=== PATIENT | male | born 1935 | race Caucasian/White ===

== ENCOUNTER → 2017-11-15 10:25 | Outpatient (CLI) | payer MEDICARE, SELFPAY | PROVIDERS: Visit Provider Nurse Practitioner Adult Health | DX: R31.0 Gross hematuria (principal) | CPT/HCPCS: 87086; 87088; 87186 ==

== ENCOUNTER 2017-11-18 10:11 | Emergency (ER) | payer MEDICARE, SELFPAY ==
[2017-11-18 10:12] VITALS: BP 93/61; PULSE 93; RESP 18; TEMP 36.6; O2SAT 97; BMI 24.4
[2017-11-18] MEDS: 0.9% Normal Saline 1,000 ML 150 ML IV ×2 (10:52→18:08)
[2017-11-18] MEDS: Ceftriaxone 1 GM/50 ML BAG IV (10:52)
[2017-11-18 11:00] LABS: Absolute Lymphocyte Count 1.44 X10^3/ul (0.83-4.51); Absolute Neutrophil Count 9.2 X10^3/uL (2.0-7.7); Basophil# 0.03 X10^3/uL; Basophil% 0.2 % (0-1); Eosinophil# 0.15 X10^3/uL; Eosinophils% 1.2 % (0-5); Hematocrit 38.5 % (40-54); Hemoglobin 12.8 g/dl (13.0-16.5); Lymphocyte # 1.44 X10^3/ul (4.0); Lymphocyte % 11.8 % (19-41); Mean Corp Hgb Conc 33.2 g/gl (32-36); Mean Corpuscular Hgb 29.3 pg (27.0-32.0); Mean Corpuscular Volume 88.1 fL (80-94); Mean Platelet Vol. 10.3 fl (6.2-12.0); Monocyte# 1.41 X10^3/uL; Monocyte% 11.5 % (0-10); Neutrophil # 9.16 X10^3/uL (2.7-7.7); Neutrophil % 74.8 % (47-70); Platelet Count 388 K/mm3 (150-450); RBC Distribution Width SD 55.4 fl (35.1-43.9); Red Blood Count 4.37 M/mm3 (4.6-6.2); White Blood Count 12.3 K/mm3 (4.4-11.0)
[2017-11-18 11:03] LABS: POSITIVE COUNT NO; POSITIVE DIFFERENTIAL NO; POSITIVE MORPHOLOGY NO
[2017-11-18 11:05] LABS: Prothrombin Time (Protime)PT. 12.7 SECONDS (11.7-14.9)
[2017-11-18 11:13] LABS: AST(SGOT) 100 U/L (15-37); Alanine Aminotransfer ALT/SGPT 178 U/L (16-61); Albumin, Serum 2.8 g/dL (3.2-5.0); Alkaline Phosphatase 659 U/L (45-117); Anion Gap 6 (5-15); BUN 40 mg/dL (7-18); BUN/Creat Ratio 26.7 RATIO (10-20); Bilirubin, Direct 7.57 mg/dL (0.00-0.30); Calcium,Total 8.9 mg/dL (8.5-10.1); Chloride 110 mmol/L (98-107); EST Glomerular Filtration Rate 48 mL/min (>60); Est Glom Filt Rate - Afr Amer 58 mL/min (>60); Estimated Creatinine Clearance 43.11 ml/min; Globulin 3.9 g/dL (2.2-4.2); Glucose 146 mg/dL (74-106); Lipase 94 U/L (73-393); Potassium 3.9 mmol/L (3.5-5.1); Protein, Total 6.7 g/dL (6.4-8.2); Sodium Level 140 mmol/L (136-145)
--- NOTE | 2017-11-18 11:18 | US_ITS ---
STUDY: ABDOMINAL ULTRASOUND - RIGHT UPPER QUADRANT REASON FOR VISIT: Male, 82 years old. Abnormal laboratory findings TECHNIQUE: Ultrasound evaluation of the right upper quadrant was performed with real-time and static maxwell-scale imaging. TECHNICAL QUALITY: Limited. Examination limited by bowel gas. COMPARISON: CT 04/18/2014 FINDINGS: Liver: The liver measures 15.1 cm. There is increased echogenicity consistent with fatty infiltration. The bile ducts are within normal limits. There is hepatic color flow. The direction of portal flow is hepatopetal. There is a septated cyst within the left lobe of the liver measuring 2.7 cm. Gallbladder: Normal distended gallbladder. The gallbladder wall measures 3.5 mm. There is no pericholecystic fluid. There is gallbladder sludge and a solitary gallstone measuring 1.2 cm. Common Bile Duct (C.B.D.): The common bile duct measures 5.7 mm. Pancreas: The pancreas is unremarkable. Right Kidney: Normal size of the right kidney. The right kidney measures 11 x 5.8 x 5.8 cm. Normal renal cortex. The right cortex measures 1.9 cm. There is a 2.5 cm cyst along the superior pole of the right kidney. There is no right hydronephrosis. US/Gallbladder IMPRESSION: Cholelithiasis with gallbladder sludge. The gallbladder wall is slightly thickened. Hepatic steatosis with a lobular hepatic cyst. Electronically Signed: Kalyan Perez DO at 12:44 EDT Tel , Service support ,
--- NOTE | 2017-11-18 13:00 | CT_ITS ---
STUDY: CT ABDOMEN AND PELVIS WITH CONTRAST REASON FOR EXAM: Male, 82 years old. Painless jaundice RADIATION DOSAGE (If Supplied By Facility): CTDIvol = ( 14.32 ) mGy, DLP = ( 913.40 ) mGycm TECHNIQUE: Transaxial images were obtained from the dome of the diaphragm to the symphysis pubis with oral contrast. 100 ml of Isovue 300 contrast was administered. Sagittal and coronal images were reconstructed. Individualized dose optimization techniques were used for this CT. COMPARISON: Ultrasound 11/18/2017, CT 04/18/2014 FINDINGS: The visualized lung bases are unremarkable. The visualized portions of the heart are within normal limits. There is a lobular cyst within the left lobe of the liver. There is moderate intrahepatic biliary ductal dilation. The common duct is prominent. 2 small stones are seen within the common duct. There are gallstones present. There are multiple benign calcified granulomata of the spleen. There is diffuse atrophy of the pancreas. Normal bilateral adrenal glands. There is a 1.8 cm cyst within the right kidney. Normal left kidney. Normal visualized stomach. Normal small intestine. There are multiple colonic diverticula consistent with diverticulosis. The appendix is visualized and appears normal. There is diffuse atherosclerotic calcification of the abdominal aorta, without a demonstrated aneurysm. Normal inferior vena cava. Normal retroperitoneum. Normal urinary bladder. The prostate gland is enlarged and heterogeneous. Normal abdominal wall. There are diffuse degenerative changes of the visualized lumbar spine. CT/Abdomen/Pelvis WITH Contrast IMPRESSION: Intrahepatic biliary ductal dilation. Cholelithiasis and choledocholithiasis. Pancreatic atrophy. Diverticulosis, without acute diverticulitis. Additional findings, as detailed above. Electronically Signed: Kalyan Perez DO at 15:43 EDT Tel , Service support ,
[2017-11-18] MEDS: 0.9% Normal Saline 1,000 ML 1000 ML IV (13:44)
--- NOTE | 2017-11-18 14:24 | CM.ED ---
CM notified that patient is likely to need to transfer. Patient has [employer] Medicare PPO plan. In-Network Facilities include: - [facility] - [facility] - [facility] - [facility] - [facility] - [facility] - [facility] - [facility] Call placed to patient's , Radha. Radha states she is not comfortable driving outside of [facility]. She states the patient hasn't spoken to his sons in years and his daughter is local but doesn't drive in the big cities. Radha refuses all facilities listed above. I informed her we will let her know any further information and she states she may not answer because, [place] and need to feed my chickens. I asked whom we should call if unable to reach her. She provided patient's daughter's phone number. Megha Thomas Jairon : [phone]. Of note, [facility] is an In-Network facility for this patient as well. I did not discuss this option with the patient's , as I am unsure if this facility provides needed level of care.
[2017-11-18 16:13] VITALS: BP 119/73; PULSE 71; RESP 18; O2SAT 100
--- NOTE | 2017-11-18 17:03 | ED.VISSUMM ---
- ER Visit Summary Date of Service: 11/18/17 Chief Complaint: Jaundice History of Present Illness: The patient is a [address] Mari and does not have a primary care physician. He is a poor informant. He went to an appointment with Dr. Mari today and was sent here for evaluation of jaundice. Patient reports this point started approximately 2 weeks ago. He denies any abdominal pain. No nausea, vomiting, or diarrhea. No fever or chills. Does report that he has had hematuria for approximately 3 weeks and complains of generalized weakness. Physical Examination: Vitals: Stable. Afebrile. General: Well-nourished and well-developed. Head: Normocephalic atraumatic. Neck: Supple, no lymphadenopathy. No JVD. Nontender. Cardiovascular: Regular rate and rhythm. No murmurs. Respiratory: No respiratory distress. Clear to auscultation bilaterally. Abdominal: Soft, nontender, nondistended, normal bowel sounds. No guarding, rebound, or peritoneal signs. Back: Nontender. Extremities: Nontender, no edema. Skin: Jaundice, no rash. Neurologic: Alert and oriented ?3. Cranial nerves II through XII are intact. Normal strength and sensation. Psych: Normal affect. Test Results: CBC is marked for a white count of 12.3, H&H of 12.8 and 38.5, segmented neutrophils 75, lymphocytes of 12, monocytes 12. Chem-7 is more for chloride 110, glucose 146, BUN 40, creatinine 1.5. LFTs marked for an albumin of 2.8, total bili of 9.2, direct bili of 7.57, alk phos of 659, ALT of 100, ALT 178. lipase is normal. INR is 1.0. Clinical Impression(s) from Imaging Studies Gallbladder Ultrasound 11/18/17 11:18 IMPRESSION: Cholelithiasis with gallbladder sludge. The gallbladder wall is slightly thickened. Hepatic steatosis with a lobular hepatic cyst. Abdomen/Pelvis CT 11/18/17 13:00 IMPRESSION: Intrahepatic biliary ductal dilation. Cholelithiasis and choledocholithiasis. Pancreatic atrophy. Diverticulosis, without acute diverticulitis. Emergency Department Course and Treatment: Patient presented to the emergency department with a urine culture that shows greater than 100,000 colony-forming units of E. coli that is pansensitive. He was given Rocephin IV initially for this. When the CT returned he was given a dose of Flagyl IV. He is remained pain-free. Treatment Plan: The patient was discussed with Dr. Leavitt who asked that he be transferred to a tertiary care center due to the need for an ERCP. Family has chosen [facility]. He was discussed with the hospitalist there who is accepted him in transfer. Disposition: Transferred in serious condition. Impression: 1. Choledocholithiasis. 2. UTI. 3. Jaundice. This note was generated with [employer] dictation software. It may contain incorrect words, spelling, and punctuation that were not noted in review of the chart prior to signing ED Disposition - Plan for ED Patient: Chief Complaint: General Illness Referrals: Care Physician,No Primary [Primary Care Provider] -
[2017-11-18 18:09] VITALS: BP 122/79; PULSE 70; RESP 20; O2SAT 100
[2017-11-18 18:56] VITALS: BP 125/81; PULSE 95; RESP 20; O2SAT 100
== END 2017-11-18 20:05 | disposition short-term general hospital (02) ==
PROVIDERS: Emergency Provider Emergency Medicine
DX: K80.50 Calculus of bile duct without cholangitis or cholecystitis without obstruction (principal); N39.0 Urinary tract infection, site not specified; B96.20 Unspecified Escherichia coli [E. coli] as the cause of diseases classified elsewhere; R17 Unspecified jaundice; R31.9 Hematuria, unspecified; K86.89 Other specified diseases of pancreas; K57.90 Diverticulosis of intestine, part unspecified, without perforation or abscess without bleeding; F31.9 Bipolar disorder, unspecified; Z79.899 Other long term (current) drug therapy; Z85.72 Personal history of non-Hodgkin lymphomas
CPT/HCPCS: 74177; 76705; 80048; 80076; 83690; 85025; 85610; 99283; J7030; Q9967

== ENCOUNTER → 2017-12-23 15:36 | Outpatient (CLI) | payer MEDICARE, SELFPAY | PROVIDERS: Visit Provider Urology | DX: R31.9 Hematuria, unspecified (principal) | CPT/HCPCS: 87077; 87086; 87088; 87186 ==

== ENCOUNTER 2020-05-18 11:33 | Inpatient (IN) | payer MEDICARE, OTHER, SELFPAY ==
[2020-05-18] VITALS (11 sets, daily range): BP systolic 122–145; BP diastolic 79–100; PULSE 85–130; RESP 16–24; TEMP 36.3–37.8; O2SAT 92–96; BMI 22.4; BMI 21.8
--- NOTE | 2020-05-18 | ABS_PTH ---
PATIENT: TALIA BAIG LOC: [facility] U#:[id number] AGE/SX: 84/M ROOM: [facility] RE05/18/[address]: Dr. Luis Fernando Keene MD : [id number] BED: 1 DIS: 05/23/2020 SPEC #: [id number] RECD: 05/19/20 07:37 STATUS: ADILENE REQ #: [id number] ADAMS: 05/18/20 00:[address]: Sudhakar Lucero DEPT: SURGICAL PATHOLOGY RECD BY: Rory aBin ENTERED: 05/19/20 09:17 SP TYPE: Abscess OTHR DR: Dr. Carlos Donahue MD No Primary Care Phys Tissues: Hand, NOS Procedures: Special Stain Group I Surgery Specimen Level III AFB Stain (control) GMS Stain (control) Comments: @ Ordering doctor for SUIII edited from to @ by ADRIÁN at 05/19/20 1011 @ Submitting doctor edited from to @ by ADRIÁN at 05/19/20 1011 HEADER OPERATION: Surgical preparation dorsum left hand, ulnar aspect PRE-OP DIAGNOSIS: Infected cat bite; abscess left hand TISSUE SUBMITTED: Left hand/wrist cat bite abscesses MICROSCOPIC DIAGNOSIS Left hand/wrist soft tissue: Pieces of skin with underlying tissue with focal ulceration, acute inflammation and abscess formation. Special stains for acid fast bacilli and fungi are negative for organisms; matched controls are appropriate. ALYSON:chung 05/20/20 MICROSCOPIC DESCRIPTION Slides are reviewed. GROSS DESCRIPTION Received in fixative is one container labeled with the patient's name and designated left hand soft tissue. The specimen consists of an ovoid fragment of monge tissue measuring 4 x 2.5 x 0.5 cm. The specimen contains two ulcerations each measuring 5 mm and from each other by a distance of 1.1 mm. Serial sections do not reveal mass lesions. Also present in the specimen contains are multiple irregular fragments of monge-white soft tissue measuring in aggregate 3 x 3 x 0.2 cm. Web Applications Administrator sections are submitted in one cassette. / AM:chung 05/19/20 TC:2 CPT: 60544, 09846 x2
--- NOTE | 2020-05-18 11:57 | EKG12_ITS ---
Test Reason : PRE-OP Blood Pressure : / mmHG Vent. Rate : 102 BPM Atrial Rate : 102 BPM P-R Int : 200 ms QRS Dur : 088 ms QT Int : 336 ms P-R-T Axes : 042 038 034 degrees QTc Int : 437 ms Sinus tachycardia Otherwise normal ECG Confirmed by MONY GIRON, ADOLPH ([id number]), legal editor FARHAT POLANCO ([id number]) on 05/25/2020 10:25:26 AM Referred By: SHELLY Confirmed By:APRYL SYKES MD
--- NOTE | 2020-05-18 11:59 | RAD_ITS ---
STUDY: X-RAY - LEFT HAND REASON FOR EXAM: Male, 84 years old. Cat bite, infected TECHNIQUE: 4 view(s) of the hand. COMPARISON: None. FINDINGS: Normal radiocarpal articulation. Normal distal radioulnar joint. Normal visualized carpal bones. Normal carpal articulations Normal carpometacarpal articulation of the thumb. Normal second through fifth carpometacarpal joints. Normal metacarpi. Normal metacarpophalangeal joint of the thumb. Normal interphalangeal joint of the thumb. Normal proximal and distal phalanges of the thumb. Normal metacarpophalangeal joints of the second through fifth fingers. Normal proximal and distal interphalangeal joints of the second through fifth fingers. Normal phalanges of the second through fifth fingers. Dorsal soft tissue swelling. Small amount of air/gas is seen within the soft tissue. RAD/Hand Min 3 Views IMPRESSION: Dorsal soft tissue swelling with small amount of air/gas within the soft tissues. No radiopaque foreign body is seen. Electronically Signed: Ivan Cintron, at 12:51 EST , Service support ,
--- NOTE | 2020-05-18 12:00 | ED.DCSUM_ITS ---
History of Present Illness Chief Complaint: Bite Informant: Patient Onset: Days Context: Sudden Onset Timing: Continuous Quality: Redness, swelling and drainage Location: Left hand Current Severity: Moderate Maximum Severity: Severe Worsened by: Did not seek medical attention Relieved by: Nothing Associated Symptoms: Swelling, redness, drainage, pain Narrative: Patient is an elderly male with history of benign prostatic hypertrophy who presents because of swelling, redness and pain left hand. He was bit by his cat last week. He has not been immunized. He denies antibiotic allergies. He denies fever, chills night sweats. Denies history medic fever, heart murmur, mitral valve prolapse, or being immune suppressed. Patient states he last had something to eat and drink at 0900. - Past Medical History (1) History of benign prostatic hyperplasia Status: Acute (2) Bipolar disorder Status: Chronic (3) Lymphoma Status: Chronic Past Medical History - Allergies and Home Meds Allergies/Adverse Reactions: Allergies No Known Allergies Allergy (Verified 05/18/20 11:36) Primary Care Physician: Care Physician,No Primary [Primary Care Provider] - Prior records reviewed: Yes Surgical History: noncontributory, - Lives: Spouse/ Significant Other Smoking Status: Former smoker Alcohol: None Drugs: None - Family History Maternal Family History: Reports: - - cardiomyopathy Paternal Family History: Reports: No pertinent history Sibling Family History: Reports: - - schizophrenia in sister Review of Systems General: Reports: Fever, Malaise, Subjective. Denies: Chills, Sweats Eyes: Denies: Visual changes - bilaterally, Blurred Vision - bilaterally ENT: Denies: Rhinorrhea, Sore throat Cardiovascular: Denies: Chest pain, Palpitations Respiratory: Denies: Dyspnea, Cough, Sputum, Dyspnea on exertion Gastrointestinal: Denies: Abdominal pain, Nausea, Vomiting Genitourinary: Denies: Dysuria, Hematuria, Frequency Musculoskeletal: Reports: Swelling, Extremity Pain. Denies: Myalgias, Arthralgias, Neck pain, Back pain Skin: Reports: Rash, Abscess, Wounds. Denies: Abrasions Neurological: Denies: Headache, Weakness Endocrine: Denies: Polyuria, Polydipsia Hematologic: Denies: Easy bruising Allergy: Denies: Uticaria Physical Exam Vital Signs/Narrative: Vital Signs Temp Pulse Resp BP Pulse Ox 05/18/20 11:34 97.4 F L 130 H 20 H 144/100 H 96 Inital Vital Signs reviewed: Yes General: Well nourished, Well developed, No Acute Distress Head: Normocephalic, Atraumatic Eyes: Perrl, EOMI. Negative for: Pale conjunctiva, Scleral icterus ENT: No rhinorrhea, TM's clear Neck: Supple, Nontender, No lymphadenopathy Cardiovascular: Regular rhythm, No murmurs, Normal S1, Normal S2, Tachycardia Respiratory: No distress, CTA bilaterally, Chest nontender Abdomen: Soft, Nontender, Nondistended, Normal bowel sounds Back: Nontender Extremities: Edema, - - Patient has significant swelling of the left hand with wound noted dorsal ulnar side with purulent drainage. There is significant swelling of his digits. Patient was informed that his ring would need to be removed. He has erythema volar surface left forearm to the mid arm.. Negative for: Nontender, No edema, Tenderness - There is no pain with passive flexion or extension of the index, long, ring or little finger. There is pain to palpation over the dorsum of the hand. There is no crepitus. Skin: Normal color, Rash, Trauma. Negative for: Cyanosis, Diaphoresis, Jaundice Neurological: Alert, Oriented x3, Cranial nerves II-XII grossly intact, Normal Strength, Normal Sensation Psychological: Normal affect Diagnostic/Tx/Re-eval Chest X-Ray - ED: Read by ED Physician, - - 5 view x-ray of the hand reveals subcu air along the third metacarpal bone. In light of this patient will receive vancomycin and clindamycin in addition to the ampicillin. Impressions Hand X-Ray 05/18/20 11:59 IMPRESSION: Dorsal soft tissue swelling with small amount of air/gas within the soft tissues. No radiopaque foreign body is seen. Electronically Signed: Ivan Cintron, at 12:51 EST , Service support , 05/18/20 11:59 Hand Min 3 Views [RAD] Stat Laboratory Results 05/18/20 05/18/20 12:10 12:10 WBC 14.9 H RBC 4.86 Hgb 14.7 Hct 44.0 MCV 90.5 MCH 30.2 MCHC 33.4 RDW Std Deviation 42.0 RDW Coeff of Nahed 12.7 Plt Count 229 MPV 10.7 Immature Gran % (Auto) 0.500 Neut % (Auto) 81.7 H Lymph % (Auto) 7.7 L [place] % (Auto) 9.8 Eos % (Auto) 0.1 Baso % (Auto) 0.2 Absolute Neuts (auto) 12.1 H Absolute Lymphs (auto) 1.14 Nucleated RBC % 0 Sodium 146 H Potassium 3.9 Chloride 112 H Carbon Dioxide 28.0 Anion Gap 6 BUN 48 H Creatinine 1.44 H Estim Creat Clear Calc 41.87 Est GFR (MDRD) Af Amer 60 Est GFR (MDRD) Non-Af 50 L BUN/Creatinine Ratio 33.3 H Glucose 191 H Calcium 9.2 Lactate is not greater than 2 he has sepsis not severe sepsis. - Medical Decision Making Patient received tetanus and Hyper-Tet since he is never been immunized. He received 3.0 g of Unasyn since he has no penicillin allergy. He was made n.p.o. Appropriate labs were obtained. Patient meets criteria for sepsis. Will obtain blood cultures. Dr. Sudhakar Lucero was paged. X-ray was obtained to rule out tooth fragment or injury to the metacarpal bones. Since her subcu air need to rule out gas producing organisms and and need to consider necrotizing fasciitis/group strep a organism. For this reason he received clindamycin. does have POA. She reports he has altered mental status. She will sign consent. - Critical Care Time Critical care time (excluding procedures): 30-74 minutes - Total 3 3 minutes, Discussing w/Patient &/or Family/Development Vice President - Since patient has altered mental status was paged. She arrived in the emergency part. She is aware that her needs to go to the OR. She is the POA. This was conveyed to Dr. Lucero., Discussing w/Consultants, Arranging Admission or Transfer ED Disposition - Plan for ED Patient: Disposition: [facility] Diagnosis: Cat bite of left hand, Cellulitis and abscess of hand, Elevated serum creatinine, Hypernatremia, Hyperglycemia, Abscess Referrals: Care Physician,No Primary [Primary Care Provider] -
[2020-05-18 12:41] LABS: Absolute Lymphocyte Count 1.14 X10^3/uL (0.83-4.51); Absolute Neutrophil Count 12.1 X10^3/uL (2.0-7.7); Basophil# 0.03 X10^3/uL; Basophil% 0.2 % (0-1); Eosinophil# 0.02 X10^3/uL; Eosinophils% 0.1 % (0-5); Hemoglobin 14.7 g/dL (13.0-16.5); Lymphocyte # 1.14 X10^3/ul (4.0); Lymphocyte % 7.7 % (19-41); Mean Corp Hgb Conc 33.4 g/dL (32-36); Mean Corpuscular Hgb 30.2 pg (27.0-32.0); Mean Corpuscular Volume 90.5 fL (80-94); Mean Platelet Vol. 10.7 fl (6.2-12.0); Monocyte# 1.45 X10^3/uL; Monocyte% 9.8 % (0-10); NRBC Flagged by Analyzer 0 % (0-5); Neutrophil # 12.13 X10^3/uL (2.7-7.7); Neutrophil % 81.7 % (47-70); Platelet Count 229 K/mm3 (150-450); RBC Distribution Width CV 12.7 % (11.6-14.6); Red Blood Count 4.86 M/mm3 (4.6-6.2); White Blood Count 14.9 K/mm3 (4.4-11.0)
[2020-05-18 12:47] LABS: Anion Gap 6 (5-15); BUN 48 mg/dL (7-18); BUN/Creat Ratio 33.3 RATIO (10-20); Calcium,Total 9.2 mg/dL (8.5-10.1); Chloride 112 mmol/L (98-107); Creatinine, Serum 1.44 mg/dL (0.70-1.30); EST Glomerular Filtration Rate 50 mL/min (>60); Est Glom Filt Rate - Afr Amer 60 mL/min (>60); Estimated Creatinine Clearance 41.87 ml/min; Glucose 191 mg/dL (74-106); Potassium 3.9 mmol/L (3.5-5.1); Sodium Level 146 mmol/L (136-145)
[2020-05-18] MEDS: Diphth,Pertuss(Acell),Tet Vac 0.5 ML Vial IM (12:48)
--- NOTE | 2020-05-18 12:48 | HP.PCM_ITS ---
Problem List (1) History of benign prostatic hyperplasia Status: Chronic (2) Cat bite of left hand Status: Acute (3) Cellulitis and abscess of hand Status: Acute (4) Hypernatremia Status: Acute (5) Abscess Status: Acute (6) Generalized weakness Status: Chronic (7) Physical debility Status: Chronic (8) Marrowbone toxicity Status: Chronic (9) Lymphoma Status: Chronic (10) Bipolar disorder Status: Chronic (11) ELVIN (acute kidney injury) Status: Acute History of Present Illness Date of Admission: 05/18/20 Chief Complaint: Cat bite left hand a week ago The patient is a 84 year old M with possible history of dementia came to ED for left hand cat bite, swelling and draining purulent material. He had a cat bite about a week ago. That cat is not his pet or in the neighborhood. Swelling of the left hand, edema, pain and purulent drainage from left metatarsal space. Patient not able to make fist. In ED triage vitals 97.4, heart rate 130/min, blood pressure 144/100 and respiratory rate 20 per note. EKG sinus tach at 102 bpm. History is limited as patient has mild cognitive deficit/early dementia or bipolar disorder. was in the ER but she left. I also called phone #[phone] the patient's chart about 3 times but phone is not going through probably wrong number Past Medical History Past Medical History (Chronic Problems): Chronic Problems History of benign prostatic hyperplasia (Chronic) Generalized weakness (Chronic) Physical debility (Chronic) Marrowbone toxicity (Chronic) Lymphoma (Chronic) Bipolar disorder (Chronic) Allergies No Known Allergies Allergy (Verified 05/18/20 11:36) Home Medications: Ambulatory Orders Medication Instructions Recorded Olanzapine [Zyprexa] 7.5 mg PO QHS 04/18/14 Oxybutynin Chloride [Oxybutynin 15 mg PO QHS 05/18/20 Chloride ER] Surgical History: noncontributory, - Psychiatric History: Bipolar Lives: Spouse/ Significant Other Smoking Status: Never smoker Alcohol: None Drugs: None - *Family History Maternal History Items: - - cardiomyopathy Paternal History Items: No pertinent history Sibling History Items: - - schizophrenia in sister Review of Systems Unable to obtain accurate/complete ROS d/t: Patient has dementia and bipolar disorder VTE Information - Inpt Only VTE Present on Admission: No VTE Mechan Device Prophylaxis: None VTE Pharm Prophylaxis ordered?: Yes Patient Problems: Active and Suspected Problems Cat bite of left hand (Acute) Cellulitis and abscess of hand (Acute) Hypernatremia (Acute) Hyperglycemia (Acute) Abscess (Acute) Objective: Physical exam General: Alert, awake, Oriented x3, Cooperative HEENT: Atraumatic, PERRLA, EOMI, Normocephalic Oral: No Gingival or Mucosal Lesions/ Ulcerations Neck: Supple, No JVD, Negative Carotid Bruits Lungs: Air entry diminished in bilateral lung bases. No crepitation/rhonchi Cardiovascular: Regular rate, Regular Rhythm, Normal S1, Normal S2, No murmurs Abdomen: Bowel Sounds Present, Soft, Non Tender, Non-Distended : No renal angle tenderness. No suprapubic tenderness. Extremities: Left hand is edematous, tender, indurated. Purulent drainage from from the left fourth metatarsal space. Radial and ulnar artery palpable. Capillary Refill Less than 3 Seconds Skin: Erythema, induration and swelling in the left hand as described above Musculoskeletal: No Tenderness to Palpation of Joints or Extremities Neurological: Cranial nerves II-XII grossly intact, Deep Tendon Reflexes 2+/4 and Symmetrical, Neuro grossly intact Psych/Mental Status: Mild cognitive deficit/early dementia - Physical Exam Vitals/I&O's: Vital Signs Temp Pulse Resp BP Pulse Ox 97.4 F L 130 H 20 H 144/100 H 96 05/18/20 11:34 05/18/20 11:34 05/18/20 11:34 05/18/20 11:34 05/18/20 11:34 Oxygen Delivery Method Room Air Weight: 165 lb Body Mass Index (BMI) 22.4 Laboratory Results 05/18/20 12:10: WBC 14.9 H, RBC 4.86, Hgb 14.7, Hct 44.0, MCV 90.5, MCH 30.2, MCHC 33.4, RDW Std Deviation 42.0, RDW Coeff of Nahed 12.7, Plt Count 229, MPV 10.7, Immature Gran % (Auto) 0.500, Neut % (Auto) 81.7 H, Lymph % (Auto) 7.7 L, [place] % (Auto) 9.8, Eos % (Auto) 0.1, Baso % (Auto) 0.2, Absolute Neuts (auto) 12.1 H, Absolute Lymphs (auto) 1.14, Nucleated RBC % 0 05/18/20 12:10: Sodium 146 H, Potassium 3.9, Chloride 112 H, Carbon Dioxide 28.0, Anion Gap 6, BUN 48 H, Creatinine 1.44 H, Estim Creat Clear Calc 41.87, Est GFR (MDRD) Af Amer 60, Est GFR (MDRD) Non-Af 50 L, BUN/Creatinine Ratio 33.3 H, Glucose 191 H, Calcium 9.2 05/18/20 12:10: Lactic Acid Pending Current Medications Sodium Chloride () 1,000 mls @ 150 mls/hr IV .[id number] MARY Clindamycin Phosphate 900 mg/ (Dextrose) 106 mls @ 150 mls/hr IV X1 ONE Stop: 05/18/20 13:08 Vancomycin HCl 1,750 mg/ (Sodium Chloride) 535 mls @ 250 mls/hr IV X1 ONE Stop: 05/18/20 15:08 Assessment/Plan All Active Problems Cat bite of left hand (Acute) Cellulitis and abscess of hand (Acute) Hypernatremia (Acute) Hyperglycemia (Acute) Abscess (Acute) ELVIN (acute kidney injury) (Acute) This 84-year-old woman with history of cognitive deficit and bipolar disorder came to ED for left hand swelling after 1 week of cat bite. 1. Left hand cellulitis and abscess with purulent drainage from cat bite: Patient is being admitted to MedSurg floor. Dr. Lucero has been consulted from ER physician Dr. Mensah. Started on the broad-spectrum antibiotic vancomycin and Unasyn. Patient also got 1 dose of clindamycin 900 mg in ED. patient needs operative debridement. 2. Possible acute kidney injury or CKD stage III: Patient BUN/creatinine is 48/1.44. His previous creatinine in November 2017 was 1.5. No labs in between this. Monitor kidney function, urine output and electrolytes. Patient has history of BPH. If kidney junction does not improve, will need renal and bladder ultrasound. IV fluid normal saline at 100 mL/h. 3. Hyperglycemia with no diagnosis of diabetes mellitus: Glucoses 191. A1c tomorrow a.m. Accu-Chek insulin coverage Humalog sliding scale. VT prophylaxis: Heparin 5000 units subcutaneous twice daily. Hold the morning dose prior to surgery. Inpatient E&M: 42137 Init Hosp L3
--- NOTE | 2020-05-18 13:13 | NURSING ---
PCU AFTER SURGERY MARY LOU SEPSIS, CELLULITIS LEFT HAND AND ABSCESS
[2020-05-18] MEDS: 0.9% Normal Saline 1,000 ML 150 ML IV ×2 (13:16→14:56)
--- NOTE | 2020-05-18 14:31 | PCM.CONS.GEN ---
Reason for Consult Date of Consultation: 05/18/20 Reason for Consultation: Cat bite infection abscess dorsum left hand, ulnar aspect, with extension to small finger and wrist with extensor tenosynovitis. REFERRING PHYSICIAN: Dr. Donahue. CERTIFIED JUVENILE PROBATION OFFICER: Dr. Lucero. History of Present Illness: The patient is a 84 year old M who was admitted today with a worsening cat bite infection abscess dorsum left hand, ulnar aspect, with extension to the small finger and wrist. He states he was bitten 8 days ago, and it was an outdoor feral cat. He noticed increasing redness and pain and swelling left hand which prompted his visit to the ED. His WBC was 14.9 and his Lactate was 2.0. Clinically he was septic and was started on Vancomycin, Clindamycin, and Unasyn. There was purulent drainage coming from the cat bite on the dorsum of his left hand. He has pain with movement of his small finger and his wrist. X-ray was done which showed dorsal soft tissue swelling with small amount of air/gas within the soft tissues. No radiopaque foreign body is seen. I was asked to evaluate this patient for surgical options for treatment. 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) Lymphoma (Chronic) Bipolar disorder (Chronic) Allergies No Known Allergies Allergy (Verified 05/18/20 11:36) Home Medications: Ambulatory Orders Medication Instructions Recorded Olanzapine [Zyprexa] 7.5 mg PO QHS 04/18/14 Oxybutynin Chloride [Oxybutynin 15 mg PO QHS 05/18/20 Chloride ER] Surgical History: noncontributory, - Psychiatric History: Bipolar Lives: Spouse/ Significant Other Smoking Status: Never smoker Alcohol: None Drugs: None - *Family History Maternal History Items: - - cardiomyopathy Paternal History Items: No pertinent history Sibling History Items: - - schizophrenia in sister Review of Systems Comment: General: Reports: Fever, Malaise, Subjective. Denies: Chills, Sweats. Eyes: Denies: Visual changes - bilaterally, Blurred Vision - bilaterally. ENT: Denies: Rhinorrhea, Sore throat. Cardiovascular: Denies: Chest pain, Palpitations. Respiratory: Denies: Dyspnea, Cough, Sputum, Dyspnea on exertion. Gastrointestinal: Denies: Abdominal pain, Nausea, Vomiting. Genitourinary: Denies: Dysuria, Hematuria, Frequency. Musculoskeletal: Reports: Swelling, Extremity Pain. Denies: Myalgias, Arthralgias, Neck pain, Back pain. Skin: Reports: Rash, Abscess, Wounds. Denies: Abrasions. Neurological: Denies: Headache, Weakness. Endocrine: Denies: Polyuria, Polydipsia. Hematologic: Denies: Easy bruising. Allergy: Denies: Uticaria Patient Problems: Active and Suspected Problems Cat bite of left hand (Acute) Cellulitis and abscess of hand (Acute) Hypernatremia (Acute) Hyperglycemia (Acute) Abscess (Acute) ELVIN (acute kidney injury) (Acute) Elevated serum creatinine (Acute) - Physical Exam Vitals/I&O's: General: Alert, awake, Oriented x3. HEENT: PERRLA, EOMI. Oral: No Gingival or Mucosal Lesions/ Ulcerations. Neck: Supple, Nontender. No cervical adenopathy. Lungs: Diminished in bilateral lung bases. Cardiovascular: Regular rate, Regular Rhythm. Abdomen: Soft, Non-Distended. Extremities: Left hand is edematous, tender, indurated. On the dorsum left hand, ulnar aspect, is a cat bite wound with purulent drainage and fluctuance. There is tenderness over the MP joint left small finger. Some tenderness with flexion and extension of small finger. Other fingers are nontender. There is also tenderness with wrist range of motion. No crepitus. Radial and ulnar artery palpable. Fingers are warm with good capillary refill. Could not appreciate any axillary adenopathy. Neurological: Cranial nerves II-XII grossly intact. Psych/Mental Status: Mild cognitive deficit/early dementia. Vital Signs Temp Pulse Resp BP Pulse Ox 98.1 F 95 16 126/85 H 96 05/18/20 13:23 05/18/20 13:57 05/18/20 13:57 05/18/20 13:57 05/18/20 13:57 Oxygen Delivery Method Room Air Weight: 165 lb Body Mass Index (BMI) 22.4 Intake and Output for Last 24 Hours 05/16/20 05/17/20 05/18/20 23:59 23:59 23:59 Intake Total 106 / 106 Balance 106 / 106 Microbiology Past 72 Hours 05/18/20 12:47 Mucosa - Nose SARS-CoV-2 Antigen (Rapid) - Final Laboratory Results 05/18/20 12:10: WBC 14.9 H, RBC 4.86, Hgb 14.7, Hct 44.0, MCV 90.5, MCH 30.2, MCHC 33.4, RDW Std Deviation 42.0, RDW Coeff of Nahed 12.7, Plt Count 229, MPV 10.7, Immature Gran % (Auto) 0.500, Neut % (Auto) 81.7 H, Lymph % (Auto) 7.7 L, [place] % (Auto) 9.8, Eos % (Auto) 0.1, Baso % (Auto) 0.2, Absolute Neuts (auto) 12.1 H, Absolute Lymphs (auto) 1.14, Nucleated RBC % 0 05/18/20 12:10: Sodium 146 H, Potassium 3.9, Chloride 112 H, Carbon Dioxide 28.0, Anion Gap 6, BUN 48 H, Creatinine 1.44 H, Estim Creat Clear Calc 41.87, Est GFR (MDRD) Af Amer 60, Est GFR (MDRD) Non-Af 50 L, BUN/Creatinine Ratio 33.3 H, Glucose 191 H, Calcium 9.2 05/18/20 12:10: Lactic Acid 2.0 Diagnostic Data Hand X-Ray 05/18/20 11:59 IMPRESSION: Dorsal soft tissue swelling with small amount of air/gas within the soft tissues. No radiopaque foreign body is seen. Electronically Signed: Ivan Saida, at 12:51 EST , Service support , Current Medications Sodium Chloride () 1,000 mls @ 150 mls/hr IV .[id number] MARY Last Admin: 05/18/20 13:16 Dose: 150 mls/hr Documented by: Vancomycin HCl 1,750 mg/ (Sodium Chloride) 535 mls @ 250 mls/hr IV X1 ONE Stop: 05/18/20 15:08 Assessment/Plan All Active Problems Abscess of skin of left wrist (Acute) Extensor tenosynovitis of left wrist (Acute) Sepsis (Acute) Abscess of left hand including fingers (Acute) Cat bite (Acute) Cat bite of left hand (Acute) Cellulitis and abscess of hand (Acute) Hypernatremia (Acute) Hyperglycemia (Acute) Abscess (Acute) ELVIN (acute kidney injury) (Acute) Elevated serum creatinine (Acute) 1. Cat bite infection abscess dorsum left hand, ulnar aspect, with extension to small finger and wrist. 2. Extensor tenosynovitis dorsum left hand at wrist. 3. Sepsis. X-ray was done which showed dorsal soft tissue swelling with small amount of air/gas within the soft tissues. No radiopaque foreign body is seen. WBC was 14.9. Lactate was 2.0. Clinically he appears septic. There is purulent drainage from the cat bite wounds and pain extending distally to the small finger and proximally to the wrist. He received Vancomycin and Unasyn and Clindamycin in the ED. Will continue the Vancomycin and the Unasyn. Due to the age of the wounds and severity of the resultant cat bite infection abscess, there is concern about a necrotizing process. Urgent operative intervention will be needed today. The patient and family were aware that delaying the surgery would increase the risk of worsening infection, amputation, and . Will leave the wounds open and begin postop wound care with Silver dressing changes. He will need aggressive OT for range of motion exercises, strengthening, and edema management. He is at risk for developing residual stiffness in his hand and wrist secondary to the infection. Will send tissue to Pathology for analysis and to Microbiology for culture. A positive culture will necessitate antibiotic therapy. Anticipate increased metabolic demands from the infection. Will check a Prealbumin and encourage nutritional supplementation with protein to help the healing process. After discharge, can followup [facility]. If there is a plateau in the healing process, can proceed with delayed closure with skin grafting. Patient was informed of the risks and complications of the procedure including alternatives to surgery. Patient's is POA and will sign the consent. Some of the risks and complications that were discussed included but were not inclusive of failure to diagnose including symptom relief, pain, infection, numbness, stiffness, loss of digit, RSD (CRPS), need for further surgery, contracture, and wound healing problems. We discussed the current risks associated with COVID-19. While it is understood that there is a community spread of COVID-19, the risk of joana COVID-19 while at [facility] ([facility]) is very low; however, the risk cannot be completely mitigated because of the community spread of the disease. We discussed in detail the risk of exposure to and/or potential harm posed by the COVID-19 virus with having a surgery/procedure at this time versus the risk of delaying the surgery/procedure. It is not possible to know either the risk of delaying the surgery or procedure or chance of getting an infection with perfect accuracy, but a joint decision was made to proceed at this time with the scheduled surgery/procedure as indicated on the consent form. Patient was notified that we will need to comply with any screening or testing [facility] wishes to perform or that surgery may be delayed for any positive results. Discussed with the patient that I was tested for COVID-19 on 12/03/19 which was negative and on 12/17/19 which was negative and on 12/31/19 which was negative and on 01/14/20 which was negative and on 01/28/20 which was negative and on 02/18/20 which was negative and on 03/10/20 which was negative and on 04/14/20 which was negative and on 05/05/20 which was negative. My testing regimen at this time is to be COVID-19 tested every 2 weeks or so. Procedure Criteria Procedure Type: Elective - This is an urgent surgery that needs to be done today. COVID Risk Discussion: The surgeon/proceduralist and patient have discussed in detail the risk of exposure to and/or potential harm posed by the COVID-19 virus with having a surgery/procedure at this time versus the risk of delaying the surgery/procedure. It is not possible to know either the risk of delaying the surgery or procedure or chance of getting an infection with perfect accuracy, but a joint decision was made between the patient and the surgeon/proceduralist to proceed at this time with the scheduled surgery/procedure as indicated on the consent form. Inpatient E&M: 21371 Init Hosp L3 - -57 Modifier ICD-10 - W55.01xA, S61.452A, L02.512, L02.414, M65.832, A41.9
[2020-05-18 15:05] LABS: AST(SGOT) 65 U/L (15-37); Alanine Aminotransfer ALT/SGPT 65 U/L (16-61); Albumin, Serum 3.2 g/dL (3.2-5.0); Alkaline Phosphatase 111 U/L (45-117); Bilirubin, Direct 0.09 mg/dL (0.00-0.30); Globulin 3.9 g/dL (2.2-4.2); Protein, Total 7.1 g/dL (6.4-8.2)
--- NOTE | 2020-05-18 15:05 | ED.RN ---
Called , Radha at [phone]. Aware pt will have surgery tonight or fist thing toorrow. Aware he has had three antibiotics at this point.
[2020-05-18 16:31] LABS: Reflex Lactate? Y
--- NOTE | 2020-05-18 16:45 | PCM.RX.CS ---
Consult Pharmacy has been consulted to manage selected antiobiotic: Vancomycin Type of Consult: New start Suspected Infection: Skin/Soft tissue Prior Doses of Antibiotics Received/Current Regimen: 1 DOSE OF 1750MG 05/18/20 AT 1455 Labs: Sodium 146 mmol/L (136-145) H 05/18/20 12:10 Potassium 3.9 mmol/L (3.5-5.1) 05/18/20 12:10 Chloride 112 mmol/L (98-107) H 05/18/20 12:10 Carbon Dioxide 28.0 mmol/L (21.0-32.0) 05/18/20 12:10 Anion Gap 6 (5-15) 05/18/20 12:10 BUN 48 mg/dL (7-18) H 05/18/20 12:10 Creatinine 1.44 mg/dL (0.70-1.30) H 05/18/20 12:10 Est GFR (MDRD) Af Amer 60 mL/min (>60) 05/18/20 12:10 Est GFR (MDRD) Non-Af 50 mL/min (>60) L 05/18/20 12:10 BUN/Creatinine Ratio 33.3 RATIO (10-20) H 05/18/20 12:10 Glucose 191 mg/dL (74-106) H 05/18/20 12:10 VANCO TROUGH ORDERED PRIOR TO 3RD TOTAL DOSE = 1430 ON 05/20/20 Microbiology: Microbiology 05/18/20 12:47 Mucosa - Nose SARS-CoV-2 Antigen (Rapid) - Final Weight used for dosin kg Estimated Creatinine Clearance: 42 Goal Trough: 10-15 mcg/mL Pharmacy Plan for Drug Dosing: Pharmacy Service will continue to monitor and adjust dosing as required.
[2020-05-18] MEDS: 0.9% Normal Saline 1,000 ML 100 ML IV (18:25)
[2020-05-18 18:31] LABS: Lactic Acid 1.2 mmol/L (0.4-1.9)
--- NOTE | 2020-05-18 20:01 | NURSING ---
Emergency charting in effect.
[2020-05-18] MEDS: Lidocaine 2% /Epi 1:100 (50ml) 50 ML Vial (22:00)
--- NOTE | 2020-05-18 22:23 | PCM.OPRPT ---
Report of Operation Date of Procedure: 05/18/20 Pre-Operative Diagnosis: 1. Cat bite infection abscess dorsum left hand, ulnar aspect, with extension to small finger and wrist. 2. Extensor tenosynovitis dorsum left hand at wrist. 3. Sepsis. Post-Operative Diagnosis: 1. Cat bite infection abscess dorsum left hand, ulnar aspect, with extension to small finger and wrist. 2. Suppurative extensor tenosynovitis dorsum left hand at wrist extensors tendon sheath involving compartments 2, 3, 4, 5, and 6 (ECRL, ECRB, EPL, EIP, EDC, EDM, ECU tendons). 3. Sepsis. 4. 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 Surgery/Procedure Performed:: 1. Surgical preparation dorsum left hand, ulnar aspect, with extension to small finger and wrist with incision and drainage and excisional debridement cat bite infection abscess. 2. Fasciotomy dorsal interosseous muscles x4 left hand. 3. Radical extensor tenosynovectomy left wrist extensors tendon sheath for suppurative tenosynovitis involving compartment 2 (ECRL and ECRB tendons), compartment 3 (EPL tendon), compartment 4 (EDC and EIP tendons), compartment 5 (EDM tendon), and compartment 6 (ECU tendon). Description of Surgical Findings:: The patient is a 84 year old M who was admitted today with a worsening cat bite infection abscess dorsum left hand, ulnar aspect, with extension to the small finger and wrist. He states he was bitten 8 days ago, and it was an outdoor feral cat. He noticed increasing redness and pain and swelling left hand which prompted his visit to the ED. His WBC was 14.9 and his Lactate was 2.0. Clinically he was septic and was started on Vancomycin, Clindamycin, and Unasyn. There was purulent drainage coming from the cat bite on the dorsum of his left hand. He has pain with movement of his small finger and his wrist. X-ray was done which showed dorsal soft tissue swelling with small amount of air/gas within the soft tissues. No radiopaque foreign body is seen. I was asked to evaluate this patient for surgical options for treatment. Due to the age and severity of the resultant cat bite infection abscess, there was concern about a necrotizing process. Urgent operative intervention was needed today. Patient was informed of the risks and complications of the procedure including alternatives to surgery. These were discussed with the patient personally. Verbal consent was obtained from his who is the POA. Some of the risks and complications that were discussed included but were not inclusive of failure to diagnose including symptom relief, pain, infection, numbness, stiffness, loss of digit, RSD (CRPS), need for further surgery, contracture, and wound healing problems. Total tourniquet time - 48 minutes. Size of defect dorsum left hand, ulnar, - 10 x 3 cm. Size of defect dorsum left hand, radial - 10 x 2 cm. Size of defect dorsal base left thumb - 6 x 2 cm. stitch bonding machine operator: None Type of Anesthesia:: General Specimen's removed: 1. Cat bite infection abscess dorsum left hand with extension to small finger and wrist to Pathology and Microbiology. 2. MRSA Wound DNA by PCR. Drains: None. Estimated Blood Loss (mL): 20 ml. Description of Procedure: Patient was taken to OR in supine position and was placed under general anesthesia. The left upper extremity was prepped and draped in the usual fashion. SCD's were placed for DVT prophylaxis. Perioperative antibiotics were given intravenously. For the procedure, I wore an N95 mask and wore proper eyewear protection. Using xylocaine with epinephrine, the dorsum left hand extending to small finger and wrist areas were infiltrated to help with postoperative pain relief. The left hand was elevated and was wrapped with a towel as the tourniquet was elevated to 250 mmHg. I didn't used an Esmarch bandage because of the severity of the infection. There was fluctuance involving most of the ulnar aspect of the hand. A circular incision was made on the ulnar aspect around the area of fluctuance. Copious amounts of pus was expressed. A lot of fat necrosis was present. A lot of exudate was present. The fat necrosis and exudate was excised and debrided. The pus extended deep to the extensor tendons. I extended the incision in a distal and proximal direction toward the small finger and toward the wrist. There was pus over the MP joint small finger. The MP joint was not involved. A curette was used to clean out the exudate over the MP joint. A second incision was made on the dorsum on the radial aspect between the index and long fingers. More pus was seen as well as extensive fat necrosis. The fat necrosis was excised and debrided. The infection communicated underneath the intervening skin bridge. I also mad zig zag incisions proximally over the wrist. Copious amounts of pus were seen at the wrist level involving the extensor tendons of compartment 2 (ECRB and ECRL tendons), compartment 3 (EPL tendon), compartment 4 (EDC and EIP tendons), compartment 5 (EDM tendon), and compartment 6 (ECU tendon). When compartment 3 (EPL tendon) was involved with pus, I made a separate zig zag incision on the dorsum of the base of the thumb. No pus was seen in compartment 1 which houses APL and EPB tendons. Radical extensive extensor tenosynovectomy was done for left wrist extensors tendon sheath for suppurative tenosynovitis involving these 5 extensor compartments and their tendons (ECRB, ECRL, EPL, EDC, EIP, EDM, and ECU tendons). When dissecting deep to the extensor tendons, it was noted the dorsal interosseous muscles x4 were swollen and firm and quite dusky. Fasciotomies were performed to all 4 dorsal interosseous muscles. The wounds and extensor tendon sheaths at the wrist were copiously irrigated with saline. The dusky dorsal interosseous muscles x4 started to pink up and appeared viable at the end of the surgery. Tissue that was excised and debrided was sent to Pathology for analysis to rule out carcinoma and to Microbiology for culture. MRSA Wound DNA by PCR was also done. A positive culture will necessitate antibiotic therapy. The tourniquet was released after 48 minutes. Hemostasis was obtained with gentle pressure and gauze compression. The size of the wounds after incision and drainage and excisional debridement was 10 x 3 cm for the dorsum left hand, ulnar, and 10 x 2 cm for the dorsum left hand, radial, and 6 x 2 cm for dorsal base left thumb. The wounds were dressed with Mepitel nonadherent dressing followed by Kerlix gauze and Betadine followed by 4x4 gauze and dry Kerlix gauze and a compression damián wrap. Patient tolerated the procedure well and was sent to PACU in satisfactory condition. Patient will be sent upstairs for continued postop care. Will have a Silver dressing change tomorrow. He will need aggressive wound care and aggressive OT for range of motion exercises, strengthening, and edema management to minimize stiffness. With the severity of the infection as well as involvement of the dorsal interosseous muscles, he is at increased risk for residual stiffness. Continue IV antibiotics with Vancomycin and Unasyn. A positive culture may necessitate antibiotic modification. Grafts/Implants Used: None. - Complications None. - Admit VTE Documentation VTE Present on Admission: No VTE Mechan Device Prophylaxis: SCD's VTE Pharm Prophylaxis ordered?: Yes Surgery Charges CPT - 03534 ICD-10 - S61.452A, W55.01xA, L02.512, L02.414, A41.9, M65.132, T79.A12A 38337 L02.512, L02.414, W55.01xA, S61.452A, A41.9, M65.132, T79.A12A 73194 M65.132, W55.01xA, L02.512, L02.414, S61.452A, A41.9, T79.A12A 07632 T79.A12A, W55.01xA, L02.512, L02.414, S61.452A, A41.9, M65.132 39629 T79.A12A, W55.01xA, L02.512, L02.414, S61.452A, A41.9, M65.132 24460 T79.A12A, W55.01xA, L02.512, L02.414, S61.452A, A41.9, M65.132 62054 T79.A12A, W55.01xA, L02.512, L02.414, S61.452A, A41.9, M65.132
[2020-05-18] MEDS: OLANZapine 2.5 MG Tablet 7.5 MG PO (23:56)
[2020-05-18] MEDS: Tolterodine Tartrate 4 MG CAP.SA PO (23:56)
[2020-05-18] MEDS: Famotidine 20 MG Tablet PO (23:57)
[2020-05-18 23:59] LABS: M R Staph aureus DNA By PCR Negative (Negative); Probe Check PASS; Specimen Processing Control PASS; Staph aureus DNA By PCR NEGATIVE (Negative)
[2020-05-19] MEDS: 0.9% Normal Saline 1,000 ML 100 ML IV (01:08)
[2020-05-19 01:45] VITALS: BMI 21.8
[2020-05-19 01:46] VITALS: BP 145/92; PULSE 88; RESP 18; TEMP 36.8; O2SAT 98
[2020-05-19 03:04] VITALS: BP 145/97; PULSE 95; RESP 18; TEMP 36.6; O2SAT 94
[2020-05-19 03:08] VITALS: BMI 21.8
[2020-05-19] MEDS: oxyCODONE 5 MG Tablet PO ×2 (03:10→10:13)
[2020-05-19] MEDS: Acetaminophen 325 MG Tablet 650 MG PO ×2 (03:11→10:13)
[2020-05-19 06:15] LABS: Absolute Lymphocyte Count 1.03 X10^3/uL (0.83-4.51); Absolute Neutrophil Count 10.6 X10^3/uL (2.0-7.7); Basophil# 0.04 X10^3/uL; Basophil% 0.3 % (0-1); Eosinophil# 0.01 X10^3/uL; Eosinophils% 0.1 % (0-5); Hematocrit 39.8 % (40-54); Hemoglobin 12.6 g/dL (13.0-16.5); Lymphocyte # 1.03 X10^3/ul (4.0); Lymphocyte % 7.8 % (19-41); Mean Corp Hgb Conc 31.7 g/dL (32-36); Mean Corpuscular Volume 91.7 fL (80-94); Mean Platelet Vol. 10.6 fl (6.2-12.0); Monocyte# 1.46 X10^3/uL; NRBC Flagged by Analyzer 0 % (0-5); Neutrophil # 10.63 X10^3/uL (2.7-7.7); Neutrophil % 80.3 % (47-70); Platelet Count 205 K/mm3 (150-450); RBC Distribution Width CV 12.8 % (11.6-14.6); RBC Distribution Width SD 43.4 fl (35.1-43.9); Red Blood Count 4.34 M/mm3 (4.6-6.2); White Blood Count 13.2 K/mm3 (4.4-11.0)
[2020-05-19 06:55] LABS: Anion Gap 4 (5-15); BUN 37 mg/dL (7-18); BUN/Creat Ratio 33.3 RATIO (10-20); Calcium,Total 8.2 mg/dL (8.5-10.1); Chloride 116 mmol/L (98-107); Creatinine, Serum 1.11 mg/dL (0.70-1.30); EST Glomerular Filtration Rate 67 mL/min (>60); Est Glom Filt Rate - Afr Amer 81 mL/min (>60); Estimated Creatinine Clearance 52.98 ml/min; Glucose 139 mg/dL (74-106); Prealbumin 9.7 mg/dL (20.0-40.0); Sodium Level 146 mmol/L (136-145); Thyroid Stim Hormone (TSH) 0.41 uIU/mL (0.358-3.74)
[2020-05-19 06:56] VITALS: BMI 21.8
[2020-05-19 06:58] LABS: Mucous, Urine 0 SEEN /hpf (<or=2+); Squamous Epithelial Cells - UA 0 SEEN /hpf (0-5)
[2020-05-19 06:59] LABS: Color, Urine Yellow (Yellow); Glucose, Dipstick Normal (Normal); Ketone-Dipstick Negative (Negative); Leukocyte Esterase-Dipstick 25 /ul (Negative); Nitrite-Dipstick Negative (Negative); Occult Blood-Urine 25 /ul (Negative); Protein-Dipstick 30 mg/dl (Negative); Urine Bilirubin Dipstick Negative (Negative); Urine Clarity Clear (Clear); Urine Urobilinogen 1 mg/dl (Normal)
[2020-05-19 07:29] LABS: Bacteria 1+ /hpf (None Seen)
[2020-05-19 07:30] LABS: Red Blood Cells-Urine 0-5 SEEN /hpf (0-5); White Blood Cells 0-5 SEEN /hpf (0-5)
[2020-05-19 07:31] LABS: Hyaline Cast 0-5 SEEN /lpf (0-5)
[2020-05-19 08:37] VITALS: BP 140/88; PULSE 92; RESP 18; TEMP 36.8; O2SAT 98
[2020-05-19 08:38] VITALS: PULSE 80
[2020-05-19] MEDS: Silver Nitrate (BKC) TOPICAL (10:10)
[2020-05-19] MEDS: Famotidine 20 MG Tablet PO ×2 (10:12→23:11)
[2020-05-19] MEDS: Heparin Injection (Vial) 5,000 UNIT/ML VIAL 5000 UNIT SC ×2 (10:12→23:11)
[2020-05-19 11:19] VITALS: BMI 21.8
--- NOTE | 2020-05-19 11:53 | NURSING ---
wound photo: left hand
--- NOTE | 2020-05-19 11:54 | NURSING ---
wound photo: left hand
--- NOTE | 2020-05-19 12:00 | PCM.HP.ID ---
Problem List (1) Cat bite of left hand Status: Acute Reason for Consult: cat bite Consulted by: Dr. Donahue History of Present Illness: The patient is a 84 year old M with h/o dementia, lives at home with , reports cat bite on L hand 3 weeks ago (1 week ago per ED note) with progressive pain, swelling, redness, not feeling well. Came to ED, given tetanus shot, given clinda/vanc/unasyn, taken to OR by Dr. Lucero 05/18, hand is sore, no fever, no n/v/d here. Full ROS performed and neg except as noted above - Medical History Past Medical History (Chronic Problems): Chronic Problems History of benign prostatic hyperplasia (Chronic) Generalized weakness (Chronic) Physical debility (Chronic) [place] toxicity (Chronic) Lymphoma (Chronic) Bipolar disorder (Chronic) Allergies/Adverse Reactions: Allergies No Known Allergies Allergy (Verified 05/18/20 11:36) Home Medications: Ambulatory Orders Medication Instructions Recorded Olanzapine [Zyprexa] 7.5 mg PO QHS 04/18/14 Oxybutynin Chloride [Oxybutynin 15 mg PO QHS 05/18/20 Chloride ER] - Social History Tobacco Use: non-smoker Vital Signs Temp Pulse Resp BP Pulse Ox 98.2 F 80 18 140/88 H 98 05/19/20 08:37 05/19/20 08:38 05/19/20 08:37 05/19/20 08:37 05/19/20 08:37 Oxygen Flow Rate (L/min) 2 Oxygen Delivery Method Room Air Weight: 73 kg Body Mass Index (BMI) 21.8 Microbiology Past 72 Hours 05/18/20 13:28 Wound Culture - Preliminary Bite, Cat Gram negative cayetano Staphylococcus species 05/18/20 12:47 SARS-CoV-2 Antigen (Rapid) - Final Mucosa - Nose Laboratory Tests Past 24 Hrs 05/18/20 05/18/20 05/18/20 12:10 12:10 12:10 WBC 14.9 H RBC 4.86 Hgb 14.7 Hct 44.0 MCV 90.5 MCH 30.2 MCHC 33.4 RDW Std Deviation 42.0 RDW Coeff of Nahed 12.7 Plt Count 229 MPV 10.7 Immature Gran % (Auto) 0.500 Neut % (Auto) 81.7 H Lymph % (Auto) 7.7 L [place] % (Auto) 9.8 Eos % (Auto) 0.1 Baso % (Auto) 0.2 Absolute Neuts (auto) 12.1 H Absolute Lymphs (auto) 1.14 Nucleated RBC % 0 Sodium 146 H Potassium 3.9 Chloride 112 H Carbon Dioxide 28.0 Anion Gap 6 BUN 48 H Creatinine 1.44 H Estim Creat Clear Calc 41.87 Est GFR (MDRD) Af Amer 60 Est GFR (MDRD) Non-Af 50 L BUN/Creatinine Ratio 33.3 H Glucose 191 H Lactic Acid 2.0 Calcium 9.2 Total Bilirubin Direct Bilirubin AST ALT Alkaline Phosphatase Total Protein Albumin Globulin Prealbumin TSH Urine Color Urine Clarity Urine pH Ur Specific [place] Urine Protein Urine Glucose (UA) Urine Ketones Urine Occult Blood Urine Nitrite Urine Bilirubin Urine Urobilinogen Ur Leukocyte Esterase Urine RBC Urine WBC Ur Squamous Epith Cells Urine Bacteria Hyaline Casts Urine Mucus S.aureus Protein A PCR MRSA (PCR) 05/18/20 05/18/20 05/18/20 12:10 16:47 17:48 WBC RBC Hgb Hct MCV MCH MCHC RDW Std Deviation RDW Coeff of Nahed Plt Count MPV Immature Gran % (Auto) Neut % (Auto) Lymph % (Auto) [place] % (Auto) Eos % (Auto) Baso % (Auto) Absolute Neuts (auto) Absolute Lymphs (auto) Nucleated RBC % Sodium Potassium Chloride Carbon Dioxide Anion Gap BUN Creatinine Estim Creat Clear Calc Est GFR (MDRD) Af Amer Est GFR (MDRD) Non-Af BUN/Creatinine Ratio Glucose Lactic Acid Cancelled 1.2 Calcium Total Bilirubin 0.60 Direct Bilirubin 0.09 AST 65 H ALT 65 H Alkaline Phosphatase 111 Total Protein 7.1 Albumin 3.2 Globulin 3.9 Prealbumin TSH Urine Color Urine Clarity Urine pH Ur Specific [place] Urine Protein Urine Glucose (UA) Urine Ketones Urine Occult Blood Urine Nitrite Urine Bilirubin Urine Urobilinogen Ur Leukocyte Esterase Urine RBC Urine WBC Ur Squamous Epith Cells Urine Bacteria Hyaline Casts Urine Mucus S.aureus Protein A PCR MRSA (PCR) 05/18/20 05/19/20 05/19/20 Unknown 05:35 05:35 WBC 13.2 H RBC 4.34 L Hgb 12.6 L Hct 39.8 L MCV 91.7 MCH 29.0 MCHC 31.7 L D RDW Std Deviation 43.4 RDW Coeff of Nahed 12.8 Plt Count 205 MPV 10.6 Immature Gran % (Auto) 0.500 Neut % (Auto) 80.3 H Lymph % (Auto) 7.8 L [place] % (Auto) 11.0 H Eos % (Auto) 0.1 Baso % (Auto) 0.3 Absolute Neuts (auto) 10.6 H Absolute Lymphs (auto) 1.03 Nucleated RBC % 0 Sodium 146 H Potassium 4.0 Chloride 116 H Carbon Dioxide 26.0 Anion Gap 4 L BUN 37 H Creatinine 1.11 Estim Creat Clear Calc 52.98 Est GFR (MDRD) Af Amer 81 Est GFR (MDRD) Non-Af 67 BUN/Creatinine Ratio 33.3 H Glucose 139 H Lactic Acid Calcium 8.2 L Total Bilirubin Direct Bilirubin AST ALT Alkaline Phosphatase Total Protein Albumin Globulin Prealbumin 9.7 L TSH 0.41 Urine Color Urine Clarity Urine pH Ur Specific [place] Urine Protein Urine Glucose (UA) Urine Ketones Urine Occult Blood Urine Nitrite Urine Bilirubin Urine Urobilinogen Ur Leukocyte Esterase Urine RBC Urine WBC Ur Squamous Epith Cells Urine Bacteria Hyaline Casts Urine Mucus S.aureus Protein A PCR NEGATIVE MRSA (PCR) Negative 05/19/20 06:50 WBC RBC Hgb Hct MCV MCH MCHC RDW Std Deviation RDW Coeff of Nahed Plt Count MPV Immature Gran % (Auto) Neut % (Auto) Lymph % (Auto) [place] % (Auto) Eos % (Auto) Baso % (Auto) Absolute Neuts (auto) Absolute Lymphs (auto) Nucleated RBC % Sodium Potassium Chloride Carbon Dioxide Anion Gap BUN Creatinine Estim Creat Clear Calc Est GFR (MDRD) Af Amer Est GFR (MDRD) Non-Af BUN/Creatinine Ratio Glucose Lactic Acid Calcium Total Bilirubin Direct Bilirubin AST ALT Alkaline Phosphatase Total Protein Albumin Globulin Prealbumin TSH Urine Color Yellow Urine Clarity Clear Urine pH 5.0 Ur Specific [place] 1.020 Urine Protein 30 H Urine Glucose (UA) Normal Urine Ketones Negative Urine Occult Blood 25 H Urine Nitrite Negative Urine Bilirubin Negative Urine Urobilinogen 1 H Ur Leukocyte Esterase 25 H Urine RBC 0-5 SEEN Urine WBC 0-5 SEEN Ur Squamous Epith Cells 0 SEEN Urine Bacteria 1+ Hyaline Casts 0-5 SEEN Urine Mucus 0 SEEN S.aureus Protein A PCR MRSA (PCR) - Other Studies Radiology: [] reviewed Other Studies: [] Route of nutrition/ use of supplements: [] Nutritional Intake: [] IV Site: [] Peterson Catheter: [] - Physical Exam General: Alert, Cooperative, No apparent distress HEENT: Atraumatic, PERRLA, EOMI Neck: Supple, No Nodes Lungs: Clear to auscultation, Normal air movement Cardiovascular: Regular rate, Regular Rhythm Abdomen: Soft, Non Tender, Non-Distended Extremities: No edema Skin: Ulcer/ Wound - reviewed photos IV Site: Peripheral, without redness Musculoskeletal: No Tenderness to Palpation of Joints or Extremities Neurological: Cranial nerves II-XII grossly intact - Assessment/Plan Antibiotics: [] Assessment/Plan: [] Active and Suspected Problems Cat bite of left hand (Acute) Cellulitis and abscess of hand (Acute) Hypernatremia (Acute) Hyperglycemia (Acute) Abscess (Acute) ELVIN (acute kidney injury) (Acute) Elevated serum creatinine (Acute) L hand cat bite with deep involvement - now s/p OR 05/[address] Lucero. Surg cx with GNR and staph. Cont vanc/unasyn. Got tdap in ED. Tried to call but no answer on home phone. Thank you, will follow
[2020-05-19 13:00] VITALS: BP 133/71; PULSE 89; RESP 16; TEMP 36.6; O2SAT 95
--- NOTE | 2020-05-19 14:06 | CASEMGMT ---
Addendum entered by Antonette Gleason 05/19/20 14:46: SW has continued to try and reach patient's without any luck. SW tried to call patient's daughter to see if [facility] has the right phone number and she did not answer. Continue to try and reach family to complete assessment and discuss d/c plan. Antonette FELICIANO Original Note: SW started to complete assessment with patient. He said he did not know his PCP's name. SW asked him if he would like SW to talk with his . He said yes. SW tried 2 times to call his and it is busy. SW will continue to try and reach patient's via phone. Antonette FELICIANO
--- NOTE | 2020-05-19 15:12 | CASEMGMT ---
GABRIELLA called patient's daughter and left her a voice mail requesting a return call. Antonette SIMMONS MSW
[2020-05-19 15:13] LABS: Vancomycin, Trough Level 7.2 ug/mL (5.0-15.0)
--- NOTE | 2020-05-19 15:14 | NURSING ---
HAVE ATTEMPTED TO CALL [facility] AND IT IS BUSY, CHECKED # W/DAUGHTER AND SHE AGREES IT IS THE CORRECT # AND THAT PT TALKS A LOT ON PHONE-WILL ATTEMPT AT LATER TIME
[2020-05-19] MEDS: Vancomycin IV 1,000 MG/200 ML BAG 200 MG IV (15:21)
--- NOTE | 2020-05-19 15:35 | CASEMGMT ---
Assessment- SW received a call from patient's daughter and patient's . They said patient has been home all day and has not been on the phone. SW is not sure what happened. Living situation- Patient lives with his in a 2 story home with a couple entry steps. He is set up on the first floor. PCP: None Specialists: Dr Mari-Urology and Psychiatrist at [facility]. Family could not remember who as they said they change it all the time. [facility] DME: None ADL's/IADL's: Per patient's patient is independent with everything except his helps him with his medications. He drives. Past SNF/rehab: No Past HH: No LW: No POA: No Plan: SW discussed with patient's that patient had surgery on his hand so he will have dressing changes. SW also explained that he may need IV antibiotics at discharge. Patient does not have a PCP so home health could not be arranged to help with the IV abx if needed or dressing changes. SW asked if a long term facility is recommended are they open to this. His said, No, he is not going to no senior living. SW then told her about TCU and she said, No, just send him home for justine sakes. SW told them we will continue to follow and help with any discharge needs. Antonette SIMMONS MSW
--- NOTE | 2020-05-19 15:49 | PCM.PN.HOSP ---
Patient Problems: Active and Suspected Problems Cat bite of left hand (Acute) Cellulitis and abscess of hand (Acute) Hypernatremia (Acute) Hyperglycemia (Acute) Abscess (Acute) ELVIN (acute kidney injury) (Acute) Elevated serum creatinine (Acute) Reason for Visit: Follow-up for left hand cellulitis and abscess/tenosynovitis after cat bite Objective: Patient had operative debridement of left hand by Dr. Lucero on 05/18. Patient has edema and swelling, tenderness of left hand and all the fingers. It seems patient had cat bite on left hand 3 weeks ago No fever or chills. Physical exam General: Alert, awake, Oriented x3, Cooperative HEENT: Atraumatic, PERRLA, EOMI, Normocephalic Oral: No Gingival or Mucosal Lesions/ Ulcerations Neck: Supple, No JVD, Negative Carotid Bruits Lungs: Air entry diminished in bilateral lung bases. No crepitation/rhonchi Cardiovascular: Regular rate, Regular Rhythm, Normal S1, Normal S2, No murmurs Abdomen: Bowel Sounds Present, Soft, Non Tender, Non-Distended : No renal angle tenderness. No suprapubic tenderness. Extremities: Left hand is edematous, tender, indurated. Surgical dressing with Theodore wrap bandage on left hand. Fingernails are pink with capillary refill. Skin: Erythema, induration and swelling in the left hand status post operative debridement. Musculoskeletal: No Tenderness to Palpation of Joints or Extremities Neurological: Cranial nerves II-XII grossly intact, Deep Tendon Reflexes 2+/4 and Symmetrical, Neuro grossly intact Psych/Mental Status: Mild cognitive deficit/early dementia Vitals/I&O's: Vital Signs Temp Pulse Resp BP Pulse Ox 97.8 F 89 16 133/71 H 95 05/19/20 13:00 05/19/20 13:00 05/19/20 13:00 05/19/20 13:00 05/19/20 13:00 Oxygen Flow Rate (L/min) 1 Oxygen Delivery Method Room Air Weight: 160 lb 14.999 oz Body Mass Index (BMI) 21.8 Intake and Output for Last 24 Hours 05/17/20 05/18/20 05/19/20 23:59 23:59 23:59 Intake Total 1115 / 1215 3495.67 / 3495.67 Balance 1115 / 1215 3495.67 / 3495.67 Microbiology Past 72 Hours 05/18/20 13:28 Bite, Cat Gram Stain - Final 05/18/20 13:28 Bite, Cat Wound Culture - Preliminary Gram negative cayetano Staphylococcus species 05/18/20 Unknown Other - Other Gram Stain - Final 05/18/20 Unknown Other - Other Wound Culture - Preliminary 05/18/20 12:47 Mucosa - Nose SARS-CoV-2 Antigen (Rapid) - Final Laboratory Results 05/18/20 16:47: Lactic Acid Cancelled 05/18/20 17:48: Lactic Acid 1.2 05/18/20 : S.aureus Protein A PCR NEGATIVE, MRSA (PCR) Negative 05/19/20 05:35: WBC 13.2 H, RBC 4.34 L, Hgb 12.6 L, Hct 39.8 L, MCV 91.7, MCH 29.0, MCHC 31.7 L D, RDW Std Deviation 43.4, RDW Coeff of Nahed 12.8, Plt Count 205, MPV 10.6, Immature Gran % (Auto) 0.500, Neut % (Auto) 80.3 H, Lymph % (Auto) 7.8 L, [place] % (Auto) 11.0 H, Eos % (Auto) 0.1, Baso % (Auto) 0.3, Absolute Neuts (auto) 10.6 H, Absolute Lymphs (auto) 1.03, Nucleated RBC % 0 05/19/20 05:35: Sodium 146 H, Potassium 4.0, Chloride 116 H, Carbon Dioxide 26.0, Anion Gap 4 L, BUN 37 H, Creatinine 1.11, Estim Creat Clear Calc 52.98, Est GFR (MDRD) Af Amer 81, Est GFR (MDRD) Non-Af 67, BUN/Creatinine Ratio 33.3 H, Glucose 139 H, Calcium 8.2 L, Prealbumin 9.7 L, TSH 0.41 05/19/20 06:50: Urine Color Yellow, Urine Clarity Clear, Urine pH 5.0, Ur Specific [place] 1.020, Urine Protein 30 H, Urine Glucose (UA) Normal, Urine Ketones Negative, Urine Occult Blood 25 H, Urine Nitrite Negative, Urine Bilirubin Negative, Urine Urobilinogen 1 H, Ur Leukocyte Esterase 25 H, Urine RBC 0-5 SEEN, Urine WBC 0-5 SEEN, Ur Squamous Epith Cells 0 SEEN, Urine Bacteria 1+, Hyaline Casts 0-5 SEEN, Urine Mucus 0 SEEN 05/19/20 14:39: Vancomycin Trough 7.2 Current Medications Acetaminophen (Acetaminophen 325 Mg Tablet) 650 mg PO Q6H PRN PRN PRN Reason: Pain Score 1-10/Temp > 100.7 F Last Admin: 05/19/20 10:13 Dose: 650 mg Documented by: Al Hydroxide/Mg Hydroxide (Mag Hydrox/Al Hydrox/Simeth 30 Ml Udc) 30 ml PO Q6H PRN PRN PRN Reason: Gastric Burning Albuterol Sulfate (Albuterol 2.5 Mg/3 Ml Vial.Neb.) 2.5 mg INHALATION Q2H PRN PRN PRN Reason: Shortness of Breath/Wheezing Famotidine (Famotidine 20 Mg Tablet) 20 mg PO BID [facility] Last Admin: 05/19/20 10:12 Dose: 20 mg Documented by: Heparin Sodium (Porcine) (Heparin Injection (Vial) 5,000 Unit/Ml Vial) 5,000 unit SC Q12 [facility] Last Admin: 05/19/20 10:12 Dose: 5,000 unit Documented by: Ampicillin Sodium/Sulbactam (Sodium 3 gm/ Sodium Chloride) 112 mls @ 150 mls/hr IV Q6H [facility] Last Admin: 05/19/20 13:56 Dose: 150 mls/hr Documented by: Vancomycin IV Pharmacy to Dose (1 ea/ Sodium Chloride) 500 mls @ 250 mls/hr IV PRN PRN; Protocol PRN Reason: PK DOSING Vancomycin HCl (Vancomycin) 1,000 mg in 200 mls @ 200 mls/hr IV Q24H [facility] Last Admin: 05/19/20 15:21 Dose: 200 mls/hr Documented by: Melatonin (Melatonin 3 Mg Tablet) 3 mg PO QHS PRN PRN PRN Reason: INSOMNIA Morphine Sulfate (Morphine 2 Mg/Ml Syringe) 2 mg IV Q3H PRN PRN PRN Reason: Pain Score 6-10 Nitroglycerin (Nitroglycerin (Inpatient Use) 0.4 Mg Tab.Subl) 0.4 mg SUBLINGUAL Q5M PRN PRN Reason: CARDIAC/CHEST PAIN Olanzapine (Olanzapine 2.5 Mg Tablet) 7.5 mg PO QHS [facility] Last Admin: 05/18/20 23:56 Dose: 7.5 mg Documented by: Oxycodone HCl (Oxycodone 5 Mg Tablet) 5 mg PO Q4H PRN PRN PRN Reason: Pain Score 4-5 Last Admin: 05/19/20 10:13 Dose: 5 mg Documented by: Prochlorperazine Edisylate (Prochlorperazine 10 Mg/2 Ml Vial) 5 mg IV Q4H PRN PRN PRN Reason: Breakthrough nausea/vomiting Senna/Docusate Sodium (Senna/Docusate Sodium 1 Tablet) 2 tablet PO BID PRN PRN PRN Reason: Constipation Sodium Chloride (0.9% Saline Lock 10 Ml Syringe) 10 - 40 ml IV UD PRN PRN Reason: SALINE FLUSH Tolterodine Tartrate (Tolterodine Tartrate 4 Mg Cap.Sa) 4 mg PO HS MARY Last Admin: 05/18/20 23:56 Dose: 4 mg Documented by: STROKE Vital Signs/Narrative: Vital Signs Temp Pulse Resp BP Pulse Ox 05/19/20 13:00 97.8 F 89 16 133/71 H 95 Medical Necessity - Tobacco Use Smoking Status: Never smoker Assessment/Plan All Active Problems Cat bite of left hand (Acute) Cellulitis and abscess of hand (Acute) Hypernatremia (Acute) Hyperglycemia (Acute) Abscess (Acute) ELVIN (acute kidney injury) (Acute) Elevated serum creatinine (Acute) This 84-year-old woman with history of cognitive deficit and bipolar disorder came to ED for left hand swelling after 3 week of cat bite. 1. SIRS (tachycardia, leukocytosis ) from sepsis due to left hand cellulitis and abscess with purulent drainage from cat bite present on infection: [facility] Dr. Lucero has been consulted from ER physician Dr. Mensah. Started on the broad-spectrum antibiotic vancomycin and Unasyn. Patient also got 1 dose of clindamycin 900 mg in ED. patient needs operative debridement. 05/19: Operative note reviewed. Patient has abscess left hand, ulnar aspect with extension to small finger and wrist. Extensor tenosynovitis dorsum left hand at rest. 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 Seen by ID. Agree with continuation of Unasyn and vancomycin. Preliminary Gram stain of tissue culture shows gram-negative cayetano and staph species. MRSA PCR is negative. 2. Possible acute kidney injury on CKD stage III: Patient BUN/creatinine is 48/1.44. His previous creatinine in November 2017 was 1.5. No labs in between this. Monitor kidney function, urine output and electrolytes. Patient has history of BPH. If kidney junction does not improve, will need renal and bladder ultrasound. IV fluid normal saline at 100 mL/h. 05/19: BUN/creatinine 37/1.11. Acute kidney injury resolved. 3. Hyperglycemia with no diagnosis of diabetes mellitus: Glucoses 191. A1c tomorrow a.m. Accu-Chek insulin coverage Humalog sliding scale. VT prophylaxis: Heparin 5000 units subcutaneous twice daily. Hold the morning dose prior to surgery. Inpatient E&M: 13481 Subs Hosp L2
--- NOTE | 2020-05-19 17:47 | NURSING ---
SPOKE W/ ON PHONE, SHE HAS QUESTIONS ABOUT ECF/INSURANCE COVERAGE-RECOMMENDED SHE CALL IN AM AFTER 1000
[2020-05-19 20:00] VITALS: BP 150/75; PULSE 82; RESP 18; TEMP 37.2; O2SAT 97
--- NOTE | 2020-05-19 22:12 | PCM.PN.SRG ---
Patient Problems: Active and Suspected Problems Cat bite of left hand (Acute) Cellulitis and abscess of hand (Acute) Hypernatremia (Acute) Hyperglycemia (Acute) Abscess (Acute) ELVIN (acute kidney injury) (Acute) Elevated serum creatinine (Acute) Subjective: Postop #1 Patient has left hand wound pain. Wounds redressed with Aquacel Silver. - Physical Exam Vitals/I&O's: Vital Signs Temp Pulse Resp BP Pulse Ox 98.9 F 82 18 150/75 H 97 05/19/20 20:00 05/19/20 20:00 05/19/20 20:00 05/19/20 20:00 05/19/20 20:00 Oxygen Flow Rate (L/min) 1 Oxygen Delivery Method Room Air Weight: 160 lb 14.999 oz Body Mass Index (BMI) 21.8 Intake and Output for Last 24 Hours 05/17/20 05/18/20 05/19/20 23:59 23:59 23:59 Intake Total 1115 / 1215 4107.67 / 4107.67 Balance 1115 / 1215 4107.67 / 4107.67 General: - - patient is resting comfortably. HEENT: CHARLEENRLA, EOMI Oral: Moist Mucosa Neck: Supple Abdomen: Soft, Non-Distended Skin: Ulcer/ Wound - left hand cat bite wounds are stable. No active bleeding noted. No evidence of further infection at this time. Wounds redressed with Silver dressing changes. Neurological: Cranial nerves II-XII grossly intact Psych/Mental Status: Normal Affect, Appropriate Microbiology Past 72 Hours 05/18/20 13:28 Bite, Cat Gram Stain - Final 05/18/20 13:28 Bite, Cat Wound Culture - Preliminary Gram negative cayetano Staphylococcus species 05/18/20 Unknown Other - Other Gram Stain - Final 05/18/20 Unknown Other - Other Wound Culture - Preliminary 05/18/20 12:47 Mucosa - Nose SARS-CoV-2 Antigen (Rapid) - Final Laboratory Results 05/18/20 : S.aureus Protein A PCR NEGATIVE, MRSA (PCR) Negative 05/19/20 05:35: WBC 13.2 H, RBC 4.34 L, Hgb 12.6 L, Hct 39.8 L, MCV 91.7, MCH 29.0, MCHC 31.7 L D, RDW Std Deviation 43.4, RDW Coeff of Nahed 12.8, Plt Count 205, MPV 10.6, Immature Gran % (Auto) 0.500, Neut % (Auto) 80.3 H, Lymph % (Auto) 7.8 L, [place] % (Auto) 11.0 H, Eos % (Auto) 0.1, Baso % (Auto) 0.3, Absolute Neuts (auto) 10.6 H, Absolute Lymphs (auto) 1.03, Nucleated RBC % 0 05/19/20 05:35: Sodium 146 H, Potassium 4.0, Chloride 116 H, Carbon Dioxide 26.0, Anion Gap 4 L, BUN 37 H, Creatinine 1.11, Estim Creat Clear Calc 52.98, Est GFR (MDRD) Af Amer 81, Est GFR (MDRD) Non-Af 67, BUN/Creatinine Ratio 33.3 H, Glucose 139 H, Calcium 8.2 L, Prealbumin 9.7 L, TSH 0.41 05/19/20 06:50: Urine Color Yellow, Urine Clarity Clear, Urine pH 5.0, Ur Specific [place] 1.020, Urine Protein 30 H, Urine Glucose (UA) Normal, Urine Ketones Negative, Urine Occult Blood 25 H, Urine Nitrite Negative, Urine Bilirubin Negative, Urine Urobilinogen 1 H, Ur Leukocyte Esterase 25 H, Urine RBC 0-5 SEEN, Urine WBC 0-5 SEEN, Ur Squamous Epith Cells 0 SEEN, Urine Bacteria 1+, Hyaline Casts 0-5 SEEN, Urine Mucus 0 SEEN 05/19/20 14:39: Vancomycin Trough 7.2 Current Medications Acetaminophen (Acetaminophen 325 Mg Tablet) 650 mg PO Q6H PRN PRN PRN Reason: Pain Score 1-10/Temp > 100.7 F Last Admin: 05/19/20 10:13 Dose: 650 mg Documented by: Al Hydroxide/Mg Hydroxide (Mag Hydrox/Al Hydrox/Simeth 30 Ml Udc) 30 ml PO Q6H PRN PRN PRN Reason: Gastric Burning Albuterol Sulfate (Albuterol 2.5 Mg/3 Ml Vial.Neb.) 2.5 mg INHALATION Q2H PRN PRN PRN Reason: Shortness of Breath/Wheezing Dextrose (Dextrose 50%-Water 25 Gm/50 Ml Disp.Syrin) 0 gm IV X1 PRN; Protocol PRN Reason: Hypoglycemia Enoxaparin Sodium (Enoxaparin 40 Mg/0.4 Ml Syringe) 40 mg SC DAILY COUNT INCLUDES [facility] Famotidine (Famotidine 20 Mg Tablet) 20 mg PO BID COUNT INCLUDES THE [facility] Last Admin: 05/19/20 10:12 Dose: 20 mg Documented by: Glucagon (Glucagon 1 Mg/Ml Syringe) 1 mg IM .X1 PRN PRN Reason: Hypoglycemia Heparin Sodium (Porcine) (Heparin Injection (Vial) 5,000 Unit/Ml Vial) 5,000 unit SC Q12 COUNT INCLUDES THE [facility] Stop: 05/19/20 23:59 Last Admin: 05/19/20 10:12 Dose: 5,000 unit Documented by: Ampicillin Sodium/Sulbactam (Sodium 3 gm/ Sodium Chloride) 112 mls @ 150 mls/hr IV Q6H COUNT INCLUDES THE [facility] Last Admin: 05/19/20 20:43 Dose: 150 mls/hr Documented by: Vancomycin IV Pharmacy to Dose (1 ea/ Sodium Chloride) 500 mls @ 250 mls/hr IV PRN PRN; Protocol PRN Reason: PK DOSING Vancomycin HCl (Vancomycin) 1,000 mg in 200 mls @ 200 mls/hr IV Q24H COUNT INCLUDES THE [facility] Last Infusion: 05/19/20 16:21 Dose: Infused Documented by: Insulin Human Lispro (Insulin Lispro 100 Unit/Ml Insuln.Pen) 0 unit SC ACHS COUNT INCLUDES THE [facility]; Protocol Last Admin: 05/19/20 17:46 Dose: Not Given Documented by: Melatonin (Melatonin 3 Mg Tablet) 3 mg PO QHS PRN PRN PRN Reason: INSOMNIA Morphine Sulfate (Morphine 2 Mg/Ml Syringe) 2 mg IV Q3H PRN PRN PRN Reason: Pain Score 6-10 Nitroglycerin (Nitroglycerin (Inpatient Use) 0.4 Mg Tab.Subl) 0.4 mg SUBLINGUAL Q5M PRN PRN Reason: CARDIAC/CHEST PAIN Olanzapine (Olanzapine 2.5 Mg Tablet) 7.5 mg PO QHS COUNT INCLUDES THE [facility] Last Admin: 05/18/20 23:56 Dose: 7.5 mg Documented by: Oxycodone HCl (Oxycodone 5 Mg Tablet) 5 mg PO Q4H PRN PRN PRN Reason: Pain Score 4-5 Last Admin: 05/19/20 10:13 Dose: 5 mg Documented by: Prochlorperazine Edisylate (Prochlorperazine 10 Mg/2 Ml Vial) 5 mg IV Q4H PRN PRN PRN Reason: Breakthrough nausea/vomiting Senna/Docusate Sodium (Senna/Docusate Sodium 1 Tablet) 2 tablet PO BID PRN PRN PRN Reason: Constipation Sodium Chloride (0.9% Saline Lock 10 Ml Syringe) 10 - 40 ml IV UD PRN PRN Reason: SALINE FLUSH Tolterodine Tartrate (Tolterodine Tartrate 4 Mg Cap.Sa) 4 mg PO HS COUNT INCLUDES [facility] Last Admin: 05/18/20 23:56 Dose: 4 mg Documented by: Medical Necessity - Tobacco Use Smoking Status: Never smoker Assessment/Plan All Active Problems Compartment syndrome of left hand (Acute) Infectious tenosynovitis of left wrist extensor (Acute) Abscess of skin of left wrist (Acute) Extensor tenosynovitis of left wrist (Acute) Sepsis (Acute) Abscess of left hand including fingers (Acute) Cat bite (Acute) Cat bite of left hand (Acute) Cellulitis and abscess of hand (Acute) Hypernatremia (Acute) Hyperglycemia (Acute) Abscess (Acute) ELVIN (acute kidney injury) (Acute) Elevated serum creatinine (Acute) 1. Cat bite infection abscess dorsum left hand, ulnar aspect, with extension to small finger and wrist. 2. Suppurative extensor tenosynovitis dorsum left hand at wrist extensors tendon sheath involving compartments 2, 3, 4, 5, and 6 (ECRL, ECRB, EPL, EIP, EDC, EDM, ECU tendons). 3. Sepsis. 4. 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 5. s/p surgical preparation dorsum left hand, ulnar aspect, with extension to small finger and wrist with incision and drainage and excisional debridement cat bite infection abscess and fasciotomy dorsal interosseous muscles x4 left hand and radical extensor tenosynovectomy left wrist extensors tendon sheath for suppurative tenosynovitis involving compartment 2 (ECRL and ECRB tendons), compartment 3 (EPL tendon), compartment 4 (EDC and EIP tendons), compartment 5 (EDM tendon), and compartment 6 (ECU tendon). Cat bite wounds are stable. No active bleeding seen. No further evidence of infection at this time. Wounds redressed with Silver dressing to be done daily. WBC has improved to 13.2. Will continue the Vancomycin and the Unasyn. Operative culture shows Gram negative rods and Staphylococcus species. Prealbumin was 9.7. Encourage nutritional supplementation with protein to help the healing process. After some healing and the pain improves, he will need OT for evaluation for range of motion exercises, strengthening, and edema management.
[2020-05-19 23:05] LABS: Bedside Glucose 127 mg/dL (70-110)
[2020-05-19] MEDS: OLANZapine 2.5 MG Tablet 7.5 MG PO (23:10)
[2020-05-19] MEDS: Tolterodine Tartrate 4 MG CAP.SA PO (23:10)
[2020-05-19] MEDS: 0.9% Saline Lock 10 ML Syringe IV (23:15)
[2020-05-20 02:00] VITALS: BP 149/76; PULSE 77; RESP 18; TEMP 36.9; O2SAT 94
[2020-05-20 06:30] LABS: Absolute Lymphocyte Count 1.56 X10^3/uL (0.83-4.51); Absolute Neutrophil Count 7.5 X10^3/uL (2.0-7.7); Basophil# 0.04 X10^3/uL; Basophil% 0.4 % (0-1); Eosinophil# 0.14 X10^3/uL; Eosinophils% 1.3 % (0-5); Hematocrit 39.2 % (40-54); Hemoglobin 12.7 g/dL (13.0-16.5); Lymphocyte # 1.56 X10^3/ul (4.0); Lymphocyte % 14.9 % (19-41); Mean Corp Hgb Conc 32.4 g/dL (32-36); Mean Corpuscular Hgb 29.5 pg (27.0-32.0); Mean Corpuscular Volume 91.2 fL (80-94); Mean Platelet Vol. 10.2 fl (6.2-12.0); Monocyte# 1.17 X10^3/uL; Monocyte% 11.1 % (0-10); NRBC Flagged by Analyzer 0 % (0-5); Neutrophil # 7.54 X10^3/uL (2.7-7.7); Neutrophil % 71.8 % (47-70); Platelet Count 222 K/mm3 (150-450); RBC Distribution Width CV 12.4 % (11.6-14.6); RBC Distribution Width SD 41.7 fl (35.1-43.9); White Blood Count 10.5 K/mm3 (4.4-11.0)
[2020-05-20 06:55] VITALS: O2SAT 94
[2020-05-20 06:56] LABS: Anion Gap 4 (5-15); BUN 28 mg/dL (7-18); BUN/Creat Ratio 31.9 RATIO (10-20); Calcium,Total 8.5 mg/dL (8.5-10.1); Chloride 114 mmol/L (98-107); Creatinine, Serum 0.88 mg/dL (0.70-1.30); EST Glomerular Filtration Rate 88 mL/min (>60); Est Glom Filt Rate - Afr Amer 107 mL/min (>60); Estimated Creatinine Clearance 66.82 ml/min; Glucose 105 mg/dL (74-106); Potassium 3.7 mmol/L (3.5-5.1); Sodium Level 145 mmol/L (136-145)
[2020-05-20 07:20] LABS: Bedside Glucose 110 mg/dL (70-110)
[2020-05-20 08:08] LABS: Hemoglobin A1c 5.8 % (3.8-5.6)
[2020-05-20 09:04] VITALS: BP 133/84; PULSE 99; RESP 18; TEMP 36.6; O2SAT 96
[2020-05-20] MEDS: Famotidine 20 MG Tablet PO ×2 (09:07→23:30)
[2020-05-20] MEDS: Enoxaparin 40 MG/0.4 ML Syringe SC (09:08)
[2020-05-20 12:15] LABS: Bedside Glucose 133 mg/dL (70-110)
--- NOTE | 2020-05-20 14:59 | PCM.PN.SRG ---
Patient Problems: Active and Suspected Problems Cat bite of left hand (Acute) Cellulitis and abscess of hand (Acute) Hypernatremia (Acute) Hyperglycemia (Acute) Abscess (Acute) ELVIN (acute kidney injury) (Acute) Elevated serum creatinine (Acute) Subjective: post op day #2 Patient sitting up in chair. Denies complaints of pain. Complains of thirst. - Physical Exam Vitals/I&O's: Vital Signs Temp Pulse Resp BP Pulse Ox 97.8 F 99 18 133/84 H 96 05/20/20 09:04 05/20/20 09:04 05/20/20 09:04 05/20/20 09:04 05/20/20 09:04 Oxygen Flow Rate (L/min) 1 Oxygen Delivery Method Room Air Weight: 160 lb 14.999 oz Body Mass Index (BMI) 21.8 Intake and Output for Last 24 Hours 05/18/20 05/19/20 05/20/20 23:59 23:59 23:59 Intake Total 1115 / 1215 4219.67 / 4219.67 576 / 576 Output Total 400 / 400 Balance 1115 / 1215 4219.67 / 4219.67 176 / 176 General: Alert, Cooperative HEENT: Atraumatic Oral: Dry Mucosa Lungs: Normal air movement Cardiovascular: Regular rate Extremities: Edema - Left hand edema Skin: Ulcer/ Wound - Left hand dressing is intact with ROSIE wrap for compression. Musculoskeletal: Tenderness - Left hand with pain with palpation. He is not able to move his fingers on his left hand. Neurological: Cranial nerves II-XII grossly intact Psych/Mental Status: Normal Affect, Appropriate Microbiology Past 72 Hours 05/18/20 12:20 Blood Culture (Wb) - Anticubital Right Blood Culture - Preliminary No growth in 48 hours. 05/18/20 12:10 Blood Culture (Wb) - Right Wrist Blood Culture - Preliminary No growth in 48 hours. 05/18/20 Unknown Other - Other Gram Stain - Final 05/18/20 Unknown Other - Other Wound Culture - Preliminary Gram negative cocco bacillus 05/18/20 13:28 Bite, Cat Gram Stain - Final 05/18/20 13:28 Bite, Cat Wound Culture - Final Pasteurella multocida Staphylococcus aureus 05/18/20 12:47 Mucosa - Nose SARS-CoV-2 Antigen (Rapid) - Final Laboratory Results 05/19/20 14:39: Vancomycin Trough 7.2 05/19/20 23:01: POC Glucose 127 H 05/20/20 05:53: WBC 10.5, RBC 4.30 L, Hgb 12.7 L, Hct 39.2 L, MCV 91.2, MCH 29.5, MCHC 32.4, RDW Std Deviation 41.7, RDW Coeff of Nahed 12.4, Plt Count 222, MPV 10.2, Immature Gran % (Auto) 0.500, Neut % (Auto) 71.8 H, Lymph % (Auto) 14.9 L, [place] % (Auto) 11.1 H, Eos % (Auto) 1.3, Baso % (Auto) 0.4, Absolute Neuts (auto) 7.5, Absolute Lymphs (auto) 1.56, Nucleated RBC % 0 05/20/20 05:53: Sodium 145, Potassium 3.7, Chloride 114 H, Carbon Dioxide 27.0, Anion Gap 4 L, BUN 28 H, Creatinine 0.88, Estim Creat Clear Calc 66.82, Est GFR (MDRD) Af Amer 107, Est GFR (MDRD) Non-Af 88, BUN/Creatinine Ratio 31.9 H, Glucose 105, Calcium 8.5 05/20/20 05:53: Hemoglobin A1c 5.8 H 05/20/20 07:16: POC Glucose 110 05/20/20 12:06: POC Glucose 133 H Current Medications Acetaminophen (Acetaminophen 325 Mg Tablet) 650 mg PO Q6H PRN PRN PRN Reason: Pain Score 1-10/Temp > 100.7 F Last Admin: 05/19/20 10:13 Dose: 650 mg Documented by: Al Hydroxide/Mg Hydroxide (Mag Hydrox/Al Hydrox/Simeth 30 Ml Udc) 30 ml PO Q6H PRN PRN PRN Reason: Gastric Burning Albuterol Sulfate (Albuterol 2.5 Mg/3 Ml Vial.Neb.) 2.5 mg INHALATION Q2H PRN PRN PRN Reason: Shortness of Breath/Wheezing Dextrose (Dextrose 50%-Water 25 Gm/50 Ml Disp.Syrin) 0 gm IV X1 PRN; Protocol PRN Reason: Hypoglycemia Enoxaparin Sodium (Enoxaparin 40 Mg/0.4 Ml Syringe) 40 mg SC DAILY [facility] Last Admin: 05/20/20 09:08 Dose: 40 mg Documented by: Famotidine (Famotidine 20 Mg Tablet) 20 mg PO BID [facility] Last Admin: 05/20/20 09:07 Dose: 20 mg Documented by: Glucagon (Glucagon 1 Mg/Ml Syringe) 1 mg IM .X1 PRN PRN Reason: Hypoglycemia Ampicillin Sodium/Sulbactam (Sodium 3 gm/ Sodium Chloride) 112 mls @ 150 mls/hr IV Q6H [facility] Last Infusion: 05/20/20 14:33 Dose: Infused Documented by: Vancomycin IV Pharmacy to Dose (1 ea/ Sodium Chloride) 500 mls @ 250 mls/hr IV PRN PRN; Protocol PRN Reason: PK DOSING Vancomycin HCl (Vancomycin) 1,000 mg in 200 mls @ 200 mls/hr IV Q24H [facility] Last Infusion: 05/19/20 16:21 Dose: Infused Documented by: Insulin Human Lispro (Insulin Lispro 100 Unit/Ml Insuln.Pen) 0 unit SC ACHS [facility]; Protocol Last Admin: 05/20/20 12:33 Dose: Not Given Documented by: Melatonin (Melatonin 3 Mg Tablet) 3 mg PO QHS PRN PRN PRN Reason: INSOMNIA Morphine Sulfate (Morphine 2 Mg/Ml Syringe) 2 mg IV Q3H PRN PRN PRN Reason: Pain Score 6-10 Nitroglycerin (Nitroglycerin (Inpatient Use) 0.4 Mg Tab.Subl) 0.4 mg SUBLINGUAL Q5M PRN PRN Reason: CARDIAC/CHEST PAIN Olanzapine (Olanzapine 2.5 Mg Tablet) 7.5 mg PO QHS [facility] Last Admin: 05/19/20 23:10 Dose: 7.5 mg Documented by: Oxycodone HCl (Oxycodone 5 Mg Tablet) 5 mg PO Q4H PRN PRN PRN Reason: Pain Score 4-5 Last Admin: 05/19/20 10:13 Dose: 5 mg Documented by: Prochlorperazine Edisylate (Prochlorperazine 10 Mg/2 Ml Vial) 5 mg IV Q4H PRN PRN PRN Reason: Breakthrough nausea/vomiting Senna/Docusate Sodium (Senna/Docusate Sodium 1 Tablet) 2 tablet PO BID PRN PRN PRN Reason: Constipation Sodium Chloride (0.9% Saline Lock 10 Ml Syringe) 10 - 40 ml IV UD PRN PRN Reason: SALINE FLUSH Last Admin: 05/19/20 23:15 Dose: 10 ml Documented by: Tolterodine Tartrate (Tolterodine Tartrate 4 Mg Cap.Sa) 4 mg PO HS [facility] Last Admin: 05/19/20 23:10 Dose: 4 mg Documented by: Medical Necessity - Tobacco Use Smoking Status: Never smoker Assessment/Plan All Active Problems Cat bite of left hand (Acute) Cellulitis and abscess of hand (Acute) Hypernatremia (Acute) Hyperglycemia (Acute) Abscess (Acute) ELVIN (acute kidney injury) (Acute) Elevated serum creatinine (Acute) 1. Cat bite infection abscess dorsum left hand, ulnar aspect, with extension to small finger and wrist. 2. Extensor tenosynovitis dorsum left hand at wrist involving compartments 2, 3, 4, 5, and 6 (ECRL, ECRB, EPL, EIP, EDC, EDM, ECU tendons). 3. Sepsis. 4. 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 Patient's pain is well controlled. He is receiving daily silver dressing changes to the wounds on his left hand. He is not able to bend his fingers, which are swollen. Preliminary operative cultures of left hand positive for Gram negative cocco bacillus. He currently is on Unasyn and Vancomycin. Prealbumin from 05/18/20 is 9.7. Encouraged supplementation with protein. He is on Darren. He does complain of thirst- water was given. After discharge he will follow up at the wound center.
[2020-05-20 15:00] VITALS: BP 117/73; PULSE 76; RESP 19; TEMP 36.3; O2SAT 97
--- NOTE | 2020-05-20 15:26 | CASEMGMT ---
GABRIELLA noted RN's note from evening regarding patient's inquiring about insurance coverage for ECF. GABRIELLA called patient's and asked her if she had questions about insurance coverage for detention. She said he is not going to a detention. GABRIELLA asked her if she had questions about insurance coverage for something. She mentioned the Transitional Care Unit at [facility]. GABRIELLA told her medicare's coverage for TCU. SW told her day s 1-20 are covered at 100%. SW told her that does not mean he will have to be there 20 days. She said he won't need to be there that long and then she said she didn't think he needed to be there at all. SW explained to her that his wound is going to require daily dressing changes and he will likely be on IV antibiotics. SW told her he cannot have home health as he does not have a primary care doctor. Therefore the only way for him to get the IV antibiotics would be to come to the hospital daily for them or go to a detention. She said she has seen too many instances in the newspaper where patient's go to nursing homes and then from COVID. She said she cannot let that happen. GABRIELLA told her physician feels he will be here through the weekend. She said she isn't sure how she is going to get him home. His sister is going out of town for 10 days[address] Patient's does not drive. SW asked if their daughter drives and she said yes she does. GABRIELLA asked if she would be able to take patient home. She said she could but they would need to coordinate. SW told her that would not be a problem. GABRIELLA told her SW will follow up Saturday. Antonette FELICIANO
[2020-05-20] MEDS: Vancomycin IV 1,000 MG/200 ML BAG 200 MG IV (15:54)
--- NOTE | 2020-05-20 15:54 | PN_ITS ---
Patient Problems: Active and Suspected Problems Cat bite of left hand (Acute) Cellulitis and abscess of hand (Acute) Hypernatremia (Acute) Hyperglycemia (Acute) Abscess (Acute) ELVIN (acute kidney injury) (Acute) Elevated serum creatinine (Acute) Reason for Visit: Follow-up left hand cellulitis and abscess after cat bite Objective: Left hand swelling is little better. No fever or chills. Physical exam General: Alert, awake, Oriented x3, Cooperative HEENT: Atraumatic, PERRLA, EOMI, Normocephalic Oral: No Gingival or Mucosal Lesions/ Ulcerations Neck: Supple, No JVD, Negative Carotid Bruits Lungs: Air entry diminished in bilateral lung bases. No crepitation/rhonchi Cardiovascular: Regular rate, Regular Rhythm, Normal S1, Normal S2, No murmurs Abdomen: Bowel Sounds Present, Soft, Non Tender, Non-Distended : No renal angle tenderness. No suprapubic tenderness. Extremities: Left hand is edematous. Tenderness and induration are improving. Surgical dressing with Theodore wrap bandage on left hand. Capillary refill in finger nails Skin: Erythema, induration and swelling in the left hand status post operative debridement. Musculoskeletal: No Tenderness to Palpation of Joints or Extremities Neurological: Cranial nerves II-XII grossly intact, Deep Tendon Reflexes 2+/4 and Symmetrical, Neuro grossly intact Psych/Mental Status: Mild cognitive deficit/early dementia Vitals/I&O's: Vital Signs Temp Pulse Resp BP Pulse Ox 97.8 F 99 18 133/84 H 96 05/20/20 09:04 05/20/20 09:04 05/20/20 09:04 05/20/20 09:04 05/20/20 09:04 Oxygen Flow Rate (L/min) 1 Oxygen Delivery Method Room Air Weight: 160 lb 14.999 oz Body Mass Index (BMI) 21.8 Intake and Output for Last 24 Hours 05/18/20 05/19/20 05/20/20 23:59 23:59 23:59 Intake Total 1115 / 1215 4219.67 / 4219.67 576 / 576 Output Total 400 / 400 Balance 1115 / 1215 4219.67 / 4219.67 176 / 176 Microbiology Past 72 Hours 05/18/20 Unknown Other - Other Gram Stain - Final 05/18/20 Unknown Other - Other Wound Culture - Preliminary Gram negative cocco bacillus 05/18/20 12:20 Blood Culture (Wb) - Anticubital Right Blood Culture - Preliminary No growth in 48 hours. 05/18/20 12:10 Blood Culture (Wb) - Right Wrist Blood Culture - Preliminary No growth in 48 hours. 05/18/20 13:28 Bite, Cat Gram Stain - Final 05/18/20 13:28 Bite, Cat Wound Culture - Final Pasteurella multocida Staphylococcus aureus 05/18/20 12:47 Mucosa - Nose SARS-CoV-2 Antigen (Rapid) - Final Laboratory Results 05/19/20 23:01: POC Glucose 127 H 05/20/20 05:53: WBC 10.5, RBC 4.30 L, Hgb 12.7 L, Hct 39.2 L, MCV 91.2, MCH 29.5, MCHC 32.4, RDW Std Deviation 41.7, RDW Coeff of Nahed 12.4, Plt Count 222, MPV 10.2, Immature Gran % (Auto) 0.500, Neut % (Auto) 71.8 H, Lymph % (Auto) 14.9 L, [place] % (Auto) 11.1 H, Eos % (Auto) 1.3, Baso % (Auto) 0.4, Absolute Neuts (auto) 7.5, Absolute Lymphs (auto) 1.56, Nucleated RBC % 0 05/20/20 05:53: Sodium 145, Potassium 3.7, Chloride 114 H, Carbon Dioxide 27.0, Anion Gap 4 L, BUN 28 H, Creatinine 0.88, Estim Creat Clear Calc 66.82, Est GFR (MDRD) Af Amer 107, Est GFR (MDRD) Non-Af 88, BUN/Creatinine Ratio 31.9 H, Glucose 105, Calcium 8.5 05/20/20 05:53: Hemoglobin A1c 5.8 H 05/20/20 07:16: POC Glucose 110 05/20/20 12:06: POC Glucose 133 H Current Medications Acetaminophen (Acetaminophen 325 Mg Tablet) 650 mg PO Q6H PRN PRN PRN Reason: Pain Score 1-10/Temp > 100.7 F Last Admin: 05/19/20 10:13 Dose: 650 mg Documented by: Al Hydroxide/Mg Hydroxide (Mag Hydrox/Al Hydrox/Simeth 30 Ml Udc) 30 ml PO Q6H PRN PRN PRN Reason: Gastric Burning Albuterol Sulfate (Albuterol 2.5 Mg/3 Ml Vial.Neb.) 2.5 mg INHALATION Q2H PRN PRN PRN Reason: Shortness of Breath/Wheezing Dextrose (Dextrose 50%-Water 25 Gm/50 Ml Disp.Syrin) 0 gm IV X1 PRN; Protocol PRN Reason: Hypoglycemia Enoxaparin Sodium (Enoxaparin 40 Mg/0.4 Ml Syringe) 40 mg SC DAILY [facility] Last Admin: 05/20/20 09:08 Dose: 40 mg Documented by: Famotidine (Famotidine 20 Mg Tablet) 20 mg PO BID [facility] Last Admin: 05/20/20 09:07 Dose: 20 mg Documented by: Glucagon (Glucagon 1 Mg/Ml Syringe) 1 mg IM .X1 PRN PRN Reason: Hypoglycemia Ampicillin Sodium/Sulbactam (Sodium 3 gm/ Sodium Chloride) 112 mls @ 150 mls/hr IV Q6H [facility] Last Infusion: 05/20/20 14:33 Dose: Infused Documented by: Vancomycin IV Pharmacy to Dose (1 ea/ Sodium Chloride) 500 mls @ 250 mls/hr IV PRN PRN; Protocol PRN Reason: PK DOSING Vancomycin HCl (Vancomycin) 1,000 mg in 200 mls @ 200 mls/hr IV Q24H [facility] Last Infusion: 05/19/20 16:21 Dose: Infused Documented by: Insulin Human Lispro (Insulin Lispro 100 Unit/Ml Insuln.Pen) 0 unit SC ACHS [facility]; Protocol Last Admin: 05/20/20 12:33 Dose: Not Given Documented by: Melatonin (Melatonin 3 Mg Tablet) 3 mg PO QHS PRN PRN PRN Reason: INSOMNIA Morphine Sulfate (Morphine 2 Mg/Ml Syringe) 2 mg IV Q3H PRN PRN PRN Reason: Pain Score 6-10 Nitroglycerin (Nitroglycerin (Inpatient Use) 0.4 Mg Tab.Subl) 0.4 mg SUBLINGUAL Q5M PRN PRN Reason: CARDIAC/CHEST PAIN Olanzapine (Olanzapine 2.5 Mg Tablet) 7.5 mg PO QHS [facility] Last Admin: 05/19/20 23:10 Dose: 7.5 mg Documented by: Oxycodone HCl (Oxycodone 5 Mg Tablet) 5 mg PO Q4H PRN PRN PRN Reason: Pain Score 4-5 Last Admin: 05/19/20 10:13 Dose: 5 mg Documented by: Prochlorperazine Edisylate (Prochlorperazine 10 Mg/2 Ml Vial) 5 mg IV Q4H PRN PRN PRN Reason: Breakthrough nausea/vomiting Senna/Docusate Sodium (Senna/Docusate Sodium 1 Tablet) 2 tablet PO BID PRN PRN PRN Reason: Constipation Sodium Chloride (0.9% Saline Lock 10 Ml Syringe) 10 - 40 ml IV UD PRN PRN Reason: SALINE FLUSH Last Admin: 05/19/20 23:15 Dose: 10 ml Documented by: Tolterodine Tartrate (Tolterodine Tartrate 4 Mg Cap.Sa) 4 mg PO HS [facility] Last Admin: 05/19/20 23:10 Dose: 4 mg Documented by: Medical Necessity - Tobacco Use Smoking Status: Never smoker Assessment/Plan All Active Problems Cat bite of left hand (Acute) Cellulitis and abscess of hand (Acute) Hypernatremia (Acute) Hyperglycemia (Acute) Abscess (Acute) ELVIN (acute kidney injury) (Acute) Elevated serum creatinine (Acute) This 84-year-old woman with history of cognitive deficit and bipolar disorder came to ED for left hand swelling after 3 week of cat bite. 1. SIRS (tachycardia, leukocytosis ) from sepsis due to left hand cellulitis and abscess with purulent drainage from cat bite present on infection: [facility] Dr[facility] Lucero has been consulted from ER physician Dr. Mensah. Started on the broad-spectrum antibiotic vancomycin and Unasyn. Patient also got 1 dose of clindamycin 900 mg in ED. patient needs operative debridement. 05/19: Operative note reviewed. Patient has abscess left hand, ulnar aspect with extension to small finger and wrist. Extensor tenosynovitis dorsum left hand at rest. 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 Seen by ID. Agree with continuation of Unasyn and vancomycin. 05/20 preliminary Gram stain of tissue culture shows gram-negative coccobacillus, pustular multocida and MSSA. ID on case. Discontinue vancomycin. 2. Possible acute kidney injury on CKD stage III: Patient BUN/creatinine is 48/1.44. His previous creatinine in November 2017 was 1.5. No labs in between this. Monitor kidney function, urine output and electrolytes. Patient has history of BPH. If kidney junction does not improve, will need renal and bladder ultrasound. IV fluid normal saline at 100 mL/h. 05/19: BUN/creatinine 37/1.11. Acute kidney injury resolved. 3. Hyperglycemia with no diagnosis of diabetes mellitus: Glucoses 191. A1c tomorrow a.m. Accu-Chek insulin coverage Humalog sliding scale. VT prophylaxis: Heparin 5000 units subcutaneous twice daily. Hold the morning dose prior to surgery. Inpatient E&M: 31345 Subs Hosp L2
[2020-05-20 16:15] LABS: Bedside Glucose 127 mg/dL (70-110)
--- NOTE | 2020-05-20 16:20 | PCM.PN.ID ---
Patient Problems: Active and Suspected Problems Cat bite of left hand (Acute) Cellulitis and abscess of hand (Acute) Hypernatremia (Acute) Hyperglycemia (Acute) Abscess (Acute) ELVIN (acute kidney injury) (Acute) Elevated serum creatinine (Acute) Subjective: Hand is sore, no fever, no n/v/d - Physical Exam Vitals/I&O's: Vital Signs Temp Pulse Resp BP Pulse Ox 97.8 F 99 18 133/84 H 96 05/20/20 09:04 05/20/20 09:04 05/20/20 09:04 05/20/20 09:04 05/20/20 09:04 Oxygen Flow Rate (L/min) 1 Oxygen Delivery Method Room Air Weight: 73 kg Body Mass Index (BMI) 21.8 Intake and Output for Last 24 Hours 05/18/20 05/19/20 05/20/20 23:59 23:59 23:59 Intake Total 1115 / 1215 4219.67 / 4219.67 579.33 / 579.33 Output Total 400 / 400 Balance 1115 / 1215 4219.67 / 4219.67 179.33 / 179.33 General: Cooperative, No apparent distress Lungs: Clear to auscultation, Normal air movement Cardiovascular: Regular rate, Regular Rhythm Abdomen: Soft, Non Tender, Non-Distended Skin: Ulcer/ Wound - hand wrapped Microbiology Past 72 Hours 05/18/20 Unknown Other - Other Gram Stain - Final 05/18/20 Unknown Other - Other Wound Culture - Preliminary Gram negative cocco bacillus 05/18/20 12:20 Blood Culture (Wb) - Anticubital Right Blood Culture - Preliminary No growth in 48 hours. 05/18/20 12:10 Blood Culture (Wb) - Right Wrist Blood Culture - Preliminary No growth in 48 hours. 05/18/20 13:28 Bite, Cat Gram Stain - Final 05/18/20 13:28 Bite, Cat Wound Culture - Final Pasteurella multocida Staphylococcus aureus 05/18/20 12:47 Mucosa - Nose SARS-CoV-2 Antigen (Rapid) - Final Laboratory Results 05/19/20 23:01: POC Glucose 127 H 05/20/20 05:53: WBC 10.5, RBC 4.30 L, Hgb 12.7 L, Hct 39.2 L, MCV 91.2, MCH 29.5, MCHC 32.4, RDW Std Deviation 41.7, RDW Coeff of Nahed 12.4, Plt Count 222, MPV 10.2, Immature Gran % (Auto) 0.500, Neut % (Auto) 71.8 H, Lymph % (Auto) 14.9 L, [place] % (Auto) 11.1 H, Eos % (Auto) 1.3, Baso % (Auto) 0.4, Absolute Neuts (auto) 7.5, Absolute Lymphs (auto) 1.56, Nucleated RBC % 0 05/20/20 05:53: Sodium 145, Potassium 3.7, Chloride 114 H, Carbon Dioxide 27.0, Anion Gap 4 L, BUN 28 H, Creatinine 0.88, Estim Creat Clear Calc 66.82, Est GFR (MDRD) Af Amer 107, Est GFR (MDRD) Non-Af 88, BUN/Creatinine Ratio 31.9 H, Glucose 105, Calcium 8.5 05/20/20 05:53: Hemoglobin A1c 5.8 H 05/20/20 07:16: POC Glucose 110 05/20/20 12:06: POC Glucose 133 H 05/20/20 15:59: POC Glucose 127 H Current Medications Acetaminophen (Acetaminophen 325 Mg Tablet) 650 mg PO Q6H PRN PRN PRN Reason: Pain Score 1-10/Temp > 100.7 F Last Admin: 05/19/20 10:13 Dose: 650 mg Documented by: Al Hydroxide/Mg Hydroxide (Mag Hydrox/Al Hydrox/Simeth 30 Ml Udc) 30 ml PO Q6H PRN PRN PRN Reason: Gastric Burning Albuterol Sulfate (Albuterol 2.5 Mg/3 Ml Vial.Neb.) 2.5 mg INHALATION Q2H PRN PRN PRN Reason: Shortness of Breath/Wheezing Dextrose (Dextrose 50%-Water 25 Gm/50 Ml Disp.Syrin) 0 gm IV X1 PRN; Protocol PRN Reason: Hypoglycemia Enoxaparin Sodium (Enoxaparin 40 Mg/0.4 Ml Syringe) 40 mg SC DAILY [facility] Last Admin: 05/20/20 09:08 Dose: 40 mg Documented by: Famotidine (Famotidine 20 Mg Tablet) 20 mg PO BID [facility] Last Admin: 05/20/20 09:07 Dose: 20 mg Documented by: Glucagon (Glucagon 1 Mg/Ml Syringe) 1 mg IM .X1 PRN PRN Reason: Hypoglycemia Ampicillin Sodium/Sulbactam (Sodium 3 gm/ Sodium Chloride) 112 mls @ 150 mls/hr IV Q6H [facility] Last Infusion: 05/20/20 14:33 Dose: Infused Documented by: Insulin Human Lispro (Insulin Lispro 100 Unit/Ml Insuln.Pen) 0 unit SC ACHS [facility]; Protocol Last Admin: 05/20/20 16:00 Dose: Not Given Documented by: Melatonin (Melatonin 3 Mg Tablet) 3 mg PO QHS PRN PRN PRN Reason: INSOMNIA Morphine Sulfate (Morphine 2 Mg/Ml Syringe) 2 mg IV Q3H PRN PRN PRN Reason: Pain Score 6-10 Nitroglycerin (Nitroglycerin (Inpatient Use) 0.4 Mg Tab.Subl) 0.4 mg SUBLINGUAL Q5M PRN PRN Reason: CARDIAC/CHEST PAIN Olanzapine (Olanzapine 2.5 Mg Tablet) 7.5 mg PO QHS [facility] Last Admin: 05/19/20 23:10 Dose: 7.5 mg Documented by: Oxycodone HCl (Oxycodone 5 Mg Tablet) 5 mg PO Q4H PRN PRN PRN Reason: Pain Score 4-5 Last Admin: 05/19/20 10:13 Dose: 5 mg Documented by: Prochlorperazine Edisylate (Prochlorperazine 10 Mg/2 Ml Vial) 5 mg IV Q4H PRN PRN PRN Reason: Breakthrough nausea/vomiting Senna/Docusate Sodium (Senna/Docusate Sodium 1 Tablet) 2 tablet PO BID PRN PRN PRN Reason: Constipation Sodium Chloride (0.9% Saline Lock 10 Ml Syringe) 10 - 40 ml IV UD PRN PRN Reason: SALINE FLUSH Last Admin: 05/19/20 23:15 Dose: 10 ml Documented by: Tolterodine Tartrate (Tolterodine Tartrate 4 Mg Cap.Sa) 4 mg PO [facility] Last Admin: 05/19/20 23:10 Dose: 4 mg Documented by: Medical Necessity - Tobacco Use Smoking Status: Never smoker Route of nutrition/ use of supplements: [] Nutritional Intake: [] IV Site: [] Peterson Catheter: [] - Assessment/Plan Antibiotics: [] Assessment/Plan: [] Active and Suspected Problems Cat bite of left hand (Acute) Cellulitis and abscess of hand (Acute) Hypernatremia (Acute) Hyperglycemia (Acute) Abscess (Acute) ELVIN (acute kidney injury) (Acute) Elevated serum creatinine (Acute) L hand cat bite with deep involvement - now s/p OR 05/[address] Lucero. Wound cx with pasteurella, mssa. Will stop vanc. Cont unasyn. May be able to have po abx at discharge depending on clinical progress. Will follow
[2020-05-20 20:20] VITALS: BP 127/72; PULSE 87; RESP 16; TEMP 36.7; O2SAT 93
[2020-05-20] MEDS: Tolterodine Tartrate 4 MG CAP.SA PO (23:30)
[2020-05-20] MEDS: OLANZapine 2.5 MG Tablet 7.5 MG PO (23:30)
[2020-05-20] MEDS: Insulin Lispro 100 UNIT/ML INSULN.PEN SC (23:33)
[2020-05-20 23:40] LABS: Bedside Glucose 179 mg/dL (70-110)
[2020-05-21 02:20] VITALS: BP 133/82; PULSE 79; RESP 16; TEMP 36.6; O2SAT 95
[2020-05-21 07:07] LABS: Absolute Lymphocyte Count 2.04 X10^3/uL (0.83-4.51); Absolute Neutrophil Count 4.8 X10^3/uL (2.0-7.7); Basophil# 0.05 X10^3/uL; Basophil% 0.6 % (0-1); Eosinophil# 0.19 X10^3/uL; Eosinophils% 2.3 % (0-5); Hematocrit 38.4 % (40-54); Hemoglobin 12.8 g/dL (13.0-16.5); Lymphocyte # 2.04 X10^3/ul (4.0); Lymphocyte % 24.8 % (19-41); Mean Corp Hgb Conc 33.3 g/dL (32-36); Mean Corpuscular Hgb 30.1 pg (27.0-32.0); Mean Corpuscular Volume 90.4 fL (80-94); Mean Platelet Vol. 10.3 fl (6.2-12.0); Monocyte# 1.11 X10^3/uL; Monocyte% 13.5 % (0-10); NRBC Flagged by Analyzer 0 % (0-5); Neutrophil # 4.76 X10^3/uL (2.7-7.7); Neutrophil % 58.1 % (47-70); Platelet Count 265 K/mm3 (150-450); RBC Distribution Width CV 12.3 % (11.6-14.6); RBC Distribution Width SD 40.7 fl (35.1-43.9); Red Blood Count 4.25 M/mm3 (4.6-6.2); White Blood Count 8.2 K/mm3 (4.4-11.0)
[2020-05-21 07:10] VITALS: O2SAT 93
[2020-05-21 07:11] LABS: Bedside Glucose 113 mg/dL (70-110)
[2020-05-21 07:25] LABS: Anion Gap 3 (5-15); BUN 32 mg/dL (7-18); BUN/Creat Ratio 36.8 RATIO (10-20); Calcium,Total 8.5 mg/dL (8.5-10.1); Chloride 114 mmol/L (98-107); Creatinine, Serum 0.87 mg/dL (0.70-1.30); EST Glomerular Filtration Rate 89 mL/min (>60); Est Glom Filt Rate - Afr Amer 108 mL/min (>60); Estimated Creatinine Clearance 67.59 ml/min; Glucose 113 mg/dL (74-106); Potassium 3.6 mmol/L (3.5-5.1); Sodium Level 146 mmol/L (136-145)
[2020-05-21 07:59] VITALS: BP 157/90; PULSE 77; RESP 12; TEMP 36.6; O2SAT 95
[2020-05-21] MEDS: Enoxaparin 40 MG/0.4 ML Syringe SC (09:16)
[2020-05-21] MEDS: Famotidine 20 MG Tablet PO ×2 (09:16→20:17)
[2020-05-21 11:20] LABS: Bedside Glucose 148 mg/dL (70-110)
[2020-05-21 13:57] VITALS: BP 136/80; PULSE 96; RESP 12; TEMP 36.9; O2SAT 95
--- NOTE | 2020-05-21 14:40 | PN_ITS ---
Patient Problems: Active and Suspected Problems Cat bite of left hand (Acute) Cellulitis and abscess of hand (Acute) Hypernatremia (Acute) Hyperglycemia (Acute) Abscess (Acute) ELVIN (acute kidney injury) (Acute) Elevated serum creatinine (Acute) Reason for Visit: Follow-up for cellulitis and abscess of left hand due to cat bite Objective: No fever or chills. Heart rate and blood pressure are in normal range. No hypoxia or tachypnea. Left hand is still swollen but slightly better than yesterday. Complains of pain in the left hand. Physical exam General: Alert, Oriented x3, Cooperative HEENT: Atraumatic, PERRLA, EOMI, Normocephalic Oral: No Gingival or Mucosal Lesions/ Ulcerations Neck: Supple, No JVD, Negative Carotid Bruits Lungs: Air entry diminished in bilateral lung bases. No crepitation/rhonchi Cardiovascular: Regular rate, Regular Rhythm, Normal S1, Normal S2, No murmurs Abdomen: Bowel Sounds Present, Soft, Non Tender, Non-Distended : No renal angle tenderness. No suprapubic tenderness. Extremities: Left hand is edematous, tenderness but induration is resolved. Theodore wrap bandage on. No ankle edema. Capillary Refill Less than 3 Seconds Skin: No rashes, No breakdown Musculoskeletal: No Tenderness to Palpation of other joints or Extremities except left hand Neurological: Cranial nerves II-XII grossly intact, Deep Tendon Reflexes 2+/4 and Symmetrical, Neuro grossly intact Psych/Mental Status: Normal Affect, Appropriate. Vitals/I&O's: Vital Signs Temp Pulse Resp BP Pulse Ox 98.4 F 96 12 136/80 H 95 05/21/20 13:57 05/21/20 13:57 05/21/20 13:57 05/21/20 13:57 05/21/20 13:57 Oxygen Flow Rate (L/min) 1 Oxygen Delivery Method Room Air Weight: 160 lb 14.999 oz Body Mass Index (BMI) 21.8 Intake and Output for Last 24 Hours 05/19/20 05/20/20 05/21/20 23:59 23:59 23:59 Intake Total 4219.67 / 4219.67 931.33 / 931.33 224 / 224 Output Total 750 / 750 200 / 200 Balance 4219.67 / 4219.67 181.33 / 181.33 24 / 24 Microbiology Past 72 Hours 05/18/20 Unknown Other - Other Gram Stain - Final 05/18/20 Unknown Other - Other Wound Culture - Final Pasteurella multocida 05/18/20 12:20 Blood Culture (Wb) - Anticubital Right Blood Culture - Preliminary No growth in 48 hours. 05/18/20 12:10 Blood Culture (Wb) - Right Wrist Blood Culture - Preliminary No growth in 48 hours. 05/18/20 13:28 Bite, Cat Gram Stain - Final 05/18/20 13:28 Bite, Cat Wound Culture - Final Pasteurella multocida Staphylococcus aureus 05/18/20 12:47 Mucosa - Nose SARS-CoV-2 Antigen (Rapid) - Final Laboratory Results 05/20/20 15:59: POC Glucose 127 H 05/20/20 23:30: POC Glucose 179 H 05/21/20 05:27: WBC 8.2, RBC 4.25 L, Hgb 12.8 L, Hct 38.4 L, MCV 90.4, MCH 30.1, MCHC 33.3, RDW Std Deviation 40.7, RDW Coeff of Nahed 12.3, Plt Count 265, MPV 10.3, Immature Gran % (Auto) 0.700, Neut % (Auto) 58.1, Lymph % (Auto) 24.8, Hyde % (Auto) 13.5 H, Eos % (Auto) 2.3, Baso % (Auto) 0.6, Absolute Neuts (auto) 4.8, Absolute Lymphs (auto) 2.04, Nucleated RBC % 0 05/21/20 05:27: Sodium 146 H, Potassium 3.6, Chloride 114 H, Carbon Dioxide 29.0, Anion Gap 3 L, BUN 32 H, Creatinine 0.87, Estim Creat Clear Calc 67.59, Est GFR (MDRD) Af Amer 108, Est GFR (MDRD) Non-Af 89, BUN/Creatinine Ratio 36.8 H, Glucose 113 H, Calcium 8.5 05/21/20 06:50: POC Glucose 113 H 05/21/20 11:11: POC Glucose 148 H Current Medications Acetaminophen (Acetaminophen 325 Mg Tablet) 650 mg PO Q6H PRN PRN PRN Reason: Pain Score 1-10/Temp > 100.7 F Last Admin: 05/19/20 10:13 Dose: 650 mg Documented by: Al Hydroxide/Mg Hydroxide (Mag Hydrox/Al Hydrox/Simeth 30 Ml Udc) 30 ml PO Q6H PRN PRN PRN Reason: Gastric Burning Albuterol Sulfate (Albuterol 2.5 Mg/3 Ml Vial.Neb.) 2.5 mg INHALATION Q2H PRN PRN PRN Reason: Shortness of Breath/Wheezing Dextrose (Dextrose 50%-Water 25 Gm/50 Ml Disp.Syrin) 0 gm IV X1 PRN; Protocol PRN Reason: Hypoglycemia Enoxaparin Sodium (Enoxaparin 40 Mg/0.4 Ml Syringe) 40 mg SC DAILY [facility] Last Admin: 05/21/20 09:16 Dose: 40 mg Documented by: Famotidine (Famotidine 20 Mg Tablet) 20 mg PO BID [facility] Last Admin: 05/21/20 09:16 Dose: 20 mg Documented by: Glucagon (Glucagon 1 Mg/Ml Syringe) 1 mg IM .X1 PRN PRN Reason: Hypoglycemia Ampicillin Sodium/Sulbactam (Sodium 3 gm/ Sodium Chloride) 112 mls @ 150 mls/hr IV Q6H [facility] Last Admin: 05/21/20 14:01 Dose: 150 mls/hr Documented by: Insulin Human Lispro (Insulin Lispro 100 Unit/Ml Insuln.Pen) 0 unit SC ACHS [facility]; Protocol Last Admin: 05/21/20 11:13 Dose: Not Given Documented by: Melatonin (Melatonin 3 Mg Tablet) 3 mg PO QHS PRN PRN PRN Reason: INSOMNIA Morphine Sulfate (Morphine 2 Mg/Ml Syringe) 2 mg IV Q3H PRN PRN PRN Reason: Pain Score 6-10 Nitroglycerin (Nitroglycerin (Inpatient Use) 0.4 Mg Tab.Subl) 0.4 mg SUBLINGUAL Q5M PRN PRN Reason: CARDIAC/CHEST PAIN Olanzapine (Olanzapine 2.5 Mg Tablet) 7.5 mg PO QHS [facility] Last Admin: 05/20/20 23:30 Dose: 7.5 mg Documented by: Oxycodone HCl (Oxycodone 5 Mg Tablet) 5 mg PO Q4H PRN PRN PRN Reason: Pain Score 4-5 Last Admin: 05/19/20 10:13 Dose: 5 mg Documented by: Prochlorperazine Edisylate (Prochlorperazine 10 Mg/2 Ml Vial) 5 mg IV Q4H PRN PRN PRN Reason: Breakthrough nausea/vomiting Senna/Docusate Sodium (Senna/Docusate Sodium 1 Tablet) 2 tablet PO BID PRN PRN PRN Reason: Constipation Sodium Chloride (0.9% Saline Lock 10 Ml Syringe) 10 - 40 ml IV UD PRN PRN Reason: SALINE FLUSH Last Admin: 05/19/20 23:15 Dose: 10 ml Documented by: Tolterodine Tartrate (Tolterodine Tartrate 4 Mg Cap.Sa) 4 mg PO HS [facility] Last Admin: 05/20/20 23:30 Dose: 4 mg Documented by: STROKE Vital Signs/Narrative: Vital Signs Temp Pulse Resp BP Pulse Ox 05/21/20 13:57 98.4 F 96 12 136/80 H 95 Medical Necessity - Tobacco Use Smoking Status: Never smoker Assessment/Plan All Active Problems Compartment syndrome of left hand (Acute) Infectious tenosynovitis of left wrist extensor (Acute) Abscess of skin of left wrist (Acute) Extensor tenosynovitis of left wrist (Acute) Sepsis (Acute) Abscess of left hand including fingers (Acute) Cat bite (Acute) Cat bite of left hand (Acute) Cellulitis and abscess of hand (Acute) Hypernatremia (Acute) Hyperglycemia (Acute) Abscess (Acute) ELVIN (acute kidney injury) (Acute) Elevated serum creatinine (Acute) This 84-year-old woman with history of cognitive deficit and bipolar disorder came to ED for left hand swelling after 3 week of cat bite. 1. SIRS (tachycardia, leukocytosis ) from sepsis due to left hand cellulitis and abscess with purulent drainage from cat bite present on infection: Patient is being admitted to MedSurg floor. Dr. Lucero has been consulted from ER physician Dr. Mensah. Started on the broad-spectrum antibiotic vancomycin and Unasyn. Patient also got 1 dose of clindamycin 900 mg in ED. patient needs operative debridement. 05/19: Operative note reviewed. Patient has abscess left hand, ulnar aspect with extension to small finger and wrist. Extensor tenosynovitis dorsum left hand at rest. 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 Seen by ID. Agree with continuation of Unasyn and vancomycin. 05/20 preliminary Gram stain of tissue culture shows gram-negative coccobacillus, pustular multocida and MSSA. ID on case. Discontinue vancomycin. 05/21: Tissue culture from 05/18 shows pustular multocida and MSSA. On Unasyn. Leukocytosis is resolved. 2. Possible acute kidney injury on CKD stage III: Patient BUN/creatinine is 48/1.44. His previous creatinine in November 2017 was 1.5. No labs in between this. Monitor kidney function, urine output and electrolytes. Patient has hi story of BPH. If kidney junction does not improve, will need renal and bladder ultrasound. IV fluid normal saline at 100 mL/h. 05/19: BUN/creatinine 37/1.11. Acute kidney injury resolved. 3. Hyperglycemia with no diagnosis of diabetes mellitus: Glucoses 191. A1c tomorrow a.m. Accu-Chek insulin coverage Humalog sliding scale. VTE prophylaxis: on Lovenox 40 mg subcu daily Inpatient E&M: 02827 Subs Hosp L2
[2020-05-21] MEDS: 0.9% Saline Lock 10 ML Syringe IV ×2 (15:02→22:05)
[2020-05-21] MEDS: Acetaminophen 325 MG Tablet 650 MG PO (15:02)
[2020-05-21 16:45] LABS: Bedside Glucose 139 mg/dL (70-110)
--- NOTE | 2020-05-21 19:00 | PCS.PANDOC ---
PANDEMIC DOCUMENTATION INITIATED: Date: 05/18/20 Time: 15:40
[2020-05-21 20:00] VITALS: BP 126/91; PULSE 82; RESP 16; TEMP 36.4; O2SAT 96
[2020-05-21] MEDS: OLANZapine 2.5 MG Tablet 7.5 MG PO (20:17)
[2020-05-21] MEDS: Tolterodine Tartrate 4 MG CAP.SA PO (20:17)
[2020-05-21 22:05] LABS: Bedside Glucose 125 mg/dL (70-110)
[2020-05-22] MEDS: 0.9% Saline Lock 10 ML Syringe IV ×2 (02:27→20:18)
[2020-05-22] MEDS: Acetaminophen 325 MG Tablet 650 MG PO (02:28)
[2020-05-22 02:45] VITALS: BP 139/68; PULSE 89; RESP 18; TEMP 36.5; O2SAT 98
[2020-05-22 06:50] LABS: Bedside Glucose 110 mg/dL (70-110)
[2020-05-22 08:06] VITALS: O2SAT 96
[2020-05-22 08:45] VITALS: BP 134/85; PULSE 97; RESP 16; TEMP 36.6; O2SAT 93
[2020-05-22] MEDS: Enoxaparin 40 MG/0.4 ML Syringe SC (08:47)
[2020-05-22] MEDS: Famotidine 20 MG Tablet PO ×2 (08:47→21:00)
--- NOTE | 2020-05-22 11:47 | PN_ITS ---
Patient Problems: Active and Suspected Problems Cat bite of left hand (Acute) Cellulitis and abscess of hand (Acute) Hypernatremia (Acute) Hyperglycemia (Acute) Abscess (Acute) ELVIN (acute kidney injury) (Acute) Elevated serum creatinine (Acute) Reason for Visit: Follow-up for left hand cellulitis and abscess status post debridement due to cat bite Objective: Left hand swelling has improved. Surgical dressing is dry. Patient hand in the neutral position. Physical exam General: Alert, Oriented x3, Cooperative HEENT: Atraumatic, PERRLA, EOMI, Normocephalic Oral: No Gingival or Mucosal Lesions/ Ulcerations Neck: Supple, No JVD, Negative Carotid Bruits Lungs: Air entry diminished in bilateral lung bases. No crepitation/rhonchi Cardiovascular: Regular rate, Regular Rhythm, Normal S1, Normal S2, No murmurs Abdomen: Bowel Sounds Present, Soft, Non Tender, Non-Distended : No renal angle tenderness. No suprapubic tenderness. Extremities: Left hand edema, tenderness and induration is much improved. Surgical dressing changed. No ankle edema. Capillary Refill Less than 3 Seconds Skin: No rashes, No breakdown Musculoskeletal: No Tenderness to Palpation of other joints or Extremities except left hand Neurological: Cranial nerves II-XII grossly intact, Deep Tendon Reflexes 2+/4 and Symmetrical, Neuro grossly intact Psych/Mental Status: Normal Affect, Appropriate. Vitals/I&O's: Vital Signs Temp Pulse Resp BP Pulse Ox 97.9 F 97 16 134/85 H 93 05/22/20 08:45 05/22/20 08:45 05/22/20 08:45 05/22/20 08:45 05/22/20 08:45 Oxygen Flow Rate (L/min) 1 Oxygen Delivery Method Room Air Weight: 160 lb 14.999 oz Body Mass Index (BMI) 21.8 Intake and Output for Last 24 Hours 05/20/20 05/21/20 05/22/20 23:59 23:59 23:59 Intake Total 931.33 / 931.33 448 / 508 284 / 284 Output Total 750 / 750 200 / 200 Balance 181.33 / 181.33 248 / 308 284 / 284 Microbiology Past 72 Hours 05/18/20 Unknown Other - Other Gram Stain - Final 05/18/20 Unknown Other - Other Wound Culture - Final Pasteurella multocida 12/16/20 12:20 Blood Culture (Wb) - Anticubital Right Blood Culture - Preliminary No growth in 48 hours. 05/18/20 12:10 Blood Culture (Wb) - Right Wrist Blood Culture - Preliminary No growth in 48 hours. 05/18/20 13:28 Bite, Cat Gram Stain - Final 05/18/20 13:28 Bite, Cat Wound Culture - Final Pasteurella multocida Staphylococcus aureus Laboratory Results 05/21/20 16:33: POC Glucose 139 H 05/21/20 20:12: POC Glucose 125 H 05/22/20 06:35: POC Glucose 110 Current Medications Acetaminophen (Acetaminophen 325 Mg Tablet) 650 mg PO Q6H PRN PRN PRN Reason: Pain Score 1-10/Temp > 100.7 F Last Admin: 05/22/20 02:28 Dose: 650 mg Documented by: Al Hydroxide/Mg Hydroxide (Mag Hydrox/Al Hydrox/Simeth 30 Ml Udc) 30 ml PO Q6H PRN PRN PRN Reason: Gastric Burning Albuterol Sulfate (Albuterol 2.5 Mg/3 Ml Vial.Neb.) 2.5 mg INHALATION Q2H PRN PRN PRN Reason: Shortness of Breath/Wheezing Dextrose (Dextrose 50%-Water 25 Gm/50 Ml Disp.Syrin) 0 gm IV X1 PRN; Protocol PRN Reason: Hypoglycemia Enoxaparin Sodium (Enoxaparin 40 Mg/0.4 Ml Syringe) 40 mg SC DAILY [facility] Last Admin: 05/22/20 08:47 Dose: 40 mg Documented by: Famotidine (Famotidine 20 Mg Tablet) 20 mg PO BID [facility] Last Admin: 05/22/20 08:47 Dose: 20 mg Documented by: Glucagon (Glucagon 1 Mg/Ml Syringe) 1 mg IM .X1 PRN PRN Reason: Hypoglycemia Ampicillin Sodium/Sulbactam (Sodium 3 gm/ Sodium Chloride) 112 mls @ 150 mls/hr IV Q6H [facility]PL[facility] Last Infusion: 05/22/20 11:31 Dose: Infused Documented by: Insulin Human Lispro (Insulin Lispro 100 Unit/Ml Insuln.Pen) 0 unit SC ACHS [facility]; Protocol Last Admin: 05/22/20 06:36 Dose: Not Given Documented by: Melatonin (Melatonin 3 Mg Tablet) 3 mg PO QHS PRN PRN PRN Reason: INSOMNIA Morphine Sulfate (Morphine 2 Mg/Ml Syringe) 2 mg IV Q3H PRN PRN PRN Reason: Pain Score 6-10 Nitroglycerin (Nitroglycerin (Inpatient Use) 0.4 Mg Tab.Subl) 0.4 mg SUBLINGUAL Q5M PRN PRN Reason: CARDIAC/CHEST PAIN Olanzapine (Olanzapine 2.5 Mg Tablet) 7.5 mg PO QHS [facility] Last Admin: 05/21/20 20:17 Dose: 7.5 mg Documented by: Oxycodone HCl (Oxycodone 5 Mg Tablet) 5 mg PO Q4H PRN PRN PRN Reason: Pain Score 4-5 Last Admin: 05/19/20 10:13 Dose: 5 mg Documented by: Potassium Chloride (Potassium Chloride 20 Meq Tablet) [facility] Stop: 05/23/20 14:44 Last Admin: 05/22/20 08:47 Dose: 40 meq Documented by: Prochlorperazine Edisylate (Prochlorperazine 10 Mg/2 Ml Vial) 5 mg IV Q4H PRN PRN PRN Reason: Breakthrough nausea/vomiting Senna/Docusate Sodium (Senna/Docusate Sodium 1 Tablet) 2 tablet PO BID PRN PRN PRN Reason: Constipation Sodium Chloride (0.9% Saline Lock 10 Ml Syringe) 10 - 40 ml IV UD PRN PRN Reason: SALINE FLUSH Last Admin: 05/22/20 02:27 Dose: 10 ml Documented by: Tolterodine Tartrate (Tolterodine Tartrate 4 Mg Cap.Sa) 4 mg PO [facility] Last Admin: 05/21/20 20:17 Dose: 4 mg Documented by: STROKE Vital Signs/Narrative: Vital Signs Temp Pulse Resp BP Pulse Ox 05/22/20 08:45 97.9 F 97 16 134/85 H 93 05/22/20 08:06 96 Medical Necessity - Tobacco Use Smoking Status: Never smoker Assessment/Plan All Active Problems Compartment syndrome of left hand (Acute) Infectious tenosynovitis of left wrist extensor (Acute) Abscess of skin of left wrist (Acute) Extensor tenosynovitis of left wrist (Acute) Sepsis (Acute) Abscess of left hand including fingers (Acute) Cat bite (Acute) Cat bite of left hand (Acute) Cellulitis and abscess of hand (Acute) Hypernatremia (Acute) Hyperglycemia (Acute) Abscess (Acute) ELVIN (acute kidney injury) (Acute) Elevated serum creatinine (Acute) This 84-year-old woman with history of cognitive deficit and bipolar disorder came to ED for left hand swelling after 3 week of cat bite. 1. SIRS (tachycardia, leukocytosis ) from sepsis due to left hand cellulitis and abscess with purulent drainage from cat bite present on infection: Patient is being admitted to [facility] floor. Dr. Lucero has been consulted from ER physician Dr. Mensah. Started on the broad-spectrum antibiotic vancomycin and Unasyn. Patient also got 1 dose of clindamycin 900 mg in ED. patient needs operative debridement. 05/19: Operative note reviewed. Patient has abscess left hand, ulnar aspect with extension to small finger and wrist. Extensor tenosynovitis dorsum left hand at rest. 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 Seen by ID. Agree with continuation of Unasyn and vancomycin. 05/20 preliminary Gram stain of tissue culture shows gram-negative coccobacillus, pustular multocida and MSSA. ID on case. Discontinue vancomycin. 05/21: Tissue culture from 05/18 shows pustular multocida and MSSA. On Unasyn. Leukocytosis is resolved. 05/22: Follow-up ID and Dr. Lucero tomorrow a.m. plan for discharge. Patient had wide incision and debridement of abscess, fasciectomy dorsal interosseous muscle and radical extensor tenosynovectomy for compartment syndrome. 2. Possible acute kidney injury on CKD stage III: Patient BUN/creatinine is 48/1.44. His previous creatinine in November 2017 was 1.5. No labs in between this. Monitor kidney function, urine output and electrolytes. Patient has history of BPH. If kidney junction does not improve, will need renal and bladder ultrasound. IV fluid normal saline at 100 mL/h. 05/19: BUN/creatinine 37/1.11. Acute kidney injury resolved. 3. Hyperglycemia with no diagnosis of diabetes mellitus: Glucoses 191. A1c tomorrow a.m. Accu-Chek insulin coverage Humalog sliding scale. VTE prophylaxis: on Lovenox 40 mg subcu daily Signout: ID and Dr. Lucero follow-up tomorrow. If Dr. Lucero is okay, patient can be discharged on oral antibiotic, Augmentin Inpatient E&M: 69103 Subs Hosp L2
--- NOTE | 2020-05-22 13:17 | PCM.PN.SRG ---
Patient Problems: Active and Suspected Problems Cat bite of left hand (Acute) Cellulitis and abscess of hand (Acute) Hypernatremia (Acute) Hyperglycemia (Acute) Abscess (Acute) ELVIN (acute kidney injury) (Acute) Elevated serum creatinine (Acute) Subjective: Post op day #4 Resting quietly in bed. Denies pain at this time. - Physical Exam Vitals/I&O's: Vital Signs Temp Pulse Resp BP Pulse Ox 97.9 F 97 16 134/85 H 93 05/22/20 08:45 05/22/20 08:45 05/22/20 08:45 05/22/20 08:45 05/22/20 08:45 Oxygen Flow Rate (L/min) 1 Oxygen Delivery Method Room Air Weight: 160 lb 14.999 oz Body Mass Index (BMI) 21.8 Intake and Output for Last 24 Hours 05/20/20 05/21/20 05/22/20 23:59 23:59 23:59 Intake Total 931.33 / 931.33 448 / 508 284 / 284 Output Total 750 / 750 200 / 200 Balance 181.33 / 181.33 248 / 308 284 / 284 General: Alert, Oriented x3 Oral: Moist Mucosa Lungs: Clear to auscultation Cardiovascular: Regular rate Extremities: Capillary Refill Less than 3 Seconds, Edema - Left hand. Skin: Ulcer/ Wound - Left dorsal hand ulcers are pink. Dressing changed and Aquacel-Ag dressing applied. Patient able to move fingers. Finger and hand edema is resolving. Musculoskeletal: No Tenderness to Palpation of Joints or Extremities Neurological: Cranial nerves II-XII grossly intact Psych/Mental Status: Normal Affect, Appropriate Microbiology Past 72 Hours 05/18/20 Unknown Other - Other Gram Stain - Final 05/18/20 Unknown Other - Other Wound Culture - Final Pasteurella multocida 05/18/20 12:20 Blood Culture (Wb) - Anticubital Right Blood Culture - Preliminary No growth in 48 hours. 05/18/20 12:10 Blood Culture (Wb) - Right Wrist Blood Culture - Preliminary No growth in 48 hours. 05/18/20 13:28 Bite, Cat Gram Stain - Final 05/18/20 13:28 Bite, Cat Wound Culture - Final Pasteurella multocida Staphylococcus aureus Laboratory Results 05/21/20 16:33: POC Glucose 139 H 05/21/20 20:12: POC Glucose 125 H 05/22/20 06:35: POC Glucose 110 Current Medications Acetaminophen (Acetaminophen 325 Mg Tablet) 650 mg PO Q6H PRN PRN PRN Reason: Pain Score 1-10/Temp > 100.7 F Last Admin: 05/22/20 02:28 Dose: 650 mg Documented by: Al Hydroxide/Mg Hydroxide (Mag Hydrox/Al Hydrox/Simeth 30 Ml Udc) 30 ml PO Q6H PRN PRN PRN Reason: Gastric Burning Albuterol Sulfate (Albuterol 2.5 Mg/3 Ml Vial.Neb.) 2.5 mg INHALATION Q2H PRN PRN PRN Reason: Shortness of Breath/Wheezing Dextrose (Dextrose 50%-Water 25 Gm/50 Ml Disp.Syrin) 0 gm IV X1 PRN; Protocol PRN Reason: Hypoglycemia Enoxaparin Sodium (Enoxaparin 40 Mg/0.4 Ml Syringe) 40 mg SC DAILY [facility] Last Admin: 05/22/20 08:47 Dose: 40 mg Documented by: Famotidine (Famotidine 20 Mg Tablet) 20 mg PO BID [facility] Last Admin: 05/22/20 08:47 Dose: 20 mg Documented by: Glucagon (Glucagon 1 Mg/Ml Syringe) 1 mg IM .X1 PRN PRN Reason: Hypoglycemia Ampicillin Sodium/Sulbactam (Sodium 3 gm/ Sodium Chloride) 112 mls @ 150 mls/hr IV Q6H [facility] Last Infusion: 05/22/20 11:31 Dose: Infused Documented by: Melatonin (Melatonin 3 Mg Tablet) 3 mg PO QHS PRN PRN PRN Reason: INSOMNIA Morphine Sulfate (Morphine 2 Mg/Ml Syringe) 2 mg IV Q3H PRN PRN PRN Reason: Pain Score 6-10 Nitroglycerin (Nitroglycerin (Inpatient Use) 0.4 Mg Tab.Subl) 0.4 mg SUBLINGUAL Q5M PRN PRN Reason: CARDIAC/CHEST PAIN Olanzapine (Olanzapine 2.5 Mg Tablet) 7.5 mg PO QHS [facility] Last Admin: 05/21/20 20:17 Dose: 7.5 mg Documented by: Oxycodone HCl (Oxycodone 5 Mg Tablet) 5 mg PO Q4H PRN PRN PRN Reason: Pain Score 4-5 Last Admin: 05/19/20 10:13 Dose: 5 mg Documented by: Potassium Chloride (Potassium Chloride 20 Meq Tablet) [facility] Stop: 05/23/20 14:44 Last Admin: 05/22/20 08:47 Dose: 40 meq Documented by: Prochlorperazine Edisylate (Prochlorperazine 10 Mg/2 Ml Vial) 5 mg IV Q4H PRN PRN PRN Reason: Breakthrough nausea/vomiting Senna/Docusate Sodium (Senna/Docusate Sodium 1 Tablet) 2 tablet PO BID PRN PRN PRN Reason: Constipation Sodium Chloride (0.9% Saline Lock 10 Ml Syringe) 10 - 40 ml IV UD PRN PRN Reason: SALINE FLUSH Last Admin: 05/22/20 02:27 Dose: 10 ml Documented by: Tolterodine Tartrate (Tolterodine Tartrate 4 Mg Cap.Sa) 4 mg PO [facility] Last Admin: 05/21/20 20:17 Dose: 4 mg Documented by: Medical Necessity - Tobacco Use Smoking Status: Never smoker Assessment/Plan All Active Problems Compartment syndrome of left hand (Acute) Infectious tenosynovitis of left wrist extensor (Acute) Abscess of skin of left wrist (Acute) Extensor tenosynovitis of left wrist (Acute) Sepsis (Acute) Abscess of left hand including fingers (Acute) Cat bite (Acute) Cat bite of left hand (Acute) Cellulitis and abscess of hand (Acute) Hypernatremia (Acute) Hyperglycemia (Acute) Abscess (Acute) ELVIN (acute kidney injury) (Acute) Elevated serum creatinine (Acute) 1. Cat bite infection abscess dorsum left hand, ulnar aspect, with extension to small finger and wrist. 2. Extensor tenosynovitis dorsum left hand at wrist involving compartments 2, 3, 4, 5, and 6 (ECRL, ECRB, EPL, EIP, EDC, EDM, ECU tendons). 3. Sepsis. 4. 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 Patient's pain is well controlled. Changed his silver dressing to his left dressing. Wound looks clean. He is starting to be able to bend his fingers. the swelling is starting to decrease. Operative cultures of left hand positive for Pasteurella multiocida and Staphylococcus aureus. ID is consulted and he is Unasyn. Prealbumin from 05/18/20 is 9.7. Encouraged supplementation with protein. He is on Darren. After discharge he will follow up at the wound center.
[2020-05-22 14:45] VITALS: BP 138/67; PULSE 97; RESP 16; TEMP 36.9; O2SAT 94
[2020-05-22 20:45] VITALS: BP 144/89; PULSE 99; RESP 18; TEMP 36.6; O2SAT 94
[2020-05-22] MEDS: OLANZapine 2.5 MG Tablet 7.5 MG PO (21:00)
[2020-05-22] MEDS: Tolterodine Tartrate 4 MG CAP.SA PO (21:00)
[2020-05-23] MEDS: 0.9% Saline Lock 10 ML Syringe IV ×3 (01:32→14:04)
[2020-05-23 02:23] VITALS: BP 147/82; PULSE 97; RESP 18; TEMP 36.8; O2SAT 94
[2020-05-23 05:59] LABS: Absolute Lymphocyte Count 1.68 X10^3/uL (0.83-4.51); Absolute Neutrophil Count 2.5 X10^3/uL (2.0-7.7); Basophil# 0.04 X10^3/uL; Basophil% 0.7 % (0-1); Eosinophil# 0.11 X10^3/uL; Hematocrit 41.7 % (40-54); Hemoglobin 13.6 g/dL (13.0-16.5); Lymphocyte # 1.68 X10^3/ul (4.0); Lymphocyte % 29.9 % (19-41); Mean Corp Hgb Conc 32.6 g/dL (32-36); Mean Corpuscular Hgb 29.1 pg (27.0-32.0); Mean Corpuscular Volume 89.3 fL (80-94); Mean Platelet Vol. 9.6 fl (6.2-12.0); Monocyte# 1.11 X10^3/uL; Monocyte% 19.8 % (0-10); NRBC Flagged by Analyzer 0 % (0-5); Neutrophil # 2.53 X10^3/uL (2.7-7.7); Neutrophil % 45.1 % (47-70); Platelet Count 330 K/mm3 (150-450); RBC Distribution Width CV 12.3 % (11.6-14.6); RBC Distribution Width SD 40.3 fl (35.1-43.9); Red Blood Count 4.67 M/mm3 (4.6-6.2); White Blood Count 5.6 K/mm3 (4.4-11.0)
[2020-05-23 06:22] LABS: Anion Gap 5 (5-15); BUN 22 mg/dL (7-18); BUN/Creat Ratio 21.4 RATIO (10-20); Calcium,Total 8.6 mg/dL (8.5-10.1); Chloride 110 mmol/L (98-107); Creatinine, Serum 1.03 mg/dL (0.70-1.30); EST Glomerular Filtration Rate 73 mL/min (>60); Est Glom Filt Rate - Afr Amer 89 mL/min (>60); Estimated Creatinine Clearance 57.09 ml/min; Glucose 111 mg/dL (74-106); Potassium 4.2 mmol/L (3.5-5.1); Sodium Level 142 mmol/L (136-145)
[2020-05-23 08:02] VITALS: BP 122/74; PULSE 88; RESP 18; TEMP 37.1; O2SAT 95
[2020-05-23 08:10] VITALS: PULSE 88
[2020-05-23] MEDS: Enoxaparin 40 MG/0.4 ML Syringe SC (08:28)
[2020-05-23] MEDS: Famotidine 20 MG Tablet PO (08:28)
--- NOTE | 2020-05-23 09:19 | CASEMGMT ---
GABRIELLA received a call from patient's . She asked if patient was going to be discharged today. GABRIELLA told her SW does not know as SW has not seen the physician yet. She said she will need to know right away as her daughter will have to transport her to come and pick him up. GABRIELLA told her she will have to do dressing changes. GABRIELLA also told her it looks like he may be on pill antibiotics possibly. GABRIELLA told her we will let her know as soon as we know something. GABRIELLA then received a call from patient's step-daughter, Eveline. She asked if patient was weak. GABRIELLA told her he walked 300' the other day with stand by assist. GABRIELLA told her he is doing much better than he was on Saturday. She said if he is weak he should not come home as her mom won't be able to take care of him. GABRIELLA told her he is doing much better. Antonette SIMMONS MSW
--- NOTE | 2020-05-23 13:00 | NURSING ---
wound photo: left hand
--- NOTE | 2020-05-23 13:01 | NURSING ---
wound photo: left hand
[2020-05-23 14:02] VITALS: BP 140/81; PULSE 94; RESP 16; TEMP 36.8; O2SAT 94
--- NOTE | 2020-05-23 14:36 | CASEMGMT ---
Addendum entered by Lena Taylor 05/23/20 15:42: Call back from [facility] and they state they can take pt at this time. Dressing supply list faxed to them at this time. Chelsy crain to notify when pt up for discharge. Luis Felipe LUCERO CM Original Note: Pt to be sent home on po antibx per Dr. Florence. Dr. Lucero states he will sign for pt's HHC as pt does not currently have a PCP. Pt provided with a local list of PCP's at this time and pt/ state no preference for HHC and when provided verbal list of local, [facility] at this time. Order placed for [facility] at this time. Call to Lexi at [facility] to notify of referral, voices understanding and states will call this [facility] to notify if they can take pt or not. updated on all at this time and possible discharge today, voices understanding. Luis Felipe LUCERO CM
--- NOTE | 2020-05-23 15:46 | DCINST_ITS ---
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) Lymphoma (Chronic) Bipolar disorder (Chronic) You will use the following diet at home:: Regular Your food should be the consistency of: Regular Your liquids should be the consistency of: Regular/Thin Discharge Activity: Return to Normal Activity Call your doctor if your incision/area has: Increased Pain/ Swelling, Increased Redness Call your doctor if you observe: Fever of 101 or Higher, Shortness of breath, Dizziness, Fainting spells, Swelling in the ankles, Chest pain, Increased palpitations (irregular heartbeat) Instructions: ED Cat Bite, ED Abscess Antibiotic Treatment Only, ED Abscess Incision And Drainage, ED Cellulitis Allergies/Adverse Reactions: Allergies No Known Allergies Allergy (Verified 05/18/20 11:36) Medications to take at Discharge Olanzapine [Zyprexa] 7.5 mg PO QHS 04/18/14 Oxybutynin Chloride [Oxybutynin Chloride ER] 15 mg PO QHS 05/18/20 Amoxicillin/Potassium Clav [Augmentin 875-125 Tablet] 1 ea PO BID #10 tab 05/23/20 The following prescriptions were given: Amoxicillin/Potassium Clav [Augmentin 875-125 Tablet] 1 ea PO BID #10 tab Transmission Status: Pending to [facility] #30 Primary Care Physician: Care Physician,No Primary [Primary Care Provider] - Test Results: Test results from this visit will be discussed in further detail at your follow- up appointment, if applicable. Please Follow Up With: wound healing center
--- NOTE | 2020-05-23 15:49 | PN.ID_ITS ---
Patient Problems: Active and Suspected Problems Cat bite of left hand (Acute) Cellulitis and abscess of hand (Acute) Hypernatremia (Acute) Hyperglycemia (Acute) Abscess (Acute) ELVIN (acute kidney injury) (Acute) Elevated serum creatinine (Acute) Subjective: Feeling ok, hand sore, no fever - Physical Exam Vitals/I&O's: Vital Signs Temp Pulse Resp BP Pulse Ox 98.3 F 94 16 140/81 H 94 05/23/20 14:02 05/23/20 14:02 05/23/20 14:02 05/23/20 14:02 05/23/20 14:02 Oxygen Flow Rate (L/min) 1 Oxygen Delivery Method Room Air Weight: 73 kg Body Mass Index (BMI) 21.8 Intake and Output for Last 24 Hours 05/21/20 05/22/20 05/23/20 23:59 23:59 23:59 Intake Total 448 / 508 1028 / 1028 816 / 816 Output Total 200 / 200 Balance 248 / 308 1028 / 1028 816 / 816 General: Alert, Cooperative, No apparent distress Lungs: Clear to auscultation, Normal air movement Cardiovascular: Regular rate, Regular Rhythm Abdomen: Soft, Non Tender, Non-Distended Skin: Ulcer/ Wound Microbiology Past 72 Hours 05/18/20 12:20 Blood Culture (Wb) - Anticubital Right Blood Culture - Final No growth in 5 days. 05/18/20 12:10 Blood Culture (Wb) - Right Wrist Blood Culture - Final No growth in 5 days. 05/18/20 Unknown Other - Other Gram Stain - Final 05/18/20 Unknown Other - Other Wound Culture - Final Pasteurella multocida 05/18/20 Unknown Other - Other Anaerobic Culture - Preliminary Checking for anaerobes, further studies to follow. Laboratory Results 05/23/20 05:28: WBC 5.6, RBC 4.67, Hgb 13.6, Hct 41.7, MCV 89.3, MCH 29.1, MCHC 32.6, RDW Std Deviation 40.3, RDW Coeff of Nahed 12.3, Plt Count 330, MPV 9.6, Immature Gran % (Auto) 2.500 H, Neut % (Auto) 45.1 L, Lymph % (Auto) 29.9, [place] % (Auto) 19.8 H, Eos % (Auto) 2.0, Baso % (Auto) 0.7, Absolute Neuts (auto) 2.5, Absolute Lymphs (auto) 1.68, Nucleated RBC % 0 05/23/20 05:28: Sodium 142, Potassium 4.2, Chloride 110 H, Carbon Dioxide 27.0, Anion Gap 5, BUN 22 H, Creatinine 1.03, Estim Creat Clear Calc 57.09, Est GFR (MDRD) Af Amer 89, Est GFR (MDRD) Non-Af 73, BUN/Creatinine Ratio 21.4 H, Glucose 111 H, Calcium 8.6 Current Medications Acetaminophen (Acetaminophen 325 Mg Tablet) 650 mg PO Q6H PRN PRN PRN Reason: Pain Score 1-10/Temp > 100.7 F Last Admin: 05/22/20 02:28 Dose: 650 mg Documented by: Al Hydroxide/Mg Hydroxide (Mag Hydrox/Al Hydrox/Simeth 30 Ml Udc) 30 ml PO Q6H PRN PRN PRN Reason: Gastric Burning Albuterol Sulfate (Albuterol 2.5 Mg/3 Ml Vial.Neb.) 2.5 mg INHALATION Q2H PRN PRN PRN Reason: Shortness of Breath/Wheezing Dextrose (Dextrose 50%-Water 25 Gm/50 Ml Disp.Syrin) 0 gm IV X1 PRN; Protocol PRN Reason: Hypoglycemia Enoxaparin Sodium (Enoxaparin 40 Mg/0.4 Ml Syringe) 40 mg SC DAILY [facility] Last Admin: 05/23/20 08:28 Dose: 40 mg Documented by: Famotidine (Famotidine 20 Mg Tablet) 20 mg PO BID [facility] Last Admin: 05/23/20 08:28 Dose: 20 mg Documented by: Glucagon (Glucagon 1 Mg/Ml Syringe) 1 mg IM .X1 PRN PRN Reason: Hypoglycemia Ampicillin Sodium/Sulbactam (Sodium 3 gm/ Sodium Chloride) 112 mls @ 150 mls/hr IV Q6H [facility] Last Infusion: 05/23/20 14:41 Dose: Infused Documented by: Melatonin (Melatonin 3 Mg Tablet) 3 mg PO QHS PRN PRN PRN Reason: INSOMNIA Morphine Sulfate (Morphine 2 Mg/Ml Syringe) 2 mg IV Q3H PRN PRN PRN Reason: Pain Score 6-10 Nitroglycerin (Nitroglycerin (Inpatient Use) 0.4 Mg Tab.Subl) 0.4 mg SUBLINGUAL Q5M PRN PRN Reason: CARDIAC/CHEST PAIN Olanzapine (Olanzapine 2.5 Mg Tablet) 7.5 mg PO QHS [facility] Last Admin: 05/22/20 21:00 Dose: 7.5 mg Documented by: Oxycodone HCl (Oxycodone 5 Mg Tablet) 5 mg PO Q4H PRN PRN PRN Reason: Pain Score 4-5 Last Admin: 05/19/20 10:13 Dose: 5 mg Documented by: Prochlorperazine Edisylate (Prochlorperazine 10 Mg/2 Ml Vial) 5 mg IV Q4H PRN PRN PRN Reason: Breakthrough nausea/vomiting Senna/Docusate Sodium (Senna/Docusate Sodium 1 Tablet) 2 tablet PO BID PRN PRN PRN Reason: Constipation Sodium Chloride (0.9% Saline Lock 10 Ml Syringe) 10 - 40 ml IV UD PRN PRN Reason: SALINE FLUSH Last Admin: 05/23/20 14:04 Dose: 10 ml Documented by: Tolterodine Tartrate (Tolterodine Tartrate 4 Mg Cap.Sa) 4 mg PO [facility] Last Admin: 05/22/20 21:00 Dose: 4 mg Documented by: Medical Necessity - Tobacco Use Smoking Status: Never smoker Route of nutrition/ use of supplements: [] Nutritional Intake: [] IV Site: [] Peterson Catheter: [] - Assessment/Plan Antibiotics: [] Assessment/Plan: [] Active and Suspected Problems Cat bite of left hand (Acute) Cellulitis and abscess of hand (Acute) Hypernatremia (Acute) Hyperglycemia (Acute) Abscess (Acute) ELVIN (acute kidney injury) (Acute) Elevated serum creatinine (Acute) L hand cat bite with deep involvement - now s/p OR 05/[address] Lucero. Wound cx with pasteurella, mssa. Ok for d/c home on 5 more days augmentin. Will follow as needed
[2020-05-23 16:00] VITALS: BP 140/81; PULSE 94; RESP 16; TEMP 36.8; O2SAT 94
--- NOTE | 2020-05-23 18:27 | DS.PCM_ITS ---
Discharge Date and Diagnosis - Problem List Patient Problems: Active and Suspected Problems Cat bite of left hand (Acute) Cellulitis and abscess of hand (Acute) Hypernatremia (Acute) Hyperglycemia (Acute) Abscess (Acute) ELVIN (acute kidney injury) (Acute) Elevated serum creatinine (Acute) Date of Admission: 05/18/20 Date of Discharge: 05/23/20 - Primary Discharge Diagnosis Acute Problems: Active Problems Cat bite of left hand (Acute) Cellulitis and abscess of hand (Acute) Hypernatremia (Acute) Hyperglycemia (Acute) Abscess (Acute) ELVIN (acute kidney injury) (Acute) Elevated serum creatinine (Acute) - Secondary Discharge Diagnosis Chronic Problems: Chronic Problems History of benign prostatic hyperplasia (Chronic) Generalized weakness (Chronic) Physical debility (Chronic) [place]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 No radiopaque foreign body is seen. Electronically Signed: Ivan Cintron, at 12:51 EST , Service support , Report of Operation Date of Procedure: 05/18/20 Pre-Operative Diagnosis: 1. Cat bite infection abscess dorsum left hand, ulnar aspect, with extension to small finger and wrist. 2. Extensor tenosynovitis dorsum left hand at wrist. 3. Sepsis. Post-Operative Diagnosis: 1. Cat bite infection abscess dorsum left hand, ulnar aspect, with extension to small finger and wrist. 2. Suppurative extensor tenosynovitis dorsum left hand at wrist extensors tendon sheath involving compartments 2, 3, 4, 5, and 6 (ECRL, ECRB, EPL, EIP, EDC, EDM, ECU tendons). 3. Sepsis. 4. 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 Surgery/Procedure Performed:: 1. Surgical preparation dorsum left hand, ulnar aspect, with extension to small finger and wrist with incision and drainage and excisional debridement cat bite infection abscess. 2. Fasciotomy dorsal interosseous muscles x4 left hand. 3. Radical extensor tenosynovectomy left wrist extensors tendon sheath for suppurative tenosynovitis involving compartment 2 (ECRL and ECRB tendons), compartment 3 (EPL tendon), compartment 4 (EDC and EIP tendons), compartment 5 (EDM tendon), and compartment 6 (ECU tendon). Consultations 05/19/20 12:12 Consult: Onc/Wound/sales development specialist Routine Comment: Reason for Consult:: cat bite left hand ID Plastic surgery Operations: None Procedures: None Summary of Care Provided: Per HPI: The patient is a 84 year old M with possible history of dementia came to ED for left hand cat bite, swelling and draining purulent material. He had a cat bite about a week ago. That cat is not his pet or in the neighborhood. Swelling of the left hand, edema, pain and purulent drainage from left metatarsal space. Patient not able to make fist. In ED triage vitals 97.4, heart rate 130/min, blood pressure 144/100 and respiratory rate 20 per note. EKG sinus tach at 102 bpm. History is limited as patient has mild cognitive deficit/early dementia or bipolar disorder. was in the ER but she left. I also called phone #[phone] the patient's chart about 3 times but phone is not going through probably wrong number Hospital Course: 1. Sepsis secondary to left hand cellulitis and abscess from a cat bite/ELVIN- 84-year-old male presented from home after having a cat bite on his left hand. He had some purulent material drained at the time of presentation. Plastic surgery was consulted and they performed an I&D. During the operation it was felt that he possibly could have had compartment syndrome of the dorsal interosseous muscles of the left hand. He was started on Unasyn and vancomycin and culture ultimately came back with MSSA and Pasteurella. Infectious disease recommended continuing Augmentin for 5 days after discharge and he is doing much better today. He does not have a primary care physician however Dr. Lucero did agree to manage his home health care for the wound dressings. In the meantime I did discuss with the patient that it is necessary for him to find a primary care physician. In terms of his ELVIN initially on admission his creatinine was 1.44 and his only other creatinine in her system was in 2018 and was 1.5. On the day of discharge, his creatinine was 1.03 indicating that he did have an ELVIN which has resolved on the day of discharge. I discussed with him the plan for discharge and he expressed understanding of the risk and benefits and would like to go home today. He will go home with home health for wound care management of his left hand and will need to follow-up with Dr. Lucero as an outpatient. Patient Problems: Active and Suspected Problems Cat bite of left hand (Acute) Cellulitis and abscess of hand (Acute) Hypernatremia (Acute) Hyperglycemia (Acute) Abscess (Acute) ELVIN (acute kidney injury) (Acute) Elevated serum creatinine (Acute) - Physical Exam Vitals/I&O's: Vital Signs Temp Pulse Resp BP Pulse Ox 98.3 F 94 16 140/81 H 94 05/23/20 16:00 05/23/20 16:00 05/23/20 16:00 05/23/20 16:00 05/23/20 16:00 Oxygen Flow Rate (L/min) 1 Oxygen Delivery Method Room Air Weight: 160 lb 14.999 oz Body Mass Index (BMI) 21.8 Intake and Output for Last 24 Hours 05/21/20 05/22/20 05/23/20 23:59 23:59 23:59 Intake Total 448 / 508 1028 / 1028 816 / 816 Output Total 200 / 200 Balance 248 / 308 1028 / 1028 816 / 816 General: Alert, Oriented x3, Cooperative, No apparent distress HEENT: Atraumatic, PERRLA, EOMI, Normocephalic Oral: Moist Mucosa Neck: Supple, No JVD Lungs: Normal air movement, No rhonchi, No wheeze, No rales, Diminished Cardiovascular: Regular rate, Regular Rhythm, Normal S1, Normal S2, No murmurs Abdomen: Soft, Non Tender, Non-Distended, No Hepato-splenomegaly Extremities: No edema, Capillary Refill Less than 3 Seconds Skin: - - Wound on the left hand is currently dressed with an Theodore wrap Neurological: Neuro grossly intact, Sensory exam intact to light touch and pain Psych/Mental Status: Normal Affect, Appropriate Microbiology Past 72 Hours 05/18/20 12:20 Blood Culture (Wb) - Anticubital Right Blood Culture - Final No growth in 5 days. 05/18/20 12:10 Blood Culture (Wb) - Right Wrist Blood Culture - Final No growth in 5 days. 05/18/20 Unknown Other - Other Gram Stain - Final 05/18/20 Unknown Other - Other Wound Culture - Final Pasteurella multocida 05/18/20 Unknown Other - Other Anaerobic Culture - Preliminary Checking for anaerobes, further studies to follow. Laboratory Results 05/23/20 05:28: WBC 5.6, RBC 4.67, Hgb 13.6, Hct 41.7, MCV 89.3, MCH 29.1, MCHC 32.6, RDW Std Deviation 40.3, RDW Coeff of Nahed 12.3, Plt Count 330, MPV 9.6, Immature Gran % (Auto) 2.500 H, Neut % (Auto) 45.1 L, Lymph % (Auto) 29.9, [place] % (Auto) 19.8 H, Eos % (Auto) 2.0, Baso % (Auto) 0.7, Absolute Neuts (auto) 2.5, Absolute Lymphs (auto) 1.68, Nucleated RBC % 0 05/23/20 05:28: Sodium 142, Potassium 4.2, Chloride 110 H, Carbon Dioxide 27.0, Anion Gap 5, BUN 22 H, Creatinine 1.03, Estim Creat Clear Calc 57.09, Est GFR (MDRD) Af Amer 89, Est GFR (MDRD) Non-Af 73, BUN/Creatinine Ratio 21.4 H, Glucose 111 H, Calcium 8.6 Discharge Activity: Return to Normal Activity Call your doctor if your incision/area has: Increased Pain/ Swelling, Increased Redness Call your doctor if you observe: Fever of 101 or Higher, Shortness of breath, Dizziness, Fainting spells, Swelling in the ankles, Chest pain, Increased palpitations (irregular heartbeat) Home Medications: Medications to take at Discharge Olanzapine [Zyprexa] 7.5 mg PO QHS 04/18/14 Oxybutynin Chloride [Oxybutynin Chloride ER] 15 mg PO QHS 05/18/20 Amoxicillin/Potassium Clav [Augmentin 875-125 Tablet] 1 ea PO BID #10 tab 05/23/20 Following Prescriptions Were Given to Patient: Amoxicillin/Potassium Clav [Augmentin 875-125 Tablet] 1 ea PO BID #10 tab Transmission Status: Received by [facility] #30 Primary Care Physician: Care Physician,No Primary [Primary Care Provider] - Please Follow Up With: wound healing center Patient Instructions: ED Abscess Antibiotic Treatment Only, ED Abscess Incision And Drainage, ED Cat Bite, ED Cellulitis Disposition: Home with Home Health Minutes spent on discharge:: 35 Patient Condition:: Stable Medical Necessity - Tobacco Use Smoking Status: Never smoker Meaningful Use Info Meaningful Use Diagnoses (Choose all that apply): None applicable Inpatient E&M: 636[address] [facility]
--- NOTE | 2020-05-23 18:59 | NURSING ---
Charting by Denilson Perez RN reviewed by this RN.
--- NOTE | 2020-05-24 14:53 | CASEMGMT ---
[facility] Discharge F/U Phone Call LACE: 12 Strata: 3 Discharge date: 05/23/2020 Call date: 05/24/2020 Call time: 1502 Admission dx: Sepsis, cellulitis left hand/abscess answers phone and states pt is napping at this time. states pt is 'doing fine' and she states no questions regarding d/c instructions/medications at this time. is updated on wound clinic appt and time/date clarified with her at this time. states [facility] has not called yet and per Lexi at [facility], she will be calling soon and they will be out tomorrow. updated at this time. does inquire about pt's ring that was cut off in ED and Devyn, PCU charge, made aware of missing ring at this time and she states she will look into it. voices no suggestions for [facility] at this time and voices no further questions/concerns/needs at this time. [place] [facility]
== END 2020-05-23 17:30 | disposition home health service (06) | DRG 854 ==
LOC: ED 13:06 → PCU 14:33
PROVIDERS: Surgery; Admitting Provider Internal Medicine; Emergency Provider Emergency Medicine; Visit Provider Family Medicine
PROC: 0J9K0ZX Drainage of Left Hand Subcutaneous Tissue and Fascia, Open Approach, Diagnostic (ICD-10-PCS; principal; 2020-05-18 15:50)
DX: A41.9 Sepsis, unspecified organism (principal); L03.114 Cellulitis of left upper limb; L02.512 Cutaneous abscess of left hand; E87.0 Hyperosmolality and hypernatremia; N17.9 Acute kidney failure, unspecified; C85.91 Non-Hodgkin lymphoma, unspecified, lymph nodes of head, face, and neck; A28.0 Pasteurellosis; M79.A12 Nontraumatic compartment syndrome of left upper extremity; M65.832 Other synovitis and tenosynovitis, left forearm; B95.61 Methicillin susceptible Staphylococcus aureus infection as the cause of diseases classified elsewhere; S61.452A Open bite of left hand, initial encounter; W55.01XA Bitten by cat, initial encounter; R73.9 Hyperglycemia, unspecified; R53.81 Other malaise; R32 Unspecified urinary incontinence; F03.90 Unspecified dementia, unspecified severity, without behavioral disturbance, psychotic disturbance, mood disturbance, and anxiety; F31.9 Bipolar disorder, unspecified; N40.0 Benign prostatic hyperplasia without lower urinary tract symptoms; Z87.891 Personal history of nicotine dependence; Z23 Encounter for immunization
CPT/HCPCS: 36415; 73130; 80048; 80076; 80202; 81001; 82962; 83036; 83605; 84134; 84443; 85025; 87040; 87070; 87075; 87077; 87102; 87176; 87186; 87205; 87206; 87426; 87640; 88304; 88312; 90715; 93005; 97110; 97116; 97162; 97166; 97530; 97535; 97803; 99285; G0008; J1670; J7030; J7040; 90686; A4216; J0295; J2405

== ENCOUNTER 2020-05-30 10:12 | Outpatient (RCR) | payer MEDICARE, OTHER, SELFPAY ==
[2020-05-18 16:52] VITALS: BMI 21.8
[2020-05-30 10:38] VITALS: BP 149/60; PULSE 113; RESP 20; TEMP 36.3; BMI 21.8
--- NOTE | 2020-05-30 13:19 | PCM.WC.PN ---
(1) Hand, open wound except fingers, complicated Status: Acute Code(s): S61.409A - Unspecified open wound of unspecified hand, initial encounter (2) Cat bite of left hand Status: Acute Code(s): S61.452A - Open bite of left hand, initial encounter; W55.01XA - Bitten by cat, initial encounter (3) Compartment syndrome of left hand Status: Acute Code(s): T79.A12A - Traumatic compartment syndrome of left upper extremity, initial encounter (4) Infectious tenosynovitis of left wrist extensor Status: Acute Code(s): M65.132 - Other infective (teno)synovitis, left wrist (5) Abscess of skin of left wrist Status: Acute Code(s): L02.414 - Cutaneous abscess of left upper limb (6) Extensor tenosynovitis of left wrist Status: Acute Code(s): M65.832 - Other synovitis and tenosynovitis, left forearm (7) Abscess of left hand including fingers Status: Acute Code(s): L02.512 - Cutaneous abscess of left hand (8) Cellulitis and abscess of hand Status: Acute Code(s): L03.119 - Cellulitis of unspecified part of limb; L02.519 - Cutaneous abscess of unspecified hand (9) Physical debility Status: Chronic Code(s): R53.81 - Other malaise Type of Wound Date of Service: 05/30/20 Chief Complaint: Left hand cat bit wounds. History of Wound: The patient is a 84 year old M who was admitted on 05/18/20 with a worsening cat bite infection abscess dorsum left hand, ulnar aspect, with extension to the small finger and wrist. He states he was bitten 8 days ago, and it was an outdoor feral cat. He noticed increasing redness and pain and swelling left hand which prompted his visit to the ED. His WBC was 14.9 and his Lactate was 2.0. Clinically he was septic and was started on Vancomycin, Clindamycin, and Unasyn. There was purulent drainage coming from the cat bite on the dorsum of his left hand. He has pain with movement of his small finger and his wrist. X-ray was done which showed dorsal soft tissue swelling with small amount of air/gas within the soft tissues. No radiopaque foreign body is seen.. Surgery on 05/18/20 - 1. Surgical preparation dorsum left hand, ulnar aspect, with extension to small finger and wrist with incision and drainage and excisional debridement cat bite infection abscess. 2. Fasciotomy dorsal interosseous muscles x4 left hand. 3. Radical extensor tenosynovectomy left wrist extensors tendon sheath for suppurative tenosynovitis involving compartment 2 (ECRL and ECRB tendons), compartment 3 (EPL tendon), compartment 4 (EDC and EIP tendons), compartment 5 (EDM tendon), and compartment 6 (ECU tendon). Operative wound culture postive for Pasteurella multocida, Clostridium group and Porphyromonas uenonis. He is Currently taking Augmentin and probiotic. Wound care - Daily Aquacel Silver. Today denies any fever, chills, nausea or vomiting. Progress of Wound: Stable. - Physical Exam Vital Signs Temp Pulse Resp BP 97.3 F L 113 H 20 H 149/60 H 05/30/20 10:38 05/30/20 10:38 05/30/20 10:38 05/30/20 10:38 General: Alert, Cooperative HEENT: Atraumatic Oral: Moist Mucosa Lungs: Normal air movement Cardiovascular: Regular rate Extremities: Capillary Refill Less than 3 Seconds, Edema - left hand edema, - - He is able to move his left hand and fingers, although he is not able to make a fist. Skin: Ulcer/ Wound - Three opened areas on left dorsal hand. Able to visualized tendons. Wound Measurements and Assessment WC - Nurse 1 - General Ulcer Measurement Start: 05/30/20 10:35 Freq: Status: Active Protocol: Activity Type Activity Date Activity User E-Sign Co-Sign Detail Recorded Client Recorded Date Recorded By Document 05/30/20 10:38 [facility] [id number] 05/30/20 11:01 [facility] 05/30/20 10:38 Wound Center Nurse 1 [Ulcer Assessment] #3- L LATERAL DORSAL HAND POST OP -Combined with other wound No -Current Size (cm) - Length 8.7 -Current Size (cm) - Width 2.4 -Current Size (cm) - Depth 0.3 -Total Square Cm 20.88 -Date of Last Picture (Recall this 05/30/20 field) -Photo Taken Yes -Epithelialization None Present -Tunneling No -Undermining/Tunneling No -Circular Undermining No -Exudate Amt Medium -Exudate Type Serosanguineous -Wound Margin Distinct, Outline Attached -Granulation Amt Medium (34-66%) -Granulation Quality Red -Slough/Fibrin Yes -Necrosis Amt Medium (34-66%) -Necrotic Tissue Type Adherent Slough -Structure Exposed Tendon -Texture (Dixie-wound Skin Appearance) Assessed, Localized Edema ,Scarring -Moisture (Dixie-wound Skin Appearance Assessed ) -Color (Dixie-wound Skin Appearance) Assessed, Erythema -Temperature (Dixie-wound Skin No Abnormality Appearance) (Pt Warm) -Tenderness on Palpation (Diixe-wound Yes Skin Appearance) -Ulcer Cleansing SOAPY WATER -Foul Odor after Cleansing No -Anesthetic Used 5% Lidocaine Gel #2- L DORSAL HAND POST OP -Combined with other wound No -Current Size (cm) - Length 9.2 -Current Size (cm) - Width 3.2 -Current Size (cm) - Depth 0.3 -Total Square Cm 29.44 -Date of Last Picture (Recall this 05/30/20 field) -Photo Taken Yes -Epithelialization None Present -Tunneling No -Undermining/Tunneling No -Circular Undermining No -Exudate Amt Medium -Exudate Type Serosanguineous -Wound Margin Distinct, Outline Attached -Granulation Amt Medium (34-66%) -Granulation Quality Red -Slough/Fibrin Yes -Necrosis Amt Medium (34-66%) -Necrotic Tissue Type Adherent Slough -Structure Exposed Tendon -Texture (Dixie-wound Skin Appearance) Assessed, Localized Edema -Moisture (Dixie-wound Skin Appearance Assessed ) -Color (Dixie-wound Skin Appearance) Assessed, Erythema -Temperature (Dixie-wound Skin No Abnormality Appearance) (Pt Warm) -Tenderness on Palpation (Dixie-wound Yes Skin Appearance) -Ulcer Cleansing SOAPY WATER -Foul Odor after Cleansing No -Anesthetic Used 5% Lidocaine Gel #1- L DORSAL medial HAND -Combined with other wound No -Current Size (cm) - Length 4.4 -Current Size (cm) - Width 0.6 -Current Size (cm) - Depth 0.3 -Total Square Cm 2.64 -Date of Last Picture (Recall this 05/30/20 field) -Photo Taken Yes -Epithelialization None Present -Tunneling No -Undermining/Tunneling No -Circular Undermining No -Exudate Amt Medium -Exudate Type Serosanguineous -Wound Margin Distinct, Outline Attached -Granulation Amt Small (1-33%) -Granulation Quality Red -Slough/Fibrin Yes -Necrosis Amt Medium (34-66%) -Necrotic Tissue Type Adherent Slough -Texture (Dixie-wound Skin Appearance) Assessed, Scarring -Moisture (Dixie-wound Skin Appearance Assessed ) -Color (Dixie-wound Skin Appearance) Assessed, Erythema -Temperature (Dixie-wound Skin No Abnormality Appearance) (Pt Warm) -Tenderness on Palpation (Dixie-wound No Skin Appearance) -Ulcer Cleansing SOAPY WATER -Foul Odor after Cleansing No -Anesthetic Used 5% Lidocaine Gel WC - Nurse 2 - General Ulcer CM Notes Start: 05/30/20 10:35 Freq: Status: Active Protocol: Activity Type Activity Date Activity User E-Sign Co-Sign Detail Recorded Client Recorded Date Recorded By Document 05/30/20 11:34 ASHLEY [id number] 05/30/20 11:39 ASHLEY 05/30/20 11:34 Wound Center Nurse 2 [Procedure/Treatment] #3- L LATERAL DORSAL HAND POST OP -Time 11:38 -Correct Patient Yes -Correct Side, Site, Position Yes -Correct Procedure Yes -Procedure Performed Yes -Type of Procedure Debridement -Clinical Debridement Muscle / Fascia -Tissue Removed Muscle,Fascia -Post Debridement (cm) - Length 8.5 -Post Debridement (cm) - Width 2.5 -Post Debridement (cm) - Depth 0.5 -Total Square (Post) (cm) 21.25 -Area of Debridement (cm) - Length 8.5 -Area of Debridement (cm) - Width 2.5 -Total Square (Area) (cm) 21.25 -Tunneling No -Undermining/Tunneling No -Circular Undermining No -Wound/Ulcer Outcome Not Healed -Ulcer Cleansing Rinsed/ Irrigated with Saline -Foul Odor after Cleansing No -Bioengineered Tissue No -Bleeding Controlled with Pressure -Offloading No -Treatment Response Procedure Tolerated Well -Debridement - Muscle / Fascia, 1st Yes 20sq cm -Debridement, Muscle/Fascia, ea addt' 2 l 20sq cm or part thereof #2- L DORSAL HAND POST OP -Time 11:37 -Correct Patient Yes -Correct Side, Site, Position Yes -Correct Procedure Yes -Procedure Performed Yes -Type of Procedure Debridement -Clinical Debridement Muscle / Fascia -Tissue Removed Muscle,Fascia -Post Debridement (cm) - Length 8.8 -Post Debridement (cm) - Width 3 -Post Debridement (cm) - Depth 0.5 -Total Square (Post) (cm) 26.4 -Area of Debridement (cm) - Length 8.8 -Area of Debridement (cm) - Width 3 -Total Square (Area) (cm) 26.4 -Tunneling No -Undermining/Tunneling No -Circular Undermining No -Wound/Ulcer Outcome Not Healed -Ulcer Cleansing Rinsed/ Irrigated with Saline -Foul Odor after Cleansing No -Bioengineered Tissue No -Bleeding Controlled with Pressure -Offloading No -Treatment Response Procedure Tolerated Well -Debridement - Muscle / Fascia, 1st No 20sq cm #1- L DORSAL medial HAND -Time 11:34 -Correct Patient Yes -Correct Side, Site, Position Yes -Correct Procedure Yes -Procedure Performed Yes -Type of Procedure Debridement -Clinical Debridement Muscle / Fascia -Tissue Removed Muscle,Fascia -Post Debridement (cm) - Length 5 -Post Debridement (cm) - Width 1 -Post Debridement (cm) - Depth 3 -Total Square (Post) (cm) 5 -Area of Debridement (cm) - Length 5 -Area of Debridement (cm) - Width 1 -Total Square (Area) (cm) 5 -Tunneling No -Undermining/Tunneling No -Circular Undermining No -Wound/Ulcer Outcome Not Healed -Ulcer Cleansing Rinsed/ Irrigated with Saline -Foul Odor after Cleansing No -Bioengineered Tissue No -Bleeding Controlled with Pressure -Offloading No -Treatment Response Procedure Tolerated Well -Debridement - Subq, 1st 20sq cm No -Debridement - Muscle / Fascia, 1st No 20sq cm [See Physician Procedure note for Specifics] Pain Scale: 0-10 Numeric [Pain] -Is Patient Pain Free? Yes WC - Nurse 3 - General Ulcer D/C NN Start: 05/30/20 10:35 Freq: Status: Active Protocol: Activity Type Activity Date Activity User E-Sign Co-Sign Detail Recorded Client Recorded Date Recorded By Document 05/30/20 12:05 FERNANDO [id number] 05/30/20 12:07 DL 05/30/20 12:05 Wound Care Nurse 3 [Wound Dressing] #3- L LATERAL DORSAL HAND POST OP -Ulcer Cleansing Rinsed/ Irrigated with Saline -Foul Odor after Cleansing No -Primary Dressing Applied Aquacel AG 4x4 -Primary Dressing Covered/Secured Dry Gauze & with Roll Gauze, Secured with Tape -Aquacel AG 4x4 1 #2- L DORSAL HAND POST OP -Ulcer Cleansing Wound Cleanser -Foul Odor after Cleansing No -Other Dressing aqacel ag -Primary Dressing Covered/Secured Dry Gauze & with Roll Gauze, Secured with Tape #1- L DORSAL medial HAND -Ulcer Cleansing Wound Cleanser -Foul Odor after Cleansing No -Other Dressing aquacel ag -Primary Dressing Covered/Secured Dry Gauze & with Roll Gauze, Secured with Tape [Post Procedure Tolerated] -Treatment Response Procedure Tolerated Well Pain Scale: 0-10 Numeric [Pain] -Is Patient Pain Free? Yes - Visit Discharge [Visit Discharge Information] -Discharge Condition Stable -Ambulatory Status Ambulatory -Transportation Private Auto -Accompanied by [Facility Notification] -Facility Type Home Health -Orders Sent Yes Musculoskeletal: Tenderness Neurological: Cranial nerves II-XII grossly intact Psych/Mental Status: Normal Affect, Appropriate Debridement Note Post-Debridement Measurements/Treatment - Nurse 2 - General Ulcer CM Notes Start: 05/30/20 10:35 Freq: Status: Active Protocol: Activity Type Activity Date Activity User E-Sign Co-Sign Detail Recorded Client Recorded Date Recorded By Document 05/30/20 11:34 ASHLEY [id number] 05/30/20 11:39 ASHLEY 05/30/20 11:34 Wound Center Nurse 2 #3- L LATERAL DORSAL HAND POST OP -Time 11:38 -Correct Patient Yes -Correct Side, Site, Position Yes -Correct Procedure Yes -Procedure Performed Yes -Type of Procedure Debridement -Clinical Debridement Muscle / Fascia -Tissue Removed Muscle,Fascia -Post Debridement (cm) - Length 8.5 -Post Debridement (cm) - Width 2.5 -Post Debridement (cm) - Depth 0.5 -Total Square (Post) (cm) 21.25 -Area of Debridement (cm) - Length 8.5 -Area of Debridement (cm) - Width 2.5 -Total Square (Area) (cm) 21.25 -Tunneling No -Undermining/Tunneling No -Circular Undermining No -Wound/Ulcer Outcome Not Healed -Ulcer Cleansing Rinsed/ Irrigated with Saline -Foul Odor after Cleansing No -Bioengineered Tissue No -Bleeding Controlled with Pressure -Offloading No -Treatment Response Procedure Tolerated Well -Debridement - Muscle / Fascia, 1st Yes 20sq cm -Debridement, Muscle/Fascia, ea addt'l 2 20sq cm or part thereof #2- L DORSAL HAND POST OP -Time 11:37 -Correct Patient Yes -Correct Side, Site, Position Yes -Correct Procedure Yes -Procedure Performed Yes -Type of Procedure Debridement -Clinical Debridement Muscle / Fascia -Tissue Removed Muscle,Fascia -Post Debridement (cm) - Length 8.8 -Post Debridement (cm) - Width 3 -Post Debridement (cm) - Depth 0.5 -Total Square (Post) (cm) 26.4 -Area of Debridement (cm) - Length 8.8 -Area of Debridement (cm) - Width 3 -Total Square (Area) (cm) 26.4 -Tunneling No -Undermining/Tunneling No -Circular Undermining No -Wound/Ulcer Outcome Not Healed -Ulcer Cleansing Rinsed/ Irrigated with Saline -Foul Odor after Cleansing No -Bioengineered Tissue No -Bleeding Controlled with Pressure -Offloading No -Treatment Response Procedure Tolerated Well -Debridement - Muscle / Fascia, 1st No 20sq cm #1- L DORSAL medial HAND -Time 11:34 -Correct Patient Yes -Correct Side, Site, Position Yes -Correct Procedure Yes -Procedure Performed Yes -Type of Procedure Debridement -Clinical Debridement Muscle / Fascia -Tissue Removed Muscle,Fascia -Post Debridement (cm) - Length 5 -Post Debridement (cm) - Width 1 -Post Debridement (cm) - Depth 3 -Total Square (Post) (cm) 5 -Area of Debridement (cm) - Length 5 -Area of Debridement (cm) - Width 1 -Total Square (Area) (cm) 5 -Tunneling No -Undermining/Tunneling No -Circular Undermining No -Wound/Ulcer Outcome Not Healed -Ulcer Cleansing Rinsed/ Irrigated with Saline -Foul Odor after Cleansing No -Bioengineered Tissue No -Bleeding Controlled with Pressure -Offloading No -Treatment Response Procedure Tolerated Well -Debridement - Subq, 1st 20sq cm No -Debridement - Muscle / Fascia, 1st No 20sq cm Pain Scale: 0-10 Numeric Is Patient Pain Free? Yes WC - Nurse 3 - General Ulcer D/C NN Start: 05/30/20 10:35 Freq: Status: Active Protocol: Activity Type Activity Date Activity User E-Sign Co-Sign Detail Recorded Client Recorded Date Recorded By Document 05/30/20 12:05 FERNANDO [id number] 05/30/20 12:07 FERNANDO 05/30/20 12:05 Wound Care Nurse 3 #3- L LATERAL DORSAL HAND POST OP -Ulcer Cleansing Rinsed/ Irrigated with Saline -Foul Odor after Cleansing No -Primary Dressing Applied Aquacel AG 4x4 -Primary Dressing Covered/Secured with Dry Gauze & Roll Gauze, Secured with Tape -Aquacel AG 4x4 1 #2- L DORSAL HAND POST OP -Ulcer Cleansing Wound Cleanser -Foul Odor after Cleansing No -Other Dressing aqacel ag -Primary Dressing Covered/Secured with Dry Gauze & Roll Gauze, Secured with Tape #1- L DORSAL medial HAND -Ulcer Cleansing Wound Cleanser -Foul Odor after Cleansing No -Other Dressing aquacel ag -Primary Dressing Covered/Secured with Dry Gauze & Roll Gauze, Secured with Tape Treatment Response Procedure Tolerated Well Pain Scale: 0-10 Numeric Is Patient Pain Free? Yes WC - Visit Discharge Discharge Condition Stable Ambulatory Status Ambulatory Transportation Private Auto Accompanied by Facility Type Home Health Orders Sent Yes Wound debrided: Dorsal hand wounds x3 Laterality: Left Type of Debridement: Excisional debridement Anesthesia Used: 5% Lidocaine Gel Depth: Down to and including healthy tissue, in the subcutaneous layer, to muscle Percentage of wound debrided: 100 Instrument Used: 5mm curette Tissue Removed: Subcutaneous tissue and slough to the muscle. Severity: Fat Layer Exposed Amount of bleeding with debridement: Mild Bleeding Controlled with: Pressure Patient tolerated procedure well Assessment/Plan Active Problems Hand, open wound except fingers, complicated (Acute) Compartment syndrome of left hand (Acute) Infectious tenosynovitis of left wrist extensor (Acute) Abscess of skin of left wrist (Acute) Extensor tenosynovitis of left wrist (Acute) Abscess of left hand including fingers (Acute) Cat bite of left hand (Acute) Cellulitis and abscess of hand (Acute) Physical debility (Chronic) Assessment: 1. Left hand wounds, complicated. 2. Compartment syndrome of left hand. 3. Infectious tenosynovitis of left wrist extensor. 4. Abscess of skin of left wrist. 5. Extensor tenosynovitis of left wrist. 6. Abscess of left hand including fingers. 7. Cat bite of left hand. 8. Cellulitis and abscess of hand. 9. Physical debility Plan: Patient was seen in the wound center today and a subcutaneous debridement was performed. Patient tolerated it well. Surgery on 05/18/20 - 1. Surgical preparation dorsum left hand, ulnar aspect, with extension to small finger and wrist with incision and drainage and excisional debridement cat bite infection abscess. 2. Fasciotomy dorsal interosseous muscles x4 left hand. 3. Radical extensor tenosynovectomy left wrist extensors tendon sheath for suppurative tenosynovitis involving compartment 2 (ECRL and ECRB tendons), compartment 3 (EPL tendon), compartment 4 (EDC and EIP tendons), compartment 5 (EDM tendon), and compartment 6 (ECU tendon). Operative wound culture postive for Pasteurella multocida, Clostridium group and Porphyromonas uenonis. He is Currently taking Augmentin and probiotic. Wound care - Wash with soap and water daily. Daily Aquacel Silver. Encourage range of motion of his left hand and fingers. Encouraged increased protein intake to help with wound healing. Follow up one week. [id number]: [id number] Global Visit
== END 2020-06-02 23:59 ==
LOC: WC 10:12
PROVIDERS: Referring Provider Family Medicine; Visit Provider Surgery
DX: S61.452A Open bite of left hand, initial encounter (principal); W55.01XA Bitten by cat, initial encounter; L02.512 Cutaneous abscess of left hand; M65.832 Other synovitis and tenosynovitis, left forearm; T79.A12A Traumatic compartment syndrome of left upper extremity, initial encounter
CPT/HCPCS: 11043; 11046; 99213; G0463

== ENCOUNTER 2020-06-01 14:19 | Inpatient (IN) | payer MEDICARE, OTHER, SELFPAY ==
[2020-06-01] VITALS (7 sets, daily range): BP systolic 115–125; BP diastolic 58–74; PULSE 96–115; RESP 16–22; TEMP 36.6–38; O2SAT 94–99; BMI 22.4; BMI 21.4
--- NOTE | 2020-06-01 15:02 | RAD_ITS ---
STUDY: X-RAY CHEST REASON FOR EXAM: Male, 84 years old. SOB PT SENT FROM WOUND CENTER FOR IV ANTIBIOTICS FOR WOUND TO LEFT HAND. TECHNIQUE: Single AP portable view of the chest. COMPARISON: None. FINDINGS: Ill-defined subpleural groundglass opacities are seen more prominent in the lung bases , may represent atypical pneumonia or viral pneumonia (COVID-19 ?). There is no demonstrated pleural abnormality. Normal size heart. Normal mediastinum and mykel. Normal visualized pulmonary arteries. Normal visualized aortic arch and descending thoracic aorta. There is a levoscoliosis of the thoracic spine. There is degenerative osteoarthritis of the bilateral shoulders. There is no demonstrated abnormality of the visualized soft tissue structures of the upper abdomen. RAD/Chest 1 View (Portable) IMPRESSION: Ill-defined subpleural groundglass opacities are seen more prominent in the lung bases , may represent atypical pneumonia or viral pneumonia (COVID-19 ?). Electronically Signed: Shana Damon, at 15:35 EST Tel , Service support ,
[2020-06-01 15:15] LABS: Absolute Neutrophil Count 5.3 X10^3/uL (2.0-7.7); Basophil# 0.04 X10^3/uL; Basophil% 0.5 % (0-1); Eosinophil# 0.06 X10^3/uL; Eosinophils% 0.7 % (0-5); Hematocrit 40.7 % (40-54); Hemoglobin 13.6 g/dL (13.0-16.5); Lymphocyte % 20.9 % (19-41); Mean Corp Hgb Conc 33.4 g/dL (32-36); Mean Corpuscular Hgb 30.4 pg (27.0-32.0); Mean Corpuscular Volume 91.1 fL (80-94); Mean Platelet Vol. 9.8 fl (6.2-12.0); Monocyte# 1.03 X10^3/uL; Monocyte% 12.6 % (0-10); NRBC Flagged by Analyzer 0 % (0-5); Neutrophil # 5.27 X10^3/uL (2.7-7.7); Neutrophil % 64.7 % (47-70); Platelet Count 282 K/mm3 (150-450); RBC Distribution Width CV 13.2 % (11.6-14.6); RBC Distribution Width SD 42.9 fl (35.1-43.9); Red Blood Count 4.47 M/mm3 (4.6-6.2); White Blood Count 8.2 K/mm3 (4.4-11.0)
[2020-06-01 15:26] LABS: ALB/GLOB Ratio 0.8 RATIO (0.9-2.4); AST(SGOT) 63 U/L (15-37); Alanine Aminotransfer ALT/SGPT 96 U/L (16-61); Albumin, Serum 2.7 g/dL (3.2-5.0); Alkaline Phosphatase 154 U/L (45-117); Anion Gap 3 (5-15); BUN 25 mg/dL (7-18); BUN/Creat Ratio 18.8 RATIO (10-20); Calcium,Total 8.3 mg/dL (8.5-10.1); Chloride 107 mmol/L (98-107); Creatinine, Serum 1.33 mg/dL (0.70-1.30); EST Glomerular Filtration Rate 55 mL/min (>60); Est Glom Filt Rate - Afr Amer 66 mL/min (>60); Estimated Creatinine Clearance 45.43 ml/min; Globulin 3.6 g/dL (2.2-4.2); Glucose 133 mg/dL (74-106); Potassium 4.4 mmol/L (3.5-5.1); Protein, Total 6.3 g/dL (6.4-8.2); Sodium Level 138 mmol/L (136-145)
--- NOTE | 2020-06-01 15:43 | ED.VIS.GEN ---
History of Present Illness Chief Complaint: Wound Informant: Patient Narrative: 84-year-old male presenting from home tells me that the [place] [facility] sent him to the hospital to have his cat bite evaluated. He tells me he got bit by a cat several weeks ago. He tells me has not seen a doctor for it. He states that a nurse comes to his house and evaluates it. I called his daughter as I could get a hold his and she was with his . They tell me that a home health nurse came out and said he had a fever and was breathing hard and that they called the doctor and that doctor told him to come to the hospital. Family tells me that he chronically is short of breath and states that he gets that way due to his bipolar disorder. They do not know what Sent him to the hospital. He did not know what his temperature was at home. From review of the chart I see the patient was admitted into the hospital underwent surgery for tenosynovitis and the cat bite infection. He saw infectious disease and was discharged home on Augmentin. Cultures grew out Pasteurella and MSSA. He saw the wound clinic 2 days ago. 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 (6) Bipolar disorder Status: Chronic (7) Lymphoma Status: Chronic Past Medical History - Allergies and Home Meds Allergies/Adverse Reactions: Allergies No Known Allergies Allergy (Verified 05/30/20 11:03) Primary Care Physician: Care Physician,No Primary [Primary Care Provider] - Surgical History: noncontributory, - Lives: Spouse/ Significant Other Smoking Status: Never smoker Drugs: None - Family History Maternal Family History: Reports: - - cardiomyopathy Paternal Family History: Reports: No pertinent history Sibling Family History: Reports: - - schizophrenia in sister Review of Systems General: Reports: Fever. Denies: Chills, Sweats Eyes: Denies: Visual changes - bilaterally, Diplopia ENT: Denies: Rhinorrhea, Sore throat Cardiovascular: Denies: Chest pain, Palpitations Respiratory: Reports: Dyspnea. Denies: Cough, Dyspnea on exertion Gastrointestinal: Denies: Abdominal pain, Nausea, Vomiting, Diarrhea, Melena, Hematochezia Genitourinary: Denies: Dysuria, Hematuria, Frequency Musculoskeletal: Denies: Back pain, Extremity Pain Skin: Denies: Rash, Wounds Neurological: Denies: Headache, Weakness, Numbness Physical Exam Vital Signs/Narrative: Vital Signs Temp Pulse Resp BP Pulse Ox 06/01/20 14:21 98.0 F 115 H 18 115/73 95 06/01/20 14:19 98.0 F 114 H 18 115/73 95 Inital Vital Signs reviewed: Yes General: Well nourished, Well developed, No Acute Distress Head: Normocephalic, Atraumatic Eyes: Perrl, EOMI ENT: Moist mucous membranes, No rhinorrhea Neck: Supple, Nontender Cardiovascular: Regular rate, Regular rhythm, No murmurs Respiratory: No distress, CTA bilaterally, Chest nontender Abdomen: Soft, Nontender, Nondistended, Normal bowel sounds Back: Nontender, Normal Inspection Extremities: - - The surgical incisions appear like they are healing. I do not appreciate any significant erythema. There is mild swelling of the hand. No lymphangitic streaking. Skin: Normal color, No rash Neurological: Alert, Cranial nerves II-XII grossly intact, Normal Strength, Normal Sensation. Negative for: Oriented x3 - Orientated x2 Psychological: Normal affect, Normal Mood Diagnostic/Tx/Re-eval Clinical Impression(s) from Imaging Studies Chest X-Ray 06/01/20 15:02 IMPRESSION: Ill-defined subpleural groundglass opacities are seen more prominent in the lung bases , may represent atypical pneumonia or viral pneumonia (COVID-19 ?). Electronically Signed: Shana Damon, at 15:35 EST Tel , Service support , Laboratory Last Values WBC 8.2 K/mm3 (4.4-11.0) 06/01/20 14:55 RBC 4.47 M/mm3 (4.6-6.2) L 06/01/20 14:55 Hgb 13.6 g/dL (13.0-16.5) 06/01/20 14:55 Hct 40.7 % (40-54) 06/01/20 14:55 MCV 91.1 fL (80-94) 06/01/20 14:55 MCH 30.4 pg (27.0-32.0) 06/01/20 14:55 MCHC 33.4 g/dL (32-36) 06/01/20 14:55 RDW Std Deviation 42.9 fl (35.1-43.9) 06/01/20 14:55 RDW Coeff of Nahed 13.2 % (11.6-14.6) 06/01/20 14:55 Plt Count 282 K/mm3 (150-450) 06/01/20 14:55 MPV 9.8 fl (6.2-12.0) 06/01/20 14:55 Immature Gran % (Auto) 0.600 % (0.0-0.9) 06/01/20 14:55 Neut % (Auto) 64.7 % (47-70) 06/01/20 14:55 Lymph % (Auto) 20.9 % (19-41) 06/01/20 14:55 [place] % (Auto) 12.6 % (0-10) H 06/01/20 14:55 Eos % (Auto) 0.7 % (0-5) 06/01/20 14:55 Baso % (Auto) 0.5 % (0-1) 06/01/20 14:55 Absolute Neuts (auto) 5.3 X10^3/uL (2.0-7.7) 06/01/20 14:55 Absolute Lymphs (auto) 1.70 X10^3/uL (0.83-4.51) 06/01/20 14:55 Nucleated RBC % 0 % (0-5) 06/01/20 14:55 Sodium 138 mmol/L (136-145) 06/01/20 14:55 Potassium 4.4 mmol/L (3.5-5.1) 06/01/20 14:55 Chloride 107 mmol/L (98-107) 06/01/20 14:55 Carbon Dioxide 28.0 mmol/L (21.0-32.0) 06/01/20 14:55 Anion Gap 3 (5-15) L 06/01/20 14:55 BUN 25 mg/dL (7-18) H 06/01/20 14:55 Creatinine 1.33 mg/dL (0.70-1.30) H 06/01/20 14:55 Estim Creat Clear Calc 45.43 ml/min 06/01/20 14:55 Est GFR (MDRD) Af Amer 66 mL/min (>60) 06/01/20 14:55 Est GFR (MDRD) Non-Af 55 mL/min (>60) L 06/01/20 14:55 BUN/Creatinine Ratio 18.8 RATIO (10-20) 06/01/20 14:55 Glucose 133 mg/dL (74-106) H 06/01/20 14:55 Calcium 8.3 mg/dL (8.5-10.1) L 06/01/20 14:55 Total Bilirubin 0.30 mg/dL (0.20-1.00) 06/01/20 14:55 AST 63 U/L (15-37) H 06/01/20 14:55 ALT 96 U/L (16-61) H 06/01/20 14:55 Alkaline Phosphatase 154 U/L (45-117) H 06/01/20 14:55 Total Protein 6.3 g/dL (6.4-8.2) L 06/01/20 14:55 Albumin 2.7 g/dL (3.2-5.0) L 06/01/20 14:55 Globulin 3.6 g/dL (2.2-4.2) 06/01/20 14:55 Albumin/Globulin Ratio 0.8 RATIO (0.9-2.4) L 06/01/20 14:55 - Medical Decision Making I personally checked the patient's oral temperature and it read 98.3. Basic blood work essentially negative. Chest x-ray shows concerning features for COVID-19. His COVID-19 antigen is positive. Clinically however the patient appears stable. He is not hypoxic. The left hand appears to be healing well. I called our infectious disease physician. They had a concern regarding a report from the home nurse about the living conditions. Now that he is COVID-19 positive and at risk for developing significant complications ID would like to admit him. Family was updated and I informed them that he should most likely go to a rehab facility after his hospitalization. ED Disposition - Plan for ED Patient: Disposition: Acute Care Hospital [facility] Diagnosis: Abscess of left hand including fingers, COVID-19 Referrals: Care Physician,No Primary [Primary Care Provider] -
--- NOTE | 2020-06-01 17:20 | ED.RN ---
Patient noted to be 88% on RA, 2L O2 applied via nasal cannula.
--- NOTE | 2020-06-01 17:30 | PCS.PANDOC ---
PANDEMIC DOCUMENTATION INITIATED: Date: 06/01/2020 Time: 2065
[2020-06-01 17:36] LABS: Fibrinogen 548 mg/dl (203-444)
[2020-06-01 17:39] LABS: D-Dimer Quantitative (DVT/PE) 1.45 FEU/ug/m (0.27-0.49)
--- NOTE | 2020-06-01 17:40 | CT_ITS ---
STUDY: CTA CHEST REASON FOR EXAM: Male, 84 years old. ELEVATED D-DIMER/fever/difficulty breathing. Compartment syndrome from cat bite RADIATION DOSAGE (If Supplied By Facility): CTDIvol = ( 11.84 ) mGy, DLP = ( 507.66 ) mGycm TECHNIQUE: The examination was performed with the intravenous administration of IV 75mL Isovue-370. Post-processing of the angiographic images was performed, with multiplanar reformation and 3D reconstruction. Individualized dose optimization techniques were used for this CT. COMPARISON: Chest, 06/01/2020. FINDINGS: Normal enhancement of the main pulmonary artery and right and left pulmonary arteries. Normal enhancement of the bilateral peripheral pulmonary arteries. There is no demonstrated pulmonary embolism. Minimal atherosclerotic tortuosity of the thoracic aorta. There is no demonstrated aortic dissection. Normal heart and pericardium. Normal mediastinum. Normal hilar regions. Normal visualized trachea and bronchi. The lungs are well expanded. There is patchy predominantly peripheral groundglass infiltrates bilaterally. Most marked in the perihilar region and bases. Normal pleura. Normal chest wall structures. There are degenerative changes of thoracic spine. There is pneumobilia and nondependent liver with evidence of cholecystectomy. Air is also seen in the CBD suggesting sphincterotomy. The upper abdomen is otherwise CT/CTA Chest W/WO Contrast IMPRESSION: 1. No evidence of pulmonary embolus. 2. No aortic dissection or aneurysm. 3. Patchy peripheral groundglass infiltrates consistent with COVID 19 pneumonia. 4. Evidence of cholecystectomy and sphincterotomy. 5. Degenerative changes of the thoracic spine. Electronically Signed: Felix Brock DO at 18:55 EST Tel [phone], Service support ,
--- NOTE | 2020-06-01 17:40 | ED.RN ---
step daughter, salomon, called and made aware that patient will be admitted. Advised to self monitor her and patient's for COVID symptoms and to self quarantine.
--- NOTE | 2020-06-01 17:42 | CM.ED ---
SOCIAL WORK Updated by Dr. Fernandez and nursing, patient to be admitted. Per report, home is deplorable. Patient tested positive for COVID-19. Physician and staff recommending SNF upon discharge. Nurse, Arlin spoke with step-daughter who reports will keep patient's updated. Step-daughter is Eveline De La O [phone]. Plan: Admit Kathy Dyer, CROCHET BEADER, NIBBLER OPERATOR
--- NOTE | 2020-06-01 21:00 | PCM.HP.STD ---
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 (6) Abscess of left hand including fingers Status: Acute (7) Cat bite Status: Acute (8) History of benign prostatic hyperplasia Status: Chronic (9) Cat bite of left hand Status: Chronic (10) Cellulitis and abscess of hand Status: Acute (11) Hypernatremia Status: Resolved (12) Hyperglycemia Status: Acute (13) ELVIN (acute kidney injury) Status: Acute (14) Elevated serum creatinine Status: Acute (15) Generalized weakness Status: Chronic (16) Physical debility Status: Chronic (17) Lymphoma Status: Chronic (18) Bipolar disorder Status: Chronic History of Present Illness Date of Admission: 06/01/20 Mr Woods is a 84 year old M who was sent to the ER under the direction of Dr. Florence after being noted to be Covid positive. He is under the current care of Dr. Florence her for infectious tenosynovitis and compartment syndrome status post a cat bite. He had had a recent fasciotomy and cultures grew out Pasteurella and MSSA. He has been following with infectious disease and been on Augmentin. He was last seen in the wound clinic 2 days ago. Evidently, his living conditions are poor he was lying on a bed with a box spring sticking out and fecal material in the area. He was sent in basically for failure to thrive concern of recurrent hand infection and Covid pneumonia. He is mildly febrile with a T-max of 100.4 Fahrenheit, he has mild tachycardia, his blood pressures are stable, and oxygen saturation is 98% on room air. He currently appears in no respiratory distress. A CBC was done and unremarkable. His BMP shows a mild creatinine elevation although this appears to be at baseline. Mild transaminitis that appears to be chronic and mildly elevated glucose at 133. The ED did discuss the case with Dr. Quintana and he would like remdesivir initiated but to hold off on Decadron with his current hand infection. D-dimer was elevated at 1.45 and a CTA of his chest was subsequently done. His CTA was negative for pulmonary embolism. It did show patchy peripheral ground glass infiltrates. He was admitted to the Covid floor Past Medical History Past Medical History (Chronic Problems): Chronic Problems Compartment syndrome of left hand (Chronic) Abscess of skin of left wrist (Chronic) Extensor tenosynovitis of left wrist (Chronic) Abscess of left hand including fingers (Chronic) History of benign prostatic hyperplasia (Chronic) Cat bite of left hand (Chronic) Generalized weakness (Chronic) Physical debility (Chronic) [place] toxicity (Chronic) Lymphoma (Chronic) Bipolar disorder (Chronic) Allergies No Known Allergies Allergy (Verified 05/30/20 11:03) Home Medications: Ambulatory Orders Medication Instructions Recorded Olanzapine [Zyprexa] 7.5 mg PO QHS 04/18/14 Oxybutynin Chloride [Oxybutynin 15 mg PO QHS 05/18/20 Chloride ER] amoxicillin 875 mg-potassium 1 tab PO Q12H 14 Days #28 tab 05/30/20 clavulanate 125 mg tablet lactobacillus combination no.9 4 4,000 mmu cells PO DAILY #20 cap 05/30/20 billion cell capsule Surgical History: noncontributory, - Psychiatric History: Bipolar Lives: Spouse/ Significant Other Smoking Status: Never smoker Drugs: None - *Family History Maternal History Items: - - cardiomyopathy Paternal History Items: No pertinent history Sibling History Items: - - schizophrenia in sister Review of Systems Constitutional: Denies: Anorexia, Chills, Fever, Night Sweats, Malaise, Weakness, Weight Change, Fatigue Eyes: Denies: Drainage, Eyelid Inflammation, Pain, Redness, Vision Change HEENT: Reports: Hard of Hearing. Denies: Ear Pain, Eye Pain, Head Aches, Nasal bleeding, Nasal Congestion, Post Nasal Drip, Sinus Congestion, Sinus Drainage, Sore Throat, Visual Changes Cardiovascular: Denies: Chest Pain, Claudication, Chest Pressure, Chest Tightness, Edema, Heaviness, Light Headedness, Orthopnea, Palpitations, Paroxysmal Noc. Dyspnea, Syncope Respiratory: Denies: Cough, Hemoptysis, Pleuritic Pain, Shortness of Breath, Shortness of breath at rest, Shortness of breath upon exertion, Sputum production, Wheezing Gastrointestinal: Denies: Abdominal Pain, Constipation, Diarrhea, Dyspepsia, Hematemesis, Hematochezia, Nausea, Melena, Vomiting Genitourinary: Reports: Retention. Denies: Dysuria, Frequency, Hesitancy, Incontinence, Nocturia, Urgency Musculoskeletal: Reports: Hand Pain. Denies: Back Pain, Joint Pain, Joint stiffness, Joint swelling, Joint Tenderness, Neck Pain Skin: Reports: Wounds - Left upper extremity still. Denies: Dryness, Jaundice, Lesions, Pruritis, Rash Neurological: Denies: Balance problems, Slurred speech, Confusion, Difficulty swallowing, Focal weakness, Headaches, Incoordination, Numbness, Tingling, Tremor, Seizures Psychiatric: Reports: Depression. Denies: Anxiety Endocrine: Denies: Change in Body Habitus, Heat/ Cold Intolerance, Polydipsia, Polyuria Hematologic/ Lymphatic: Denies: Adenopathy, Anemia, Easy Bruising, Easy Bleeding, Petechiae, Purpura VTE Information - Inpt Only VTE Present on Admission: No VTE Mechan Device Prophylaxis: None VTE Pharm Prophylaxis ordered?: Yes Patient Problems: Active and Suspected Problems COVID-19 (Acute) Infectious tenosynovitis of left wrist extensor (Acute) Cat bite (Acute) Cellulitis and abscess of hand (Acute) Hyperglycemia (Acute) ELVIN (acute kidney injury) (Acute) Elevated serum creatinine (Acute) - Physical Exam Vitals/I&O's: Vital Signs Temp Pulse Resp BP Pulse Ox 100.4 F H 96 18 123/74 H 98 06/01/20 18:34 06/01/20 18:34 06/01/20 19:45 06/01/20 18:34 06/01/20 19:45 Oxygen Flow Rate (L/min) 2 Oxygen Delivery Method Room Air Weight: 71.668 kg Body Mass Index (BMI) 21.4 General: Alert, Oriented x3, Cooperative, No apparent distress, Well developed, Well nourished, - - Elderly white male sitting up in bed, nontoxic and appears comfortable HEENT: Atraumatic, PERRLA, EOMI, Normocephalic, EAC Clear Oral: Moist Mucosa, No Gingival or Mucosal Lesions/ Ulcerations Neck: Supple, No JVD, Negative Carotid Bruits, No Nodes, Trachea Midline, Thyroid Normal Size and Texture Lungs: No rhonchi, No wheeze, No rales, Diminished Cardiovascular: Regular Rhythm, Normal S1, Normal S2, No murmurs, No Ectopic Activity, No rub noted, No Gallop, Tachycardic - Mild Abdomen: Bowel Sounds Present, Soft, Non Tender, Non-Distended, No Hepato-splenomegaly Extremities: No clubbing, No cyanosis, No edema, Capillary Refill Less than 3 Seconds, Peripheral Pulses Normal Skin: No rashes, - - Left upper extremity wound, dressing in place and intact, no drainage, bilateral lower extremity nails are extremely long and in need of care Musculoskeletal: No Tenderness to Palpation of Joints or Extremities, No Muscle Wasting, Arthritic Changes Lymphatic: No Cervical, Supraclavicular, or Inguinal Adenopathy Neurological: Cranial nerves II-XII grossly intact, Deep Tendon Reflexes 2+/4 and Symmetrical, Neuro grossly intact, Muscle tone normal, Coordination normal Psych/Mental Status: Appropriate, Flat Affect Microbiology Past 72 Hours 06/01/20 15:00 Mucosa - Nose SARS-CoV-2 Antigen (Rapid) - Final SARS-CoV-2 (COVID 19) Laboratory Results 06/01/20 14:55: WBC 8.2, RBC 4.47 L, Hgb 13.6, Hct 40.7, MCV 91.1, MCH 30.4, MCHC 33.4, RDW Std Deviation 42.9, RDW Coeff of Nahed 13.2, Plt Count 282, MPV 9.8, Immature Gran % (Auto) 0.600, Neut % (Auto) 64.7, Lymph % (Auto) 20.9, [place] % (Auto) 12.6 H, Eos % (Auto) 0.7, Baso % (Auto) 0.5, Absolute Neuts (auto) 5.3, Absolute Lymphs (auto) 1.70, Nucleated RBC % 0 06/01/20 14:55: Sodium 138, Potassium 4.4, Chloride 107, Carbon Dioxide 28.0, Anion Gap 3 L, BUN 25 H, Creatinine 1.33 H, Estim Creat Clear Calc 45.43, Est GFR (MDRD) Af Amer 66, Est GFR (MDRD) Non-Af 55 L, BUN/Creatinine Ratio 18.8, Glucose 133 H, Calcium 8.3 L, Total Bilirubin 0.30, AST 63 H, ALT 96 H, Alkaline Phosphatase 154 H, Total Protein 6.3 L, Albumin 2.7 L, Globulin 3.6, Albumin/Globulin Ratio 0.8 L 06/01/20 14:55: Fibrinogen 548 H, D-Dimer Quant (PE/DVT) 1.45 H* Current Medications Acetaminophen (Acetaminophen 325 Mg Tablet) 650 mg PO Q6H PRN PRN PRN Reason: Pain Score 1-10/Temp > 100.7 F Al Hydroxide/Mg Hydroxide (Mag Hydrox/Al Hydrox/Simeth 30 Ml Udc) 30 ml PO Q6H PRN PRN PRN Reason: Gastric Burning Albuterol Sulfate (Albuterol 2.5 Mg/3 Ml Vial.Neb.) 2.5 mg INHALATION Q2H PRN PRN PRN Reason: Shortness of Breath/Wheezing Amoxicillin/Clavulanate Potassium (Amox/Clavulanate 875 Mg Tablet) 875 mg PO BID [facility] Docusate Sodium (Docusate Sodium 100 Mg Capsule) 100 mg PO BID PRN PRN PRN Reason: Constipation Enoxaparin Sodium (Enoxaparin 40 Mg/0.4 Ml Syringe) 40 mg SC DAILY [facility] Guaifenesin (Guaifenesin 10 Ml Udc (200mg/10ml)) 20 ml PO Q4H PRN PRN PRN Reason: COUGH Lactated Ringer's () 1,000 mls @ 100 mls/hr IV .Q10H [facility] Stop: 06/02/20 18:59 Remdesivir 200 mg/ Sodium (Chloride) 250 mls @ 125 mls/hr IV X1 ONE Stop: 06/01/20 23:59 Remdesivir 100 mg/ Sodium (Chloride) 250 mls @ 125 mls/hr IV QHS [facility] Stop: 06/05/20 23:59 Lactobacillus Acidophilus (Lactobacillus Acidophilus) 1 tablet PO DAILY [facility] Melatonin (Melatonin 3 Mg Tablet) 3 mg PO QHS PRN PRN PRN Reason: INSOMNIA Morphine Sulfate (Morphine 2 Mg/Ml Syringe) 2 mg IV Q3H PRN PRN PRN Reason: Pain Score 6-10 Olanzapine (Olanzapine 2.5 Mg Tablet) 7.5 mg PO QHS [facility] Ondansetron HCl (Ondansetron 4 Mg/2 Ml Vial) 4 mg IV Q8H PRN PRN PRN Reason: NAUSEA/VOMITING Tolterodine Tartrate (Tolterodine Tartrate 4 Mg Cap.Sa) 4 mg PO QHS [facility] Assessment/Plan All Active Problems COVID-19 (Acute) Infectious tenosynovitis of left wrist extensor (Acute) Sepsis (Acute) Cat bite (Acute) Cellulitis and abscess of hand (Acute) Hyperglycemia (Acute) Abscess (Acute) ELVIN (acute kidney injury) (Acute) Elevated serum creatinine (Acute) Hypernatremia (Resolved) COVID-19 pneumonia -Supplemental O2 as needed -Wean as able -Remdesivir with loading dose and then 100 mg daily to follow for 5 days -Supportive care -Consultation to Dr. Florence Left hand infectious tenosynovitis status post cat bite/left hand compartment syndrome -Pasteurella and MSSA grew out in the cultures -Continue Augmentin -ID consult to follow -Wound care consultation Chronic transaminitis -etiology unclear -We will trend with use of a remdesivir Bipolar disorder -Continue Zyprexa Lymphoma -Appears to be in remission as he is not on any current treatment Debility -PT/OT consultation DVT prophylaxis -Lovenox 40 mg daily CODE STATUS -Unknown at this time Dispo -Will need placement at SNF upon discharge Inpatient E&M: 57699 Init Hosp L3
[2020-06-01] MEDS: guaiFENesin 10 ML UDC (200MG/10ML) 20 ML PO (21:55)
[2020-06-01] MEDS: Lactated Ringers 1,000 ML 100 ML IV (21:55)
[2020-06-01] MEDS: Tolterodine Tartrate 4 MG CAP.SA PO (21:56)
[2020-06-01] MEDS: Amox/Clavulanate 875 MG Tablet PO (21:56)
[2020-06-01] MEDS: OLANZapine 2.5 MG Tablet 7.5 MG PO (21:56)
[2020-06-01] MEDS: Acetaminophen 325 MG Tablet 650 MG PO (21:56)
[2020-06-01] MEDS: MELATONIN 3 MG TABLET PO (22:13)
[2020-06-02] VITALS (7 sets, daily range): BP systolic 102–122; BP diastolic 64–68; PULSE 82–90; RESP 16–18; TEMP 36.1–36.6; O2SAT 94–98
[2020-06-02 06:29] LABS: Hemoglobin 12.1 g/dL (13.0-16.5); Mean Corp Hgb Conc 32.7 g/dL (32-36); Mean Corpuscular Hgb 28.7 pg (27.0-32.0); Mean Corpuscular Volume 87.7 fL (80-94); Mean Platelet Vol. 9.8 fl (6.2-12.0); Platelet Count 271 K/mm3 (150-450); RBC Distribution Width CV 12.9 % (11.6-14.6); RBC Distribution Width SD 41.1 fl (35.1-43.9); Red Blood Count 4.22 M/mm3 (4.6-6.2); White Blood Count 5.1 K/mm3 (4.4-11.0)
[2020-06-02 06:54] LABS: ALB/GLOB Ratio 0.9 RATIO (0.9-2.4); AST(SGOT) 53 U/L (15-37); Alanine Aminotransfer ALT/SGPT 80 U/L (16-61); Albumin, Serum 2.4 g/dL (3.2-5.0); Alkaline Phosphatase 140 U/L (45-117); Anion Gap 7 (5-15); BUN 23 mg/dL (7-18); BUN/Creat Ratio 22.5 RATIO (10-20); Calcium,Total 7.7 mg/dL (8.5-10.1); Chloride 107 mmol/L (98-107); Creatinine, Serum 1.02 mg/dL (0.70-1.30); EST Glomerular Filtration Rate 74 mL/min (>60); Est Glom Filt Rate - Afr Amer 90 mL/min (>60); Globulin 2.6 g/dL (2.2-4.2); Glucose 109 mg/dL (74-106); Magnesium 2.6 mg/dL (1.6-2.6); Phosphorus 3.5 mg/dL (2.5-4.9); Potassium 3.9 mmol/L (3.5-5.1); Sodium Level 139 mmol/L (136-145)
[2020-06-02] MEDS: Enoxaparin 40 MG/0.4 ML Syringe SC ×2 (09:09→21:30)
[2020-06-02] MEDS: Amox/Clavulanate 875 MG Tablet PO ×2 (09:09→21:29)
[2020-06-02] MEDS: Lactated Ringers 1,000 ML 100 ML IV (09:10)
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
--- NOTE | 2020-06-02 10:33 | CON.PCM_ITS ---
Problem List (1) Onychogryphosis Status: Acute (2) Pain in toe of left foot Status: Acute (3) Pain in toe of right foot Status: Acute (4) COVID-19 Status: Acute Reason for Consult Date of Consultation: 06/02/20 Reason for Consultation: elongated, painful toenails [id number] bilateral History of Present Illness: The patient is a 84 year old M who presents for COVID 19 as well as arm compartment syndrome and cat bite. Patient known to come from poor living conditions and has not been able to properly take care of himself. He has not been able to manage proper hygeine including his feet. He has not been able to trim his nails. [] Past Medical History Past Medical History (Chronic Problems): Chronic Problems Compartment syndrome of left hand (Chronic) Abscess of skin of left wrist (Chronic) Extensor tenosynovitis of left wrist (Chronic) Abscess of left hand including fingers (Chronic) History of benign prostatic hyperplasia (Chronic) Cat bite of left hand (Chronic) Generalized weakness (Chronic) Physical debility (Chronic) [place] toxicity (Chronic) Lymphoma (Chronic) Bipolar disorder (Chronic) Allergies No Known Allergies Allergy (Verified 05/30/20 11:03) Home Medications: Ambulatory Orders Medication Instructions Recorded Olanzapine [Zyprexa] 7.5 mg PO QHS 04/18/14 Oxybutynin Chloride [Oxybutynin 15 mg PO QHS 05/18/20 Chloride ER] amoxicillin 875 mg-potassium 1 tab PO Q12H 14 Days #28 tab 05/30/20 clavulanate 125 mg tablet lactobacillus combination no.9 4 4,000 mmu cells PO DAILY #20 cap 05/30/20 billion cell capsule Surgical History: noncontributory, - Psychiatric History: Bipolar Lives: Spouse/ Significant Other Smoking Status: Never smoker Drugs: None - *Family History Maternal History Items: - - cardiomyopathy Paternal History Items: No pertinent history Sibling History Items: - - schizophrenia in sister Review of Systems Constitutional: Denies: Chills, Fever HEENT: Reports: Hard of Hearing Cardiovascular: Denies: Chest Pain Respiratory: Reports: Cough, Shortness of Breath Gastrointestinal: Denies: Nausea, Vomiting Musculoskeletal: Reports: Foot Pain - toes Skin: Reports: - - poor hygeine noted Neurological: Denies: Numbness, Tingling Patient Problems: Active and Suspected Problems COVID-19 (Acute) Infectious tenosynovitis of left wrist extensor (Acute) Cat bite (Acute) Cellulitis and abscess of hand (Acute) Hyperglycemia (Acute) ELVIN (acute kidney injury) (Acute) Elevated serum creatinine (Acute) - Physical Exam Vitals/I&O's: Vital Signs Temp Pulse Resp BP Pulse Ox 97.5 F L 90 18 119/68 95 06/02/20 09:05 06/02/20 09:05 06/02/20 09:05 06/02/20 09:05 06/02/20 09:05 Oxygen Flow Rate (L/min) 2 Oxygen Delivery Method Nasal Cannula Weight: 71.668 kg Body Mass Index (BMI) 21.4 Intake and Output for Last 24 Hours 05/31/20 06/01/20 06/02/20 23:59 23:59 23:59 Intake Total 250 / 250 926.67 / 926.67 Balance 250 / 250 926.67 / 926.67 General: Alert, Oriented x3 HEENT: Atraumatic Extremities: No clubbing - very elongated, thickened, discolored, dystrohic, curved, subungal debris, painful toenails [id number] bilateral., No cyanosis, No edema, Capillary Refill Less than 3 Seconds, No Calf Tenderness, Peripheral Pulses Normal, Tenderness - to toes, - Skin: No rashes, No breakdown Musculoskeletal: No Tenderness to Palpation of Joints or Extremities, Tenderness - toenails Neurological: Sensory exam intact to light touch and pain Psych/Mental Status: Normal Affect, Appropriate Microbiology Past 72 Hours 06/01/20 15:00 Mucosa - Nose SARS-CoV-2 Antigen (Rapid) - Final SARS-CoV-2 (COVID 19) Laboratory Results 06/01/20 14:55: WBC 8.2, RBC 4.47 L, Hgb 13.6, Hct 40.7, MCV 91.1, MCH 30.4, MCHC 33.4, RDW Std Deviation 42.9, RDW Coeff of Nahed 13.2, Plt Count 282, MPV 9.8, Immature Gran % (Auto) 0.600, Neut % (Auto) 64.7, Lymph % (Auto) 20.9, [place] % (Auto) 12.6 H, Eos % (Auto) 0.7, Baso % (Auto) 0.5, Absolute Neuts (auto) 5.3, Absolute Lymphs (auto) 1.70, Nucleated RBC % 0 06/01/20 14:55: Sodium 138, Potassium 4.4, Chloride 107, Carbon Dioxide 28.0, Anion Gap 3 L, BUN 25 H, Creatinine 1.33 H, Estim Creat Clear Calc 45.43, Est GFR (MDRD) Af Amer 66, Est GFR (MDRD) Non-Af 55 L, BUN/Creatinine Ratio 18.8, Glucose 133 H, Calcium 8.3 L, Total Bilirubin 0.30, AST 63 H, ALT 96 H, Alkaline Phosphatase 154 H, Total Protein 6.3 L, Albumin 2.7 L, Globulin 3.6, Albumin/Globulin Ratio 0.8 L 06/01/20 14:55: Fibrinogen 548 H, D-Dimer Quant (PE/DVT) 1.45 H* 06/02/20 06:00: WBC 5.1, RBC 4.22 L, Hgb 12.1 L, Hct 37.0 L, MCV 87.7, MCH 28.7, MCHC 32.7, RDW Std Deviation 41.1, RDW Coeff of Nahed 12.9, Plt Count 271, MPV 9.8 06/02/20 06:00: Sodium 139, Potassium 3.9, Chloride 107, Carbon Dioxide 25.0, Anion Gap 7, BUN 23 H, Creatinine 1.02, Estim Creat Clear Calc 56.60, Est GFR (MDRD) Af Amer 90, Est GFR (MDRD) Non-Af 74, BUN/Creatinine Ratio 22.5 H, Glucose 109 H, Calcium 7.7 L, Phosphorus 3.5, Magnesium 2.6, Total Bilirubin 0.40, AST 53 H, ALT 80 H, Alkaline Phosphatase 140 H, Total Protein 5.0 L, Albumin 2.4 L, Globulin 2.6, Albumin/Globulin Ratio 0.9 Current Medications Acetaminophen (Acetaminophen 325 Mg Tablet) 650 mg PO Q6H PRN PRN PRN Reason: Pain Score 1-10/Temp > 100.7 F Last Admin: 06/01/20 21:56 Dose: 650 mg Documented by: Al Hydroxide/Mg Hydroxide (Mag Hydrox/Al Hydrox/Simeth 30 Ml Udc) 30 ml PO Q6H PRN PRN PRN Reason: Gastric Burning Albuterol Sulfate (Albuterol 2.5 Mg/3 Ml Vial.Neb.) 2.5 mg INHALATION Q2H PRN PRN PRN Reason: Shortness of Breath/Wheezing Amoxicillin/Clavulanate Potassium (Amox/Clavulanate 875 Mg Tablet) 875 mg PO BID [facility] Last Admin: 06/02/20 09:09 Dose: 875 mg Documented by: Docusate Sodium (Docusate Sodium 100 Mg Capsule) 100 mg PO BID PRN PRN PRN Reason: Constipation Enoxaparin Sodium (Enoxaparin 40 Mg/0.4 Ml Syringe) 40 mg SC DAILY [facility] Last Admin: 06/02/20 09:09 Dose: 40 mg Documented by: Guaifenesin (Guaifenesin 10 Ml Udc (200mg/10ml)) 20 ml PO Q4H PRN PRN PRN Reason: COUGH Last Admin: 06/01/20 21:55 Dose: 20 ml Documented by: Lactated Ringer's () 1,000 mls @ 100 mls/hr IV .Q10H [facility] Stop: 06/02/20 18:59 Last Admin: 06/02/20 09:10 Dose: 100 mls/hr Documented by: Remdesivir 100 mg/ Sodium (Chloride) 250 mls @ 125 mls/hr IV QHS [facility] Stop: 06/05/20 23:59 Lactobacillus Acidophilus (Lactobacillus Acidophilus) 1 tablet PO DAILY [facility] Last Admin: 06/02/20 09:08 Dose: 1 tablet Documented by: Melatonin (Melatonin 3 Mg Tablet) 3 mg PO QHS PRN PRN PRN Reason: INSOMNIA Last Admin: 06/01/20 22:13 Dose: 3 mg Documented by: Morphine Sulfate (Morphine 2 Mg/Ml Syringe) 2 mg IV Q3H PRN PRN PRN Reason: Pain Score 6-10 Olanzapine (Olanzapine 2.5 Mg Tablet) 7.5 mg PO QHS [facility] Last Admin: 06/01/20 21:56 Dose: 7.5 mg Documented by: Ondansetron HCl (Ondansetron 4 Mg/2 Ml Vial) 4 mg IV Q8H PRN PRN PRN Reason: NAUSEA/VOMITING Sodium Chloride (0.9% Saline Lock 10 Ml Syringe) 10 - 40 ml IV UD PRN PRN Reason: SALINE FLUSH Tolterodine Tartrate (Tolterodine Tartrate 4 Mg Cap.Sa) 4 mg PO QHS [facility] Last Admin: 06/01/20 21:56 Dose: 4 mg Documented by: Assessment/Plan All Active Problems COVID-19 (Acute) Onychogryphosis (Acute) Pain in toe of left foot (Acute) Pain in toe of right foot (Acute) Infectious tenosynovitis of left wrist extensor (Acute) Sepsis (Acute) Cat bite (Acute) Cellulitis and abscess of hand (Acute) Hyperglycemia (Acute) Abscess (Acute) ELVIN (acute kidney injury) (Acute) Elevated serum creatinine (Acute) Hypernatremia (Resolved) Onychogryphosis pain left and right toenails COVID 19 poor hygiene Patient seen and examined Patient noted to have poor hygiene to his feet. His toenails are noted to be extremely long. He hasn't been able to trim his nails in months. His nails have gotten so long it is causing him pain, especially in shoe gear [place] de[place]ement of nail 12931 bilateral feet was carried out today with nail nippers in both length and thickness by angling nippers. This was done without incident. There was some debris noted between his toes which was cleaned. No maceration noted to webspaces. Discussed proper foot hygiene with the patient Patient to [facility] Thank you for the consult Please contact if any questions
--- NOTE | 2020-06-02 11:06 | PN_ITS ---
Patient Problems: Active and Suspected Problems COVID-19 (Acute) Infectious tenosynovitis of left wrist extensor (Acute) Cat bite (Acute) Cellulitis and abscess of hand (Acute) Hyperglycemia (Acute) ELVIN (acute kidney injury) (Acute) Elevated serum creatinine (Acute) Subjective: Doing well, no issues overnight. Still on 2 L nasal cannula Vitals/I&O's: Vital Signs Temp Pulse Resp BP Pulse Ox 97.5 F L 90 18 119/68 95 06/02/20 09:05 06/02/20 09:05 06/02/20 09:05 06/02/20 09:05 06/02/20 09:05 Oxygen Flow Rate (L/min) 2 Oxygen Delivery Method Nasal Cannula Weight: 158 lb 0.014 oz Body Mass Index (BMI) 21.4 Intake and Output for Last 24 Hours 05/31/20 06/01/20 06/02/20 23:59 23:59 23:59 Intake Total 250 / 250 926.67 / 926.67 Balance 250 / 250 926.67 / 926.67 General: Alert, Oriented x3, Cooperative, No apparent distress HEENT: Atraumatic, PERRLA, EOMI, Normocephalic Oral: Moist Mucosa Neck: Supple, No JVD Lungs: Normal air movement, No rhonchi, No wheeze, No rales, Diminished Cardiovascular: Regular rate, Regular Rhythm, Normal S1, Normal S2, No murmurs Abdomen: Soft, Non Tender, Non-Distended, No Hepato-splenomegaly Extremities: No edema, Capillary Refill Less than 3 Seconds Skin: No rashes, No breakdown, - - Left hand wound is dressed and intact Neurological: Neuro grossly intact, Sensory exam intact to light touch and pain Psych/Mental Status: Normal Affect, Appropriate Microbiology Past 72 Hours 06/01/20 15:00 Mucosa - Nose SARS-CoV-2 Antigen (Rapid) - Final SARS-CoV-2 (COVID 19) Laboratory Results 06/01/20 14:55: WBC 8.2, RBC 4.47 L, Hgb 13.6, Hct 40.7, MCV 91.1, MCH 30.4, MCHC 33.4, RDW Std Deviation 42.9, RDW Coeff of Nahed 13.2, Plt Count 282, MPV 9.8, Immature Gran % (Auto) 0.600, Neut % (Auto) 64.7, Lymph % (Auto) 20.9, [place] % (Auto) 12.6 H, Eos % (Auto) 0.7, Baso % (Auto) 0.5, Absolute Neuts (auto) 5.3, Absolute Lymphs (auto) 1.70, Nucleated RBC % 0 06/01/20 14:55: Sodium 138, Potassium 4.4, Chloride 107, Carbon Dioxide 28.0, Anion Gap 3 L, BUN 25 H, Creatinine 1.33 H, Estim Creat Clear Calc 45.43, Est GFR (MDRD) Af Amer 66, Est GFR (MDRD) Non-Af 55 L, BUN/Creatinine Ratio 18.8, Glucose 133 H, Calcium 8.3 L, Total Bilirubin 0.30, AST 63 H, ALT 96 H, Alkaline Phosphatase 154 H, Total Protein 6.3 L, Albumin 2.7 L, Globulin 3.6, Albumin/Globulin Ratio 0.8 L 06/01/20 14:55: Fibrinogen 548 H, D-Dimer Quant (PE/DVT) 1.45 H* 06/02/20 06:00: WBC 5.1, RBC 4.22 L, Hgb 12.1 L, Hct 37.0 L, MCV 87.7, MCH 28.7, MCHC 32.7, RDW Std Deviation 41.1, RDW Coeff of Nahed 12.9, Plt Count 271, MPV 9.8 06/02/20 06:00: Sodium 139, Potassium 3.9, Chloride 107, Carbon Dioxide 25.0, Anion Gap 7, BUN 23 H, Creatinine 1.02, Estim Creat Clear Calc 56.60, Est GFR (MDRD) Af Amer 90, Est GFR (MDRD) Non-Af 74, BUN/Creatinine Ratio 22.5 H, Glucose 109 H, Calcium 7.7 L, Phosphorus 3.5, Magnesium 2.6, Total Bilirubin 0.40, AST 53 H, ALT 80 H, Alkaline Phosphatase 140 H, Total Protein 5.0 L, Albumin 2.4 L, Globulin 2.6, Albumin/Globulin Ratio 0.9 Current Medications Acetaminophen (Acetaminophen 325 Mg Tablet) 650 mg PO Q6H PRN PRN PRN Reason: Pain Score 1-10/Temp > 100.7 F Last Admin: 06/01/20 21:56 Dose: 650 mg Documented by: Al Hydroxide/Mg Hydroxide (Mag Hydrox/Al Hydrox/Simeth 30 Ml Udc) 30 ml PO Q6H PRN PRN PRN Reason: Gastric Burning Albuterol Sulfate (Albuterol 2.5 Mg/3 Ml Vial.Neb.) 2.5 mg INHALATION Q2H PRN PRN PRN Reason: Shortness of Breath/Wheezing Amoxicillin/Clavulanate Potassium (Amox/Clavulanate 875 Mg Tablet) 875 mg PO BID [facility] Last Admin: 06/02/20 09:09 Dose: 875 mg Documented by: Dexamethasone (Dexamethasone 2 Mg Tablet) 6 mg PO DAILY [facility] Stop: 06/11/20 10:01 Docusate Sodium (Docusate Sodium 100 Mg Capsule) 100 mg PO BID PRN PRN PRN Reason: Constipation Enoxaparin Sodium (Enoxaparin 40 Mg/0.4 Ml Syringe) 40 mg SC BID [facility] Guaifenesin (Guaifenesin 10 Ml Udc (200mg/10ml)) 20 ml PO Q4H PRN PRN PRN Reason: COUGH Last Admin: 06/01/20 21:55 Dose: 20 ml Documented by: Lactated Ringer's () 1,000 mls @ 100 mls/hr IV .Q10H [facility] Stop: 06/02/20 18:59 Last Admin: 06/02/20 09:10 Dose: 100 mls/hr Documented by: Remdesivir 100 mg/ Sodium (Chloride) 250 mls @ 125 mls/hr IV QHS [facility] Stop: 06/05/20 23:59 Lactobacillus Acidophilus (Lactobacillus Acidophilus) 1 tablet PO DAILY [facility] Last Admin: 06/02/20 09:08 Dose: 1 tablet Documented by: Melatonin (Melatonin 3 Mg Tablet) 3 mg PO QHS PRN PRN PRN Reason: INSOMNIA Last Admin: 06/01/20 22:13 Dose: 3 mg Documented by: Morphine Sulfate (Morphine 2 Mg/Ml Syringe) 2 mg IV Q3H PRN PRN PRN Reason: Pain Score 6-10 Olanzapine (Olanzapine 2.5 Mg Tablet) 7.5 mg PO QHS [facility] Last Admin: 06/01/20 21:56 Dose: 7.5 mg Documented by: Ondansetron HCl (Ondansetron 4 Mg/2 Ml Vial) 4 mg IV Q8H PRN PRN PRN Reason: NAUSEA/VOMITING Sodium Chloride (0.9% Saline Lock 10 Ml Syringe) 10 - 40 ml IV UD PRN PRN Reason: SALINE FLUSH Tolterodine Tartrate (Tolterodine Tartrate 4 Mg Cap.Sa) 4 mg PO QHS [facility] Last Admin: 06/01/20 21:56 Dose: 4 mg Documented by: STROKE Vital Signs/Narrative: Vital Signs Temp Pulse Resp BP Pulse Ox 06/02/20 09:05 97.5 F L 90 18 119/68 95 Medical Necessity - Tobacco Use Smoking Status: Never smoker Assessment/Plan All Active Problems COVID-19 (Acute) Infectious tenosynovitis of left wrist extensor (Acute) Sepsis (Acute) Cat bite (Acute) Cellulitis and abscess of hand (Acute) Hyperglycemia (Acute) Abscess (Acute) ELVIN (acute kidney injury) (Acute) Elevated serum creatinine (Acute) Hypernatremia (Resolved) 1. Acute hypoxic respiratory insufficiency secondary to COVID-19 pneumonia/debility -PT/OT evaluation for possible placement -Continue with Decadron and remdesivir -O2 as necessary -Lovenox, though he did have an elevated D-dimer which is likely combination of his Covid as well as his left hand tenosynovitis -We will likely need to be discharged on low-dose anticoagulant -Appreciate ID assistance -IV fluids will be discontinued this evening 2. Left hand tenosynovitis from a cat bite -Continue with Augmentin -Improving -Appreciate wound care assistance 3. Chronic transaminitis -We will monitor in the setting of remdesivir use 4. Bipolar disorder -Stable -Continue with Zyprexa DVT: Lovenox Inpatient E&M: 59149 Subs Hosp L2
--- NOTE | 2020-06-02 11:44 | CASEMGMT ---
Social Work Telephone received from patient spouse, Radha. Radha reports [facility] until middle to end of next week. Telephone call to [facility] as they are in [place] as well, voicemail left for Mil[facility] in admissions. No patient information provided. Inquiring about possible option if family is open to this. Telephone call to [place], no answer. no voicemail. Will continue to follow. Celine De La Garza MSW, ALIDAS
[2020-06-02] MEDS: dexAMETHasone 2 MG TABLET 6 MG PO (12:02)
--- NOTE | 2020-06-02 12:10 | CASEMGMT ---
Social Work Attempted to call patient spouse again, no answer. no voicemail. Telephone call from [facility], Dario (social secretary). Dario updated this social secretary that APS referral has been made. Patient has history of APS cases being open. Patient was active with [facility] for nursing in the home. Will continue to follow. Celine FELICIANO, MAURICE
--- NOTE | 2020-06-02 12:45 | CASEMGMT ---
Social Work Telephone call received from patient spouse, Radha. This nursing home social worker updated that [facility] does not currently have any openings until next week. Radha states that is where we want him to go. This nursing home social worker attempted to explain that patient might be ready to discharge prior to that. Radha reports to want [facility] for patient at discharge and to not have a second location in mind. Patient currently not medically cleared. Unsure when patient will be ready for discharge. This nursing home social worker attempted to explain further reason for second option for patient, [place] is not open to second option currently. Social Work to continue to follow. Celine De La Garza MSW, MAURICE
--- NOTE | 2020-06-02 12:53 | PCM.HP.ID ---
Problem List (1) COVID-19 Status: Acute Reason for Consult: covid Consulted by: Dr. Keene History of Present Illness: The patient is a 84 year old M with recent admit and surgery for L forearm deep infection related to cat bite. Completed augmentin, was following at wound center. Seen by home health nurse yesterday who called me about fever, hypoxia, and poor living conditions. Sent him to ED, covid (+), started on augmentin and remdesivir. Sleeping this AM, unable to provide history or ROS due to mental status. - Medical History Past Medical History (Chronic Problems): Chronic Problems Compartment syndrome of left hand (Chronic) Abscess of skin of left wrist (Chronic) Extensor tenosynovitis of left wrist (Chronic) Abscess of left hand including fingers (Chronic) History of benign prostatic hyperplasia (Chronic) Cat bite of left hand (Chronic) Generalized weakness (Chronic) Physical debility (Chronic) [place] toxicity (Chronic) Lymphoma (Chronic) Bipolar disorder (Chronic) Allergies/Adverse Reactions: Allergies No Known Allergies Allergy (Verified 05/30/20 11:03) Home Medications: Ambulatory Orders Medication Instructions Recorded Olanzapine [Zyprexa] 7.5 mg PO QHS 04/18/14 Oxybutynin Chloride [Oxybutynin 15 mg PO QHS 05/18/20 Chloride ER] amoxicillin 875 mg-potassium 1 tab PO Q12H 14 Days #28 tab 05/30/20 clavulanate 125 mg tablet lactobacillus combination no.9 4 4,000 mmu cells PO DAILY #20 cap 05/30/20 billion cell capsule - Social History SMOKING STATUS:: Never smoker Vital Signs Temp Pulse Resp BP Pulse Ox 97.5 F L 90 18 119/68 94 06/02/20 09:05 06/02/20 09:05 06/02/20 09:05 06/02/20 09:05 06/02/20 12:45 Oxygen Flow Rate (L/min) 2 Oxygen Delivery Method Nasal Cannula Weight: 71.668 kg Body Mass Index (BMI) 21.4 Microbiology Past 72 Hours 06/01/20 15:00 SARS-CoV-2 Antigen (Rapid) - Final Mucosa - Nose SARS-CoV-2 (COVID 19) Laboratory Tests Past 24 Hrs 06/01/20 06/01/20 06/01/20 14:55 14:55 14:55 WBC 8.2 RBC 4.47 L Hgb 13.6 Hct 40.7 MCV 91.1 MCH 30.4 MCHC 33.4 RDW Std Deviation 42.9 RDW Coeff of Nahed 13.2 Plt Count 282 MPV 9.8 Immature Gran % (Auto) 0.600 Neut % (Auto) 64.7 Lymph % (Auto) 20.9 [place] % (Auto) 12.6 H Eos % (Auto) 0.7 Baso % (Auto) 0.5 Absolute Neuts (auto) 5.3 Absolute Lymphs (auto) 1.70 Nucleated RBC % 0 Fibrinogen 548 H D-Dimer Quant (PE/DVT) 1.45 H* Sodium 138 Potassium 4.4 Chloride 107 Carbon Dioxide 28.0 Anion Gap 3 L BUN 25 H Creatinine 1.33 H Estim Creat Clear Calc 45.43 Est GFR (MDRD) Af Amer 66 Est GFR (MDRD) Non-Af 55 L BUN/Creatinine Ratio 18.8 Glucose 133 H Calcium 8.3 L Phosphorus Magnesium Total Bilirubin 0.30 AST 63 H ALT 96 H Alkaline Phosphatase 154 H Total Protein 6.3 L Albumin 2.7 L Globulin 3.6 Albumin/Globulin Ratio 0.8 L 06/02/20 06/02/20 06:00 06:00 WBC 5.1 RBC 4.22 L Hgb 12.1 L Hct 37.0 L MCV 87.7 MCH 28.7 MCHC 32.7 RDW Std Deviation 41.1 RDW Coeff of Nahed 12.9 Plt Count 271 MPV 9.8 Immature Gran % (Auto) Neut % (Auto) Lymph % (Auto) [place] % (Auto) Eos % (Auto) Baso % (Auto) Absolute Neuts (auto) Absolute Lymphs (auto) Nucleated RBC % Fibrinogen D-Dimer Quant (PE/DVT) Sodium 139 Potassium 3.9 Chloride 107 Carbon Dioxide 25.0 Anion Gap 7 BUN 23 H Creatinine 1.02 Estim Creat Clear Calc 56.60 Est GFR (MDRD) Af Amer 90 Est GFR (MDRD) Non-Af 74 BUN/Creatinine Ratio 22.5 H Glucose 109 H Calcium 7.7 L Phosphorus 3.5 Magnesium 2.6 Total Bilirubin 0.40 AST 53 H ALT 80 H Alkaline Phosphatase 140 H Total Protein 5.0 L Albumin 2.4 L Globulin 2.6 Albumin/Globulin Ratio 0.9 - Other Studies Radiology: [] reviewed Other Studies: [] Route of nutrition/ use of supplements: [] Nutritional Intake: [] IV Site: [] Peterson Catheter: [] - Physical Exam General: No apparent distress, Lethargic HEENT: Atraumatic Neck: Supple, No Nodes Lungs: Clear to auscultation, Diminished Cardiovascular: Regular rate, Regular Rhythm Abdomen: Soft, Non Tender, Non-Distended Extremities: No edema Skin: No rashes IV Site: Peripheral, without redness Musculoskeletal: No Tenderness to Palpation of Joints or Extremities Neurological: Cranial nerves II-XII grossly intact - Assessment/Plan Antibiotics: [] Assessment/Plan: [] Active and Suspected Problems COVID-19 (Acute) Infectious tenosynovitis of left wrist extensor (Acute) Cat bite (Acute) Cellulitis and abscess of hand (Acute) Hyperglycemia (Acute) ELVIN (acute kidney injury) (Acute) Elevated serum creatinine (Acute) covid with hypoxia - on remdesivir, lovenox 40mg qday. D-dimer was 1.4, CT neg for PE. With hypoxia, will start 10 day course of dex. Will increase lovenox to bid. Mild transaminitis. Ok to stop his other abx. Was at wound center 05/30. Wound care consulted here. Will follow, thank you
[2020-06-02] MEDS: OLANZapine 2.5 MG Tablet 7.5 MG PO (21:29)
[2020-06-02] MEDS: Tolterodine Tartrate 4 MG CAP.SA PO (21:30)
[2020-06-03] VITALS (8 sets, daily range): BP systolic 104–114; BP diastolic 62–78; PULSE 82–89; RESP 16–28; TEMP 36.3–36.7; O2SAT 94–96
[2020-06-03 05:12] LABS: Hematocrit 38.5 % (40-54); Mean Corp Hgb Conc 33.8 g/dL (32-36); Mean Corpuscular Hgb 29.4 pg (27.0-32.0); Mean Corpuscular Volume 87.1 fL (80-94); Mean Platelet Vol. 10.2 fl (6.2-12.0); Platelet Count 291 K/mm3 (150-450); RBC Distribution Width CV 12.5 % (11.6-14.6); RBC Distribution Width SD 40.2 fl (35.1-43.9); Red Blood Count 4.42 M/mm3 (4.6-6.2); White Blood Count 3.5 K/mm3 (4.4-11.0)
[2020-06-03 05:34] LABS: ALB/GLOB Ratio 0.8 RATIO (0.9-2.4); AST(SGOT) 54 U/L (15-37); Alanine Aminotransfer ALT/SGPT 85 U/L (16-61); Albumin, Serum 2.3 g/dL (3.2-5.0); Alkaline Phosphatase 147 U/L (45-117); Anion Gap 6 (5-15); BUN 24 mg/dL (7-18); BUN/Creat Ratio 27.5 RATIO (10-20); Calcium,Total 7.9 mg/dL (8.5-10.1); Chloride 109 mmol/L (98-107); Creatinine, Serum 0.87 mg/dL (0.70-1.30); EST Glomerular Filtration Rate 89 mL/min (>60); Est Glom Filt Rate - Afr Amer 107 mL/min (>60); Estimated Creatinine Clearance 66.36 ml/min; Globulin 2.8 g/dL (2.2-4.2); Glucose 159 mg/dL (74-106); Potassium 4.3 mmol/L (3.5-5.1); Protein, Total 5.1 g/dL (6.4-8.2); Sodium Level 141 mmol/L (136-145)
[2020-06-03] MEDS: Amox/Clavulanate 875 MG Tablet PO ×2 (08:41→20:40)
[2020-06-03] MEDS: Enoxaparin 40 MG/0.4 ML Syringe SC ×2 (08:41→20:40)
[2020-06-03] MEDS: dexAMETHasone 2 MG TABLET 6 MG PO (08:41)
--- NOTE | 2020-06-03 09:18 | PN_ITS ---
Patient Problems: Active and Suspected Problems COVID-19 (Acute) Onychogryphosis (Acute) Pain in toe of left foot (Acute) Pain in toe of right foot (Acute) Infectious tenosynovitis of left wrist extensor (Acute) Cat bite (Acute) Cellulitis and abscess of hand (Acute) Hyperglycemia (Acute) ELVIN (acute kidney injury) (Acute) Elevated serum creatinine (Acute) Subjective: Feeling better today. No issues overnight. Off of oxygen. Vitals/I&O's: Vital Signs Temp Pulse Resp BP Pulse Ox 97.4 F L 87 20 H 112/78 96 06/03/20 03:30 06/03/20 03:30 06/03/20 08:43 06/03/20 03:30 06/03/20 08:43 Oxygen Flow Rate (L/min) 2 Oxygen Delivery Method Room Air Weight: 158 lb 0.014 oz Body Mass Index (BMI) 21.4 Intake and Output for Last 24 Hours 06/01/20 06/02/20 06/03/20 23:59 23:59 23:59 Intake Total 250 / 250 2761.67 / 2861.67 100 / 100 Output Total 400 / 400 Balance 250 / 250 2361.67 / 2461.67 100 / 100 General: Alert, Oriented x3, Cooperative, No apparent distress HEENT: Atraumatic, PERRLA, EOMI, Normocephalic Oral: Moist Mucosa Neck: Supple, No JVD Lungs: Normal air movement, No rhonchi, No wheeze, No rales, Diminished Cardiovascular: Regular rate, Regular Rhythm, Normal S1, Normal S2, No murmurs Abdomen: Soft, Non Tender, Non-Distended, No Hepato-splenomegaly Extremities: No edema, Capillary Refill Less than 3 Seconds Skin: No rashes, No breakdown, - - Left hand wound is dressed and intact Neurological: Neuro grossly intact, Sensory exam intact to light touch and pain Psych/Mental Status: Normal Affect, Appropriate Microbiology Past 72 Hours 06/01/20 15:00 Mucosa - Nose SARS-CoV-2 Antigen (Rapid) - Final SARS-CoV-2 (COVID 19) Laboratory Results 06/03/20 04:27: WBC 3.5 L, RBC 4.42 L, Hgb 13.0, Hct 38.5 L, MCV 87.1, MCH 29.4, MCHC 33.8, RDW Std Deviation 40.2, RDW Coeff of Nahed 12.5, Plt Count 291, MPV 10.2 06/03/20 04:27: Sodium 141, Potassium 4.3, Chloride 109 H, Carbon Dioxide 26.0, Anion Gap 6, BUN 24 H, Creatinine 0.87, Estim Creat Clear Calc 66.36, Est GFR (MDRD) Af Amer 107, Est GFR (MDRD) Non-Af 89, BUN/Creatinine Ratio 27.5 H, Glucose 159 H, Calcium 7.9 L, Total Bilirubin 0.20, AST 54 H, ALT 85 H, Alkaline Phosphatase 147 H, Total Protein 5.1 L, Albumin 2.3 L, Globulin 2.8, Albumin/Globulin Ratio 0.8 L Current Medications Acetaminophen (Acetaminophen 325 Mg Tablet) 650 mg PO Q6H PRN PRN PRN Reason: Pain Score 1-10/Temp > 100.7 F Last Admin: 06/01/20 21:56 Dose: 650 mg Documented by: Al Hydroxide/Mg Hydroxide (Mag Hydrox/Al Hydrox/Simeth 30 Ml Udc) 30 ml PO Q6H PRN PRN PRN Reason: Gastric Burning Albuterol Sulfate (Albuterol 2.5 Mg/3 Ml Vial.Neb.) 2.5 mg INHALATION Q2H PRN PRN PRN Reason: Shortness of Breath/Wheezing Amoxicillin/Clavulanate Potassium (Amox/Clavulanate 875 Mg Tablet) 875 mg PO BID [facility] Last Admin: 06/03/20 08:41 Dose: 875 mg Documented by: Dexamethasone (Dexamethasone 2 Mg Tablet) 6 mg PO DAILY [facility] Stop: 06/11/20 10:01 Last Admin: 06/03/20 08:41 Dose: 6 mg Documented by: Docusate Sodium (Docusate Sodium 100 Mg Capsule) 100 mg PO BID PRN PRN PRN Reason: Constipation Enoxaparin Sodium (Enoxaparin 40 Mg/0.4 Ml Syringe) 40 mg SC BID [facility] Last Admin: 06/03/20 08:41 Dose: 40 mg Documented by: Guaifenesin (Guaifenesin 10 Ml Udc (200mg/10ml)) 20 ml PO Q4H PRN PRN PRN Reason: COUGH Last Admin: 06/01/20 21:55 Dose: 20 ml Documented by: Remdesivir 100 mg/ Sodium (Chloride) 250 mls @ 125 mls/hr IV QHS [facility] Stop: 06/05/20 23:59 Last Infusion: 06/02/20 23:33 Dose: Infused Documented by: Lactobacillus Acidophilus (Lactobacillus Acidophilus) 1 tablet PO DAILY [facility] Last Admin: 06/03/20 08:41 Dose: 1 tablet Documented by: Melatonin (Melatonin 3 Mg Tablet) 3 mg PO QHS PRN PRN PRN Reason: INSOMNIA Last Admin: 06/01/20 22:13 Dose: 3 mg Documented by: Morphine Sulfate (Morphine 2 Mg/Ml Syringe) 2 mg IV Q3H PRN PRN PRN Reason: Pain Score 6-10 Olanzapine (Olanzapine 2.5 Mg Tablet) 7.5 mg PO QHS [facility] Last Admin: 06/02/20 21:29 Dose: 7.5 mg Documented by: Ondansetron HCl (Ondansetron 4 Mg/2 Ml Vial) 4 mg IV Q8H PRN PRN PRN Reason: NAUSEA/VOMITING Sodium Chloride (0.9% Saline Lock 10 Ml Syringe) 10 - 40 ml IV UD PRN PRN Reason: SALINE FLUSH Tolterodine Tartrate (Tolterodine Tartrate 4 Mg Cap.Sa) 4 mg PO QHS [facility] Last Admin: 06/02/20 21:30 Dose: 4 mg Documented by: STROKE Vital Signs/Narrative: Vital Signs Resp Pulse Ox 06/03/20 08:43 20 H 96 Medical Necessity - Tobacco Use Smoking Status: Never smoker Assessment/Plan All Active Problems COVID-19 (Acute) Onychogryphosis (Acute) Pain in toe of left foot (Acute) Pain in toe of right foot (Acute) Infectious tenosynovitis of left wrist extensor (Acute) Sepsis (Acute) Cat bite (Acute) Cellulitis and abscess of hand (Acute) Hyperglycemia (Acute) Abscess (Acute) ELVIN (acute kidney injury) (Acute) Elevated serum creatinine (Acute) Hypernatremia (Resolved) 1. Acute hypoxic respiratory insufficiency secondary to COVID-19 pneumonia/debility -PT/OT evaluation for possible placement -Continue with Decadron and remdesivir -O2 as necessary -Lovenox, though he did have an elevated D-dimer which is likely combination of his Covid as well as his left hand tenosynovitis -We will likely need to be discharged on low-dose anticoagulant -Appreciate ID assistance -IV fluids will be discontinued this evening 2. Left hand tenosynovitis from a cat bite -Continue with Augmentin -Improving -Appreciate wound care assistance 3. Chronic transaminitis -We will monitor in the setting of remdesivir use 4. Bipolar disorder -Stable -Continue with Zyprexa DVT: Lovenox Inpatient E&M: 30002 Subs Hosp L2
[2020-06-03] MEDS: Tolterodine Tartrate 4 MG CAP.SA PO (20:40)
[2020-06-03] MEDS: OLANZapine 2.5 MG Tablet 7.5 MG PO (20:40)
[2020-06-03] MEDS: 0.9% Saline Lock 10 ML Syringe IV (21:15)
[2020-06-04 02:30] VITALS: BP 119/74; PULSE 77; RESP 17; TEMP 36.4; O2SAT 93
[2020-06-04 07:10] LABS: Hematocrit 36.1 % (40-54); Hemoglobin 12.2 g/dL (13.0-16.5); Mean Corp Hgb Conc 33.8 g/dL (32-36); Mean Corpuscular Hgb 29.2 pg (27.0-32.0); Mean Corpuscular Volume 86.4 fL (80-94); Platelet Count 337 K/mm3 (150-450); RBC Distribution Width CV 12.5 % (11.6-14.6); RBC Distribution Width SD 39.3 fl (35.1-43.9); Red Blood Count 4.18 M/mm3 (4.6-6.2); White Blood Count 8.7 K/mm3 (4.4-11.0)
[2020-06-04 07:33] LABS: ALB/GLOB Ratio 0.7 RATIO (0.9-2.4); AST(SGOT) 147 U/L (15-37); Alanine Aminotransfer ALT/SGPT 199 U/L (16-61); Albumin, Serum 2.3 g/dL (3.2-5.0); Alkaline Phosphatase 137 U/L (45-117); Anion Gap 6 (5-15); BUN 32 mg/dL (7-18); BUN/Creat Ratio 33.3 RATIO (10-20); Calcium,Total 8.1 mg/dL (8.5-10.1); Chloride 109 mmol/L (98-107); Creatinine, Serum 0.96 mg/dL (0.70-1.30); EST Glomerular Filtration Rate 79 mL/min (>60); Est Glom Filt Rate - Afr Amer 96 mL/min (>60); Estimated Creatinine Clearance 60.14 ml/min; Globulin 3.1 g/dL (2.2-4.2); Glucose 136 mg/dL (74-106); Potassium 3.7 mmol/L (3.5-5.1); Protein, Total 5.4 g/dL (6.4-8.2); Sodium Level 141 mmol/L (136-145)
[2020-06-04 08:15] VITALS: BP 127/70; PULSE 82; RESP 20; TEMP 36.6; O2SAT 94
[2020-06-04] MEDS: Enoxaparin 40 MG/0.4 ML Syringe SC ×2 (08:24→20:35)
[2020-06-04] MEDS: dexAMETHasone 2 MG TABLET 6 MG PO (08:24)
[2020-06-04] MEDS: Amox/Clavulanate 875 MG Tablet PO ×2 (08:24→20:36)
--- NOTE | 2020-06-04 09:01 | PN_ITS ---
Patient Problems: Active and Suspected Problems COVID-19 (Acute) Onychogryphosis (Acute) Pain in toe of left foot (Acute) Pain in toe of right foot (Acute) Infectious tenosynovitis of left wrist extensor (Acute) Cat bite (Acute) Cellulitis and abscess of hand (Acute) Hyperglycemia (Acute) ELVIN (acute kidney injury) (Acute) Elevated serum creatinine (Acute) Subjective: Still off oxygen however still awaiting placement. No new issues overnight Vitals/I&O's: Vital Signs Temp Pulse Resp BP Pulse Ox 97.9 F 82 20 H 127/70 H 94 06/04/20 08:15 06/04/20 08:15 06/04/20 08:15 06/04/20 08:15 06/04/20 08:15 Oxygen Flow Rate (L/min) 2 Oxygen Delivery Method Room Air Weight: 158 lb 0.014 oz Body Mass Index (BMI) 21.4 Intake and Output for Last 24 Hours 06/02/20 06/03/20 06/04/20 23:59 23:59 23:59 Intake Total 2761.67 / 2861.67 1490 / 1490 200 / 200 Output Total 400 / 400 250 / 250 Balance 2361.67 / 2461.67 1240 / 1240 200 / 200 General: Alert, Oriented x3, Cooperative, No apparent distress HEENT: Atraumatic, PERRLA, EOMI, Normocephalic Oral: Moist Mucosa Neck: Supple, No JVD Lungs: Normal air movement, No rhonchi, No wheeze, No rales, Diminished Cardiovascular: Regular rate, Regular Rhythm, Normal S1, Normal S2, No murmurs Abdomen: Soft, Non Tender, Non-Distended, No Hepato-splenomegaly Extremities: No edema, Capillary Refill Less than 3 Seconds Skin: No rashes, No breakdown, - - Left hand wound is dressed and intact Neurological: Neuro grossly intact, Sensory exam intact to light touch and pain Psych/Mental Status: Normal Affect, Appropriate Microbiology Past 72 Hours 06/01/20 15:00 Mucosa - Nose SARS-CoV-2 Antigen (Rapid) - Final SARS-CoV-2 (COVID 19) Laboratory Results 06/04/20 06:35: WBC 8.7, RBC 4.18 L, Hgb 12.2 L, Hct 36.1 L, MCV 86.4, MCH 29.2, MCHC 33.8, RDW Std Deviation 39.3, RDW Coeff of Nahed 12.5, Plt Count 337, MPV 10.0 06/04/20 06:35: Sodium 141, Potassium 3.7, Chloride 109 H, Carbon Dioxide 26.0, Anion Gap 6, BUN 32 H, Creatinine 0.96, Estim Creat Clear Calc 60.14, Est GFR (MDRD) Af Amer 96, Est GFR (MDRD) Non-Af 79, BUN/Creatinine Ratio 33.3 H, Glucose 136 H, Calcium 8.1 L, Total Bilirubin 0.30, AST 147 H, ALT 199 H, Alkaline Phosphatase 137 H, Total Protein 5.4 L, Albumin 2.3 L, Globulin 3.1, Albumin/Globulin Ratio 0.7 L Current Medications Acetaminophen (Acetaminophen 325 Mg Tablet) 650 mg PO Q6H PRN PRN PRN Reason: Pain Score 1-10/Temp > 100.7 F Last Admin: 06/01/20 21:56 Dose: 650 mg Documented by: Al Hydroxide/Mg Hydroxide (Mag Hydrox/Al Hydrox/Simeth 30 Ml Udc) 30 ml PO Q6H PRN PRN PRN Reason: Gastric Burning Albuterol Sulfate (Albuterol 2.5 Mg/3 Ml Vial.Neb.) 2.5 mg INHALATION Q2H PRN PRN PRN Reason: Shortness of Breath/Wheezing Amoxicillin/Clavulanate Potassium (Amox/Clavulanate 875 Mg Tablet) 875 mg PO BID [facility] Last Admin: 06/04/20 08:24 Dose: 875 mg Documented by: Dexamethasone (Dexamethasone 2 Mg Tablet) 6 mg PO DAILY [facility] Stop: 06/11/20 10:01 Last Admin: 06/04/20 08:24 Dose: 6 mg Documented by: Docusate Sodium (Docusate Sodium 100 Mg Capsule) 100 mg PO BID PRN PRN PRN Reason: Constipation Enoxaparin Sodium (Enoxaparin 40 Mg/0.4 Ml Syringe) 40 mg SC BID [facility] Last Admin: 06/04/20 08:24 Dose: 40 mg Documented by: Guaifenesin (Guaifenesin 10 Ml Udc (200mg/10ml)) 20 ml PO Q4H PRN PRN PRN Reason: COUGH Last Admin: 06/01/20 21:55 Dose: 20 ml Documented by: Remdesivir 100 mg/ Sodium (Chloride) 250 mls @ 125 mls/hr IV QHS [facility] Stop: 06/05/20 23:59 Last Infusion: 06/03/20 23:17 Dose: Infused Documented by: Lactobacillus Acidophilus (Lactobacillus Acidophilus) 1 tablet PO DAILY [facility] Last Admin: 06/04/20 08:24 Dose: 1 tablet Documented by: Melatonin (Melatonin 3 Mg Tablet) 3 mg PO QHS PRN PRN PRN Reason: INSOMNIA Last Admin: 06/01/20 22:13 Dose: 3 mg Documented by: Morphine Sulfate (Morphine 2 Mg/Ml Syringe) 2 mg IV Q3H PRN PRN PRN Reason: Pain Score 6-10 Olanzapine (Olanzapine 2.5 Mg Tablet) 7.5 mg PO QHS [facility] Last Admin: 06/03/20 20:40 Dose: 7.5 mg Documented by: Ondansetron HCl (Ondansetron 4 Mg/2 Ml Vial) 4 mg IV Q8H PRN PRN PRN Reason: NAUSEA/VOMITING Sodium Chloride (0.9% Saline Lock 10 Ml Syringe) 10 - 40 ml IV UD PRN PRN Reason: SALINE FLUSH Last Admin: 06/03/20 21:15 Dose: 10 ml Documented by: Tolterodine Tartrate (Tolterodine Tartrate 4 Mg Cap.Sa) 4 mg PO QHS [facility] Last Admin: 06/03/20 20:40 Dose: 4 mg Documented by: STROKE Vital Signs/Narrative: Vital Signs Temp Pulse Resp BP Pulse Ox 06/04/20 08:15 97.9 F 82 20 H 127/70 H 94 Medical Necessity - Tobacco Use Smoking Status: Never smoker Assessment/Plan All Active Problems COVID-19 (Acute) Onychogryphosis (Acute) Pain in toe of left foot (Acute) Pain in toe of right foot (Acute) Infectious tenosynovitis of left wrist extensor (Acute) Sepsis (Acute) Cat bite (Acute) Cellulitis and abscess of hand (Acute) Hyperglycemia (Acute) Abscess (Acute) ELIVN (acute kidney injury) (Acute) Elevated serum creatinine (Acute) Hypernatremia (Resolved) 1. Acute hypoxic respiratory insufficiency secondary to COVID-19 pneumonia/debility -PT/OT evaluation for possible placement -Continue with Decadron we will have to discontinue remdesivir secondary to his elevation in his transaminitis -O2 as necessary -Lovenox, though he did have an elevated D-dimer which is likely combination of his Covid as well as his left hand tenosynovitis -We will likely need to be discharged on low-dose anticoagulant -Appreciate ID assistance -IV fluids will be discontinued this evening 2. Left hand tenosynovitis from a cat bite -Continue with Augmentin -Improving -Appreciate wound care assistance 3. Chronic transaminitis -He has had a doubling in his AST and ALT therefore will discontinue remdesivir 4. Bipolar disorder -Stable -Continue with Zyprexa DVT: Lovenox Inpatient E&M: 92421 Subs Hosp L2
[2020-06-04 09:15] VITALS: O2SAT 96
[2020-06-04 14:30] VITALS: BP 112/66; PULSE 88; RESP 20; TEMP 36.6; O2SAT 95
[2020-06-04 20:30] VITALS: BP 113/66; PULSE 82; RESP 18; TEMP 36.9; O2SAT 94
[2020-06-04] MEDS: OLANZapine 2.5 MG Tablet 7.5 MG PO (20:36)
[2020-06-04] MEDS: Tolterodine Tartrate 4 MG CAP.SA PO (20:36)
[2020-06-05] VITALS (7 sets, daily range): BP systolic 126–146; BP diastolic 72–82; PULSE 68–90; RESP 16–20; TEMP 36.3–36.7; O2SAT 91–96
[2020-06-05 07:46] LABS: Hematocrit 37.6 % (40-54); Hemoglobin 12.2 g/dL (13.0-16.5); Mean Corp Hgb Conc 32.4 g/dL (32-36); Mean Corpuscular Hgb 28.4 pg (27.0-32.0); Mean Corpuscular Volume 87.6 fL (80-94); Mean Platelet Vol. 10.2 fl (6.2-12.0); Platelet Count 377 K/mm3 (150-450); RBC Distribution Width CV 12.5 % (11.6-14.6); RBC Distribution Width SD 39.8 fl (35.1-43.9); Red Blood Count 4.29 M/mm3 (4.6-6.2); White Blood Count 9.9 K/mm3 (4.4-11.0)
[2020-06-05 08:07] LABS: ALB/GLOB Ratio 0.8 RATIO (0.9-2.4); AST(SGOT) 275 U/L (15-37); Alanine Aminotransfer ALT/SGPT 477 U/L (16-61); Albumin, Serum 2.4 g/dL (3.2-5.0); Alkaline Phosphatase 138 U/L (45-117); Anion Gap 4 (5-15); BUN 31 mg/dL (7-18); BUN/Creat Ratio 35.9 RATIO (10-20); Calcium,Total 8.5 mg/dL (8.5-10.1); Chloride 111 mmol/L (98-107); Creatinine, Serum 0.86 mg/dL (0.70-1.30); EST Glomerular Filtration Rate 90 mL/min (>60); Est Glom Filt Rate - Afr Amer 109 mL/min (>60); Estimated Creatinine Clearance 67.13 ml/min; Globulin 3.1 g/dL (2.2-4.2); Glucose 128 mg/dL (74-106); Potassium 3.8 mmol/L (3.5-5.1); Protein, Total 5.5 g/dL (6.4-8.2); Sodium Level 142 mmol/L (136-145)
[2020-06-05] MEDS: Enoxaparin 40 MG/0.4 ML Syringe SC ×2 (09:21→21:36)
[2020-06-05] MEDS: Amox/Clavulanate 875 MG Tablet PO ×2 (09:22→21:35)
[2020-06-05] MEDS: dexAMETHasone 2 MG TABLET 6 MG PO (09:22)
--- NOTE | 2020-06-05 09:25 | PCM.PN.HOSP ---
Patient Problems: Active and Suspected Problems COVID-19 (Acute) Onychogryphosis (Acute) Pain in toe of left foot (Acute) Pain in toe of right foot (Acute) Compartment syndrome of left hand (Acute) Infectious tenosynovitis of left wrist extensor (Acute) Abscess of skin of left wrist (Acute) Extensor tenosynovitis of left wrist (Acute) Abscess of left hand including fingers (Acute) Cat bite (Acute) Cat bite of left hand (Acute) Cellulitis and abscess of hand (Acute) Hyperglycemia (Acute) ELVIN (acute kidney injury) (Acute) Elevated serum creatinine (Acute) Subjective: Doing well, had been placed on some oxygen overnight but otherwise breathing okay Vitals/I&O's: Vital Signs Temp Pulse Resp BP Pulse Ox 98.0 F 88 18 136/82 H 93 06/05/20 09:19 06/05/20 09:19 06/05/20 09:19 06/05/20 09:19 06/05/20 09:19 Oxygen Flow Rate (L/min) 2 Oxygen Delivery Method Nasal Cannula Weight: 158 lb 0.014 oz Body Mass Index (BMI) 21.4 Intake and Output for Last 24 Hours 06/03/20 06/04/20 06/05/20 23:59 23:59 23:59 Intake Total 1490 / 1490 1960 / 1960 480 / 480 Output Total 250 / 250 325 / 325 Balance 1240 / 1240 1635 / 1635 480 / 480 General: Alert, Oriented x3, Cooperative, No apparent distress HEENT: Atraumatic, PERRLA, EOMI, Normocephalic Oral: Moist Mucosa Neck: Supple, No JVD Lungs: Normal air movement, No rhonchi, No wheeze, No rales, Diminished Cardiovascular: Regular rate, Regular Rhythm, Normal S1, Normal S2, No murmurs Abdomen: Soft, Non Tender, Non-Distended, No Hepato-splenomegaly Extremities: No edema, Capillary Refill Less than 3 Seconds Skin: No rashes, No breakdown, - - Left hand wound is dressed and intact Neurological: Neuro grossly intact, Sensory exam intact to light touch and pain Psych/Mental Status: Normal Affect, Appropriate Laboratory Results 06/05/20 06:28: WBC 9.9, RBC 4.29 L, Hgb 12.2 L, Hct 37.6 L, MCV 87.6, MCH 28.4, MCHC 32.4, RDW Std Deviation 39.8, RDW Coeff of Nahed 12.5, Plt Count 377, MPV 10.2 06/05/20 06:28: Sodium 142, Potassium 3.8, Chloride 111 H, Carbon Dioxide 27.0, Anion Gap 4 L, BUN 31 H, Creatinine 0.86, Estim Creat Clear Calc 67.13, Est GFR (MDRD) Af Amer 109, Est GFR (MDRD) Non-Af 90, BUN/Creatinine Ratio 35.9 H, Glucose 128 H, Calcium 8.5, Total Bilirubin 0.30, AST 275 H, ALT 477 H, Alkaline Phosphatase 138 H, Total Protein 5.5 L, Albumin 2.4 L, Globulin 3.1, Albumin/Globulin Ratio 0.8 L Current Medications Acetaminophen (Acetaminophen 325 Mg Tablet) 650 mg PO Q6H PRN PRN PRN Reason: Pain Score 1-10/Temp > 100.7 F Last Admin: 06/01/20 21:56 Dose: 650 mg Documented by: Al Hydroxide/Mg Hydroxide (Mag Hydrox/Al Hydrox/Simeth 30 Ml Udc) 30 ml PO Q6H PRN PRN PRN Reason: Gastric Burning Albuterol Sulfate (Albuterol 2.5 Mg/3 Ml Vial.Neb.) 2.5 mg INHALATION Q2H PRN PRN PRN Reason: Shortness of Breath/Wheezing Amoxicillin/Clavulanate Potassium (Amox/Clavulanate 875 Mg Tablet) 875 mg PO BID [facility] Last Admin: 06/05/20 09:22 Dose: 875 mg Documented by: Dexamethasone (Dexamethasone 2 Mg Tablet) 6 mg PO DAILY [facility] Stop: 06/11/20 10:01 Last Admin: 06/05/20 09:22 Dose: 6 mg Documented by: Docusate Sodium (Docusate Sodium 100 Mg Capsule) 100 mg PO BID PRN PRN PRN Reason: Constipation Enoxaparin Sodium (Enoxaparin 40 Mg/0.4 Ml Syringe) 40 mg SC BID [facility] Last Admin: 06/05/20 09:21 Dose: 40 mg Documented by: Guaifenesin (Guaifenesin 10 Ml Udc (200mg/10ml)) 20 ml PO Q4H PRN PRN PRN Reason: COUGH Last Admin: 06/01/20 21:55 Dose: 20 ml Documented by: Lactobacillus Acidophilus (Lactobacillus Acidophilus) 1 tablet PO DAILY [facility] Last Admin: 06/05/20 09:22 Dose: 1 tablet Documented by: Melatonin (Melatonin 3 Mg Tablet) 3 mg PO QHS PRN PRN PRN Reason: INSOMNIA Last Admin: 06/01/20 22:13 Dose: 3 mg Documented by: Morphine Sulfate (Morphine 2 Mg/Ml Syringe) 2 mg IV Q3H PRN PRN PRN Reason: Pain Score 6-10 Olanzapine (Olanzapine 2.5 Mg Tablet) 7.5 mg PO QHS [facility] Last Admin: 06/04/20 20:36 Dose: 7.5 mg Documented by: Ondansetron HCl (Ondansetron 4 Mg/2 Ml Vial) 4 mg IV Q8H PRN PRN PRN Reason: NAUSEA/VOMITING Sodium Chloride (0.9% Saline Lock 10 Ml Syringe) 10 - 40 ml IV UD PRN PRN Reason: SALINE FLUSH Last Admin: 06/03/20 21:15 Dose: 10 ml Documented by: Tolterodine Tartrate (Tolterodine Tartrate 4 Mg Cap.Sa) 4 mg PO QHS [facility] Last Admin: 06/04/20 20:36 Dose: 4 mg Documented by: STROKE Vital Signs/Narrative: Vital Signs Temp Pulse Resp BP Pulse Ox 06/05/20 09:19 98.0 F 88 18 136/82 H 93 06/05/20 06:04 98.0 F 78 18 136/81 H 96 06/05/20 06:00 18 91 Medical Necessity - Tobacco Use Smoking Status: Never smoker Assessment/Plan All Active Problems COVID-19 (Acute) Onychogryphosis (Acute) Pain in toe of left foot (Acute) Pain in toe of right foot (Acute) Hand, open wound except fingers, complicated (Acute) Compartment syndrome of left hand (Acute) Infectious tenosynovitis of left wrist extensor (Acute) Abscess of skin of left wrist (Acute) Extensor tenosynovitis of left wrist (Acute) Sepsis (Acute) Abscess of left hand including fingers (Acute) Cat bite (Acute) Cat bite of left hand (Acute) Cellulitis and abscess of hand (Acute) Hyperglycemia (Acute) Abscess (Acute) ELVIN (acute kidney injury) (Acute) Elevated serum creatinine (Acute) Hypernatremia (Resolved) 1. Acute hypoxic respiratory insufficiency secondary to COVID-19 pneumonia/debility -PT/OT evaluation for possible placement -Continue with Decadron, remdesivir discontinued 06/04/2020 secondary to elevation as LFTs, will continue to monitor -O2 as necessary -Lovenox, though he did have an elevated D-dimer which is likely combination of his Covid as well as his left hand tenosynovitis -We will likely need to be discharged on low-dose anticoagulant -Appreciate ID assistance -IV fluids will be discontinued this evening 2. Left hand tenosynovitis from a cat bite -Continue with Augmentin -Improving -Appreciate wound care assistance 3. Chronic transaminitis -He has had a doubling in his AST and ALT therefore will discontinue remdesivir 4. Bipolar disorder -Stable -Continue with Zyprexa Disposition: Family would like him transferred to [facility], they should have openings this week DVT: Lovenox Inpatient E&M: 34998 Subs Hosp L2
[2020-06-05] MEDS: OLANZapine 2.5 MG Tablet 7.5 MG PO (21:35)
[2020-06-05] MEDS: Tolterodine Tartrate 4 MG CAP.SA PO (21:35)
[2020-06-06] VITALS (7 sets, daily range): BP systolic 123–143; BP diastolic 68–89; PULSE 68–93; RESP 16–18; TEMP 36.4–36.6; O2SAT 91–98
[2020-06-06 06:16] LABS: Hematocrit 37.2 % (40-54); Hemoglobin 12.4 g/dL (13.0-16.5); Mean Corp Hgb Conc 33.3 g/dL (32-36); Mean Corpuscular Hgb 29.2 pg (27.0-32.0); Mean Corpuscular Volume 87.7 fL (80-94); Mean Platelet Vol. 9.9 fl (6.2-12.0); Platelet Count 361 K/mm3 (150-450); RBC Distribution Width CV 12.2 % (11.6-14.6); RBC Distribution Width SD 39.5 fl (35.1-43.9); Red Blood Count 4.24 M/mm3 (4.6-6.2); White Blood Count 9.9 K/mm3 (4.4-11.0)
[2020-06-06 06:46] LABS: ALB/GLOB Ratio 0.9 RATIO (0.9-2.4); AST(SGOT) 162 U/L (15-37); Alanine Aminotransfer ALT/SGPT 410 U/L (16-61); Albumin, Serum 2.3 g/dL (3.2-5.0); Alkaline Phosphatase 145 U/L (45-117); Anion Gap 4 (5-15); BUN 29 mg/dL (7-18); BUN/Creat Ratio 36.8 RATIO (10-20); Calcium,Total 8.3 mg/dL (8.5-10.1); Chloride 107 mmol/L (98-107); Creatinine, Serum 0.79 mg/dL (0.70-1.30); EST Glomerular Filtration Rate 100 mL/min (>60); Est Glom Filt Rate - Afr Amer 121 mL/min (>60); Estimated Creatinine Clearance 57.73 ml/min; Globulin 2.5 g/dL (2.2-4.2); Glucose 117 mg/dL (74-106); Potassium 4.1 mmol/L (3.5-5.1); Protein, Total 4.8 g/dL (6.4-8.2); Sodium Level 141 mmol/L (136-145)
[2020-06-06] MEDS: dexAMETHasone 2 MG TABLET 6 MG PO (09:21)
[2020-06-06] MEDS: Amox/Clavulanate 875 MG Tablet PO ×2 (09:21→20:47)
[2020-06-06] MEDS: Enoxaparin 40 MG/0.4 ML Syringe SC ×2 (09:21→20:49)
--- NOTE | 2020-06-06 10:52 | CASEMGMT ---
Addendum entered by Lena Baum 06/06/20 14:09: GABRIELLA placed a call to Marlen at [facility] and asked about referral. Marlen states she will review referral soon and give this worker a call back. Original Note: Social Work Note Pt is medically cleared for discharge today. GABRIELLA placed a call to Marlen at [facility]. Marlen states she does have a couple of discharges tomorrow and is willing to review referral. GABRIELLA updated [facility] that pt's family is adamant about pt admitting to [facility]. GABRIELLA faxed referral to [facility]. Plan: [facility] pending acceptance Lena Baum HIGH SCHOOL COMPUTER SCIENCE TEACHER, RECYCLING COLLECTIONS DRIVER
--- NOTE | 2020-06-06 14:19 | CASEMGMT ---
Addendum entered by Lena Baum 06/06/20 15:35: GABRIELLA spoke with Jennifer at [facility]. Jennifer state she hasn't received referral yet but will be on the look out for it and let this worker know if they are able to accept pt or not. SW waiting for call back from [facility]. Addendum entered by Lena Baum 06/06/20 14:24: SW received call from pt's Radha. GABRIELLA updated Radha that pt is medically ready for discharge today and [facility] is stating they have no COVID beds available at this time. Radha states to try [facility]. GABRIELLA placed a call to Jennifer at [facility] and left message regarding referral. GABRIELLA faxed referral. Plan: SNF pending acceptance Original Note: Social Work Note SW received call from Marlen at [facility] stating they have no COVID beds available at this time, unable to accept pt. GABRIELLA attempted to call pt's Radha, no answer, GABRIELLA left message. Plan: SNF pending acceptance Lena Baum ELECTRICAL ACCESSORIES ASSEMBLER, LABORATORY WORKER
--- NOTE | 2020-06-06 15:09 | PCM.PN.ID ---
Patient Problems: Active and Suspected Problems COVID-19 (Acute) Onychogryphosis (Acute) Pain in toe of left foot (Acute) Pain in toe of right foot (Acute) Compartment syndrome of left hand (Acute) Infectious tenosynovitis of left wrist extensor (Acute) Abscess of skin of left wrist (Acute) Extensor tenosynovitis of left wrist (Acute) Abscess of left hand including fingers (Acute) Cat bite (Acute) Cat bite of left hand (Acute) Cellulitis and abscess of hand (Acute) Hyperglycemia (Acute) ELVIN (acute kidney injury) (Acute) Elevated serum creatinine (Acute) Subjective: Feeling better. No fever, breathing improved. - Physical Exam Vitals/I&O's: Vital Signs Temp Pulse Resp BP Pulse Ox 97.9 F 93 18 125/68 H 96 06/06/20 14:12 06/06/20 14:12 06/06/20 14:12 06/06/20 14:12 06/06/20 14:12 Oxygen Flow Rate (L/min) 2 Oxygen Delivery Method Nasal Cannula Weight: 71.668 kg Body Mass Index (BMI) 21.4 Intake and Output for Last 24 Hours 06/04/20 06/05/20 06/06/20 23:59 23:59 23:59 Intake Total 1960 / 1960 980 / 980 400 / 400 Output Total 325 / 325 225 / 225 250 / 250 Balance 1635 / 1635 755 / 755 150 / 150 General: Alert, Cooperative, No apparent distress Lungs: Clear to auscultation, Normal air movement Cardiovascular: Regular rate, Regular Rhythm Abdomen: Soft, Non Tender, Non-Distended Skin: No rashes Laboratory Results 06/06/20 05:25: WBC 9.9, RBC 4.24 L, Hgb 12.4 L, Hct 37.2 L, MCV 87.7, MCH 29.2, MCHC 33.3, RDW Std Deviation 39.5, RDW Coeff of Nahed 12.2, Plt Count 361, MPV 9.9 06/06/20 05:25: Sodium 141, Potassium 4.1, Chloride 107, Carbon Dioxide 30.0, Anion Gap 4 L, BUN 29 H, Creatinine 0.79, Estim Creat Clear Calc 57.73, Est GFR (MDRD) Af Amer 121, Est GFR (MDRD) Non-Af 100, BUN/Creatinine Ratio 36.8 H, Glucose 117 H, Calcium 8.3 L, Total Bilirubin 0.30, AST 162 H, ALT 410 H, Alkaline Phosphatase 145 H, Total Protein 4.8 L, Albumin 2.3 L, Globulin 2.5, Albumin/Globulin Ratio 0.9 Current Medications Acetaminophen (Acetaminophen 325 Mg Tablet) 650 mg PO Q6H PRN PRN PRN Reason: Pain Score 1-10/Temp > 100.7 F Last Admin: 06/01/20 21:56 Dose: 650 mg Documented by: Al Hydroxide/Mg Hydroxide (Mag Hydrox/Al Hydrox/Simeth 30 Ml Udc) 30 ml PO Q6H PRN PRN PRN Reason: Gastric Burning Albuterol Sulfate (Albuterol 2.5 Mg/3 Ml Vial.Neb.) 2.5 mg INHALATION Q2H PRN PRN PRN Reason: Shortness of Breath/Wheezing Amoxicillin/Clavulanate Potassium (Amox/Clavulanate 875 Mg Tablet) 875 mg PO BID [facility] Last Admin: 06/06/20 09:21 Dose: 875 mg Documented by: Dexamethasone (Dexamethasone 2 Mg Tablet) 6 mg PO DAILY [facility] Stop: 06/11/20 10:01 Last Admin: 06/06/20 09:21 Dose: 6 mg Documented by: Docusate Sodium (Docusate Sodium 100 Mg Capsule) 100 mg PO BID PRN PRN PRN Reason: Constipation Enoxaparin Sodium (Enoxaparin 40 Mg/0.4 Ml Syringe) 40 mg SC BID [facility] Last Admin: 06/06/20 09:21 Dose: 40 mg Documented by: Guaifenesin (Guaifenesin 10 Ml Udc (200mg/10ml)) 20 ml PO Q4H PRN PRN PRN Reason: COUGH Last Admin: 06/01/20 21:55 Dose: 20 ml Documented by: Lactobacillus Acidophilus (Lactobacillus Acidophilus) 1 tablet PO DAILY [facility] Last Admin: 06/06/20 09:21 Dose: 1 tablet Documented by: Melatonin (Melatonin 3 Mg Tablet) 3 mg PO QHS PRN PRN PRN Reason: INSOMNIA Last Admin: 06/01/20 22:13 Dose: 3 mg Documented by: Morphine Sulfate (Morphine 2 Mg/Ml Syringe) 2 mg IV Q3H PRN PRN PRN Reason: Pain Score 6-10 Olanzapine (Olanzapine 2.5 Mg Tablet) 7.5 mg PO QHS [facility] Last Admin: 06/05/20 21:35 Dose: 7.5 mg Documented by: Ondansetron HCl (Ondansetron 4 Mg/2 Ml Vial) 4 mg IV Q8H PRN PRN PRN Reason: NAUSEA/VOMITING Sodium Chloride (0.9% Saline Lock 10 Ml Syringe) 10 - 40 ml IV UD PRN PRN Reason: SALINE FLUSH Last Admin: 06/03/20 21:15 Dose: 10 ml Documented by: Tolterodine Tartrate (Tolterodine Tartrate 4 Mg Cap.Sa) 4 mg PO QHS [facility] Last Admin: 06/05/20 21:35 Dose: 4 mg Documented by: Medical Necessity - Tobacco Use Smoking Status: Never smoker Route of nutrition/ use of supplements: [] Nutritional Intake: [] IV Site: [] Peterson Catheter: [] - Assessment/Plan Antibiotics: [] Assessment/Plan: [] Active and Suspected Problems COVID-19 (Acute) Infectious tenosynovitis of left wrist extensor (Acute) Cat bite (Acute) Cellulitis and abscess of hand (Acute) Hyperglycemia (Acute) ELVIN (acute kidney injury) (Acute) Elevated serum creatinine (Acute) covid with hypoxia - completed remdesivir, lovenox 40mg qday. D-dimer was 1.4, CT neg for PE. On dex. On augmentin as written by wound center. Will follow
--- NOTE | 2020-06-06 16:21 | PN_ITS ---
Patient Problems: Active and Suspected Problems COVID-19 (Acute) Onychogryphosis (Acute) Pain in toe of left foot (Acute) Pain in toe of right foot (Acute) Compartment syndrome of left hand (Acute) Infectious tenosynovitis of left wrist extensor (Acute) Abscess of skin of left wrist (Acute) Extensor tenosynovitis of left wrist (Acute) Abscess of left hand including fingers (Acute) Cat bite (Acute) Cat bite of left hand (Acute) Cellulitis and abscess of hand (Acute) Hyperglycemia (Acute) ELVIN (acute kidney injury) (Acute) Elevated serum creatinine (Acute) Subjective: Patient seen and examined. He had no complaints. He is awaiting placement. Review of systems otherwise negative. He is on 2 L of oxygen. Vitals/I&O's: Vital Signs Temp Pulse Resp BP Pulse Ox 97.9 F 93 18 125/68 H 96 06/06/20 14:12 06/06/20 14:12 06/06/20 14:12 06/06/20 14:12 06/06/20 14:12 Oxygen Flow Rate (L/min) 2 Oxygen Delivery Method Nasal Cannula Weight: 158 lb 0.014 oz Body Mass Index (BMI) 21.4 Intake and Output for Last 24 Hours 06/04/20 06/05/20 06/06/20 23:59 23:59 23:59 Intake Total 1960 / 1960 980 / 980 400 / 400 Output Total 325 / 325 225 / 225 250 / 250 Balance 1635 / 1635 755 / 755 150 / 150 General: Alert, Oriented x3, Cooperative HEENT: Atraumatic, PERRLA, EOMI, Normocephalic Oral: Dry Mucosa Neck: Supple, No JVD, Negative Carotid Bruits Lungs: - - Diminished breath sounds bibasilarly. No wheezes or crackles. On 2 L of oxygen. Cardiovascular: Regular rate, Regular Rhythm, Normal S1, Normal S2, No murmurs Abdomen: Bowel Sounds Present, Soft, Non Tender Extremities: No clubbing, No cyanosis, No edema, Capillary Refill Less than 3 Seconds Skin: No rashes, No breakdown Musculoskeletal: No Tenderness to Palpation of Joints or Extremities Lymphatic: No Cervical, Supraclavicular, or Inguinal Adenopathy Neurological: Cranial nerves II-XII grossly intact, Neuro grossly intact, Motor Exam 5/5 strength throughout Psych/Mental Status: Normal Affect, Appropriate, Alert and oriented to time, place, person, mood and affect Laboratory Results 06/06/20 05:25: WBC 9.9, RBC 4.24 L, Hgb 12.4 L, Hct 37.2 L, MCV 87.7, MCH 29.2, MCHC 33.3, RDW Std Deviation 39.5, RDW Coeff of Nahed 12.2, Plt Count 361, MPV 9.9 06/06/20 05:25: Sodium 141, Potassium 4.1, Chloride 107, Carbon Dioxide 30.0, Anion Gap 4 L, BUN 29 H, Creatinine 0.79, Estim Creat Clear Calc 57.73, Est GFR (MDRD) Af Amer 121, Est GFR (MDRD) Non-Af 100, BUN/Creatinine Ratio 36.8 H, Glucose 117 H, Calcium 8.3 L, Total Bilirubin 0.30, AST 162 H, ALT 410 H, Alkaline Phosphatase 145 H, Total Protein 4.8 L, Albumin 2.3 L, Globulin 2.5, Albumin/Globulin Ratio 0.9 Diagnostic Data Chest X-Ray 06/01/20 15:02 IMPRESSION: Ill-defined subpleural groundglass opacities are seen more prominent in the lung bases , may represent atypical pneumonia or viral pneumonia (COVID-19 ?). Electronically Signed: Shana Damon, at 15:35 EST Tel , Service support , Chest CTA 06/01/20 17:40 IMPRESSION: 1. No evidence of pulmonary embolus. 2. No aortic dissection or aneurysm. 3. Patchy peripheral groundglass infiltrates consistent with COVID 19 pneumonia. 4. Evidence of cholecystectomy and sphincterotomy. 5. Degenerative changes of the thoracic spine. Electronically Signed: Felix Brock DO at 18:55 EST Tel [phone], Service support , Current Medications Acetaminophen (Acetaminophen 325 Mg Tablet) 650 mg PO Q6H PRN PRN PRN Reason: Pain Score 1-10/Temp > 100.7 F Last Admin: 06/01/20 21:56 Dose: 650 mg Documented by: Al Hydroxide/Mg Hydroxide (Mag Hydrox/Al Hydrox/Simeth 30 Ml Udc) 30 ml PO Q6H PRN PRN PRN Reason: Gastric Burning Albuterol Sulfate (Albuterol 2.5 Mg/3 Ml Vial.Neb.) 2.5 mg INHALATION Q2H PRN PRN PRN Reason: Shortness of Breath/Wheezing Amoxicillin/Clavulanate Potassium (Amox/Clavulanate 875 Mg Tablet) 875 mg PO BID COUNTS INCLUDE 234 BEDS AT THE [facility] Last Admin: 06/06/20 09:21 Dose: 875 mg Documented by: Dexamethasone (Dexamethasone 2 Mg Tablet) 6 mg PO DAILY COUNTS INCLUDE 234 BEDS AT THE [facility] Stop: 06/11/20 10:01 Last Admin: 06/06/20 09:21 Dose: 6 mg Documented by: Docusate Sodium (Docusate Sodium 100 Mg Capsule) 100 mg PO BID PRN PRN PRN Reason: Constipation Enoxaparin Sodium (Enoxaparin 40 Mg/0.4 Ml Syringe) 40 mg SC BID COUNTS INCLUDE 234 BEDS AT THE [facility] Last Admin: 06/06/20 09:21 Dose: 40 mg Documented by: Guaifenesin (Guaifenesin 10 Ml Udc (200mg/10ml)) 20 ml PO Q4H PRN PRN PRN Reason: COUGH Last Admin: 06/01/20 21:55 Dose: 20 ml Documented by: Lactobacillus Acidophilus (Lactobacillus Acidophilus) 1 tablet PO DAILY COUNTS INCLUDE 234 BEDS AT THE [facility] Last Admin: 06/06/20 09:21 Dose: 1 tablet Documented by: Melatonin (Melatonin 3 Mg Tablet) 3 mg PO QHS PRN PRN PRN Reason: INSOMNIA Last Admin: 06/01/20 22:13 Dose: 3 mg Documented by: Morphine Sulfate (Morphine 2 Mg/Ml Syringe) 2 mg IV Q3H PRN PRN PRN Reason: Pain Score 6-10 Olanzapine (Olanzapine 2.5 Mg Tablet) 7.5 mg PO QHS COUNTS INCLUDE 234 BEDS AT THE [facility] Last Admin: 06/05/20 21:35 Dose: 7.5 mg Documented by: Ondansetron HCl (Ondansetron 4 Mg/2 Ml Vial) 4 mg IV Q8H PRN PRN PRN Reason: NAUSEA/VOMITING Sodium Chloride (0.9% Saline Lock 10 Ml Syringe) 10 - 40 ml IV UD PRN PRN Reason: SALINE FLUSH Last Admin: 06/03/20 21:15 Dose: 10 ml Documented by: Tolterodine Tartrate (Tolterodine Tartrate 4 Mg Cap.Sa) 4 mg PO QHS COUNTS INCLUDE 234 BEDS AT THE [facility] Last Admin: 06/05/20 21:35 Dose: 4 mg Documented by: STROKE Vital Signs/Narrative: Vital Signs Temp Pulse Resp BP Pulse Ox 06/06/20 14:12 97.9 F 93 18 125/68 H 96 Medical Necessity - Tobacco Use Smoking Status: Never smoker Assessment/Plan All Active Problems COVID-19 (Acute) Onychogryphosis (Acute) Pain in toe of left foot (Acute) Pain in toe of right foot (Acute) Hand, open wound except fingers, complicated (Acute) Compartment syndrome of left hand (Acute) Infectious tenosynovitis of left wrist extensor (Acute) Abscess of skin of left wrist (Acute) Extensor tenosynovitis of left wrist (Acute) Sepsis (Acute) Abscess of left hand including fingers (Acute) Cat bite (Acute) Cat bite of left hand (Acute) Cellulitis and abscess of hand (Acute) Hyperglycemia (Acute) Abscess (Acute) ELVIN (acute kidney injury) (Acute) Elevated serum creatinine (Acute) Hypernatremia (Resolved) #Acute hypoxic respiratory insufficiency due to COVID-19 pneumonia * Treat oxygen to maintain saturation above 90%. * Continue Decadron. Remdesivir discontinued on account of elevation in LFTs. * Breathing treatments with bronchodilators. * On Lovenox. D-dimer was elevated so will need anticoagulation for about 2 weeks after discharge. * ID on board. * #Left hand tenosynovitis * due to catbite. * on autmentin. WOund care on board * #Transaminitis: this is trending down. Likely due to remdesivir. WIll continue to monitor # Bipolar disorder: on zyprexa * DVT prophylaxis: lovenox 40mg bid Disposition: awaiting placement in SNF Inpatient E&M: 43670 Subs Hosp L2
[2020-06-06] MEDS: 0.9% Saline Lock 10 ML Syringe IV (20:45)
[2020-06-06] MEDS: Tolterodine Tartrate 4 MG CAP.SA PO (20:46)
[2020-06-06] MEDS: OLANZapine 2.5 MG Tablet 7.5 MG PO (20:47)
[2020-06-07 01:37] VITALS: BP 127/73; PULSE 75; RESP 16; TEMP 36.4; O2SAT 93
[2020-06-07 05:40] VITALS: BP 135/77; PULSE 74; RESP 18; TEMP 36.4; O2SAT 96
[2020-06-07 08:23] LABS: ALB/GLOB Ratio 0.9 RATIO (0.9-2.4); AST(SGOT) 84 U/L (15-37); Alanine Aminotransfer ALT/SGPT 316 U/L (16-61); Albumin, Serum 2.4 g/dL (3.2-5.0); Alkaline Phosphatase 159 U/L (45-117); Anion Gap 7 (5-15); BUN 27 mg/dL (7-18); BUN/Creat Ratio 32.6 RATIO (10-20); Calcium,Total 8.6 mg/dL (8.5-10.1); Chloride 105 mmol/L (98-107); Creatinine, Serum 0.83 mg/dL (0.70-1.30); EST Glomerular Filtration Rate 94 mL/min (>60); Est Glom Filt Rate - Afr Amer 114 mL/min (>60); Estimated Creatinine Clearance 69.56 ml/min; Globulin 2.6 g/dL (2.2-4.2); Glucose 105 mg/dL (74-106); Potassium 4.2 mmol/L (3.5-5.1); Sodium Level 141 mmol/L (136-145)
--- NOTE | 2020-06-07 08:53 | CASEMGMT ---
Addendum entered by Gladis Langford 06/07/20 12:23: GABRIELLA faxed discharge instructions to [facility] in [place]. No further needs. MAURICE Yoon Addendum entered by Gladis Langford 06/07/20 11:51: [facility] can take pt today. SW called to let her know, she is in agreement, let her know pt will go over this afternoon. GABRIELLA completed hospital exemption in [facility]. GABRIELLA [facility], set up a 3:30pm ambulance. GABRIELLA let pt's bedside RNJennifer at [facility] know time of pickup. GABRIELLA called back to let her know time, message left. SW just awaiting the med list to fax to the facility. MAURICE Yoon Original Note: GABRIELLA called [facility], spoke w/Jennifer. The referral sent yesterday did not come through fully and she did not have a chance to call SW here back to let her know. GABRIELLA did let Jennifer know if they can take pt she would be able to come today. Jennifer provided an alternative fax number to GABRIELLA, GABRIELLA refaxed referral. MAURICE Yoon
[2020-06-07 09:43] VITALS: BP 128/75; PULSE 95; RESP 16; TEMP 36.6; O2SAT 95
[2020-06-07] MEDS: Enoxaparin 40 MG/0.4 ML Syringe SC (09:52)
[2020-06-07] MEDS: Amox/Clavulanate 875 MG Tablet PO (09:52)
[2020-06-07] MEDS: dexAMETHasone 2 MG TABLET 6 MG PO (09:52)
--- NOTE | 2020-06-07 10:52 | PCM.TXEXTCAR ---
- Diet 06/01/20 18:59 Diet: Regular - General Food consistency:: Regular Liquid Consistency:: Regular/Thin Type of Dietary Supplement:: Ensure Enlive Is pt able to select menu?: Yes Diet Comments: Ensure Enlive 120 ml (udng OR straw) w/ meals; Darren 1 pkt BID w/ L&D - Routine Orders/Code Status Enema Type: Fleetz Enema Frequency: Daily PRN Suppository Type: Dulcolax 10mg Suppository Frequency: Daily PRN O2 Frequency: Continuous Keep PO Greater than or Equal to (%): 90 - Wound(s) LEFT HAND Wound Type: Bite middle lower back Wound Type: scabbed area LEFT HAND LATERAL Wound Type: Open Surgical Wound Dressing Change: AntiMicrobial (Aquacel AG, etc) LEFT HAND MEDIAL Wound Type: SURGICAL INCISION FROM CAT BITE BASE OF LEFT THUMB Wound Type: healing surgical wound Dressing Change: AntiMicrobial (Aquacel AG, etc) left dorsal hand Wound Type: Open Surgical Wound Dressing Change: AntiMicrobial (Aquacel AG, etc) - Therapies Weight Bearing: Weight bearing as tolerated Extremity Affected:: Bilateral Lower Physical Therapy: Eval and Treat Occupational Therapy: Eval and Treat - Allergies/Procedures Done in Hospital Allergies/Adverse Reactions: Allergies No Known Allergies Allergy (Verified 05/30/20 11:03) Procedures: None - Type of Care/Length of Stay Estimated LOS: More Than 30 Days Type of Care Needed: Skilled Rehab Potential: Fair Prognosis: Fair - Additional Orders/Day of Discharge Additional Orders: follow up at Wound care center Day of Discharge: 06/07/20 - Dietary and Speech Recommendations Dietitian Recommendations/Changes: Continue current diet order with ONS at meals. Will continue to provide Darren 1 pkt BID to promote wound healing. - Follow Up Care Primary Care Physician: Care Physician,No Primary [Primary Care Provider] - Please Follow Up With: Yoanna Brewer MD When: 1-2 weeks to establish PCP care
--- NOTE | 2020-06-07 12:27 | CASEMGMT ---
RN CM Note: [facility] updated that patient will be dc'd today to SNF. Zohaib ROBERT RN ACM
--- NOTE | 2020-06-07 14:24 | DS.PCM_ITS ---
Discharge Date and Diagnosis - Problem List Patient Problems: Active and Suspected Problems COVID-19 (Acute) Onychogryphosis (Acute) Pain in toe of left foot (Acute) Pain in toe of right foot (Acute) Compartment syndrome of left hand (Acute) Infectious tenosynovitis of left wrist extensor (Acute) Abscess of skin of left wrist (Acute) Extensor tenosynovitis of left wrist (Acute) Abscess of left hand including fingers (Acute) Cat bite (Acute) Cat bite of left hand (Acute) Cellulitis and abscess of hand (Acute) Hyperglycemia (Acute) ELVIN (acute kidney injury) (Acute) Elevated serum creatinine (Acute) Date of Admission: 06/01/20 Date of Discharge: 06/07/20 - Primary Discharge Diagnosis Acute Problems: Active Problems COVID-19 (Acute) Onychogryphosis (Acute) Pain in toe of left foot (Acute) Pain in toe of right foot (Acute) Compartment syndrome of left hand (Acute) Infectious tenosynovitis of left wrist extensor (Acute) Abscess of skin of left wrist (Acute) Extensor tenosynovitis of left wrist (Acute) Abscess of left hand including fingers (Acute) Cat bite (Acute) Cat bite of left hand (Acute) Cellulitis and abscess of hand (Acute) Hyperglycemia (Acute) ELVIN (acute kidney injury) (Acute) Elevated serum creatinine (Acute) - Secondary Discharge Diagnosis Chronic Problems: Chronic Problems History of benign prostatic hyperplasia (Chronic) Generalized weakness (Chronic) Physical debility (Chronic) [place] toxicity (Chronic) Lymphoma (Chronic) Bipolar disorder (Chronic) Hospital Course and Treatment Imaging Results: Diagnostic Data Chest X-Ray 06/01/20 15:02 IMPRESSION: Ill-defined subpleural groundglass opacities are seen more prominent in the lung bases , may represent atypical pneumonia or viral pneumonia (COVID-19 ?). Electronically Signed: Shana Damon, at 15:35 EST Tel , Service support , Chest CTA 06/01/20 17:40 IMPRESSION: 1. No evidence of pulmonary embolus. 2. No aortic dissection or aneurysm. 3. Patchy peripheral groundglass infiltrates consistent with COVID 19 pneumonia. 4. Evidence of cholecystectomy and sphincterotomy. 5. Degenerative changes of the thoracic spine. Electronically Signed: Felix Brock DO at 18:55 EST Tel [phone], Service support , Consultations 06/01/20 21:15 Consult: Onc/Wound/retail advisor Routine Comment: Infectious Disease: Dr Florence Operations: None Procedures: None Summary of Care Provided: The patient is a 84 year old M with an extensive past medical history as outlined who was admitted via the ED on 06/01/2020 on account of positive COVID- 19 test. Patient had been seen ID on account of infectious tenosynovitis and compartment syndrome due to a cat bite and had had a recent fasciotomy with cultures growing Pasteurella and MSSA. He was brought in on account of failure to thrive and COVID-19 infection. D-dimer was elevated at 1.45 and CTA of the chest was negative for PE but did show patchy bilateral groundglass infiltrates. He was therefore admitted and managed for COVID-19 infection. He was started on Decadron and also started on remdesivir. ID was consulted. He was continued on his Augmentin. Remdesivir was subsequently discontinued on account of liver enzymes trending upwards. Patient was weaned down to 2 L of oxygen and did well in hospital. He was skilled for SNF. Patient was discharged to his retirement on 06/07/2020 was discharged on 2.5 mg twice daily of Eliquis for 2 weeks on account of elevated D-dimer. He was also discharged with a 4-day prescription of dexamethasone 6 mg daily to complete a 10-day course. He is to use oxygen 2 L as needed for shortness of breath is to follow-up with his primary care doctor and ID as well as the wound care center. Of note, liver enzymes subsequently trended downwards. Podiatry was also consulted for trimming of his toenails. Patient seen and examined prior to discharge. He had no complaints and felt well. Review of systems otherwise negative. Labs and vitals reviewed. Home medication reviewed and reconciled. O/E: Vital Signs Temp Pulse Resp BP Pulse Ox 97.9 F 95 16 128/75 H 95 06/07/20 09:43 06/07/20 09:43 06/07/20 09:43 06/07/20 09:43 01/05/21 09:43 General: Alert, Oriented x3, Cooperative HEENT: Atraumatic, PERRLA, EOMI, Normocephalic Oral: Dry Mucosa Neck: Supple, No JVD, Negative Carotid Bruits Lungs: - - Diminished breath sounds bibasilally. No wheezes or crackles. On 2 L of oxygen. Cardiovascular: Regular rate, Regular Rhythm, Normal S1, Normal S2, No murmurs Abdomen: Bowel Sounds Present, Soft, Non Tender Extremities: No clubbing, No cyanosis, No edema, Capillary Refill Less than 3 Seconds Skin: No rashes, No breakdown Musculoskeletal: No Tenderness to Palpation of Joints or Extremities Lymphatic: No Cervical, Supraclavicular, or Inguinal Adenopathy Neurological: Cranial nerves II-XII grossly intact, Neuro grossly intact, Motor Exam 5/5 strength throughout Psych/Mental Status: Normal Affect, Appropriate, Alert and oriented to time, place, person, mood and affect Patient Problems: Active and Suspected Problems COVID-19 (Acute) Onychogryphosis (Acute) Pain in toe of left foot (Acute) Pain in toe of right foot (Acute) Compartment syndrome of left hand (Acute) Infectious tenosynovitis of left wrist extensor (Acute) Abscess of skin of left wrist (Acute) Extensor tenosynovitis of left wrist (Acute) Abscess of left hand including fingers (Acute) Cat bite (Acute) Cat bite of left hand (Acute) Cellulitis and abscess of hand (Acute) Hyperglycemia (Acute) ELVIN (acute kidney injury) (Acute) Elevated serum creatinine (Acute) - Physical Exam Vitals/I&O's: Vital Signs Temp Pulse Resp BP Pulse Ox 97.9 F 95 16 128/75 H 95 06/07/20 09:43 06/07/20 09:43 06/07/20 09:43 06/07/20 09:43 06/07/20 09:43 Oxygen Flow Rate (L/min) 2 Oxygen Delivery Method Nasal Cannula Weight: 158 lb 0.014 oz Body Mass Index (BMI) 21.4 Intake and Output for Last 24 Hours 06/05/20 06/06/20 06/07/20 23:59 23:59 23:59 Intake Total 980 / 980 600 / 600 Output Total 225 / 225 250 / 250 300 / 300 Balance 755 / 755 350 / 350 -300 / -300 Laboratory Results 06/07/20 07:55: Sodium 141, Potassium 4.2, Chloride 105, Carbon Dioxide 29.0, Anion Gap 7, BUN 27 H, Creatinine 0.83, Estim Creat Clear Calc 69.56, Est GFR (MDRD) Af Amer 114, Est GFR (MDRD) Non-Af 94, BUN/Creatinine Ratio 32.6 H, Gl ucose 105, Calcium 8.6, Total Bilirubin 0.30, AST 84 H, ALT 316 H, Alkaline Phosphatase 159 H, Total Protein 5.0 L, Albumin 2.4 L, Globulin 2.6, Albumin/Globulin Ratio 0.9 Current Medications Acetaminophen (Acetaminophen 325 Mg Tablet) 650 mg PO Q6H PRN PRN PRN Reason: Pain Score 1-10/Temp > 100.7 F Last Admin: 06/01/20 21:56 Dose: 650 mg Documented by: Al Hydroxide/Mg Hydroxide (Mag Hydrox/Al Hydrox/Simeth 30 Ml Udc) 30 ml PO Q6H PRN PRN PRN Reason: Gastric Burning Albuterol Sulfate (Albuterol 2.5 Mg/3 Ml Vial.Neb.) 2.5 mg INHALATION Q2H PRN PRN PRN Reason: Shortness of Breath/Wheezing Amoxicillin/Clavulanate Potassium (Amox/Clavulanate 875 Mg Tablet) 875 mg PO BID [facility] Last Admin: 06/07/20 09:52 Dose: 875 mg Documented by: Dexamethasone (Dexamethasone 2 Mg Tablet) 6 mg PO DAILY [facility] Stop: 06/11/20 10:01 Last Admin: 06/07/20 09:52 Dose: 6 mg Documented by: Docusate Sodium (Docusate Sodium 100 Mg Capsule) 100 mg PO BID PRN PRN PRN Reason: Constipation Enoxaparin Sodium (Enoxaparin 40 Mg/0.4 Ml Syringe) 40 mg SC BID [facility] Last Admin: 06/07/20 09:52 Dose: 40 mg Documented by: Guaifenesin (Guaifenesin 10 Ml Udc (200mg/10ml)) 20 ml PO Q4H PRN PRN PRN Reason: COUGH Last Admin: 06/01/20 21:55 Dose: 20 ml Documented by: Lactobacillus Acidophilus (Lactobacillus Acidophilus) 1 tablet PO DAILY [facility] Last Admin: 06/07/20 09:52 Dose: 1 tablet Documented by: Melatonin (Melatonin 3 Mg Tablet) 3 mg PO QHS PRN PRN PRN Reason: INSOMNIA Last Admin: 06/01/20 22:13 Dose: 3 mg Documented by: Morphine Sulfate (Morphine 2 Mg/Ml Syringe) 2 mg IV Q3H PRN PRN PRN Reason: Pain Score 6-10 Olanzapine (Olanzapine 2.5 Mg Tablet) 7.5 mg PO QHS [facility] Last Admin: 06/06/20 20:47 Dose: 7.5 mg Documented by: Ondansetron HCl (Ondansetron 4 Mg/2 Ml Vial) 4 mg IV Q8H PRN PRN PRN Reason: NAUSEA/VOMITING Sodium Chloride (0.9% Saline Lock 10 Ml Syringe) 10 - 40 ml IV UD PRN PRN Reason: SALINE FLUSH Last Admin: 06/06/20 20:45 Dose: 10 ml Documented by: Tolterodine Tartrate (Tolterodine Tartrate 4 Mg Cap.Sa) 4 mg PO QHS [facility] Last Admin: 06/06/20 20:46 Dose: 4 mg Documented by: Discharge Diet: Low fat/ Low Cholesterol Discharge Activity: Return to Normal Activity Weight Bearing Status: Weight bearing as tolerated Call your doctor if you observe: Fever of 101 or Higher, Shortness of breath, Dizziness, Fainting spells, Increased palpitations (irregular heartbeat) Home Medications: Medications to take at Discharge Olanzapine [Zyprexa] 7.5 mg PO QHS 04/18/14 Oxybutynin Chloride [Oxybutynin Chloride ER] 15 mg PO QHS 05/18/20 lactobacillus combination no.9 4 billion cell capsule 4,000 mmu cells PO DAILY #20 cap 05/30/20 Amox/Clavulanate Tablet [Augmentin Tablet] 875 mg PO BID #14 tab 06/07/20 Apixaban [Eliquis] 2.5 mg PO BID #28 tab 06/07/20 dexAMETHasone [Dexamethasone] 6 mg PO DAILY #4 tab 06/07/20 Following Prescriptions Were Given to Patient: Amox/Clavulanate Tablet [Augmentin Tablet] 875 mg PO BID #14 tab Prescription Printed dexAMETHasone [Dexamethasone] 6 mg PO DAILY #4 tab Prescription Printed Apixaban [Eliquis] 2.5 mg PO BID #28 tab Prescription Printed Primary Care Physician: Care Physician,No Primary [Primary Care Provider] - Please Follow Up With: Yoanna Brewer MD When: 1-2 weeks to establish PCP care Disposition: Home Minutes spent on discharge:: 45 Patient Condition:: Stable Medical Necessity - Tobacco Use Smoking Status: Never smoker Meaningful Use Info Meaningful Use Diagnoses (Choose all that apply): None applicable Inpatient E&M: 80431 Disch Hosp
[2020-06-07 14:38] VITALS: BP 127/85; PULSE 103; RESP 16; TEMP 36.8; O2SAT 98
[2020-06-07 14:43] VITALS: RESP 18
== END 2020-06-07 15:45 | disposition skilled nursing facility (03) | DRG 177 ==
LOC: ED 16:52 → MS2 17:36
PROVIDERS: Admitting Provider Internal Medicine; Emergency Provider Emergency Medicine; Visit Provider Student in an Organized Health Care Education/Training Program
DX: U07.1 COVID-19 (principal); J12.82 Pneumonia due to coronavirus disease 2019; L02.512 Cutaneous abscess of left hand; L03.114 Cellulitis of left upper limb; T79.A12A Traumatic compartment syndrome of left upper extremity, initial encounter; N17.9 Acute kidney failure, unspecified; C85.90 Non-Hodgkin lymphoma, unspecified, unspecified site; S61.452A Open bite of left hand, initial encounter; W55.01XA Bitten by cat, initial encounter; M65.132 Other infective (teno)synovitis, left wrist; M79.675 Pain in left toe(s); M79.674 Pain in right toe(s); L60.2 Onychogryphosis; R73.9 Hyperglycemia, unspecified; N40.0 Benign prostatic hyperplasia without lower urinary tract symptoms; F31.9 Bipolar disorder, unspecified; R53.83 Other fatigue; R62.7 Adult failure to thrive; R06.89 Other abnormalities of breathing; R09.02 Hypoxemia
CPT/HCPCS: 11043; 11046; 36415; 71045; 71275; 80053; 83735; 84100; 85025; 85027; 85379; 85384; 87426; 97110; 97116; 97162; 97166; 97530; 99213; 99251; 99284; J7050; J7120; Q9967; A4216; G0463

== ENCOUNTER 2020-06-27 11:00 | Outpatient (RCR) | payer MEDICARE, OTHER, SELFPAY ==
[2020-06-01 17:30] VITALS: BMI 21.4
[2020-06-03 00:41] VITALS: BP 149/60; PULSE 113; RESP 20; TEMP 36.3
--- NOTE | 2020-06-13 13:11 | PN.PCM_ITS ---
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452A - Open bite of left hand, initial encounter; W55.01XA - Bitten by cat, initial encounter (8) Physical debility Status: Chronic Code(s): R53.81 - Other malaise Type of Wound Date of Service: 06/13/20 Chief Complaint: Left hand cat bit wounds. History of Wound: This was a virtual visit. Patient is in a SNF facility. The patient is a 84 year old M who was admitted on 05/18/20 with a worsening cat bite infection abscess dorsum left hand, ulnar aspect, with extension to the small finger and wrist. He states he was bitten 8 days ago, and it was an outdoor feral cat. He noticed increasing redness and pain and swelling left hand which prompted his visit to the ED. His WBC was 14.9 and his Lactate was 2.0. Clinically he was septic and was started on Vancomycin, Clindamycin, and Unasyn. There was purulent drainage coming from the cat bite on the dorsum of his left hand. He has pain with movement of his small finger and his wrist. X- ray was done which showed dorsal soft tissue swelling with small amount of air/gas within the soft tissues. No radiopaque foreign body is seen.. Surgery on 05/18/20 - 1. Surgical preparation dorsum left hand, ulnar aspect, with extension to small finger and wrist with incision and drainage and excisional debridement cat bite infection abscess. 2. Fasciotomy dorsal interosseous muscles x4 left hand. 3. Radical extensor tenosynovectomy left wrist extensors tendon sheath for suppurative tenosynovitis involving compartment 2 (ECRL and ECRB tendons), compartment 3 (EPL tendon), compartment 4 (EDC and EIP tendons), compartment 5 (EDM tendon), and compartment 6 (ECU tendon). Operative wound culture postive for Pasteurella multocida, Clostridium group and Porphyromonas uenonis. He is Currently taking Augmentin and probiotic. Wound care - Saline wet to dry twice a day. Wash with soap and water daily. Today denies any fever, chills, nausea or vomiting. Patient was readmitted on 06/01/20 for shortness of breath and failure to thrive. He tested positive for Covid-19 pneumonia. He was discharged on 06/07/20 to [facility], [place]. I received a phone call at the end of last week from the PA at the facility he is staying with concerns about the tendons being dry and black. He was on silver dressing changes at that time. After discussing wound care with the PA, it was decided to start Saline moistened gauze covered by dry gauze twice daily and I would do a virtual visit with him on Saturday (today). If there were any issues or concerns about the hand, they were to transfer the patient to the ED. Progress of Wound: Stable. The open area proximal to the left thumb is healing well. The tendons are still visible. Patient is moving fingers more than he previously had been. Subjective: Patient seen visually during this virtual visit. He is denying any pain or discomfort. - Physical Exam Vital Signs Temp Pulse Resp BP 97.3 F L 113 H 20 H 149/60 H 06/03/20 00:41 06/03/20 00:41 06/03/20 00:41 06/03/20 00:41 General: Alert, Cooperative HEENT: Atraumatic Oral: Moist Mucosa Lungs: Normal air movement Extremities: Edema - left hand and fingers. It is decreasing. Skin: Ulcer/ Wound - Left dorsal hand with multiple open areas. Once the dressing was removed, able to visualize the open areas. The tendons are a monge color. The wounds look clean. The edema is much improved, therefore his hand/finger movement is improved. Fingers are pink. Musculoskeletal: - - Left with better movement of fingers. He is not able to make a fist but he is moving his fingers much better than he was at his last visit. 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 Left hand wounds, complicated. 2. Compartment syndrome of left hand. 3. Infectious tenosynovitis of left wrist extensor. 4. Abscess of skin of left wrist. 5. Extensor tenosynovitis of left wrist. 6. Abscess of left hand including fingers. 7. Cat bite of left hand. 8. Cellulitis and abscess of hand. 9. Physical debility Plan: This was a virtual visit. The length of time on the visit was 5 minutes speaking with the patient and nurse. 10 minutes to set up the visit (figure out the phone numbers and actually get the visit on line). 15 minutes for charting and reviewing notes since he was hospitalized since his last visit. Surgery on 05/18/20 - 1. Surgical preparation dorsum left hand, ulnar aspect, with extension to small finger and wrist with incision and drainage and excisional debridement cat bite infection abscess. 2. Fasciotomy dorsal interosseous muscles x4 left hand. 3. Radical extensor tenosynovectomy left wrist extensors tendon sheath for suppurative tenosynovitis involving compartment 2 (ECRL and ECRB tendons), compartment 3 (EPL tendon), compartment 4 (EDC and EIP tendons), compartment 5 (EDM tendon), and compartment 6 (ECU tendon). Operative wound culture postive for Pasteurella multocida, Clostridium group and Porphyromonas uenonis. He is Currently taking Augmentin and probiotic. Wound care - Wash with soap and water daily. The silver was drying out his wounds too much so saline moistened gauze topped with dry guaze will be done twice daily. Encourage range of motion of his left hand and fingers. He is showing improvement with his ROM. Encouraged increased protein intake to help with wound healing. He is in a SNF at this time since his recent diagnosis of COVID. We will follow up with him once he is able to tolerating travel and will no longer be contagious. Follow up approximately 3 weeks. Office Visits / Consults: [id number] Est
[2020-06-27 10:56] VITALS: BP 102/57; PULSE 133; TEMP 36.1; BMI 21.4
--- NOTE | 2020-06-27 12:45 | PCM.WC.PN ---
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452A - Open bite of left hand, initial encounter; W55.01XA - Bitten by cat, initial encounter (8) Physical debility Status: Chronic Code(s): R53.81 - Other malaise Type of Wound Date of Service: 06/27/20 Chief Complaint: Left hand cat bit wounds. History of Wound: The patient is a 84 year old M who was admitted on 05/18/20 with a worsening cat bite infection abscess dorsum left hand, ulnar aspect, with extension to the small finger and wrist. He states he was bitten 8 days before admission, and it was an outdoor feral cat. He noticed increasing redness and pain and swelling left hand which prompted his visit to the ED. His WBC was 14.9 and his Lactate was 2.0. Clinically he was septic and was started on Vancomycin, Clindamycin, and Unasyn. There was purulent drainage coming from the cat bite on the dorsum of his left hand. He has pain with movement of his small finger and his wrist. X-ray was done which showed dorsal soft tissue swelling with small amount of air/gas within the soft tissues. No radiopaque foreign body is seen.. Surgery on 05/18/20 - 1. Surgical preparation dorsum left hand, ulnar aspect, with extension to small finger and wrist with incision and drainage and excisional debridement cat bite infection abscess. 2. Fasciotomy dorsal interosseous muscles x4 left hand. 3. Radical extensor tenosynovectomy left wrist extensors tendon sheath for suppurative tenosynovitis involving compartment 2 (ECRL and ECRB tendons), compartment 3 (EPL tendon), compartment 4 (EDC and EIP tendons), compartment 5 (EDM tendon), and compartment 6 (ECU tendon). Operative wound culture postive for Pasteurella multocida, Clostridium group and Porphyromonas uenonis. He is Currently taking Augmentin and probiotic. Wound care - Dakin's moistened gauze daily. Wash with soap and water daily before dressing change. Today denies any fever, chills, nausea or vomiting. Patient was readmitted on 06/01/20 for shortness of breath and failure to thrive. He tested positive for Covid-19 pneumonia. He was discharged on 06/07/20 to [facility]. I received a phone call at the end of last week from the PA at the facility he is staying with concerns about the tendons being dry and black. He was on silver dressing changes at that time. After discussing wound care with the PA, it was decided to start Saline moistened gauze covered by dry gauze twice daily and I would do a virtual visit with him on Saturday (today). If there were any issues or concerns about the hand, they were to transfer the patient to the ED. Progress of Wound: Improved. The open area proximal to the left thumb is almost healed. The tendons are still visible. Patient is moving fingers more than he previously had been. - Physical Exam Vital Signs Temp Pulse Resp BP 97.0 F L 133 H 20 H 102/57 L 06/27/20 10:56 06/27/20 10:56 06/03/20 00:41 06/27/20 10:56 General: Alert HEENT: Atraumatic Oral: Dry Mucosa Neck: Supple Lungs: Clear to auscultation, Normal air movement Cardiovascular: Regular rate Abdomen: Soft Extremities: Capillary Refill Less than 3 Seconds, Edema - left hand Skin: Ulcer/ Wound - Left hand medial ulcer (proximal to thumb) is healed. Left dorsal middle and lateral ulcers show mild improvement. Wound Measurements and Assessment WC - Nurse 1 - General Ulcer Measurement Start: 06/27/20 10:56 Freq: Status: Active Protocol: Activity Type Activity Date Activity User E-Sign Co-Sign Detail Recorded Client Recorded Date Recorded By Document 06/27/20 10:56 HEATH [id number] 06/27/20 11:07 HEATH 06/27/20 10:56 Wound Center Nurse 1 [Ulcer Assessment] #3- L LATERAL Sup DORSAL HAND POST OP -Current Size (cm) - Length 5.5 -Current Size (cm) - Width 2.2 -Current Size (cm) - Depth 0.2 -Total Square Cm 12.10 -Exudate Amt Medium -Exudate Type Serosanguineous -Wound Margin Distinct, Outline Attached -Granulation Amt Medium (34-66%) -Granulation Quality Red -Necrosis Amt Medium (34-66%) -Necrotic Tissue Type Adherent Slough -Structure Exposed Tendon -Texture (Dixie-wound Skin Appearance) Assessed, Scarring -Moisture (Dixie-wound Skin Appearance No Abnormality, ) Assessed -Color (Dixie-wound Skin Appearance) No Abnormality, Assessed -Temperature (Dixie-wound Skin No Abnormality Appearance) (Pt Warm) -Tenderness on Palpation (Dixie-wound No Skin Appearance) -Ulcer Cleansing soap and water -Foul Odor after Cleansing No -Anesthetic Used 4% Lidocaine Solution left middle dorsal hand -Current Size (cm) - Length 2.6 -Current Size (cm) - Width 0.3 -Current Size (cm) - Depth 0.2 -Total Square Cm 0.78 -Exudate Amt Medium -Exudate Type Serosanguineous -Wound Margin Distinct, Outline Attached -Granulation Amt Medium (34-66%) -Granulation Quality Red -Necrosis Amt Medium (34-66%) -Necrotic Tissue Type Adherent Slough -Structure Exposed Tendon -Texture (Dixie-wound Skin Appearance) Assessed, Scarring -Color (Dixie-wound Skin Appearance) No Abnormality, Assessed -Temperature (Dixie-wound Skin No Abnormality Appearance) (Pt Warm) -Tenderness on Palpation (Dixie-wound No Skin Appearance) -Ulcer Cleansing soap and water -Foul Odor after Cleansing No -Anesthetic Used 4% Lidocaine Solution #1- L DORSAL medial HAND -Current Size (cm) - Length 6 -Current Size (cm) - Width 2.1 -Current Size (cm) - Depth 0.3 -Total Square Cm 12.6 -Exudate Amt Medium -Exudate Type Serosanguineous -Wound Margin Distinct, Outline Attached -Granulation Amt Medium (34-66%) -Granulation Quality Red -Necrosis Amt Medium (34-66%) -Necrotic Tissue Type Adherent Slough -Structure Exposed Tendon -Texture (Dixie-wound Skin Appearance) Assessed, Scarring -Moisture (Dixie-wound Skin Appearance No Abnormality, ) Assessed -Color (Dixie-wound Skin Appearance) No Abnormality, Assessed -Temperature (Dixie-wound Skin No Abnormality Appearance) (Pt Warm) -Tenderness on Palpation (Dixie-wound No Skin Appearance) -Ulcer Cleansing soap and water -Foul Odor after Cleansing No -Anesthetic Used 4% Lidocaine Solution WC - Nurse 2 - General Ulcer CM Notes Start: 06/27/20 10:56 Freq: Status: Active Protocol: Activity Type Activity Date Activity User E-Sign Co-Sign Detail Recorded Client Recorded Date Recorded By Document 06/27/20 11:38 ASHLEY [id number] 06/27/20 11:47 ASHLEY 06/27/20 11:38 Wound Center Nurse 2 [Procedure/Treatment] #3- L LATERAL Sup DORSAL HAND POST OP -Time 11:38 -Correct Patient Yes -Correct Side, Site, Position Yes -Correct Procedure Yes -Procedure Performed Yes -Type of Procedure Debridement -Clinical Debridement Muscle / Fascia -Tissue Removed Muscle,Fascia -Post Debridement (cm) - Length 6.2 -Post Debridement (cm) - Width 2.5 -Post Debridement (cm) - Depth 0.2 -Total Square (Post) (cm) 15.50 -Area of Debridement (cm) - Length 6.2 -Area of Debridement (cm) - Width 2.5 -Total Square (Area) (cm) 15.50 -Tunneling No -Undermining/Tunneling No -Circular Undermining No -Wound/Ulcer Outcome Not Healed -Ulcer Cleansing Rinsed/ Irrigated with Saline -Foul Odor after Cleansing No -Bioengineered Tissue No -Bleeding Controlled with Pressure -Offloading No -Treatment Response Procedure Tolerated Well -Debridement - Subq, 1st 20sq cm No -Debridement - Muscle / Fascia, 1st Yes 20sq cm left middle dorsal hand -Time 11:44 -Correct Patient Yes -Correct Side, Site, Position Yes -Correct Procedure Yes -Procedure Performed Yes -Type of Procedure Debridement -Clinical Debridement Muscle / Fascia -Tissue Removed Muscle,Fascia -Post Debridement (cm) - Length 8.5 -Post Debridement (cm) - Width 2 -Post Debridement (cm) - Depth 0.3 -Total Square (Post) (cm) 17.0 -Area of Debridement (cm) - Length 8.5 -Area of Debridement (cm) - Width 2 -Total Square (Area) (cm) 17.0 -Tunneling No -Undermining/Tunneling No -Circular Undermining No -Wound/Ulcer Outcome Not Healed -Ulcer Cleansing Rinsed/ Irrigated with Saline -Foul Odor after Cleansing No -Bioengineered Tissue No -Bleeding Controlled with Pressure -Offloading No -Treatment Response Procedure Tolerated Well -Debridement - Subq, 1st 20sq cm No -Debridement - Muscle / Fascia, 1st Yes 20sq cm -Debridement, Muscle/Fascia, ea addt' 1 l 20sq cm or part thereof #1- L DORSAL medial HAND -Time 11:46 -Correct Patient No -Correct Side, Site, Position No -Correct Procedure No -Procedure Performed No -Post Debridement (cm) - Length 0 -Post Debridement (cm) - Width 0 -Post Debridement (cm) - Depth 0 -Total Square (Post) (cm) 0 -Area of Debridement (cm) - Length 0 -Area of Debridement (cm) - Width 0 -Total Square (Area) (cm) 0 -Wound/Ulcer Outcome Healed- Epithelialized [See Physician Procedure note for Specifics] Pain Scale: 0-10 Numeric [Pain] -Is Patient Pain Free? Yes WC - Nurse 3 - General Ulcer D/C NN Start: 06/27/20 10:56 Freq: Status: Active Protocol: Activity Type Activity Date Activity User E-Sign Co-Sign Detail Recorded Client Recorded Date Recorded By Document 06/27/20 11:52 HEATH [id number] 06/27/20 11:53 HEATH 06/27/20 11:52 Wound Care Nurse 3 [Wound Dressing] #3- L LATERAL Sup DORSAL HAND POST OP -Ulcer Cleansing Rinsed/ Irrigated with Saline -Foul Odor after Cleansing No -Other Dressing moisten -Primary Dressing Covered/Secured Dry Gauze & with Roll Gauze, Secured with Tape left middle dorsal hand -Ulcer Cleansing Rinsed/ Irrigated with Saline -Foul Odor after Cleansing No -Other Dressing moisten -Primary Dressing Covered/Secured Dry Gauze & with Roll Gauze, Secured with Tape Pain Scale: 0-10 Numeric [Pain] -Is Patient Pain Free? Yes WC - Visit Discharge [Visit Discharge Information] -Discharge Condition Stable -Ambulatory Status Wheelchair -Transportation Private Auto -Accompanied by manager progressive care Musculoskeletal: Tenderness Neurological: Cranial nerves II-XII grossly intact Psych/Mental Status: Agitated, Flat Affect Debridement Note Post-Debridement Measurements/Treatment WC - Nurse 2 - General Ulcer CM Notes Start: 06/27/20 10:56 Freq: Status: Active Protocol: Activity Type Activity Date Activity User E-Sign Co-Sign Detail Recorded Client Recorded Date Recorded By Document 06/27/20 11:38 ASHLEY [id number] 06/27/20 11:47 ASHLEY 06/27/20 11:38 Wound Center Nurse 2 #3- L LATERAL Sup DORSAL HAND POST OP -Time 11:38 -Correct Patient Yes -Correct Side, Site, Position Yes -Correct Procedure Yes -Procedure Performed Yes -Type of Procedure Debridement -Clinical Debridement Muscle / Fascia -Tissue Removed Muscle,Fascia -Post Debridement (cm) - Length 6.2 -Post Debridement (cm) - Width 2.5 -Post Debridement (cm) - Depth 0.2 -Total Square (Post) (cm) 15.50 -Area of Debridement (cm) - Length 6.2 -Area of Debridement (cm) - Width 2.5 -Total Square (Area) (cm) 15.50 -Tunneling No -Undermining/Tunneling No -Circular Undermining No -Wound/Ulcer Outcome Not Healed -Ulcer Cleansing Rinsed/ Irrigated with Saline -Foul Odor after Cleansing No -Bioengineered Tissue No -Bleeding Controlled with Pressure -Offloading No -Treatment Response Procedure Tolerated Well -Debridement - Subq, 1st 20sq cm No -Debridement - Muscle / Fascia, 1st Yes 20sq cm left middle dorsal hand -Time 11:44 -Correct Patient Yes -Correct Side, Site, Position Yes -Correct Procedure Yes -Procedure Performed Yes -Type of Procedure Debridement -Clinical Debridement Muscle / Fascia -Tissue Removed Muscle,Fascia -Post Debridement (cm) - Length 8.5 -Post Debridement (cm) - Width 2 -Post Debridement (cm) - Depth 0.3 -Total Square (Post) (cm) 17.0 -Area of Debridement (cm) - Length 8.5 -Area of Debridement (cm) - Width 2 -Total Square (Area) (cm) 17.0 -Tunneling No -Undermining/Tunneling No -Circular Undermining No -Wound/Ulcer Outcome Not Healed -Ulcer Cleansing Rinsed/ Irrigated with Saline -Foul Odor after Cleansing No -Bioengineered Tissue No -Bleeding Controlled with Pressure -Offloading No -Treatment Response Procedure Tolerated Well -Debridement - Subq, 1st 20sq cm No -Debridement - Muscle / Fascia, 1st Yes 20sq cm -Debridement, Muscle/Fascia, ea addt'l 1 20sq cm or part thereof #1- L DORSAL medial HAND -Time 11:46 -Correct Patient No -Correct Side, Site, Position No -Correct Procedure No -Procedure Performed No -Post Debridement (cm) - Length 0 -Post Debridement (cm) - Width 0 -Post Debridement (cm) - Depth 0 -Total Square (Post) (cm) 0 -Area of Debridement (cm) - Length 0 -Area of Debridement (cm) - Width 0 -Total Square (Area) (cm) 0 -Wound/Ulcer Outcome Healed- Epithelialized Pain Scale: 0-10 Numeric Is Patient Pain Free? Yes - Nurse 3 - General Ulcer D/C NN Start: 06/27/20 10:56 Freq: Status: Active Protocol: Activity Type Activity Date Activity User E-Sign Co-Sign Detail Recorded Client Recorded Date Recorded By Document 06/27/20 11:52 HEATH [id number] 06/27/20 11:53 HEATH 06/27/20 11:52 Wound Care Nurse 3 #3- L LATERAL Sup DORSAL HAND POST OP -Ulcer Cleansing Rinsed/ Irrigated with Saline -Foul Odor after Cleansing No -Other Dressing moisten -Primary Dressing Covered/Secured with Dry Gauze & Roll Gauze, Secured with Tape left middle dorsal hand -Ulcer Cleansing Rinsed/ Irrigated with Saline -Foul Odor after Cleansing No -Other Dressing moisten -Primary Dressing Covered/Secured with Dry Gauze & Roll Gauze, Secured with Tape Pain Scale: 0-10 Numeric Is Patient Pain Free? Yes - Visit Discharge Discharge Condition Stable Ambulatory Status Wheelchair Transportation Private Auto Accompanied by manager progressive care Wound debrided: dorsal middle and lateral hand ulcers Laterality: Left Type of Debridement: Excisional debridement Anesthesia Used: 5% Lidocaine Gel Depth: Down to and including healthy tissue, in the subcutaneous layer, to muscle Percentage of wound debrided: 100 Instrument Used: 5mm curette Tissue Removed: Subcutaneous tissue and slough, tendons exposed. 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 Left hand wounds, complicated. 2. Compartment syndrome of left hand. 3. Infectious tenosynovitis of left wrist extensor. 4. Abscess of skin of left wrist. 5. Extensor tenosynovitis of left wrist. 6. Abscess of left hand including fingers. 7. Cat bite of left hand. 8. Cellulitis and abscess of hand. 9. Physical debility Plan: Wound care - Wash with soap and water daily. Dakin's moistened gauze daily to the ulcers. ROSIE wrap for compression, but do not immobilize his fingers. Encourage range of motion of his left hand and fingers. He is showing improvement with his ROM. Encouraged increased protein intake to help with wound healing. Follow up 2 weeks. [id number]: [id number] Global Visit
== END 2020-07-03 23:59 ==
LOC: WC 11:00
PROVIDERS: Referring Provider Family Medicine; Visit Provider Surgery
DX: S61.452A Open bite of left hand, initial encounter (principal); W55.01XA Bitten by cat, initial encounter; L02.512 Cutaneous abscess of left hand; T79.A12A Traumatic compartment syndrome of left upper extremity, initial encounter; M65.832 Other synovitis and tenosynovitis, left forearm; Z86.16 Personal history of COVID-19; M65.132 Other infective (teno)synovitis, left wrist
CPT/HCPCS: 11043; 11046

== ENCOUNTER 2020-07-18 11:00 | Outpatient (RCR) | payer MEDICARE, OTHER, SELFPAY ==
[2020-07-04 00:35] VITALS: BP 102/57; PULSE 133; RESP 20; TEMP 36.1
[2020-07-18 10:42] VITALS: BP 110/80; PULSE 113; RESP 18; TEMP 36.1; BMI 21.4
--- NOTE | 2020-07-18 23:14 | PN.PCM_ITS ---
Type of Wound Date of Service: 07/18/20 Chief Complaint: Nonhealing cat bite ulcers left hand. History of Wound: The patient is a 84 year old M who was admitted on 05/18/20 with a worsening cat bite infection abscess dorsum left hand, ulnar aspect, with extension to the small finger and wrist. He states he was bitten 8 days before admission, and it was an outdoor feral cat. He noticed increasing redness and pain and swelling left hand which prompted his visit to the ED. His WBC was 14.9 and his Lactate was 2.0. Clinically he was septic and was started on Vancomycin, Clindamycin, and Unasyn. There was purulent drainage coming from the cat bite on the dorsum of his left hand. He has pain with movement of his small finger and his wrist. X-ray was done which showed dorsal soft tissue swelling with small amount of air/gas within the soft tissues. No radiopaque foreign body is seen.. Surgery on 05/18/20 - 1. Surgical preparation dorsum left hand, ulnar aspect, with extension to small finger and wrist with incision and drainage and excisional debridement cat bite infection abscess. 2. Fasciotomy dorsal interosseous muscles x4 left hand. 3. Radical extensor tenosynovectomy left wrist extensors tendon sheath for suppurative tenosynovitis involving compartment 2 (ECRL and ECRB tendons), compartment 3 (EPL tendon), compartment 4 (EDC and EIP tendons), compartment 5 (EDM tendon), and compartment 6 (ECU tendon). Operative wound culture postive for Pasteurella multocida, Clostridium group and Porphyromonas uenonis. He is Currently taking Augmentin and probiotic. Wound care - Dakin's moistened gauze daily. Wash with soap and water daily before dressing change. Today denies any fever, chills, nausea or vomiting. Patient was readmitted on 06/01/20 for shortness of breath and failure to thrive. He tested positive for Covid-19 pneumonia. He was discharged on 06/07/20 to [facility]. I received a phone call at the end of last week from the PA at the facility he is staying with concerns about the tendons being dry and black. He was on silver dressing changes at that time. After discussing wound care with the PA, it was decided to start Saline moistened gauze covered by dry gauze twice daily and I would do a virtual visit with him on Saturday (today). If there were any issues or concerns about the hand, they were to transfer the patient to the ED. Progress of Wound: Improved. The ulcer dorsum left hand at base of thumb is healed. - Physical Exam Vital Signs Temp Pulse Resp BP 96.9 F L 113 H 18 110/80 07/18/20 10:42 07/18/20 10:42 07/18/20 10:42 07/18/20 10:42 Extremities: - - some stiffness seen in left hand. He can almost make a fist. He can oppose his thumb to his fingers. He can extend his fingers. He has good wrist range of motion and is nontender. Wound Measurements and Assessment WC - Nurse 1 - General Ulcer Measurement Start: 07/18/20 10:38 Freq: Status: Active Protocol: Activity Type Activity Date Activity User E-Sign Co-Sign Detail Recorded Client Recorded Date Recorded By Document 07/18/20 10:42 DL [id number] 07/18/20 10:51 DL 07/18/20 10:42 Wound Center Nurse 1 [Ulcer Assessment] #3- L LATERAL Sup DORSAL HAND POST OP -Current Size (cm) - Length 3.7 -Current Size (cm) - Width 1.4 -Current Size (cm) - Depth 0.1 -Total Square Cm 5.18 -Photo Taken No -Exudate Amt Medium -Exudate Type Serosanguineous -Wound Margin Distinct, Outline Attached -Granulation Amt Large (67-100%) -Granulation Quality [place] -Necrosis Amt Small (1-33%) -Necrotic Tissue Type Adherent Slough -Structure Exposed Fascia -Texture (Dixie-wound Skin Appearance) Localized Edema ,Scarring -Moisture (Dixie-wound Skin Appearance No Abnormality ) -Color ([place]ixie-wound Skin Appearance) No Abnormality -Temperature ([place]ixie-wound Skin No Abnormality Appearance) (Pt Warm) -Tenderness on Palpation ([place]ixie-wound No Skin Appearance) -Ulcer Cleansing Wound Cleanser -Foul Odor after Cleansing No -Anesthetic Used 4% Lidocaine Solution left middle dorsal hand -Current Size (cm) - Length 5.6 -Current Size (cm) - Width 2.2 -Current Size (cm) - Depth 0.1 -Total Square Cm 12.32 -Photo Taken No -Exudate Amt Medium -Exudate Type Serosanguineous -Wound Margin Distinct, Outline Attached -Granulation Amt Large (67-100%) -Granulation Quality [place] -Necrosis Amt Small (1-33%) -Necrotic Tissue Type Adherent Slough -Structure Exposed Fascia -Texture (Dixie-wound Skin Appearance) Localized Edema ,Scarring -Moisture (Dixie-wound Skin Appearance Dry/Scaly ) -Color (Dixie-wound Skin Appearance) No Abnormality -Temperature ([place]ixie-wound Skin No Abnormality Appearance) (Pt Warm) -Tenderness on Palpation (Dixie-wound No Skin Appearance) -Ulcer Cleansing Wound Cleanser #1- L DORSAL medial HAND -Current Size (cm) - Length 0.1 -Current Size (cm) - Width 0.1 -Current Size (cm) - Depth 0.1 -Total Square Cm 0.01 -Photo Taken No -Exudate Amt None Present -Wound Margin Flat & Intact -Granulation Amt Large (67-100%) -Granulation Quality [place] -Necrosis Amt None Present (0 %) -Structure Exposed N/A -Texture (Dixie-wound Skin Appearance) Localized Edema ,Scarring -Moisture ([place]ixie-wound Skin Appearance No Abnormality ) -Color (Dixie-wound Skin Appearance) No Abnormality -Temperature ([place]ixie-wound Skin No Abnormality Appearance) (Pt Warm) -Tenderness on Palpation (Dixie-wound No Skin Appearance) -Ulcer Cleansing Wound Cleanser -Foul Odor after Cleansing No -Anesthetic Used 4% Lidocaine Solution WC - Nurse 2 - General Ulcer CM Notes Start: 07/18/20 10:38 Freq: Status: Active Protocol: Activity Type Activity Date Activity User E-Sign Co-Sign Detail Recorded Client Recorded Date Recorded By Document 07/18/20 11:19 ASHLEY [id number] 07/18/20 11:28 ASHLEY 07/18/20 11:19 Wound Center Nurse 2 [Procedure/Treatment] #3- L LATERAL Sup DORSAL HAND POST OP -Time 11:22 -Correct Patient Yes -Correct Side, Site, Position Yes -Correct Procedure Yes -Procedure Performed Yes -Type of Procedure Chemical Cauterization ( $) -Clinical Debridement Muscle / Fascia -Tissue Removed Muscle,Fascia -Post Debridement (cm) - Length 3.6 -Post Debridement (cm) - Width 1.4 -Post Debridement (cm) - Depth 0.2 -Total Square (Post) (cm) 5.04 -Area of Debridement (cm) - Length 3.6 -Area of Debridement (cm) - Width 1.4 -Total Square (Area) (cm) 5.04 -Tunneling No -Undermining/Tunneling No -Circular Undermining No -Wound/Ulcer Outcome Not Healed -Ulcer Cleansing Rinsed/ Irrigated with Saline -Foul Odor after Cleansing No -Bioengineered Tissue No -Bleeding Controlled with Pressure -Offloading No -Treatment Response Procedure Tolerated Well -Debridement - Muscle / Fascia, 1st Yes 20sq cm left middle dorsal hand -Time 11:23 -Correct Patient Yes -Correct Side, Site, Position Yes -Correct Procedure Yes -Procedure Performed Yes -Type of Procedure Debridement -Clinical Debridement Muscle / Fascia -Tissue Removed Muscle,Fascia -Post Debridement (cm) - Length 5.5 -Post Debridement (cm) - Width 2.2 -Post Debridement (cm) - Depth 0.1 -Total Square (Post) (cm) 12.10 -Area of Debridement (cm) - Length 5.5 -Area of Debridement (cm) - Width 2.2 -Total Square (Area) (cm) 12.10 -Tunneling No -Undermining/Tunneling No -Circular Undermining No -Wound/Ulcer Outcome Not Healed -Ulcer Cleansing Rinsed/ Irrigated with Saline -Foul Odor after Cleansing No -Bioengineered Tissue No -Bleeding Controlled with Pressure -Offloading No -Treatment Response Procedure Tolerated Well -Debridement - Muscle / Fascia, 1st No 20sq cm #1- L DORSAL medial HAND -Time 11:23 -Correct Patient No -Correct Side, Site, Position No -Correct Procedure No -Procedure Performed No -Clinical Debridement Muscle / Fascia -Post Debridement (cm) - Length 0 -Post Debridement (cm) - Width 0 -Post Debridement (cm) - Depth 0 -Total Square (Post) (cm) 0 -Area of Debridement (cm) - Length 0 -Area of Debridement (cm) - Width 0 -Total Square (Area) (cm) 0 -Tunneling No -Undermining/Tunneling No -Wound/Ulcer Outcome Healed- Epithelialized -Ulcer Cleansing Rinsed/ Irrigated with Saline -Foul Odor after Cleansing No -Bioengineered Tissue No -Bleeding Controlled with Pressure -Offloading No -Treatment Response Procedure Tolerated Well -Debridement - Muscle / Fascia, 1st No 20sq cm [See Physician Procedure note for Specifics] Pain Scale: 0-10 Numeric [Pain] -Is Patient Pain Free? Yes - Nurse 3 - General Ulcer D/C NN Start: 07/18/20 10:38 Freq: Status: Active Protocol: Activity Type Activity Date Activity User E-Sign Co-Sign Detail Recorded Client Recorded Date Recorded By Document 07/18/20 11:32 [facility] [id number] 07/18/20 11:33 [facility] 07/18/20 11:32 Wound Care Nurse 3 [Wound Dressing] #3- L LATERAL Sup DORSAL HAND POST OP -Ulcer Cleansing Rinsed/ Irrigated with Saline -Foul Odor after Cleansing No -Primary Dressing Applied Promogran Celena Matter -Primary Dressing Covered/Secured Dry Gauze & with Roll Gauze, Secured with Tape -Promogran Celena Matter 1 left middle dorsal hand -Ulcer Cleansing Rinsed/ Irrigated with Saline -Foul Odor after Cleansing No -Primary Dressing Applied Promogran Celena Matter -Primary Dressing Covered/Secured Dry Gauze & with Roll Gauze, Secured with Tape -Promogran Celena Matter 0 [Post Procedure Tolerated] -Treatment Response Procedure Tolerated Well Pain Scale: 0-10 Numeric [Pain] -Is Patient Pain Free? Yes - Visit Discharge [Visit Discharge Information] -Discharge Condition Stable -Ambulatory Status Ambulatory -Transportation Private Auto -Accompanied by [Facility Notification] -Facility Type Home Health Debridement Note Post-Debridement Measurements/Treatment - Nurse 2 - General Ulcer CM Notes Start: 07/18/20 10:38 Freq: Status: Active Protocol: Activity Type Activity Date Activity User E-Sign Co-Sign Detail Recorded Client Recorded Date Recorded By Document 07/18/20 11:19 [id number] 07/18/20 11:28 07/18/20 11:19 Wound Center Nurse 2 #3- L LATERAL Sup DORSAL HAND POST OP -Time 11:22 -Correct Patient Yes -Correct Side, Site, Position Yes -Correct Procedure Yes -Procedure Performed Yes -Type of Procedure Chemical Cauterization ( $) -Clinical Debridement Muscle / Fascia -Tissue Removed Muscle,Fascia -Post Debridement (cm) - Length 3.6 -Post Debridement (cm) - Width 1.4 -Post Debridement (cm) - Depth 0.2 -Total Square (Post) (cm) 5.04 -Area of Debridement (cm) - Length 3.6 -Area of Debridement (cm) - Width 1.4 -Total Square (Area) (cm) 5.04 -Tunneling No -Undermining/Tunneling No -Circular Undermining No -Wound/Ulcer Outcome Not Healed -Ulcer Cleansing Rinsed/ Irrigated with Saline -Foul Odor after Cleansing No -Bioengineered Tissue No -Bleeding Controlled with Pressure -Offloading No -Treatment Response Procedure Tolerated Well -Debridement - Muscle / Fascia, 1st Yes 20sq cm left middle dorsal hand -Time 11:23 -Correct Patient Yes -Correct Side, Site, Position Yes -Correct Procedure Yes -Procedure Performed Yes -Type of Procedure Debridement -Clinical Debridement Muscle / Fascia -Tissue Removed Muscle,Fascia -Post Debridement (cm) - Length 5.5 -Post Debridement (cm) - Width 2.2 -Post Debridement (cm) - Depth 0.1 -Total Square (Post) (cm) 12.10 -Area of Debridement (cm) - Length 5.5 -Area of Debridement (cm) - Width 2.2 -Total Square (Area) (cm) 12.10 -Tunneling No -Undermining/Tunneling No -Circular Undermining No -Wound/Ulcer Outcome Not Healed -Ulcer Cleansing Rinsed/ Irrigated with Saline -Foul Odor after Cleansing No -Bioengineered Tissue No -Bleeding Controlled with Pressure -Offloading No -Treatment Response Procedure Tolerated Well -Debridement - Muscle / Fascia, 1st No 20sq cm #1- L DORSAL medial HAND -Time 11:23 -Correct Patient No -Correct Side, Site, Position No -Correct Procedure No -Procedure Performed No -Clinical Debridement Muscle / Fascia -Post Debridement (cm) - Length 0 -Post Debridement (cm) - Width 0 -Post Debridement (cm) - Depth 0 -Total Square (Post) (cm) 0 -Area of Debridement (cm) - Length 0 -Area of Debridement (cm) - Width 0 -Total Square (Area) (cm) 0 -Tunneling No -Undermining/Tunneling No -Wound/Ulcer Outcome Healed- Epithelialized -Ulcer Cleansing Rinsed/ Irrigated with Saline -Foul Odor after Cleansing No -Bioengineered Tissue No -Bleeding Controlled with Pressure -Offloading No -Treatment Response Procedure Tolerated Well -Debridement - Muscle / Fascia, 1st No 20sq cm Pain Scale: 0-10 Numeric Is Patient Pain Free? Yes WC - Nurse 3 - General Ulcer D/C NN Start: 07/18/20 10:38 Freq: Status: Active Protocol: Activity Type Activity Date Activity User E-Sign Co-Sign Detail Recorded Client Recorded Date Recorded By Document 07/18/20 11:32 [facility] [id number] 07/18/20 11:33 [facility] 07/18/20 11:32 Wound Care Nurse 3 #3- L LATERAL Sup DORSAL HAND POST OP -Ulcer Cleansing Rinsed/ Irrigated with Saline -Foul Odor after Cleansing No -Primary Dressing Applied Promogran Celena Matter -Primary Dressing Covered/Secured with Dry Gauze & Roll Gauze, Secured with Tape -Promogran Celena Matter 1 left middle dorsal hand -Ulcer Cleansing Rinsed/ Irrigated with Saline -Foul Odor after Cleansing No -Primary Dressing Applied Promogran Celena Matter -Primary Dressing Covered/Secured with Dry Gauze & Roll Gauze, Secured with Tape -Promogran Celena Matter 0 Treatment Response Procedure Tolerated Well Pain Scale: 0-10 Numeric Is Patient Pain Free? Yes WC - Visit Discharge Discharge Condition Stable Ambulatory Status Ambulatory Transportation Private Auto Accompanied by Facility Type Home Health Wound debrided: #1 Dorsum left hand at base of thumb. Laterality: Left Wound Grade/Stage: 3. No debridement was completed today - The ulcer is healed. - Additional Wound Wound debrided: #2 Dorsum left hand, radial. Laterality: Left Wound Grade/Stage: 3. Type of Debridement: Excisional debridement Anesthesia Used: 4% Lidocaine Solution Depth: Down to and including healthy tissue, in the subcutaneous layer, to muscle - tendon is exposed and debrided. Percentage of wound debrided: 100 Instrument Used: 5mm curette Tissue Removed: subcutaneous tissue and tendon. Severity: Fat Layer Exposed - tendon is exposed. Amount of bleeding with debridement: Mild Bleeding Controlled with: Pressure Patient tolerated procedure: Patient tolerated procedure well - Additional Wound Wound debrided: #3 Dorsum left hand, ulnar. Laterality: Left Wound Grade/Stage: 3. Type of Debridement: Excisional debridement Anesthesia Used: 4% Lidocaine Solution Depth: Down to and including healthy tissue, in the subcutaneous layer, to muscle - tendon is exposed and debrided. Percentage of wound debrided: 100 Instrument Used: 3mm curette Tissue Removed: subcutaneous tissue and tendon. Severity: Fat Layer Exposed - tendon is exposed. Amount of bleeding with debridement: Mild Bleeding Controlled with: Pressure Patient tolerated procedure: Patient tolerated procedure well Assessment/Plan Assessment: 1. Cat bite infection abscess dorsum left hand, ulnar aspect, with extension to small finger and wrist. 2. Suppurative extensor tenosynovitis dorsum left hand at wrist extensors tendon sheath involving compartments 2, 3, 4, 5, and 6 (ECRL, ECRB, EPL, EIP, EDC, EDM, ECU tendons). 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 4. s/p surgical preparation dorsum left hand, ulnar aspect, with extension to small finger and wrist with incision and drainage and excisional debridement cat bite infection abscess and fasciotomy dorsal interosseous muscles x4 left hand and radical extensor tenosynovectomy left wrist extensors tendon sheath for suppurative tenosynovitis involving compartment 2 (ECRL and ECRB tendons), compartment 3 (EPL tendon), compartment 4 (EDC and EIP tendons), compartment 5 (EDM tendon), and compartment 6 (ECU tendon). 5. Nonhealing cat bite ulcer dorsum left hand, ulnar. 6. Nonhealing cat bite ulcer dorsum left hand, radial. 7. Cat bite ulcer dorsum left hand at base of thumb, healed. Plan: Continue Celena dressing changes daily. Encourage range of motion exercises to minimize stiffness. Patient has declined OT for range of motion exercises, strengthening, and edema management. Operative culture showed Pasteurella multocida, Clostridium group, Porphyromonas uenonis, and Staphylococcus aureus. He was treated with Augmentin and has finished them. Prealbumin from 05/19/20 was 9.7. Encourage nutritional supplementation with protein to help the healing process. Followup 2 weeks. [id number]: [id number] Global Visit - ICD-10 - Z48.89, L98.495, W55.01xA, L02.512, L02.414, M65.132, T79.A12A
== END 2020-07-31 23:59 ==
LOC: WC 11:00
PROVIDERS: Referring Provider Family Medicine; Visit Provider Surgery
DX: S61.452A Open bite of left hand, initial encounter (principal); W55.01XA Bitten by cat, initial encounter; L02.512 Cutaneous abscess of left hand; M65.142 Other infective (teno)synovitis, left hand; T79.A12A Traumatic compartment syndrome of left upper extremity, initial encounter
CPT/HCPCS: 11043; 17250

== ENCOUNTER 2020-08-29 10:00 | Outpatient (RCR) | payer MEDICARE, OTHER, SELFPAY ==
[2020-08-01 00:30] VITALS: BP 110/80; PULSE 113; RESP 18; TEMP 36.1
[2020-08-01 09:35] VITALS: BP 117/75; PULSE 103; RESP 16; TEMP 36; BMI 21.4
--- NOTE | 2020-08-01 12:36 | PN.PCM_ITS ---
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 Code(s): M65.132 - Other infective (teno)synovitis, left wrist (4) Abscess of skin of left wrist Status: Chronic Code(s): L02.414 - Cutaneous abscess of left upper limb (5) Extensor tenosynovitis of left wrist Status: Acute Code(s): M65.832 - Other synovitis and tenosynovitis, left forearm (6) Abscess of left hand including fingers Status: Acute Code(s): L02.512 - Cutaneous abscess of left hand (7) Cat bite of left hand Status: Acute Code(s): S61.452A - Open bite of left hand, initial encounter; W55.01XA - Bitten by cat, initial encounter (8) Physical debility Status: Chronic Code(s): R53.81 - Other malaise (9) Bipolar disorder Status: Chronic Code(s): F31.9 - Bipolar disorder, unspecified Type of Wound Date of Service: 08/01/20 Chief Complaint: Nonhealing cat bite ulcers left hand. History of Wound: The patient is a 84 year old M who was admitted on 05/18/20 with a worsening cat bite infection abscess dorsum left hand, ulnar aspect, with extension to the small finger and wrist. He states he was bitten 8 days before admission, and it was an outdoor feral cat. He noticed increasing redness and pain and swelling left hand which prompted his visit to the ED. His WBC was 14.9 and his Lactate was 2.0. Clinically he was septic and was started on Vancomycin, Clindamycin, and Unasyn. There was purulent drainage coming from the cat bite on the dorsum of his left hand. He has pain with movement of his small finger and his wrist. X-ray was done which showed dorsal soft tissue swelling with small amount of air/gas within the soft tissues. No radiopaque foreign body is seen.. Surgery on 05/18/20 - 1. Surgical preparation dorsum left hand, ulnar aspect, with extension to small finger and wrist with incision and drainage and excisional debridement cat bite infection abscess. 2. Fasciot jemma dorsal interosseous muscles x4 left hand. 3. Radical extensor tenosynovectomy left wrist extensors tendon sheath for suppurative tenosynovitis involving compartment 2 (ECRL and ECRB tendons), compartment 3 (EPL tendon), compartment 4 (EDC and EIP tendons), compartment 5 (EDM tendon), and compartment 6 (ECU tendon). Operative wound culture postive for Pasteurella multocida, Clostridium group and Porphyromonas uenonis. He is Currently taking Augmentin and probiotic. Wound care - Wash with soap and water daily before dressing change. Moistened Celena over ulcers. Today denies any fever, chills, nausea or vomiting. Patient was readmitted on 06/01/20 for shortness of breath and failure to thrive. He tested positive for Covid-19 pneumonia. He was discharged on 06/07/20 to [facility]. I received a phone call at the end of last week from the PA at the facility he is staying with concerns about the tendons being dry and black. He was on silver dressing changes at that time. After discussing wound care with the PA, it was decided to start Saline moistened gauze covered by dry gauze twice daily and I would do a virtual visit with him on Saturday (today). If there were any issues or concerns about the hand, they were to transfer the patient to the ED. Progress of Wound: Improved. The ulcer dorsum left hand at base of thumb is healed. The ulcer on left lateral hand is almost healed. - Physical Exam Vital Signs Temp Pulse Resp BP 96.8 F L 103 H 16 117/75 08/01/20 09:35 08/01/20 09:35 08/01/20 09:35 08/01/20 09:35 General: Alert, Cooperative, No apparent distress Oral: Moist Mucosa Lungs: Normal air movement Cardiovascular: Regular Rhythm Extremities: Capillary Refill Less than 3 Seconds Skin: Ulcer/ Wound - Left lateral hand ulcer is almost healed. Left medial hand ulcer is improved, but has hypergranulation on it. Wound Measurements and Assessment WC - Nurse 1 - General Ulcer Measurement Start: 08/01/20 09:34 Freq: Status: Active Protocol: Activity Type Activity Date Activity User E-Sign Co-Sign Detail Recorded Client Recorded Date Recorded By Document 08/01/20 09:35 [facility] [id number] 08/01/20 09:43 [facility] 08/01/20 09:35 Wound Center Nurse 1 [Ulcer Assessment] #3- L LATERAL Sup DORSAL HAND POST OP -Combined with other wound No -Current Size (cm) - Length 1.3 -Current Size (cm) - Width 0.2 -Current Size (cm) - Depth 0.2 -Total Square Cm 0.26 -Photo Taken No -Epithelialization Small 1-33% -Tunneling No -Undermining/Tunneling No -Circular Undermining No -Exudate Amt Small -Exudate Type Serosanguineous -Wound Margin Distinct, Outline Attached -Granulation Amt Small (1-33%) -Granulation Quality Red -Slough/Fibrin Yes -Necrosis Amt Medium (34-66%) -Necrotic Tissue Type Adherent Slough -Texture (Dixie-wound Skin Appearance) Assessed, Scarring -Moisture (Dixie-wound Skin Appearance Assessed,Dry/ ) Scaly -Color (Dixie-wound Skin Appearance) Assessed -Temperature (Dixie-wound Skin No Abnormality Appearance) (Pt Warm) -Tenderness on Palpation (Dixie-wound No Skin Appearance) -Ulcer Cleansing soapy water -Foul Odor after Cleansing No -Anesthetic Used 4% Lidocaine Solution left middle dorsal hand -Combined with other wound No -Current Size (cm) - Length 4.5 -Current Size (cm) - Width 1.5 -Current Size (cm) - Depth 0.1 -Total Square Cm 6.75 -Photo Taken No -Epithelialization Small 1-33% -Tunneling No -Undermining/Tunneling No -Circular Undermining No -Exudate Amt Medium -Exudate Type Serosanguineous -Wound Margin Distinct, Outline Attached -Granulation Amt Large (67-100%) -Granulation Quality Red -Slough/Fibrin Yes -Necrosis Amt Small (1-33%) -Necrotic Tissue Type Adherent Slough -Structure Exposed Tendon -Texture (Dixie-wound Skin Appearance) Assessed, Scarring -Moisture (Dixie-wound Skin Appearance Assessed,Dry/ ) Scaly -Color (Dixie-wound Skin Appearance) Assessed -Temperature (Dixie-wound Skin No Abnormality Appearance) (Pt Warm) -Tenderness on Palpation (Dixie-wound No Skin Appearance) -Ulcer Cleansing soapy water -Foul Odor after Cleansing No -Anesthetic Used 4% Lidocaine Solution WC - Nurse 2 - General Ulcer CM Notes Start: 08/01/20 09:34 Freq: Status: Active Protocol: Activity Type Activity Date Activity User E-Sign Co-Sign Detail Recorded Client Recorded Date Recorded By Document 08/01/20 10:13 ASHLEY [id number] 08/01/20 10:17 ASHLEY 08/01/20 10:13 Wound Center Nurse 2 [Procedure/Treatment] #3- L LATERAL Sup DORSAL HAND POST OP -Time 10:13 -Correct Patient Yes -Correct Side, Site, Position Yes -Correct Procedure Yes -Procedure Performed Yes -Type of Procedure Debridement -Clinical Debridement Subcutaneous -Tissue Removed Subcutaneous -Post Debridement (cm) - Length 1 -Post Debridement (cm) - Width 0.4 -Post Debridement (cm) - Depth 0.1 -Total Square (Post) (cm) 0.4 -Area of Debridement (cm) - Length 1 -Area of Debridement (cm) - Width 0.4 -Total Square (Area) (cm) 0.4 -Tunneling No -Undermining/Tunneling No -Circular Undermining No -Wound/Ulcer Outcome Not Healed -Ulcer Cleansing Rinsed/ Irrigated with Saline -Foul Odor after Cleansing No -Bioengineered Tissue No -Bleeding Controlled with Pressure -Offloading No -Treatment Response Procedure Tolerated Well -Debridement - Subq, 1st 20sq cm Yes left middle dorsal hand -Time 10:14 -Correct Patient Yes -Correct Side, Site, Position Yes -Correct Procedure Yes -Procedure Performed Yes -Type of Procedure Debridement -Clinical Debridement Subcutaneous -Tissue Removed Subcutaneous -Post Debridement (cm) - Length 4.2 -Post Debridement (cm) - Width 1.4 -Post Debridement (cm) - Depth 0.2 -Total Square (Post) (cm) 5.88 -Area of Debridement (cm) - Length 4.2 -Area of Debridement (cm) - Width 1.4 -Total Square (Area) (cm) 5.88 -Tunneling No -Undermining/Tunneling No -Circular Undermining No -Wound/Ulcer Outcome Not Healed -Ulcer Cleansing Rinsed/ Irrigated with Saline -Foul Odor after Cleansing No -Bioengineered Tissue No -Bleeding Controlled with Pressure -Offloading No -Treatment Response Procedure Tolerated Well -Debridement - Subq, 1st 20sq cm No [See Physician Procedure note for Specifics] Pain Scale: 0-10 Numeric [Pain] -Is Patient Pain Free? Yes - Nurse 3 - General Ulcer D/C NN Start: 08/01/20 09:34 Freq: Status: Active Protocol: Activity Type Activity Date Activity User E-Sign Co-Sign Detail Recorded Client Recorded Date Recorded By Document 08/01/20 10:27 MS [id number] 08/01/20 10:30 MS 08/01/20 10:27 Wound Care Nurse 3 [Wound Dressing] #3- L LATERAL Sup DORSAL HAND POST OP -Ulcer Cleansing Rinsed/ Irrigated with Saline -Foul Odor after Cleansing No -Primary Dressing Applied Promogran Celena Matter -Primary Dressing Covered/Secured Dry Gauze, with Secured with Tape -Promogran Celena Matter 1 left middle dorsal hand -Ulcer Cleansing Rinsed/ Irrigated with Saline -Primary Dressing Applied Promogran Celena Matter -Primary Dressing Covered/Secured Dry Gauze, with Secured with Tape -Promogran Celena Matter 0 - Visit Discharge [Visit Discharge Information] -Discharge Condition Stable -Ambulatory Status Ambulatory Musculoskeletal: No Tenderness to Palpation of Joints or Extremities, - - Left hand is very stiff. Unable to make a fist. His PIP and DIP joints in his left fingers move easily passively. His left long finger MC joint does not move as well as the other MC joints in his left hand. Neurological: Cranial nerves II-XII grossly intact Psych/Mental Status: Appropriate, Flat Affect Debridement Note Post-Debridement Measurements/Treatment WC - Nurse 2 - General Ulcer CM Notes Start: 08/01/20 09:34 Freq: Status: Active Protocol: Activity Type Activity Date Activity User E-Sign Co-Sign Detail Recorded Client Recorded Date Recorded By Document 08/01/20 10:13 [id number] 08/01/20 10:17 ASHLEY 08/01/20 10:13 Wound Center Nurse 2 #3- L LATERAL Sup DORSAL HAND POST OP -Time 10:13 -Correct Patient Yes -Correct Side, Site, Position Yes -Correct Procedure Yes -Procedure Performed Yes -Type of Procedure Debridement -Clinical Debridement Subcutaneous -Tissue Removed Subcutaneous -Post Debridement (cm) - Length 1 -Post Debridement (cm) - Width 0.4 -Post Debridement (cm) - Depth 0.1 -Total Square (Post) (cm) 0.4 -Area of Debridement (cm) - Length 1 -Area of Debridement (cm) - Width 0.4 -Total Square (Area) (cm) 0.4 -Tunneling No -Undermining/Tunneling No -Circular Undermining No -Wound/Ulcer Outcome Not Healed -Ulcer Cleansing Rinsed/ Irrigated with Saline -Foul Odor after Cleansing No -Bioengineered Tissue No -Bleeding Controlled with Pressure -Offloading No -Treatment Response Procedure Tolerated Well -Debridement - Subq, 1st 20sq cm Yes left middle dorsal hand -Time 10:14 -Correct Patient Yes -Correct Side, Site, Position Yes -Correct Procedure Yes -Procedure Performed Yes -Type of Procedure Debridement -Clinical Debridement Subcutaneous -Tissue Removed Subcutaneous -Post Debridement (cm) - Length 4.2 -Post Debridement (cm) - Width 1.4 -Post Debridement (cm) - Depth 0.2 -Total Square (Post) (cm) 5.88 -Area of Debridement (cm) - Length 4.2 -Area of Debridement (cm) - Width 1.4 -Total Square (Area) (cm) 5.88 -Tunneling No -Undermining/Tunneling No -Circular Undermining No -Wound/Ulcer Outcome Not Healed -Ulcer Cleansing Rinsed/ Irrigated with Saline -Foul Odor after Cleansing No -Bioengineered Tissue No -Bleeding Controlled with Pressure -Offloading No -Treatment Response Procedure Tolerated Well -Debridement - Subq, 1st 20sq cm No Pain Scale: 0-10 Numeric Is Patient Pain Free? Yes WC - Nurse 3 - General Ulcer D/C NN Start: 08/01/20 09:34 Freq: Status: Active Protocol: Activity Type Activity Date Activity User E-Sign Co-Sign Detail Recorded Client Recorded Date Recorded By Document 08/01/20 10:27 MS [id number] 08/01/20 10:30 MS 08/01/20 10:27 Wound Care Nurse 3 #3- L LATERAL Sup DORSAL HAND POST OP -Ulcer Cleansing Rinsed/ Irrigated with Saline -Foul Odor after Cleansing No -Primary Dressing Applied Promogran Celena Matter -Primary Dressing Covered/Secured with Dry Gauze, Secured with Tape -Promogran Celena Matter 1 left middle dorsal hand -Ulcer Cleansing Rinsed/ Irrigated with Saline -Primary Dressing Applied Promogran Celena Matter -Primary Dressing Covered/Secured with Dry Gauze, Secured with Tape -Promogran Celena Matter 0 WC - Visit Discharge Discharge Condition Stable Ambulatory Status Ambulatory Wound debrided: medial hand Laterality: Left Type of Debridement: Excisional debridement Anesthesia Used: 5% Lidocaine Gel Depth: Down to and including healthy tissue, in the subcutaneous layer Percentage of wound debrided: 100 Instrument Used: 5mm curette Tissue Removed: Subcutaneous and slough, with increased hyper granulation Severity: Fat Layer Exposed Amount of bleeding with debridement: Mild Bleeding Controlled with: Pressure, Compression and gauze Patient tolerated procedure well - Additional Wound Wound debrided: Lateral hand ulcer Laterality: Left Type of Debridement: Excisional debridement Anesthesia Used: 5% Lidocaine Gel Depth: Down to and including healthy tissue, in the subcutaneous layer Percentage of wound debrided: 100 Instrument Used: 5mm curette Tissue Removed: Subcutaneous tissue and slough Severity: Limited To Skin Breakdown Amount of bleeding with debridement: Mild Bleeding Controlled with: Pressure Patient tolerated procedure: Patient tolerated procedure well Assessment/Plan Active Problems 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 Cat bite infection abscess dorsum left hand, ulnar aspect, with extension to small finger and wrist. 2. Suppurative extensor tenosynovitis dorsum left hand at wrist extensors tendon sheath involving compartments 2, 3, 4, 5, and 6 (ECRL, ECRB, EPL, EIP, EDC, EDM, ECU tendons). 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 4. s/p surgical preparation dorsum left hand, ulnar aspect, with extension to small finger and wrist with incision and drainage and excisional debridement cat bite infection abscess and fasciotomy dorsal interosseous muscles x4 left hand and radical extensor tenosynovectomy left wrist extensors tendon sheath for suppurative tenosynovitis involving compartment 2 (ECRL and ECRB tendons), compartment 3 (EPL tendon), compartment 4 (EDC and EIP tendons), compartment 5 (EDM tendon), and compartment 6 (ECU tendon). 5. Nonhealing cat bite ulcer dorsum left hand, ulnar. 6. Nonhealing cat bite ulcer dorsum left hand, radial. 7. Cat bite ulcer dorsum left hand at base of thumb, healed. Plan: Continue moistened Celena dressing changes daily. Encourage range of motion exercises to minimize stiffness. Discussed doing passive range of motion to all his left hand fingers. Patient continues to decline OT for range of motion exercises, strengthening, and edema management. Operative culture showed Pasteurella multocida, Clostridium group, Porphyromonas uenonis, and Staphylococcus aureus. He was treated with Augmentin and has finished them. Prealbumin from 05/19/20 was 9.7. Encourage nutritional supplementation with protein to help the healing process. Followup 2 weeks. [id number]: [id number] Global Visit
[2020-08-15 09:48] VITALS: BP 113/71; PULSE 84; RESP 16; TEMP 35.6; BMI 21.4
--- NOTE | 2020-08-15 14:43 | PN.PCM_ITS ---
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 Code(s): M65.132 - Other infective (teno)synovitis, left wrist (4) Abscess of skin of left wrist Status: Chronic Code(s): L02.414 - Cutaneous abscess of left upper limb (5) Extensor tenosynovitis of left wrist Status: Acute Code(s): M65.832 - Other synovitis and tenosynovitis, left forearm (6) Abscess of left hand including fingers Status: Acute Code(s): L02.512 - Cutaneous abscess of left hand (7) Cat bite of left hand Status: Acute Code(s): S61.452A - Open bite of left hand, initial encounter; W55.01XA - Bitten by cat, initial encounter (8) Physical debility Status: Chronic Code(s): R53.81 - Other malaise (9) Bipolar disorder Status: Chronic Code(s): F31.9 - Bipolar disorder, unspecified Type of Wound Date of Service: 08/15/20 Chief Complaint: Nonhealing cat bite ulcers left hand. History of Wound: The patient is a 84 year old M who was admitted on 05/18/20 with a worsening cat bite infection abscess dorsum left hand, ulnar aspect, with extension to the small finger and wrist. He states he was bitten 8 days before admission, and it was an outdoor feral cat. He noticed increasing redness and pain and swelling left hand which prompted his visit to the ED. His WBC was 14.9 and his Lactate was 2.0. Clinically he was septic and was started on Vancomycin, Clindamycin, and Unasyn. There was purulent drainage coming from the cat bite on the dorsum of his left hand. He has pain with movement of his small finger and his wrist. X-ray was done which showed dorsal soft tissue swelling with small amount of air/gas within the soft tissues. No radiopaque foreign body is seen.. Surgery on 05/18/20 - 1. Surgical preparation dorsum left hand, ulnar aspect, with extension to small finger and wrist with incision and drainage and excisional debridement cat bite infection abscess. 2. Fasciot jemma dorsal interosseous muscles x4 left hand. 3. Radical extensor tenosynovectomy left wrist extensors tendon sheath for suppurative tenosynovitis involving compartment 2 (ECRL and ECRB tendons), compartment 3 (EPL tendon), compartment 4 (EDC and EIP tendons), compartment 5 (EDM tendon), and compartment 6 (ECU tendon). Operative wound culture postive for Pasteurella multocida, Clostridium group and Porphyromonas uenonis. He is Currently taking Augmentin and probiotic. Wound care - Wash with soap and water daily before dressing change. Moistened Celena over ulcers. Today denies any fever, chills, nausea or vomiting. Patient was readmitted on 06/01/20 for shortness of breath and failure to thrive. He tested positive for Covid-19 pneumonia. He was discharged on 06/07/20 to [facility]. I received a phone call at the end of last week from the PA at the facility he is staying with concerns about the tendons being dry and black. He was on silver dressing changes at that time. After discussing wound care with the PA, it was decided to start Saline moistened gauze covered by dry gauze twice daily and I would do a virtual visit with him on Saturday (today). If there were any issues or concerns about the hand, they were to transfer the patient to the ED. Progress of Wound: Improved. The ulcer dorsum left hand at base of thumb is healed and the left lateral hand ulcer is healed. - Physical Exam Vital Signs Temp Pulse Resp BP 96.1 F L 84 16 113/71 08/15/20 09:48 08/15/20 09:48 08/15/20 09:48 08/15/20 09:48 General: Alert, Cooperative HEENT: Atraumatic Oral: Moist Mucosa Lungs: Normal air movement Cardiovascular: Regular rate Extremities: Capillary Refill Less than 3 Seconds, Peripheral Pulses Normal, - - Left hand range of motion is improving. He is able to make a loose fist. He has weak dice manager strength on the left. He is able to touch his thumb to each fingertip. Skin: Ulcer/ Wound - Left dorsal medial hand ulcer is pink and decreasing in size. Left lateral hand ulcer is healed today Wound Measurements and Assessment WC - Nurse 1 - General Ulcer Measurement Start: 08/01/20 09:34 Freq: Status: Active Protocol: Activity Type Activity Date Activity User E-Sign Co-Sign Detail Recorded Client Recorded Date Recorded By Document 08/15/20 09:48 [facility] [id number] 08/15/20 09:58 [facility] 08/15/20 09:48 Wound Center Nurse 1 [Ulcer Assessment] #3- L LATERAL Sup DORSAL HAND POST OP -Combined with other wound No -Current Size (cm) - Length 0.1 -Current Size (cm) - Width 0.1 -Current Size (cm) - Depth 0.1 -Total Square Cm 0.01 -Epithelialization Large 67-100% -Tunneling No -Undermining/Tunneling No -Circular Undermining No -Texture (Dixie-wound Skin Appearance) Assessed, Scarring -Moisture (Dixie-wound Skin Appearance Assessed ) -Color (Dixie-wound Skin Appearance) Assessed -Temperature (Dixie-wound Skin No Abnormality Appearance) (Pt Warm) -Ulcer Cleansing soapy water -Foul Odor after Cleansing No #2 leftdorsal post hand -Combined with other wound No -Current Size (cm) - Length 3.4 -Current Size (cm) - Width 1.3 -Current Size (cm) - Depth 0.1 -Total Square Cm 4.42 -Photo Taken No -Epithelialization Small 1-33% -Tunneling No -Undermining/Tunneling No -Circular Undermining No -Exudate Amt Medium -Exudate Type Serosanguineous -Wound Margin Distinct, Outline Attached -Granulation Amt Large (67-100%) -Granulation Quality Red -Slough/Fibrin Yes -Necrosis Amt Small (1-33%) -Necrotic Tissue Type Adherent Slough -Structure Exposed Tendon -Texture (Dixie-wound Skin Appearance) Assessed -Moisture (Dixie-wound Skin Appearance Assessed ) -Color (Dixie-wound Skin Appearance) Assessed -Temperature (Dixie-wound Skin No Abnormality Appearance) (Pt Warm) -Tenderness on Palpation (Dixie-wound No Skin Appearance) -Ulcer Cleansing soapy water -Foul Odor after Cleansing No -Anesthetic Used 5% Lidocaine Gel WC - Nurse 2 - General Ulcer CM Notes Start: 08/01/20 09:34 Freq: Status: Active Protocol: Activity Type Activity Date Activity User E-Sign Co-Sign Detail Recorded Client Recorded Date Recorded By Document 08/15/20 10:14 [id number] 08/15/20 10:18 ASHLEY 08/15/20 10:14 Wound Center Nurse 2 [Procedure/Treatment] #3- L LATERAL Sup DORSAL HAND POST OP -Correct Patient No -Correct Side, Site, Position No -Correct Procedure No -Procedure Performed No -Post Debridement (cm) - Length 0 -Post Debridement (cm) - Width 0 -Post Debridement (cm) - Depth 0 -Total Square (Post) (cm) 0 -Area of Debridement (cm) - Length 0 -Area of Debridement (cm) - Width 0 -Total Square (Area) (cm) 0 -Wound/Ulcer Outcome Healed- Epithelialized #2 leftdorsal post hand -Time 10:14 -Correct Patient Yes -Correct Side, Site, Position Yes -Correct Procedure Yes -Procedure Performed Yes -Type of Procedure Debridement -Clinical Debridement Subcutaneous -Tissue Removed Subcutaneous -Post Debridement (cm) - Length 3.2 -Post Debridement (cm) - Width 1.5 -Post Debridement (cm) - Depth 0.1 -Total Square (Post) (cm) 4.80 -Area of Debridement (cm) - Length 3.2 -Area of Debridement (cm) - Width 1.5 -Total Square (Area) (cm) 4.80 -Tunneling No -Undermining/Tunneling No -Circular Undermining No -Wound/Ulcer Outcome Not Healed -Ulcer Cleansing Rinsed/ Irrigated with Saline -Foul Odor after Cleansing No -Bioengineered Tissue No -Bleeding Controlled with Pressure -Offloading No -Treatment Response Procedure Tolerated Well -Debridement - Subq, 1st 20sq cm Yes [See Physician Procedure note for Specifics] Pain Scale: 0-10 Numeric [Pain] -Is Patient Pain Free? Yes WC - Nurse 3 - General Ulcer D/C NN Start: 08/01/20 09:34 Freq: Status: Active Protocol: Activity Type Activity Date Activity User E-Sign Co-Sign Detail Recorded Client Recorded Date Recorded By Document 08/15/20 10:34 [facility] [id number] 08/15/20 10:35 [facility] 08/15/20 10:34 Wound Care Nurse 3 [Wound Dressing] #2 leftdorsal post hand -Ulcer Cleansing Rinsed/ Irrigated with Saline -Foul Odor after Cleansing No -Primary Dressing Applied NonAdherent Contact Layer, Promogran Celena Matter -Primary Dressing Covered/Secured Dry Gauze & with Roll Gauze, Secured with Tape -Promogran Celena Matter 1 [Compression Applied] Left -Compression Wrap Theodore Wrap -Other theodore to secure drsg [Post Procedure Tolerated] -Treatment Response Procedure Tolerated Well Pain Scale: 0-10 Numeric [Pain] -Is Patient Pain Free? Yes - Visit Discharge [Visit Discharge Information] -Discharge Condition Stable -Ambulatory Status Ambulatory -Transportation Private Auto -Accompanied by [Facility Notification] -Facility Type Home Health Musculoskeletal: No Tenderness to Palpation of Joints or Extremities Neurological: Cranial nerves II-XII grossly intact Psych/Mental Status: Normal Affect, Appropriate Debridement Note Post-Debridement Measurements/Treatment - Nurse 2 - General Ulcer CM Notes Start: 08/01/20 09:34 Freq: Status: Active Protocol: Activity Type Activity Date Activity User E-Sign Co-Sign Detail Recorded Client Recorded Date Recorded By Document 08/01/20 10:13 [id number] 08/01/20 10:17 Document 08/15/20 10:14 [id number] 08/15/20 10:18 08/01/20 08/15/20 10:13 10:14 Wound Center Nurse 2 #3- L LATERAL Sup DORSAL HAND POST OP -Time 10:13 -Correct Patient Yes No -Correct Side, Site, Position Yes No -Correct Procedure Yes No -Procedure Performed Yes No -Type of Procedure Debridement -Clinical Debridement Subcutaneous -Tissue Removed Subcutaneous -Post Debridement (cm) - Length 1 0 -Post Debridement (cm) - Width 0.4 0 -Post Debridement (cm) - Depth 0.1 0 -Total Square (Post) (cm) 0.4 0 -Area of Debridement (cm) - Length 1 0 -Area of Debridement (cm) - Width 0.4 0 -Total Square (Area) (cm) 0.4 0 -Tunneling No -Undermining/Tunneling No -Circular Undermining No -Wound/Ulcer Outcome Not Healed Healed- Epithelialized -Ulcer Cleansing Rinsed/ Irrigated with Saline -Foul Odor after Cleansing No -Bioengineered Tissue No -Bleeding Controlled with Pressure -Offloading No -Treatment Response Procedure Tolerated Well -Debridement - Subq, 1st 20sq cm Yes #2 leftdorsal post hand -Time 10:14 10:14 -Correct Patient Yes Yes -Correct Side, Site, Position Yes Yes -Correct Procedure Yes Yes -Procedure Performed Yes Yes -Type of Procedure Debridement Debridement -Clinical Debridement Subcutaneous Subcutaneous -Tissue Removed Subcutaneous Subcutaneous -Post Debridement (cm) - Length 4.2 3.2 -Post Debridement (cm) - Width 1.4 1.5 -Post Debridement (cm) - Depth 0.2 0.1 -Total Square (Post) (cm) 5.88 4.80 -Area of Debridement (cm) - Length 4.2 3.2 -Area of Debridement (cm) - Width 1.4 1.5 -Total Square (Area) (cm) 5.88 4.80 -Tunneling No No -Undermining/Tunneling No No -Circular Undermining No No -Wound/Ulcer Outcome Not Healed Not Healed -Ulcer Cleansing Rinsed/ Rinsed/ Irrigated with Irrigated with Saline Saline -Foul Odor after Cleansing No No -Bioengineered Tissue No No -Bleeding Controlled with Pressure Pressure -Offloading No No -Treatment Response Procedure Procedure Tolerated Well Tolerated Well -Debridement - Subq, 1st 20sq cm No Yes Pain Scale: 0-10 Numeric Is Patient Pain Free? Yes Yes - Nurse 3 - General Ulcer D/C NN Start: 08/01/20 09:34 Freq: Status: Active Protocol: Activity Type Activity Date Activity User E-Sign Co-Sign Detail Recorded Client Recorded Date Recorded By Document 08/01/20 10:27 AL [id number] 08/01/20 10:30 MS Document 08/15/20 10:34 [facility] [id number] 08/15/20 10:35 [facility] 08/01/20 08/15/20 10:27 10:34 Wound Care Nurse 3 #3- L LATERAL Sup DORSAL HAND POST OP -Ulcer Cleansing Rinsed/ Irrigated with Saline -Foul Odor after Cleansing No -Primary Dressing Applied Promogran Celena Matter -Primary Dressing Covered/Secured with Dry Gauze, Secured with Tape -Promogran Celena Matter 1 #2 leftdorsal post hand -Ulcer Cleansing Rinsed/ Rinsed/ Irrigated with Irrigated with Saline Saline -Foul Odor after Cleansing No -Primary Dressing Applied Promogran NonAdherent Celena Matter Contact Layer, Promogran Celena Matter -Primary Dressing Covered/Secured with Dry Gauze, Dry Gauze & Secured with Roll Gauze, Tape Secured with Tape -Promogran Celena Matter 0 1 Left -Compression Wrap Theodore Wrap -Other theodore to secure drsg Treatment Response Procedure Tolerated Well Pain Scale: 0-10 Numeric Is Patient Pain Free? Yes WC - Visit Discharge Discharge Condition Stable Stable Ambulatory Status Ambulatory Ambulatory Transportation Private Auto Accompanied by Facility Type Home Health Wound debrided: Medial hand ulcer Laterality: Left Type of Debridement: Excisional debridement Anesthesia Used: 5% Lidocaine Gel Depth: Down to and including healthy tissue, in the subcutaneous layer Percentage of wound debrided: 100 Instrument Used: 5mm curette Tissue Removed: Subcutaneous tissue and slough Severity: Fat Layer Exposed Amount of bleeding with debridement: Mild Bleeding Controlled with: Pressure Patient tolerated procedure well Assessment/Plan Active Problems 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 Cat bite infection abscess dorsum left hand, ulnar aspect, with extension to small finger and wrist. 2. Suppurative extensor tenosynovitis dorsum left hand at wrist extensors tendon sheath involving compartments 2, 3, 4, 5, and 6 (ECRL, ECRB, EPL, EIP, EDC, EDM, ECU tendons). 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 4. s/p surgical preparation dorsum left hand, ulnar aspect, with extension to small finger and wrist with incision and drainage and excisional debridement cat bite infection abscess and fasciotomy dorsal interosseous muscles x4 left hand and radical extensor tenosynovectomy left wrist extensors tendon sheath for suppurative tenosynovitis involving compartment 2 (ECRL and ECRB tendons), compartment 3 (EPL tendon), compartment 4 (EDC and EIP tendons), compartment 5 (EDM tendon), and compartment 6 (ECU tendon). 5. Nonhealing cat bite ulcer dorsum left hand, ulnar. 6. Nonhealing cat bite ulcer dorsum left hand, radial. 7. Cat bite ulcer dorsum left hand at base of thumb, healed. Plan: Continue moistened Celena covered by Adaptic dressing changes daily. Encourage range of motion exercises to minimize stiffness. Discussed doing passive range of motion to all his left hand fingers. Patient continues to decline OT for range of motion exercises, strengthening, and edema management. Operative culture showed Pasteurella multocida, Clostridium group, Porphyromonas uenonis, and Staphylococcus aureus. He was treated with Augmentin and has finished them. Prealbumin from 05/19/20 was 9.7. Encourage nutritional supplementation with protein to help the healing process. Followup 2 weeks. [id number]: [id number] Global Visit
[2020-08-29 10:10] VITALS: BP 99/67; PULSE 77; RESP 18; TEMP 36.2; BMI 21.4
--- NOTE | 2020-08-29 11:28 | PCM.WC.PN ---
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 Code(s): M65.132 - Other infective (teno)synovitis, left wrist (4) Abscess of skin of left wrist Status: Chronic Code(s): L02.414 - Cutaneous abscess of left upper limb (5) Extensor tenosynovitis of left wrist Status: Acute Code(s): M65.832 - Other synovitis and tenosynovitis, left forearm (6) Abscess of left hand including fingers Status: Acute Code(s): L02.512 - Cutaneous abscess of left hand (7) Cat bite of left hand Status: Acute Code(s): S61.452A - Open bite of left hand, initial encounter; W55.01XA - Bitten by cat, initial encounter (8) Physical debility Status: Chronic Code(s): R53.81 - Other malaise (9) Bipolar disorder Status: Chronic Code(s): F31.9 - Bipolar disorder, unspecified Type of Wound Date of Service: 08/29/20 Chief Complaint: Nonhealing cat bite ulcers left hand. History of Wound: The patient is a 85 year old M who was admitted on 05/18/20 with a worsening cat bite infection abscess dorsum left hand, ulnar aspect, with extension to the small finger and wrist. He states he was bitten 8 days before admission, and it was an outdoor feral cat. He noticed increasing redness and pain and swelling left hand which prompted his visit to the ED. His WBC was 14.9 and his Lactate was 2.0. Clinically he was septic and was started on Vancomycin, Clindamycin, and Unasyn. There was purulent drainage coming from the cat bite on the dorsum of his left hand. He has pain with movement of his small finger and his wrist. X-ray was done which showed dorsal soft tissue swelling with small amount of air/gas within the soft tissues. No radiopaque foreign body is seen.. Surgery on 05/18/20 - 1. Surgical preparation dorsum left hand, ulnar aspect, with extension to small finger and wrist with incision and drainage and excisional debridement cat bite infection abscess. 2. Fasciotomy dorsal interosseous muscles x4 left hand. 3. Radical extensor tenosynovectomy left wrist extensors tendon sheath for suppurative tenosynovitis involving compartment 2 (ECRL and ECRB tendons), compartment 3 (EPL tendon), compartment 4 (EDC and EIP tendons), compartment 5 (EDM tendon), and compartment 6 (ECU tendon). Operative wound culture postive for Pasteurella multocida, Clostridium group and Porphyromonas uenonis. He is Currently taking Augmentin and probiotic. Wound care - Wash with soap and water daily before dressing change. Moistened Celena over medial hand ulcer, the laterals proximal to left small finger and thumb are healed. Today denies any fever, chills, nausea or vomiting. Patient was readmitted on 06/01/20 for shortness of breath and failure to thrive. He tested positive for Covid-19 pneumonia. He was discharged on 06/07/20 to [facility]. I received a phone call at the end of last week from the PA at the facility he is staying with concerns about the tendons being dry and black. He was on silver dressing changes at that time. After discussing wound care with the PA, it was decided to start Saline moistened gauze covered by dry gauze twice daily and I would do a virtual visit with him on Saturday (today). If there were any issues or concerns about the hand, they were to transfer the patient to the ED. Progress of Wound: Improved. The ulcer dorsum left hand at base of thumb is healed and the left lateral hand ulcer is healed. - Physical Exam Vital Signs Temp Pulse Resp BP 97.1 F L 77 18 99/67 08/29/20 10:10 08/29/20 10:10 08/29/20 10:10 08/29/20 10:10 General: Alert, Oriented x3 HEENT: Atraumatic Oral: Moist Mucosa Lungs: Normal air movement Cardiovascular: Regular rate Extremities: Capillary Refill Less than 3 Seconds Skin: Ulcer/ Wound - Left medial hand ulcer decreasing in size, base of wound beefy pink. Wound Measurements and Assessment WC - Nurse 1 - General Ulcer Measurement Start: 08/01/20 09:34 Freq: Status: Active Protocol: Activity Type Activity Date Activity User E-Sign Co-Sign Detail Recorded Client Recorded Date Recorded By Document 08/29/20 10:10 [email or web address] [id number] 08/29/20 10:16 DL 08/29/20 10:10 Wound Center Nurse 1 [Ulcer Assessment] #2 leftdorsal post hand -Current Size (cm) - Length 1.8 -Current Size (cm) - Width 0.3 -Current Size (cm) - Depth 0.1 -Total Square Cm 0.54 -Photo Taken No -Exudate Amt None Present -Wound Margin Flat & Intact -Granulation Amt Large (67-100%) -Granulation Quality [place] -Necrosis Amt Small (1-33%) -Necrotic Tissue Type Adherent Slough -Structure Exposed N/A -Texture (Dixie-wound Skin Appearance) Scarring -Moisture ([place]ixie-wound Skin Appearance No Abnormality ) -Color (Dixie-wound Skin Appearance) No Abnormality -Temperature ([place]ixie-wound Skin No Abnormality Appearance) (Pt Warm) -Tenderness on Palpation (Dixie-wound No Skin Appearance) -Ulcer Cleansing Wound Cleanser -Foul Odor after Cleansing No -Anesthetic Used 4% Lidocaine Solution SANDRA - Nurse 2 - General Ulcer CM Notes Start: 08/01/20 09:34 Freq: Status: Active Protocol: Activity Type Activity Date Activity User E-Sign Co-Sign Detail Recorded Client Recorded Date Recorded By Document 08/29/20 10:33 ASHLEY [id number] 08/29/20 10:35 ASHLEY 08/29/20 10:33 Wound Center Nurse 2 [Procedure/Treatment] -Time 10:33 -Correct Patient Yes -Correct Side, Site, Position Yes -Correct Procedure Yes -Procedure Performed Yes -Type of Procedure Debridement -Clinical Debridement Subcutaneous -Tissue Removed Subcutaneous -Post Debridement (cm) - Length 1.1 -Post Debridement (cm) - Width 0.4 -Post Debridement (cm) - Depth 0.1 -Total Square (Post) (cm) 0.44 -Area of Debridement (cm) - Length 1.1 -Area of Debridement (cm) - Width 0.4 -Total Square (Area) (cm) 0.44 -Tunneling No -Undermining/Tunneling No -Circular Undermining No -Wound/Ulcer Outcome Not Healed -Ulcer Cleansing Rinsed/ Irrigated with Saline -Foul Odor after Cleansing No -Bioengineered Tissue No -Bleeding Controlled with Pressure -Offloading No -Treatment Response Procedure Tolerated Well -Debridement - Subq, 1st 20sq cm Yes [See Physician Procedure note for Specifics] Pain Scale: 0-10 Numeric [Pain] -Is Patient Pain Free? Yes - Nurse 3 - General Ulcer D/C NN Start: 08/01/20 09:34 Freq: Status: Active Protocol: Activity Type Activity Date Activity User E-Sign Co-Sign Detail Recorded Client Recorded Date Recorded By Document 08/29/20 10:50 [facility] [id number] 08/29/20 10:51 [facility] 08/29/20 10:50 Wound Care Nurse 3 [Wound Dressing] #2 leftdorsal post hand -Ulcer Cleansing Rinsed/ Irrigated with Saline -Foul Odor after Cleansing No -Primary Dressing Applied C Hydrogel ($), NonAdherent Contact Layer -Primary Dressing Covered/Secured Dry Gauze, with Secured with Tape,Other -Other Covering theodore to secure [Compression Applied] Left -Compression Wrap Theodore Wrap -Other theodore to secure [Post Procedure Tolerated] -Treatment Response Procedure Tolerated Well Pain Scale: 0-10 Numeric [Pain] -Is Patient Pain Free? Yes - Visit Discharge [Visit Discharge Information] -Discharge Condition Stable -Ambulatory Status Ambulatory -Transportation Private Auto -Accompanied by Musculoskeletal: No Tenderness to Palpation of Joints or Extremities - Range of motion of left hand and fingers is improving. 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 Neurological: Cranial nerves II-XII grossly intact Psych/Mental Status: Normal Affect, Appropriate Debridement Note Post-Debridement Measurements/Treatment - Nurse 2 - General Ulcer CM Notes Start: 08/01/20 09:34 Freq: Status: Active Protocol: Activity Type Activity Date Activity User E-Sign Co-Sign Detail Recorded Client Recorded Date Recorded By Document 08/01/20 10:13 [id number] 08/01/20 10:17 Document 08/15/20 10:14 [id number] 08/15/20 10:18 Document 08/29/20 10:33 [id number] 08/29/20 10:35 08/01/20 08/15/20 08/29/20 10:13 10:14 10:33 Wound Center Nurse 2 #3- L LATERAL Sup DORSAL HAND POST OP -Time 10:13 -Correct Patient Yes No -Correct Side, Site, Position Yes No -Correct Procedure Yes No -Procedure Performed Yes No -Type of Procedure Debridement -Clinical Debridement Subcutaneous -Tissue Removed Subcutaneous -Post Debridement (cm) - Length 1 0 -Post Debridement (cm) - Width 0.4 0 -Post Debridement (cm) - Depth 0.1 0 -Total Square (Post) (cm) 0.4 0 -Area of Debridement (cm) - Length 1 0 -Area of Debridement (cm) - Width 0.4 0 -Total Square (Area) (cm) 0.4 0 -Tunneling No -Undermining/Tunneling No -Circular Undermining No -Wound/Ulcer Outcome Not Healed Healed- Epithelialized -Ulcer Cleansing Rinsed/ Irrigated with Saline -Foul Odor after Cleansing No -Bioengineered Tissue No -Bleeding Controlled with Pressure -Offloading No -Treatment Response Procedure Tolerated Well -Debridement - Subq, 1st 20sq cm Yes #2 leftdorsal post hand -Time 10:14 10:14 10:33 -Correct Patient Yes Yes Yes -Correct Side, Site, Position Yes Yes Yes -Correct Procedure Yes Yes Yes -Procedure Performed Yes Yes Yes -Type of Procedure Debridement Debridement Debridement -Clinical Debridement Subcutaneous Subcutaneous Subcutaneous -Tissue Removed Subcutaneous Subcutaneous Subcutaneous -Post Debridement (cm) - Length 4.2 3.2 1.1 -Post Debridement (cm) - Width 1.4 1.5 0.4 -Post Debridement (cm) - Depth 0.2 0.1 0.1 -Total Square (Post) (cm) 5.88 4.80 0.44 -Area of Debridement (cm) - Length 4.2 3.2 1.1 -Area of Debridement (cm) - Width 1.4 1.5 0.4 -Total Square (Area) (cm) 5.88 4.80 0.44 -Tunneling No No No -Undermining/Tunneling No No No -Circular Undermining No No No -Wound/Ulcer Outcome Not Healed Not Healed Not Healed -Ulcer Cleansing Rinsed/ Rinsed/ Rinsed/ Irrigated with Irrigated with Irrigated with Saline Saline Saline -Foul Odor after Cleansing No No No -Bioengineered Tissue No No No -Bleeding Controlled with Pressure Pressure Pressure -Offloading No No No -Treatment Response Procedure Procedure Procedure Tolerated Well Tolerated Well Tolerated Well -Debridement - Subq, 1st 20sq cm No Yes Yes Pain Scale: 0-10 Numeric Is Patient Pain Free? Yes Yes Yes - Nurse 3 - General Ulcer D/C NN Start: 08/01/20 09:34 Freq: Status: Active Protocol: Activity Type Activity Date Activity User E-Sign Co-Sign Detail Recorded Client Recorded Date Recorded By Document 08/01/20 10:27 MS [id number] 08/01/20 10:30 MS Document 08/15/20 10:34 [facility] [id number] 08/15/20 10:35 [facility] Document 08/29/20 10:50 [facility] [id number] 08/29/20 10:51 [facility] 08/01/20 08/15/20 08/29/20 10:27 10:34 10:50 Wound Care Nurse 3 #3- L LATERAL Sup DORSAL HAND POST OP -Ulcer Cleansing Rinsed/ Irrigated with Saline -Foul Odor after Cleansing No -Primary Dressing Applied Promogran Celena Matter -Primary Dressing Covered/Secured with Dry Gauze, Secured with Tape -Promogran Celena Matter 1 #2 leftdorsal post hand -Ulcer Cleansing Rinsed/ Rinsed/ Rinsed/ Irrigated with Irrigated with Irrigated with Saline Saline Saline -Foul Odor after Cleansing No No -Primary Dressing Applied Promogran NonAdherent C Hydrogel ($), Celena Matter Contact Layer, NonAdherent Promogran Contact Layer Celena Matter -Primary Dressing Covered/Secured with Dry Gauze, Dry Gauze & Dry Gauze, Secured with Roll Gauze, Secured with Tape Secured with Tape,Other Tape -Other Covering theodore to secure -Promogran Celena Matter 0 1 Left -Compression Wrap Theodore Wrap Theodore Wrap -Other theodore to secure theodore to secure drsg Treatment Response Procedure Procedure Tolerated Well Tolerated Well Pain Scale: 0-10 Numeric Is Patient Pain Free? Yes Yes WC - Visit Discharge Discharge Condition Stable Stable Stable Ambulatory Status Ambulatory Ambulatory Ambulatory Transportation Private Auto Private Auto Accompanied by Facility Type Home Health Wound debrided: Medial hand ulcer Laterality: Left Type of Debridement: Excisional debridement Anesthesia Used: 5% Lidocaine Gel Depth: Down to and including healthy tissue, in the subcutaneous layer Percentage of wound debrided: 100 Instrument Used: 3mm curette Tissue Removed: Subcutaneous tissue and slough Severity: Fat Layer Exposed Amount of bleeding with debridement: Mild Bleeding Controlled with: Pressure, Compression and gauze Patient tolerated procedure well Assessment/Plan Active Problems 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 Cat bite infection abscess dorsum left hand, ulnar aspect, with extension to small finger and wrist. 2. Suppurative extensor tenosynovitis dorsum left hand at wrist extensors tendon sheath involving compartments 2, 3, 4, 5, and 6 (ECRL, ECRB, EPL, EIP, EDC, EDM, ECU tendons). 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 4. s/p surgical preparation dorsum left hand, ulnar aspect, with extension to small finger and wrist with incision and drainage and excisional debridement cat bite infection abscess and fasciotomy dorsal interosseous muscles x4 left hand and radical extensor tenosynovectomy left wrist extensors tendon sheath for suppurative tenosynovitis involving compartment 2 (ECRL and ECRB tendons), compartment 3 (EPL tendon), compartment 4 (EDC and EIP tendons), compartment 5 (EDM tendon), and compartment 6 (ECU tendon). 5. Nonhealing cat bite ulcer dorsum left hand, ulnar. 6. Nonhealing cat bite ulcer dorsum left hand, radial. 7. Cat bite ulcer dorsum left hand at base of thumb, healed. Plan: Continue moistened Celena covered by Adaptic dressing changes daily to the remaining ulcer open on his medial left hand. Theodore wrap for compression. Encourage range of motion exercises to minimize stiffness. Discussed doing passive range of motion to all his left hand fingers. Patient continues to decline OT for range of motion exercises, strengthening, and edema management. Operative culture showed Pasteurella multocida, Clostridium group, Porphyromonas uenonis, and Staphylococcus aureus. He was treated with Augmentin and has finished them. Prealbumin from 05/19/20 was 9.7. Encourage nutritional supplementation with protein to help the healing process. Followup 2 weeks. [id number]: [id number] Roselia subq tissue 20 sq cm/<
== END 2020-08-31 23:59 ==
LOC: WC 10:00
PROVIDERS: Referring Provider Family Medicine; Visit Provider Surgery
DX: S61.452A Open bite of left hand, initial encounter (principal); W55.01XA Bitten by cat, initial encounter; T79.A12A Traumatic compartment syndrome of left upper extremity, initial encounter; M65.132 Other infective (teno)synovitis, left wrist; L02.414 Cutaneous abscess of left upper limb; L02.512 Cutaneous abscess of left hand; M65.832 Other synovitis and tenosynovitis, left forearm; Z86.16 Personal history of COVID-19
CPT/HCPCS: 11042

== ENCOUNTER → 2022-06-21 | Outpatient (CLI) | payer MEDICARE, OTHER, SELFPAY | END | disposition home or self-care (01) | LOC: LAB 09:24 | PROVIDERS: Visit Provider Urology | DX: N39.41 Urge incontinence (principal); Z12.5 Encounter for screening for malignant neoplasm of prostate | CPT/HCPCS: 36415; 84153; G0103 ==

== ENCOUNTER → 2022-07-02 | Outpatient (CLI) | payer MEDICARE, OTHER, SELFPAY | END | disposition home or self-care (01) | LOC: LABSPEC 16:38 | PROVIDERS: Referring Provider Urology; Visit Provider Urology | DX: R31.21 Asymptomatic microscopic hematuria (principal) | CPT/HCPCS: 87086; 87088; 87186 ==

== ENCOUNTER 2022-07-23 11:16 | Inpatient (IN) | payer MEDICARE, OTHER, SELFPAY ==
[2022-07-23 11:18] VITALS: PULSE 89; RESP 18; TEMP 36.7; O2SAT 98; BMI 22.1
--- NOTE | 2022-07-23 11:32 | EKG12_ITS ---
Test Reason : Blood Pressure : / mmHG Vent. Rate : 071 BPM Atrial Rate : 071 BPM P-R Int : 216 ms QRS Dur : 110 ms QT Int : 382 ms P-R-T Axes : 052 -69 073 degrees QTc Int : 415 ms Sinus rhythm with 1st degree A-V block Left anterior fascicular block Minimal voltage criteria for LVH, may be normal variant ( [place] product ) Anteroseptal infarct , age undetermined Abnormal ECG Confirmed by TYLER GIRON, ELZA ([id number]), editor trade journal FARHAT POLANCO ([id number]) on 07/24/2022 11:25:38 AM Referred By: SHELLY Confirmed By:ELZA SCOTT MD
[2022-07-23 11:59] LABS: Absolute Lymphocyte Count 1.99 X10^3/uL (0.83-4.51); Absolute Neutrophil Count 10.6 X10^3/uL (2.0-7.7); Basophil# 0.06 X10^3/uL; Basophil% 0.4 % (0-1); Eosinophil# 0.09 X10^3/uL; Eosinophils% 0.6 % (0-5); Hemoglobin 16.1 g/dL (13.0-16.5); Lymphocyte # 1.99 X10^3/ul (0.83-4.51); Lymphocyte % 14.3 % (19-41); Mean Corp Hgb Conc 32.2 g/dL (32-36); Mean Corpuscular Hgb 28.8 pg (27.0-32.0); Mean Corpuscular Volume 89.3 fL (80-94); Mean Platelet Vol. 9.8 fl (6.2-12.0); Monocyte# 1.14 X10^3/uL; Monocyte% 8.2 % (0-10); NRBC Flagged by Analyzer 0 % (0-5); Neutrophil # 10.57 X10^3/uL (2.7-7.7); Neutrophil % 75.9 % (47-70); Platelet Count 269 K/mm3 (150-450); RBC Distribution Width CV 13.2 % (11.6-14.6); RBC Distribution Width SD 42.6 fl (35.1-43.9); White Blood Count 13.9 K/mm3 (4.4-11.0)
[2022-07-23 12:10] VITALS: BP 125/84; BP 144/90; BP 151/85; PULSE 80; PULSE 85; PULSE 90
[2022-07-23] MEDS: 0.9% Normal Saline 1,000 ML 999 ML IV (12:15)
[2022-07-23 12:18] LABS: ALB/GLOB Ratio 1.1 RATIO (0.9-2.4); AST(SGOT) 53 U/L (15-37); Alanine Aminotransfer ALT/SGPT 47 U/L (16-61); Albumin, Serum 3.7 g/dL (3.2-5.0); Alkaline Phosphatase 161 U/L (45-117); Anion Gap 6 (5-15); BUN 40 mg/dL (7-18); BUN/Creat Ratio 31.7 RATIO (10-20); CPK Total, Creatine Kinase 433 U/L (39-308); Calcium,Total 9.7 mg/dL (8.5-10.1); Chloride 114 mmol/L (98-107); Creatinine, Serum 1.26 mg/dL (0.70-1.30); EST Glomerular Filtration Rate 58 mL/min (>60); Est Glom Filt Rate - Afr Amer 70 mL/min (>60); Globulin 3.4 g/dL (2.2-4.2); Glucose 115 mg/dL (74-106); Potassium 3.6 mmol/L (3.5-5.1); Protein, Total 7.1 g/dL (6.4-8.2); Sodium Level 146 mmol/L (136-145); Troponin-I HS 23 pg/mL (3.0-78.0)
[2022-07-23 13:10] LABS: Color, Urine Yellow (Yellow); Glucose, Dipstick Normal (Normal); Ketone-Dipstick 15 mg/dl (Negative); Leukocyte Esterase-Dipstick 25 /ul (Negative); Nitrite-Dipstick Negative (Negative); Occult Blood-Urine 10 /ul (Negative); Protein-Dipstick 30 mg/dl (Negative); Specific Gravity, Urine 1.015 (1.002-1.030); Urine Bilirubin Dipstick Negative (Negative); Urine Clarity Sl. Cloudy (Clear); Urine Urobilinogen Normal (Normal)
[2022-07-23 13:23] LABS: Bacteria 1+ /hpf (None Seen); Mucous, Urine 1+ /hpf (<or=2+); Red Blood Cells-Urine 0-5 SEEN /hpf (0-5); Squamous Epithelial Cells - UA 0-5 SEEN /hpf (0-5); White Blood Cells 0-5 SEEN /hpf (0-5)
--- NOTE | 2022-07-23 13:40 | EDS_ITS ---
HPI History of Present Illness Chief Complaint: Fall Detail of Chief Complaint: Mechanical fall and failure to thrive Informant: patient and EMS Onset/Context/Timing Onset: Yesterday (Patient states he rushed to the restroom. He had an accident and slipped on his stool.) Quality: Patient has been on the floor since 1300 yesterday July 22. Location: Home Current Severity: Mild Maximum Severity: Severe Worsened by: Nothing specific Relieved by: Nothing Associated Symptoms Associated Symptoms: Inability to rise from floor. Narrative Narrative: Patient is an 86-year-old male who was covered with feces. He is hard of hearing. He is not a good informant. He was found on the floor. He reports he has been on the floor since yesterday afternoon at 1300. He denies head trauma. He is not on anticoagulant or antithrombotic agent. He denies headache. He denies blurred vision, change in vision or loss of vision. Nu[place] ringing's ears or decreased hearing. Denies trouble with speech or swallowing. He denies chest pain, orthopnea or PND. He denies shortness of breath, cough or difficulty breathing. He denies abdominal pain, nausea or vomiting. He does endorse diarrhea. He denies urologic symptoms. He states his toes are always purple. Prior similar symptoms: No Recent Illness/Hospitalization: No PFSH PFSH Home Medications olanzapine 7.5 mg tablet (Zyprexa) 7.5 mg PO QHS MOOD 04/18/14 [History Last Taken 11/30/14] oxybutynin chloride 15 mg tablet,extended release 24 hr 15 mg PO QHS BLADDER 05/18/20 [History Last Taken Unknown] lactobacillus combination no.9 4 billion cell capsule (Adult 50 Plus Probiotic) 4,000 mmu cells PO DAILY #20 caps 05/30/20 [Rx Last Taken Unknown] amoxicillin 875 mg-potassium clavulanate 125 mg tablet 875 mg PO BID #14 tabs 06/07/20 [Rx Last Taken Unknown] apixaban 2.5 mg tablet 2.5 mg PO BID #28 tabs 06/07/20 [Rx Last Taken Unknown] Allergy/AdvReac Type Severity Reaction Status Date / Time No Known Allergies Allergy Verified 07/23/22 11:20 Social History (Updated 07/23/22 @ 13:[address] Anival Mensah MD) household members: none Smoking Status: Never smoker substance use type: does not use ROS ROS ED Constitutional Constitutional ED: Denies chills, fever(s), subjective, sweats or weight loss Eyes Eyes: Denies blurry vision, change in vision or diplopia ENT ENT ED: Denies ear pain, rhinorrhea or sore throat Cardiovascular Cardiovascular: Denies orthopnea or paroxysmal nocturnal dyspnea Respiratory/Chest Respiratory/Chest: Denies cough, dyspnea on exertion, orthopnea or paroxysmal nocturnal dyspnea Gastrointestinal Gastrointestinal: Reports diarrhea; Denies abdominal pain, melena, nausea or vomiting Genitourinary Genitourinary ED: Denies dysuria, hematuria or urinary frequency Musculoskeletal Musculoskeletal: Reports back pain; Denies arthralgias, myalgias or neck pain Integumentary Denies Abrasions or rash Neurologic Neurologic: Reports weakness; Denies headache(s) or paresthesias Endocrine Endocrinology: Denies cold intolerance or heat intolerance Hematologic/Lymphatic Hematologic/Lymphatic: Reports systems reviewed and no addt'l complaints, except as documented EXAM Physical Exam Const Vital Signs: 07/23/22 11:18 07/23/22 11:21 07/23/22 12:10 Temperature 98.1 F Temperature Source Oral Pulse Rate 89 Pulse Rate [Lying] 85 Pulse Rate [Sitting (for 1 minute prior to obtaining)] 90 Pulse Rate [Standing (for 1 minute prior to obtaining)] 80 Respiratory Rate 18 Respiratory Effort Normal Non-Labored Blood Pressure [Lying] 151/85 H Blood Pressure [Sitting (for 1 minute prior to obtaining)] 144/90 H Blood Pressure [Standing (for 1 minute prior to obtaining)] 125/84 H Blood Pressure Mean [Lying] 107 Blood Pressure Mean [Sitting (for 1 minute prior to obtaining)] 108 Blood Pressure Mean [Standing (for 1 minute prior to obtaining)] 97 Pulse Ox 98 Oxygen Delivery Method Room Air Positive well developed, cachectic and unkempt Constitutional Narrative: Patient does have acrocyanosis of his toes bilaterally General Appearance ED: unkempt, well developed, cachectic and NAD; Negative for cyanotic or diaphoretic Nutritional Appearance: cachectic HEENT Reports dry mucous membranes HEENT Narrative: Head is atraumatic normocephalic. Ears normal. Nares patent. Uvula midline. Mouth ED: Yes dry mucous membranes Mouth: dry mucous membranes Eyes PERRL and EOMs intact bilaterally General Eye ED: Negative for pale conjunctiva or scleral icterus Neck no lymphadenopathy and supple Chest Wall inspection of chest normal and palpation of chest normal Resp normal respiratory effort and clear to auscultation bilaterally Cardio regular rate, regular rhythm, S1 normal heart sound, S2 normal heart sound and no murmurs GI normal to inspection, nondistended, normoactive bowel sounds, non-tender, non- distended and no masses; Negative for hepatosplenomegaly Palpation: soft Narrative: Patient has excoriation of the scrotum. This is due to incontinence of urine and stool. There is no penile lesions noted. Testes are descended bilaterally. Back/Spine no CVA tenderness Cervical Spine: Negative for cervical spine tenderness Thoracic Spine / Upper Back: Negative for thoracic spinal tenderness Lumbar Spine / Lower Back: Negative for lumbar spinal tenderness Extremity Extremity Narrative: Cyanosis of his toes bilaterally. There is no palpable DP or PT pulse. Lower extremity exam is cool. Neuro oriented x3 and CN's II-XII intact bilaterally Neuro Narrative: He is awake but not alert. Psych mental status grossly normal Appearance: unkempt Skin No no rashes or lesions noted, No no wounds and No skin turgor normal General Skin Exam: Negative for elasticity normal or jaundice MDM MDM MDM Narrative Medical decision making narrative: Clinically patient is dehydrated. With him lying on the floor for 20 hours obtain CPK to evaluate for rhabdomyolysis. CBC was obtained assess white count differential and H&H. Comprehensive metabolic panel to assess electrolytes and His last admission was June 2020 for acute kidney injury and wound infection. Specifically sodium and chloride as well as BUN to creatinine ratio. UA was obtained to assess for ketones and specific gravity. IV normal saline was ordered 1 L. Since patient unable to care for himself and will need case management for home health versus skilled nursing care will contact hospitalist for admission. Daughter who is the POA has left. I did not opt to to speak with her since she was not seen here initially and left prior to me returning to the room. She believes her father needs to be placed in a skilled nursing. Lab Data Attestation: I reviewed the patient's lab results. Lab results narrative: White count is elevated with slight shift. There is no bandemia. H&H upper end of normal. We will need to compare to prior. Sodium is elevated 146 with a chloride of 1 4 teen at CPK is slightly elevated and nondiagnostic. Urinalysis is remarked for protein, ketones and occult blood as well as leukoesterase. Nitrites were negative. Microscopic reveals 0-5 RBCs, WBCs and squamous epithelial cells 1+ back. This may be due to the fact the patient penis and scrotum are covered with stool. Labs: Laboratory Results - last 24 hr 07/23/22 07/23/22 07/23/22 11:44 11:44 13:00 WBC 13.9 H RBC 5.60 Hgb 16.1 Hct 50.0 MCV 89.3 MCH 28.8 MCHC 32.2 RDW Std Deviation 42.6 RDW Coeff of Nahed 13.2 Plt Count 269 MPV 9.8 Immature Gran % (Auto) 0.600 Neut % (Auto) 75.9 H Lymph % (Auto) 14.3 L Lewis % (Auto) 8.2 Eos % (Auto) 0.6 Baso % (Auto) 0.4 Absolute Neuts (auto) 10.6 H Absolute Lymphs (auto) 1.99 Nucleated RBC % 0 Sodium 146 H Potassium 3.6 Chloride 114 H Carbon Dioxide 26.0 Anion Gap 6 BUN 40 H Creatinine 1.26 Estim Creat Clear Calc 45.80 Est GFR (MDRD) Af Amer 70 Est GFR (MDRD) Non-Af 58 L BUN/Creatinine Ratio 31.7 H Glucose 115 H Calcium 9.7 Total Bilirubin 1.00 AST 53 H ALT 47 Alkaline Phosphatase 161 H Total Creatine Kinase 433 H Troponin I High Sens 23 Total Protein 7.1 Albumin 3.7 Globulin 3.4 Albumin/Globulin Ratio 1.1 Urine Color Yellow Urine Clarity Sl. Cloudy Urine pH 6.0 Ur Specific [place] 1.015 Urine Protein 30 H Urine Glucose (UA) Normal Urine Ketones 15 H Urine Occult Blood 10 H Urine Nitrite Negative Urine Bilirubin Negative Urine Urobilinogen Normal Ur Leukocyte Esterase 25 H Urine RBC 0-5 SEEN Urine WBC 0-5 SEEN Ur Squamous Epith Cells 0-5 SEEN Urine Bacteria 1+ Urine Mucus 1+ Rhythm Strip Rhythm Strip: Sinus Rhythm Rate: 77 Ectopy: None EKG Initial EKG: Attestation: I personally reviewed and interpreted this EKG as follows: Interpretation: Sinus Rhythm (Rate is 71 with first-degree AV block. Parables 216 ms. Cures duration 110 ms. QT duration 382 ms. Wirtz to left. 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 There is no acute ischemic changes noted.) Discharge Plan Dx/Rx/DC Orders Clinical Impression: Acute prerenal azotemia, Bipolar disorder, Generalized weakness, Chemical derma titis, Leukocytosis, Acute hypernatremia, Accident due to mechanical fall without injury, Peripheral arterial disease, Skin lesion of back, Pressure sore on sacrum Disposition Disposition: Acute Care Hospital [facility]
--- NOTE | 2022-07-23 13:56 | CM.ED ---
Addendum entered by Amanda Field 07/23/22 18:15: GABRIELLA spoke with patient's daughter over the phone and informed her patient was admitted to med surge floor. GABRIELLA then reviewed list of SNF in network with patient's insurance near patient's home address. Patient's daughter report they do not want the [facility]. Patient's daughter states their first choice is [facility] as patient as been there before, second choice is [facility] and third choice is tie between [facility] [place] and [facility]. Patient's daughter reports the patient is currently prescribed the following medications: olanzapine 7.5 at bedtime, finasteride 5m daily and tamsulosin .4 at bedtime. GABRIELLA explained the SW on [place] floor will continue to assist them with discharge planning and reminded patient to contact [facility] to discuss an assessment for additional benefits/services. Patient's daughter reports no other questions. GABRIELLA informed MS rope makerJAZMINE Mortensen of medications reported by patient's daughter and explained it was documented in note. IRIS Fernandez Addendum entered by Amanda Field 07/23/22 17:04: GABRIELLA attempted to contact patient's daughter to provide her with update. SW left brief voicemail explaining the patient was admitted and would be in [id number]. GABRIELLA encouraged patient's daughter to give her a call back to review SNF list via phone, otherwise SW on floor would follow up with patient's daughter. IRIS Fernandez Addendum entered by Amanda Field 07/23/22 14:47: GABRIELLA left a VM for [facility] with [facility] requesting a return phone call regarding patient as APS is closed due to holiday. IRIS Fernandez Original Note: Social Work Note Referral Source: rope maker Alyssa Referral Reason: SNF JAZMINE Aguillon met with SW and reviewed patient's symptoms as well as concerns from patient's daughter who is patient's HCPOA. JAZMINE Aguillon reports patient will be reviewed to be admitted to hospital to address medical needs. SW to follow up. GABRIELLA met with patient's daughter and introduced herself and role as [facility] SW. Patient's daughter was standing outside of patient's room and agreeable to speak to SW there as patient was currently sleeping. Patient's daughter discussed recent concerns regarding patient's ability to care for himself. Patient's daughter explained he has been declining physically and mentally and will not follow up with a PCP or other medical appointments. Patient's daughter reports she contacted [facility] and [facility] had an appointment with them tomorrow 07/24/22 at 10AM. Patient's daughter showed GABRIELLA pictures of patient's living conditions including feces on the floor in multiple rooms, dust and dirt on surfaces and reports flies and dirt on items in the refrigerator. Patient's daughter explained the patient had cats but she assisted in rehoming the cats as patient wasn't able to care for them. Patient's daughter then recalled experiences when patient was struggling with his memory. Patient's daughter recalled a recent doctor's appointment where the patient had given a urine sample when he arrived, however, when the appointment was ending patient was trying to remove his pants to give a urine sample again and had to be assisted by staff to get dressed and leave. Patient's daughter recalled another experience when she was transporting the patient and the patient attempted to unbuckle and open the truck door as she was driving. Patient's daughter also recalled the patient inquiring about the care of his , however, patient's is . Patient's daughter reports she provides patient with meals, has assisted with cleaning his home and has needed assistance from neighbors with lifting patient on multiple occasions. Patient's daughter reports she doesn't feel she can provide the patient with the care he needs and wants patient to go to a [place] [facility] [place] facility for services and then continue for jail placement. GABRIELLA provided patient's daughter with information on [facility] and encouraged her to contact them to inquire about services the patient might qualify fo to assist with jail placement. GABRIELLA also informed patient's daughter she would follow up with [facility] to inform [facility] the patient has been admitted to the hospital. GABRIELLA then reviewed the process of making referrals to SNF once patient is medically cleared and inquired about SNF choices. Patient's daughter reported an understanding regarding patient being admitted and identified [facility] as a SNF choice. Patient's daughter reports being open to other SNFs and did not have a preference. GABRIELLA explained she could provided patient's daughter with a list of local SNF and explained his insurance should cover days 1-20 at 100% and days 21-100 at 80% with the possibility that patient's secondary insurance might cover remaining cost on days 21-100. SW encouraged patient's daughter to contact insurance for further information regarding coverage. GABRIELLA also explained patient would likely benefit from a SNF with memory care unit. Patient's daughter voiced understanding of information reviewed and requested she be contacted to continue to assist with discharge planning as she needed to go home to address farm chores. SW provided patient's daughter with her contact information in case she has other questions. Plan:admitted to [facility], SNF when medically ready IRIS Fernandez
--- NOTE | 2022-07-23 14:22 | HP.PCM.HOS_ITS ---
HPI - General General Date of Admission: 07/23/22 Date of Service: 07/23/22 Chief Complaint: Fall yesterday with prolonged laying down in the floor. Inability to take care of himself/failure to thrive HPI Narrative TALIA BAIG, is a 86 M was brought into ED by EMS after a fall since yesterday. When I saw the patient, power of district attorney and buxucqij-qx-vdo left ED therefore history mainly from the patient and ED physician. Earlier daughter called EMS as she found him laying down in hallway with parents half way and soiled in urine and stool. When I asked the patient is stated he fell down in the morning today. Patient denies loss of consciousness and he said he fell down because his legs gave out/weakness. There are also multiple bridges on the knee therefore since patient has been falling multiple times in the past. As per EMS, her [id number] visits him every day and cooks meals for him. Overall patient has decreased hearing, decreased comprehensible possible mild cognitive deficit/early dementia. In ED, orthostatic vitals shows drop in BP 151/85-1 25/34 on a standing but heart rate not changed. Patient is dehydrated and getting IV fluid resuscitation. CK mildly elevated. PFSH Home Medications olanzapine 7.5 mg tablet (Zyprexa) 7.5 mg PO QHS MOOD 04/18/14 [History Last Taken 11/30/14] oxybutynin chloride 15 mg tablet,extended release 24 hr 15 mg PO QHS BLADDER 05/18/20 [History Last Taken Unknown] finasteride 5 mg tablet 5 mg PO DAILY PROSTATE 07/23/22 [History Last Taken Unknown] lactobacillus combination no.9 4 billion cell capsule (Adult 50 Plus Probiotic) 4,000 mmu cells PO DAILY GUT HEALTH 07/23/22 [History Last Taken 07/22/22] tamsulosin 0.4 mg capsule 0.4 mg PO QHS PROSTATE 07/23/22 [History Last Taken Unknown] Allergy/AdvReac Type Severity Reaction Status Date / Time No Known Allergies Allergy Verified 07/23/22 11:20 Social History household members: none Smoking Status: Never smoker substance use type: does not use ROS ROS Narrative 14 ROS incomplete as it seems patient has mild cognitive deficit and hard of hearing Constitutional: Reports fatigue and weakness. No fever HEENT: Reports systems reviewed and no addt'l complaints, except as documented Respiratory/Chest: Denies chest pain, shortness of breath at rest or with exertion Gastrointestinal: Denies coffee ground emesis, hematemesis or vomiting Genitourinary: Denies burning urination or new urinary tract symptoms Musculoskeletal: Fall, loss of including Neurologic: Denies headache. Denies seizure-like activity skin: Back ulcer for couple years Endocrinology: Reports systems reviewed and no addt'l complaints, except as documented Hematologic/Lymphatic: Reports systems reviewed and no addt'l complaints, except as documented Rest 14 ROS are negative except as mentioned in HPI Review of Systems ROS Unobtainable: due to mental condition Vital Signs Vital Signs Vital Signs: 07/23/22 11:18 07/23/22 11:21 07/23/22 12:10 Temperature 98.1 F Temperature Source Oral Pulse Rate 89 Pulse Rate [Lying] 85 Pulse Rate [Sitting (for 1 minute prior to obtaining)] 90 Pulse Rate [Standing (for 1 minute prior to obtaining)] 80 Respiratory Rate 18 Respiratory Effort Normal Non-Labored Blood Pressure [Lying] 151/85 H Blood Pressure [Sitting (for 1 minute prior to obtaining)] 144/90 H Blood Pressure [Standing (for 1 minute prior to obtaining)] 125/84 H Blood Pressure Mean [Lying] 107 Blood Pressure Mean [Sitting (for 1 minute prior to obtaining)] 108 Blood Pressure Mean [Standing (for 1 minute prior to obtaining)] 97 Pulse Ox 98 Oxygen Delivery Method Room Air Weight Weight: 163 lb 9.328 oz Body Mass Index (BMI) 22.1 Physical Exam Narrative General: Alert, Oriented x3, Cooperative HEENT: Atraumatic, PERRLA, EOMI, Normocephalic Oral: Oral mucosa dry. No Gingival or Mucosal Lesions/ Ulcerations Neck: Supple, No JVD, Negative Carotid Bruits Lungs: Air entry diminished in bilateral lung bases. No crepitation/rhonchi Cardiovascular: Regular rate, Regular Rhythm, Normal S1, Normal S2, holosystolic murmur over cardiac apex, grade 2/6 Abdomen: Bowel Sounds Present, Soft, Non Tender, Non-Distended : Denies dysuria/new LUTS. No renal angle tenderness. No suprapubic tenderness. Extremities: No edema, Capillary Refill Less than 3 Seconds Skin: Oval-shaped red about 2 cm chronic, uneven surface, reddish colored ulcer on right lumbar back about 2 cm right to the spine. No bleeding. Musculoskeletal: ROM restricted over hip and knee joints. Arthritic changes of knee joints. Mild bruise on knee joints. Neurological: Cranial nerves II-XII grossly intact, DTR 2+/4 and no focal stroke findings. Psych/Mental Status: Flat affect. Mild cognitive deficit/early dementia. Results Lab / Micro Data Result Diagrams: 07/23/22 11:44 07/23/22 11:44 Labs: Laboratory Results - last 24 hr 07/23/22 11:44: WBC 13.9 H, RBC 5.60, Hgb 16.1, Hct 50.0, MCV 89.3, MCH 28.8, MCHC 32.2, RDW Std Deviation 42.6, RDW Coeff of Nahed 13.2, Plt Count 269, MPV 9.8, Immature Gran % (Auto) 0.600, Neut % (Auto) 75.9 H, Lymph % (Auto) 14.3 L, [place] % (Auto) 8.2, Eos % (Auto) 0.6, Baso % (Auto) 0.4, Absolute Neuts (auto) 10.6 H, Absolute Lymphs (auto) 1.99, Nucleated RBC % 0 07/23/22 11:44: Sodium 146 H, Potassium 3.6, Chloride 114 H, Carbon Dioxide 26.0, Anion Gap 6, BUN 40 H, Creatinine 1.26, Estim Creat Clear Calc 45.80, Est GFR (MDRD) Af Amer 70, Est GFR (MDRD) Non-Af 58 L, BUN/Creatinine Ratio 31.7 H, Glucose 115 H, Calcium 9.7, Total Bilirubin 1.00, AST 53 H, ALT 47, Alkaline Phosphatase 161 H, Total Creatine Kinase 433 H, Troponin I High Sens 23, Total Protein 7.1, Albumin 3.7, Globulin 3.4, Albumin/Globulin Ratio 1.1 07/23/22 13:00: Urine Color Yellow, Urine Clarity Sl. Cloudy, Urine pH 6.0, Ur Specific Red Level 1.015, Urine Protein 30 H, Urine Glucose (UA) Normal, Urine Ketones 15 H, Urine Occult Blood 10 H, Urine Nitrite Negative, Urine Bilirubin Negative, Urine Urobilinogen Normal, Ur Leukocyte Esterase 25 H, Urine RBC 0-5 SEEN, Urine WBC 0-5 SEEN, Ur Squamous Epith Cells 0-5 SEEN, Urine Bacteria 1+, Urine Mucus 1+ Rhythm Strip Rhythm Strip: Sinus Rhythm Rate: 77 Ectopy: None Assessment & Plan Assessment/Plan (1) Accident due to mechanical fall without injury: PLAN: Plan This 36-year-old gentleman was brought by EMS for fall 1 day prior to admission with prolonged laying on the floor. 1. 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 Pain medication as needed. PT and OT. Possible SNF placement. 2. Mild hypernatremia due to dehydration with prerenal azotemia and hyper CKemia: Serum sodium is 146, chloride 114, K3.6. BUN 40/creatinine 1.26. Patient looks dehydrated therefore IV fluid normal saline ordered. UA shows LE 25, WBC 0-5, SG 1.015. Serum magnesium 2.8. Monitor serum sodium once euvolemic, change to half-normal saline I will discontinue it. CK and BMP ordered for tomorrow AM. 3. 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 Continue tamsulosin and finasteride and hold oxybutynin until pharmacy verifies it. Monitor bladder scan. 4. Failure to thrive, chronic mild protein malnutrition: Patient cannot take care of himself. Patient has decreased ADL with chronic bladder and bowel incontinence. Possible SNF placement Bipolar disorder/possible early dementia: Continue olanzapine Living will/advanced directive/end of life care: Patient does have living will, POA and advanced directive. His POA is her tvmboyhi-jk-pir. I reviewed the POA papers. After discussion of benefits/risks procedures involved with full code, DNR CC arrest and DNR CC, the patient knows that he is DNR CC arrest with no intubation and wants to peacefully if time comes. Patient doesn't want artificial life support including intubation, tube feed, ventilator and/chest compression, central venous catheter, vasopressor and DC shock if needed Total time spent in pxli-qz-[id number] encounter in discussion of advanced directive 16 minutes. Laboratory Results 07/23/22 11:44: WBC 13.9 H, RBC 5.60, Hgb 16.1, Hct 50.0, MCV 89.3, MCH 28.8, MCHC 32.2, RDW Std Deviation 42.6, RDW Coeff of Nahed 13.2, Plt Count 269, MPV 9.8, Immature Gran % (Auto) 0.600, Neut % (Auto) 75.9 H, Lymph % (Auto) 14.3 L, [place] % (Auto) 8.2, Eos % (Auto) 0.6, Baso % (Auto) 0.4, Absolute Neuts (auto) 10.6 H, Absolute Lymphs (auto) 1.99, Nucleated RBC % 0 07/23/22 11:44: Sodium 146 H, Potassium 3.6, Chloride 114 H, Carbon Dioxide 26.0, Anion Gap 6, BUN 40 H, Creatinine 1.26, Estim Creat Clear Calc 45.80, Est GFR (MDRD) Af Amer 70, Est GFR (MDRD) Non-Af 58 L, BUN/Creatinine Ratio 31.7 H, Glucose 115 H, Calcium 9.7, Total Bilirubin 1.00, AST 53 H, ALT 47, Alkaline Phosphatase 161 H, Total Creatine Kinase 433 H, Troponin I High Sens 23, Total Protein 7.1, Albumin 3.7, Globulin 3.4, Albumin/Globulin Ratio 1.1 07/23/22 11:44: Magnesium 2.8 H 07/23/22 13:00: Urine Color Yellow, Urine Clarity Sl. Cloudy, Urine pH 6.0, Ur Specific Red Level 1.015, Urine Protein 30 H, Urine Glucose (UA) Normal, Urine Ketones 15 H, Urine Occult Blood 10 H, Urine Nitrite Negative, Urine Bilirubin Negative, Urine Urobilinogen Normal, Ur Leukocyte Esterase 25 H, Urine RBC 0-5 SEEN, Urine WBC 0-5 SEEN, Ur Squamous Epith Cells 0-5 SEEN, Urine Bacteria 1+, Urine Mucus 1+ Charges/Coding Visit Charges Inpatient E&M: 33581 Init Hosp L3 Procedures Hospitalists Procedures: 47244 Advncd Care Plan 30 Min
[2022-07-23 14:35] LABS: Magnesium 2.8 mg/dL (1.6-2.6)
[2022-07-23 14:40] VITALS: BP 145/92; PULSE 86; RESP 15; TEMP 36.8; O2SAT 96
[2022-07-23 18:15] VITALS: BMI 22.1
[2022-07-23 18:33] VITALS: BP 156/78; PULSE 80; RESP 18; TEMP 36.6; O2SAT 98
[2022-07-23] MEDS: Finasteride 5 MG Tablet PO (18:40)
[2022-07-23] MEDS: 0.9% Normal Saline 1,000 ML 75 ML IV (18:40)
[2022-07-23] MEDS: Enoxaparin 40 MG/0.4 ML Syringe SC (19:01)
[2022-07-23 21:04] VITALS: O2SAT 98
[2022-07-23 22:35] VITALS: BP 153/94; PULSE 87; RESP 20; TEMP 36.7; O2SAT 97
[2022-07-23] MEDS: 0.9% Saline Lock 10 ML Syringe IV (22:42)
[2022-07-23] MEDS: Tamsulosin HCl 0.4 MG Capsule PO (22:42)
[2022-07-23] MEDS: Senna/Docusate Sodium 1 Tablet 2 TABLET PO (22:42)
[2022-07-23] MEDS: OLANZapine 2.5 MG Tablet 7.5 MG PO (22:43)
[2022-07-23] MEDS: Menthol/Lanolin/Calamine/Znox 113 GM Tube 1 APPLIC TOPICAL (22:44)
[2022-07-24] VITALS (9 sets, daily range): BP systolic 109–134; BP diastolic 60–79; PULSE 61–85; RESP 16–20; TEMP 36.5–37.1; O2SAT 93–97
[2022-07-24] MEDS: 0.9% Normal Saline 1,000 ML 75 ML IV (06:12)
[2022-07-24 06:45] LABS: Absolute Lymphocyte Count 2.31 X10^3/uL (0.83-4.51); Absolute Neutrophil Count 5.6 X10^3/uL (2.0-7.7); Basophil# 0.05 X10^3/uL; Basophil% 0.6 % (0-1); Eosinophils% 2.2 % (0-5); Hematocrit 39.7 % (40-54); Hemoglobin 12.6 g/dL (13.0-16.5); Lymphocyte # 2.31 X10^3/ul (0.83-4.51); Lymphocyte % 25.7 % (19-41); Mean Corp Hgb Conc 31.7 g/dL (32-36); Mean Corpuscular Hgb 28.4 pg (27.0-32.0); Mean Corpuscular Volume 89.6 fL (80-94); Mean Platelet Vol. 9.7 fl (6.2-12.0); Monocyte% 8.9 % (0-10); NRBC Flagged by Analyzer 0 % (0-5); Neutrophil # 5.59 X10^3/uL (2.7-7.7); Platelet Count 229 K/mm3 (150-450); RBC Distribution Width CV 13.2 % (11.6-14.6); RBC Distribution Width SD 43.1 fl (35.1-43.9); Red Blood Count 4.43 M/mm3 (4.6-6.2)
[2022-07-24 07:35] LABS: CPK Total, Creatine Kinase 155 U/L (39-308)
[2022-07-24 07:37] LABS: Anion Gap 6 (5-15); BUN 34 mg/dL (7-18); Calcium,Total 8.6 mg/dL (8.5-10.1); Chloride 116 mmol/L (98-107); EST Glomerular Filtration Rate 76 mL/min (>60); Est Glom Filt Rate - Afr Amer 92 mL/min (>60); Estimated Creatinine Clearance 57.71 ml/min; Glucose 101 mg/dL (74-106); Potassium 3.1 mmol/L (3.5-5.1); Sodium Level 148 mmol/L (136-145); Thyroid Stim Hormone (TSH) 0.95 uIU/mL (0.358-3.74)
--- NOTE | 2022-07-24 08:49 | PN.HOSP_ITS ---
Reason for Visit Reason for Visit: Fall/failure to thrive Subjective Subjective Mr. Woods is an 86-year-old white male who presented to the emergency department on the afternoon of 07/23/2022 after sustaining a fall and having laid on the floor for prolonged period of time. The daughter had evidently called EMS when she found him lying on the floor in the hallway soiled in urine and stool. The patient indicated he had fallen earlier in the day but was unsure of the time. He stated that his legs gave out on him. Patient denied any loss of consciousness. He was found to have multiple bruises on his lower extremities and it is suspected he is falling frequently. His rznjjkro-yo-ypd visits him every day and cooks his meals for him. There is some concern of some mild cognitive impairment/early dementia development and placement was requested. Patient was orthostatic positive and appeared dehydrated and his CK was mildly elevated. He was given IV fluids and placed on the medical floor. No other significant organic issues were identified. Patient has no complaints. He states he has been having some falls at home and family has confirmed concern for developing dementia. Plan is for placement at discharge and they have requested [facility]. Case management is currently working on this. Objective Data Objective Data Vital Signs: Vital Signs Temp Pulse Resp BP Pulse Ox O2 Del Method 97.7 F L 61 20 H 134/78 H 96 Room Air 07/24/22 02:31 07/24/22 06:16 07/24/22 06:16 07/24/22 02:31 07/24/22 08:18 07/24/22 08:18 Oxygen Delivery Method Room Air Weight: 74.2 kg Body Mass Index (BMI) 22.1 Intake & Output: Intake and Output for Last 24 Hours 07/22/22 07/23/22 07/24/22 23:59 23:59 23:59 Intake Total 1000 / 1700 1565 / 1565 Balance 1000 / 1700 1565 / 1565 Lab / Micro Data Result Diagrams: 07/24/22 06:25 07/24/22 06:25 Labs: Laboratory Results - last 24 hr 07/23/22 11:44: WBC 13.9 H, RBC 5.60, Hgb 16.1, Hct 50.0, MCV 89.3, MCH 28.8, MCHC 32.2, RDW Std Deviation 42.6, RDW Coeff of Nahed 13.2, Plt Count 269, MPV 9.8, Immature Gran % (Auto) 0.600, Neut % (Auto) 75.9 H, Lymph % (Auto) 14.3 L, [place] % (Auto) 8.2, Eos % (Auto) 0.6, Baso % (Auto) 0.4, Absolute Neuts (auto) 10.6 H, Absolute Lymphs (auto) 1.99, Nucleated RBC % 0 07/23/22 11:44: Sodium 146 H, Potassium 3.6, Chloride 114 H, Carbon Dioxide 26.0, Anion Gap 6, BUN 40 H, Creatinine 1.26, Estim Creat Clear Calc 45.80, Est GFR (MDRD) Af Amer 70, Est GFR (MDRD) Non-Af 58 L, BUN/Creatinine Ratio 31.7 H, Glucose 115 H, Calcium 9.7, Total Bilirubin 1.00, AST 53 H, ALT 47, Alkaline Phosphatase 161 H, Total Creatine Kinase 433 H, Troponin I High Sens 23, Total Protein 7.1, Albumin 3.7, Globulin 3.4, Albumin/Globulin Ratio 1.1 07/23/22 11:44: Magnesium 2.8 H 07/23/22 13:00: Urine Color Yellow, Urine Clarity Sl. Cloudy, Urine pH 6.0, Ur Specific [place] 1.015, Urine Protein 30 H, Urine Glucose (UA) Normal, Urine Ketones 15 H, Urine Occult Blood 10 H, Urine Nitrite Negative, Urine Bilirubin Negative, Urine Urobilinogen Normal, Ur Leukocyte Esterase 25 H, Urine RBC 0-5 SEEN, Urine WBC 0-5 SEEN, Ur Squamous Epith Cells 0-5 SEEN, Urine Bacteria 1+, Urine Mucus 1+ 07/24/22 06:25: WBC 9.0, RBC 4.43 L, Hgb 12.6 L, Hct 39.7 L, MCV 89.6, MCH 28.4, MCHC 31.7 L, RDW Std Deviation 43.1, RDW Coeff of Nahed 13.2, Plt Count 229, MPV 9.7, Immature Gran % (Auto) 0.600, Neut % (Auto) 62.0, Lymph % (Auto) 25.7, [place] % (Auto) 8.9, Eos % (Auto) 2.2, Baso % (Auto) 0.6, Absolute Neuts (auto) 5.6, Absolute Lymphs (auto) 2.31, Nucleated RBC % 0 07/24/22 06:25: Sodium 148 H, Potassium 3.1 L, Chloride 116 H, Carbon Dioxide 26.0, Anion Gap 6, BUN 34 H, Creatinine 1.00, Estim Creat Clear Calc 57.71, Est GFR (MDRD) Af Amer 92, Est GFR (MDRD) Non-Af 76, BUN/Creatinine Ratio 34.0 H, Glucose 101, Calcium 8.6, TSH 0.95 07/24/22 06:25: Total Creatine Kinase 155 Rhythm Strip Rhythm Strip: Sinus Rhythm Rate: 77 Ectopy: None Physical Exam Const alert, no apparent distress and well nourished Constitutional Narrative: Elderly white male sitting up in bed, eating breakfast, appears comfortable, nontoxic, oriented to self, place, and month but not year HEENT head/scalp atraumatic and moist oral mucous membranes HEENT Narrative: Dentition is poor, Mallampati is 2, no thrush, mild to moderate hearing loss Head and Scalp: normocephalic Resp normal respiratory effort, no retractions, no use of accessory muscles and clear to auscultation bilaterally Auscultation: Negative for crackles, rhonchi or wheezes Cardio regular rate, regular rhythm, S1 normal heart sound, S2 normal heart sound, no murmurs, no rub, no gallops and no clicks GI normal to inspection, nondistended, normoactive bowel sounds, soft to palpation and non-tender Extremity no clubbing, cyanosis or edema Skin Skin Narrative: Multiple scattered ecchymosis on bilateral upper and lower extremities and very stages of healing Neuro moves all extremities and no focal motor deficits Neuro Narrative: Significant generalized weakness-proximal greater than distal Speech: speech normal Psych affect normal Psych Narrative: Pleasant, appropriately interactive Assessment & Plan Assessment/Plan (1) Acute hypernatremia: (2) Falls frequently: (3) Debility: (4) Pressure sore on sacrum: (5) Hypokalemia: (6) Generalized weakness: (7) Elevated CK: PLAN: Plan Mild rhabdomyolysis -CK on admission was 433 -Patient was found down and had been down for a few hours but not an extensive period of time -CK now is 155 -Discontinue IV fluids Mild dehydration -Resolved Hypernatremia/hyperchloremia -Was dry on presentation -Treated with normal saline -Discontinue IV fluids -Repeat BMP in a.m. Hypokalemia -P.o. potassium replacement with 60 mill equivalents of potassium -Repeat BMP in a.m. if still here -Check magnesium level Falls/debility/generalized weakness -We will need placement at discharge -PT/OT following -Case management and social work involvement -Patient with commercial Medicare insurance and will require pre-CERT prior to discharge Pressure sore on sacrum -Optimize nutrition is much as able -Consult wound care BPH with elevated PSA -Continue Flomax -Continue Proscar -Outpatient follow-up with urology after discharge -PSA was greater than 13 in June 2022 Urinary incontinence -Continue home oxybutynin Bipolar disorder -Continue home Zyprexa Suspected early dementia/mild cognitive impairment -Recommend outpatient neuropsych testing DVT prophylaxis -Continue enoxaparin 40 mg daily CODE STATUS -DNR CCA with no intubation as confirmed on admission Charges/Coding Visit Charges Inpatient E&M: 36109 Subs Hosp L2
[2022-07-24] MEDS: Menthol/Lanolin/Calamine/Znox 113 GM Tube 1 APPLIC TOPICAL ×2 (09:19→21:44)
[2022-07-24] MEDS: Nystatin Powder 15gm Bottle 1 APPLIC TOPICAL ×2 (09:19→21:45)
[2022-07-24] MEDS: Potassium Chloride Oral Tablet 20 MEQ 40 MEQ PO (09:19)
[2022-07-24] MEDS: Enoxaparin 40 MG/0.4 ML Syringe SC (09:20)
[2022-07-24] MEDS: Finasteride 5 MG Tablet PO (09:20)
--- NOTE | 2022-07-24 11:19 | CASEMGMT ---
Social Work Upon review of GABRIELLA Patel's notes it appears pt and families first choice for SNF is [facility]. No referral has previously been made. This SW sent referral to [facility] via [facility] and informed that therapy notes would be added once they are uploaded. GABRIELLA called daughter, Eveline, to give update. Eveline voiced understanding. PLAN: SN[facility]
--- NOTE | 2022-07-24 16:17 | CHAPLAIN ---
Type of Pastoral Visit _x__ Initial Visit ___ Follow-up Visit ___ On-call Visit ___ General Patient Visit ___ Spiritual Assessment ___ Family Conference ___ Bereavement ___ Rapid Response ___ Code Blue ___ Other (describe below) Pastoral Care Referral From _x__ Patient ___ Family ___ Nurse ___ Physician ___ General Education Instructor ___ Catalogue And Special Products Manager ___ Other (describe below) Sacrament/Intervention _x__ Active listening ___ Anointing ___ Denominational ___ Bereavement ___ Communion ___ Reema exploration ___ ___ Life review _x__ Prayer ___ Reconciliation ___ Sacrament of Sick _x_ Supportive presence ___ Wedding ___ Other (describe below) Pastoral Comments patient was lying in his bed and requested assistance to call for help for a diaper change; call made and GENERAL EDUCATION INSTRUCTOR soon arrived; offer of support given; patient responded to simple questions but did not dialog and did not indicate any specific needs; pt did welcome a prayer
[2022-07-24] MEDS: Juven (unflavored) Packet 1 PACKET PO (16:21)
[2022-07-24] MEDS: Ensure Plus High Protein 120 ML LIQUID PO (16:23)
[2022-07-24] MEDS: Tamsulosin HCl 0.4 MG Capsule PO (21:44)
[2022-07-24] MEDS: OLANZapine 2.5 MG Tablet 7.5 MG PO (21:44)
[2022-07-24] MEDS: Senna/Docusate Sodium 1 Tablet 2 TABLET PO (21:44)
[2022-07-25 04:15] VITALS: BP 134/68; PULSE 73; RESP 18; TEMP 36.8; O2SAT 97
[2022-07-25 06:47] LABS: Anion Gap 3 (5-15); BUN 35 mg/dL (7-18); BUN/Creat Ratio 34.3 RATIO (10-20); Calcium,Total 8.6 mg/dL (8.5-10.1); Chloride 114 mmol/L (98-107); Creatinine, Serum 1.02 mg/dL (0.70-1.30); EST Glomerular Filtration Rate 74 mL/min (>60); Est Glom Filt Rate - Afr Amer 89 mL/min (>60); Estimated Creatinine Clearance 56.58 ml/min; Glucose 115 mg/dL (74-106); Potassium 3.3 mmol/L (3.5-5.1); Sodium Level 143 mmol/L (136-145)
[2022-07-25 07:50] VITALS: BP 120/69; PULSE 76; RESP 16; TEMP 36.8; O2SAT 94
--- NOTE | 2022-07-25 07:56 | CASEMGMT ---
Social Work [facility] is able to accept pt today. MD Laughlin updated. [place], DIE BARBER
--- NOTE | 2022-07-25 07:57 | WOUNDNOTE ---
wound photo: right mid/lower back
--- NOTE | 2022-07-25 08:04 | CASEMGMT ---
Social Work Late entry for 07/24. GABRIELLA spoke to Jerson at [facility]. GABRIELLA gave Jerson update on pt case regarding events leading up to pt being admitted to [facility] and the discharge plan. Jerson voiced appreciation for updates and asked to be notified when pt discharges. [facility]
--- NOTE | 2022-07-25 09:11 | CASEMGMT ---
Social Work [facility] reached out. Able to accept pt today. MD Laughlin updated. Plan is to d/c pt today. SW called pt daughter, Eveline to update on d/c plan. Eveline viceman understanding. PLAN: [facility]
[2022-07-25 09:18] VITALS: O2SAT 94
[2022-07-25] MEDS: Juven (unflavored) Packet 1 PACKET PO (09:31)
[2022-07-25] MEDS: Ensure Plus High Protein 120 ML LIQUID PO ×2 (09:31→11:30)
[2022-07-25] MEDS: Menthol/Lanolin/Calamine/Znox 113 GM Tube 1 APPLIC TOPICAL (09:31)
[2022-07-25] MEDS: Enoxaparin 40 MG/0.4 ML Syringe SC (09:32)
[2022-07-25] MEDS: Nystatin Powder 15gm Bottle 1 APPLIC TOPICAL (09:32)
[2022-07-25] MEDS: Finasteride 5 MG Tablet PO (09:32)
[2022-07-25 10:33] VITALS: O2SAT 96
[2022-07-25 10:36] VITALS: O2SAT 96
--- NOTE | 2022-07-25 12:22 | PCM.TXEXTCAR ---
Diet Diet Order/Speech Therapy: 07/23/22 18:08 Diet: Regular - General Food consistency:: Regular Liquid Consistency:: Regular/Thin Is pt able to select menu?: No Routine Orders/Code Status O2 Frequency: PRN Keep PO Greater than or Equal to (%): 92 Code Status: DNRCC-A (No intubation) Wound(s) Middle Back: Wound Type: wound (unknown etiology) Dressing Change: applied new Mepilex testicles: Wound Type: open areas due to moisture generalized: Wound Type: scabs from falls--healing Therapies Weight Bearing: Full weight bearing Physical Therapy: Eval and Treat Occupational Therapy: Eval and Treat Problem/Diagnosis (1) Acute hypernatremia: Status: Acute Code(s): E87.0 - Hyperosmolality and hypernatremia (2) Falls frequently: Status: Acute Code(s): R29.6 - Repeated falls (3) Debility: Status: Acute Code(s): R53.81 - Other malaise (4) Pressure sore on sacrum: Status: Acute Code(s): L89.159 - Pressure ulcer of sacral region, unspecified stage (5) Hypokalemia: Status: Acute Code(s): E87.6 - Hypokalemia (6) Generalized weakness: Status: Chronic Code(s): R53.1 - Weakness (7) Elevated CK: Status: Acute Code(s): R74.8 - Abnormal levels of other serum enzymes Allergies/Procedures Done in Hospital Allergies No Known Allergies Allergy (Verified 07/23/22 11:20) Procedures: EKG Type of Care/Length of Stay Estimated LOS: Convalescent Care Less Than 30 days Type of Care Needed: Skilled Rehab Potential: Good Prognosis: Fair Additional Orders/Day of Discharge Day of Discharge: 07/25/22 Dietary and Speech Recommendations Dietitian Recommendations/Changes: Continue Regular diet to optimize oral intakes. RD will order 120mL Ensure Plus High Protein TID with medpass to provide supplemental energy. RD will order Darren BID to promote wound healing. Discharge Plan Admission Admit Date/Time: 07/23/22 14:00 Attending Provider: Annette Laughlin Primary Care Provider: Care Physician,No Primary Consulting Providers: Carlos Donahue Discharge Orders/Prescriptions Prescriptions: No Action olanzapine [Zyprexa] 7.5 MG tablet 7.5 mg PO QHS oxybutynin chloride 15 MG tablet extended release 24hr 15 mg PO QHS tamsulosin 0.4 mg capsule 0.4 mg PO QHS finasteride 5 mg tablet 5 mg PO DAILY Adult 50 Plus Probiotic 4 billion cell capsule 4,000 mmu cells PO DAILY Referrals / Follow Up: Care Physician,No Primary [Primary Care Provider] -
--- NOTE | 2022-07-25 12:26 | DS.PCM_ITS ---
Providers Date of Admission: 07/23/22 Date of Discharge: 07/25/22 Primary Care Physician: Arline Primary Care Phys Consultations 07/24/22 08:57 Consult: Onc/Wound/quill reamer Routine Comment: Reason For Visit: FALL, FAILURE TO THRIVE Diagnosis Discharge Diagnosis (1) Acute hypernatremia: Status: Acute Code(s): E87.0 - Hyperosmolality and hypernatremia (2) Falls frequently: Status: Acute Code(s): R29.6 - Repeated falls (3) Debility: Status: Acute Code(s): R53.81 - Other malaise (4) Pressure sore on sacrum: Status: Acute Code(s): L89.159 - Pressure ulcer of sacral region, unspecified stage (5) Hypokalemia: Status: Acute Code(s): E87.6 - Hypokalemia (6) Generalized weakness: Status: Chronic Code(s): R53.1 - Weakness (7) Elevated CK: Status: Acute Code(s): R74.8 - Abnormal levels of other serum enzymes Medications at Discharge Home Medications olanzapine 7.5 mg tablet (Zyprexa) 7.5 mg PO QHS MOOD 04/18/14 oxybutynin chloride 15 mg tablet,extended release 24 hr 15 mg PO QHS BLADDER 05/18/20 finasteride 5 mg tablet 5 mg PO DAILY PROSTATE 07/23/22 lactobacillus combination no.9 4 billion cell capsule (Adult 50 Plus Probiotic) 4,000 mmu cells PO DAILY GUT HEALTH 07/23/22 tamsulosin 0.4 mg capsule 0.4 mg PO QHS PROSTATE 07/23/22 acetaminophen 325 mg tablet (Tylenol) 650 mg PO Q6H PRN PRN Pain 1-10 Or Fever >100.7 #0 tabs 07/25/22 arginine 7 gram-glutam 7 gram-CaHMB 1.5 xvdy-bolbu-ht-min oral pwd pkt (Darren (with collagen)) 1 packet PO BIDCM #0 ea 07/25/22 food supplemt, lactose-reduced 0.08 gram-1.5 kcal/mL oral liquid (Ensure Plus High Protein) 120 ml PO TIDCM #0 mL 07/25/22 nystatin 100,000 unit/gram topical powder (Nyamyc) 1 applic topical BID #0 grams 07/25/22 Hospital Course Summary of Care Provided Hospital Course: Mr. Woods is an 86-year-old white male who presented to the emergency department on the afternoon of 07/23/2022 after sustaining a fall and having laid on the floor for prolonged period of time.? The daughter had evidently called EMS when she found him lying on the floor in the hallway soiled in urine and stool.? The patient indicated he had fallen earlier in the day but was unsure of the time.? He stated that his legs gave out on him.? Patient denied any loss of consciousness.? He was found to have multiple bruises on his lower extremities and it is suspected he is falling frequently.? His oqoxrquw-ea-jcg visits him every day and cooks his meals for him.? There is some concern of some mild c ognitive impairment/early dementia development and placement was requested.? Patient was orthostatic positive and appeared dehydrated and his CK was mildly elevated.? He was given IV fluids and placed on the medical floor.? No other significant organic issues were identified.? His CK resolved with about 12 hours of hydration. He did have a bout of diarrhea through the night so a C. difficile was sent and negative. Enteric stool was sent and was negative. Oral intake was decent while he was here. He was seen by the dietitian and Darren as well as Ensure was initiated. These will be continued ongoing at discharge. He had some issues with some hypokalemia which was replaced during his hospital course. His prerenal azotemia resolved with hydration. He was seen by physical and Occupational Therapy and deemed appropriate for ongoing therapy services. He was found to have a couple of pressure injuries which were evaluated by nursing wound care services and recommendations for treatment made. The patient was seen by the dietitian did not meet criteria for malnutrition. He was placed on nutritional supplements as well as protein supplements. global sourcing manager/social work were working with the patient with regards to placement at discharge. Family desired him to go to [facility]. They were able to accept the patient today. He was discharged in stable condition to [facility] on 07/25/2022. No medication changes were made during his hospital course. Discharge diagnoses: Acute mild rhabdomyolysis-resolved Mild dehydration-resolved Hypernatremia-resolved Hyperchloremia-resolved Hypokalemia-replaced Falls Debility Generalized weakness Pressure sore on sacrum/testicles BPH Elevated PSA-Will need outpatient follow-up with Dr. Mari Urinary incontinence Bipolar disorder Suspected mild cognitive impairment/early dementia Physical Exam Const alert, no apparent distress and well nourished Constitutional Narrative: Elderly white male sitting up in bed, watching television, appears comfortable, nontoxic, oriented to self, place, and month but not year General Appearance: cooperative, comfortable, well kempt and well developed Orientation / Consciousness: awake, oriented to person and oriented to place; Negative for oriented to time Exam Limitations: no limitations HEENT normocephalic, head/scalp atraumatic and moist oral mucous membranes; Negative for hearing grossly normal bilaterally HEENT Narrative: Dentition is poor, Mallampati is 2, no thrush, moderate hearing loss Eyes PERRL, EOMs intact bilaterally and conjunctivae normal Eyes Narrative: No scleral icterus Neck no lymphadenopathy and supple Neck Narrative: Trachea midline, no thyroid enlargement Resp normal respiratory effort, no retractions, no use of accessory muscles and clear to auscultation bilaterally Auscultation: Negative for crackles, rhonchi or wheezes Cardio regular rate, regular rhythm, S1 normal heart sound, S2 normal heart sound, no murmurs, no rub, no gallops and no clicks GI normal to inspection, nondistended, normoactive bowel sounds, soft to palpation and non-tender Extremity no clubbing, cyanosis or edema Skin skin turgor normal and no jaundice Skin Narrative: Multiple scattered ecchymosis on bilateral upper and lower extremities and very stages of healing Neuro CN's II-XII intact bilaterally, moves all extremities and no focal motor deficits Neuro Narrative: Significant generalized weakness-proximal greater than distal Speech: speech normal Psych affect normal Psych Narrative: Pleasant, appropriately interactive Weight / BMI Weight Weight: 74.2 kg Body Mass Index (BMI) 22.1 ABG / Lab / Microbiology Data Result Diagrams: 07/24/22 06:25 07/25/22 05:38 Laboratory: Laboratory Results - last 24 hr 07/25/22 05:38: Sodium 143, Potassium 3.3 L, Chloride 114 H, Carbon Dioxide 26.0, Anion Gap 3 L, BUN 35 H, Creatinine 1.02, Estim Creat Clear Calc 56.58, Est GFR (MDRD) Af Amer 89, Est GFR (MDRD) Non-Af 74, BUN/Creatinine Ratio 34.3 H , Glucose 115 H, Calcium 8.6 Microbiology: Microbiology 07/25/22 02:29 Stool C. difficile DNA Amplification - Final Meaningful Use Info Meaningful Use Diagnoses (Choose all that apply): None applicable Discharge Plan Admission Admit Date/Time: 07/23/22 14:00 Primary Reason for Your Visit: Fall failure to thrive Attending Provider: Annette Laughlin Primary Care Provider: Care Physician,No Primary Consulting Providers: Carlos Donahue Discharge Orders/Prescriptions Prescriptions: New acetaminophen [Tylenol] 325 mg Tablet 650 mg PO Q6H PRN PRN (Reason: Pain 1-10 Or Fever >100.7) Qty: 0 0RF nystatin [Nyamyc] 100,000 unit/gram Powder 1 applic topical BID Qty: 0 0RF Protocol: *Topical Application Instructions APPLICATION INSTRUCTIONS: groin Ensure Plus High Protein 0.08 gram-1.5 kcal/mL Liquid 120 ml PO TIDCM Qty: 0 0RF Darren (with collagen) 7-7-1.5 gram Powder In Packet 1 packet PO BIDCM Qty: 0 0RF Continued olanzapine [Zyprexa] 7.5 MG tablet 7.5 mg PO QHS oxybutynin chloride 15 MG tablet extended release 24hr 15 mg PO QHS tamsulosin 0.4 mg capsule 0.4 mg PO QHS finasteride 5 mg tablet 5 mg PO DAILY Adult 50 Plus Probiotic 4 billion cell capsule 4,000 mmu cells PO DAILY Referrals / Follow Up: Care Physician,No Primary [Primary Care Provider] - Solomon Mari MD [Med Staff - Active Staff] - Within 2 Weeks (Elevated PSA-appointment will need to be made) Disposition Disposition (needs filled in before D/C Order can be placed): [facility] F acility Charges/Coding Visit Charges Inpatient E&M: 32005 SNF Disch >30 Min
[2022-07-25 13:15] VITALS: BP 115/55; PULSE 91; RESP 16; TEMP 36.7; O2SAT 97
--- NOTE | 2022-07-25 14:05 | CASEMGMT ---
Social Work? GABRIELLA notified pt and pt daughter of discharge to [facility] today. GABRIELLA completed 7000 convalescent form in [employer]. Set up wheelchair transportation through [facility] for 2:30 pm. GABRIELLA faxed all discharge orders to [facility] via [employer] and notified of discharge time. GABRIELLA notified pt nurse and STAGE RIGGER of transport time. GABRIELLA made copies of discharge orders and placed on pt chart. Sent original orders in envelope with pt upon discharge.?? Disposition: [facility], skilled, convalescent, level of care? MIKE Steen
--- NOTE | 2022-07-25 14:52 | PHA.DC.MR ---
Pharmacy Service has performed discharge medication reconciliation for this patient. The patient's discharge medication list was reviewed for discrepancies and discrepancies were resolved. Home Medications olanzapine 7.5 mg tablet (Zyprexa) 7.5 mg PO QHS MOOD 04/18/14 oxybutynin chloride 15 mg tablet,extended release 24 hr 15 mg PO QHS BLADDER 05/18/20 finasteride 5 mg tablet 5 mg PO DAILY PROSTATE 07/23/22 lactobacillus combination no.9 4 billion cell capsule (Adult 50 Plus Probiotic) 4,000 mmu cells PO DAILY GUT HEALTH 07/23/22 tamsulosin 0.4 mg capsule 0.4 mg PO QHS PROSTATE 07/23/22 acetaminophen 325 mg tablet (Tylenol) 650 mg PO Q6H PRN PRN Pain 1-10 Or Fever >100.7 #0 tabs 07/25/22 arginine 7 gram-glutam 7 gram-CaHMB 1.5 tnqc-uevvs-zi-min oral pwd pkt (Darren (with collagen)) 1 packet PO BIDCM #0 ea 07/25/22 food supplemt, lactose-reduced 0.08 gram-1.5 kcal/mL oral liquid (Ensure Plus High Protein) 120 ml PO TIDCM #0 mL 07/25/22 nystatin 100,000 unit/gram topical powder (Nyamyc) 1 applic topical BID #0 grams 07/25/22
== END 2022-07-25 15:02 | disposition skilled nursing facility (03) | DRG 641 ==
LOC: ED 14:05 → MS3 15:54
PROVIDERS: Admitting Provider Internal Medicine; Emergency Provider Emergency Medicine; Visit Provider Internal Medicine
DX: E86.0 Dehydration (principal); M62.82 Rhabdomyolysis; E87.0 Hyperosmolality and hypernatremia; L89.152 Pressure ulcer of sacral region, stage 2; E87.8 Other disorders of electrolyte and fluid balance, not elsewhere classified; F03.90 Unspecified dementia, unspecified severity, without behavioral disturbance, psychotic disturbance, mood disturbance, and anxiety; F31.9 Bipolar disorder, unspecified; E87.6 Hypokalemia; R62.7 Adult failure to thrive; N40.1 Benign prostatic hyperplasia with lower urinary tract symptoms; R32 Unspecified urinary incontinence; R97.20 Elevated prostate specific antigen [PSA]; R74.8 Abnormal levels of other serum enzymes; R53.81 Other malaise; R29.6 Repeated falls; Z68.22 Body mass index [BMI] 22.0-22.9, adult; Z79.01 Long term (current) use of anticoagulants; Z79.899 Other long term (current) drug therapy; Z66 Do not resuscitate
CPT/HCPCS: 36415; 80048; 80053; 81001; 82550; 83735; 84443; 84484; 85025; 87426; 87493; 87506; 93005; 97116; 97162; 97166; 97530; 97535; 99285; J7030; P9612; A4216

== ENCOUNTER 2022-08-30 08:27 | Observation (INO) | payer MEDICARE, OTHER, SELFPAY ==
[2022-08-29] VITALS (15 sets, daily range): BP systolic 113–145; BP diastolic 67–90; PULSE 85–106; RESP 16–24; TEMP 36.1–36.8; O2SAT 92–99; BMI 22.7
[2022-08-29] MEDS: Lactated Ringers 1,000 ML 15 ML IV (09:47)
--- NOTE | 2022-08-29 09:47 | SUR.PREOP ---
This nurse talked to Ratna at [facility] to verify when medications were taken last.
--- NOTE | 2022-08-29 11:05 | PROST_PTH ---
PATIENT: TALIA BAIG LOC: MS3 U#:[id number] AGE/SX: 87/M ROOM: [facility] [place] RE08/30/[address]: Dr. Solomon Mari MD : [id number] BED: 1 DIS: 09/01/2022 SPEC #: [id number] RECD: 08/29/22 15:23 STATUS: ADILENE RAY #: [id number] ADAMS: 08/29/22 11:[address]: Solomon Mari DEPT: SURGICAL PATHOLOGY RECD BY: Linda Schneider ENTERED: 08/30/22 10:48 SP TYPE: PROSTATE OTHR DR: Dr. Yoanna Brewer MD Tissues: Prostate, NOS Procedures: Surgery Specimen Level V HEADER OPERATION: Lap robotic simple prostatectomy PRE-OP DIAGNOSIS: BPH with obstruction and a very large prostate TISSUE SUBMITTED: Prostate MICROSCOPIC DIAGNOSIS Prostate, simple prostatectomy: Benign prostatic hyperplasia, glandular and stromal type. Chronic inflammation. SJ:chung 08/31/2022 MICROSCOPIC DESCRIPTION Slides are reviewed. GROSS DESCRIPTION Received in fixative is one container labeled with the patient's name and designated prostate. The specimen consists of ten fragments of nodular, rubbery tissue ranging in size from 1.0 to 7.0 cm. The specimen is aggregate weighs 38 gm. Serial sections reveal homogenous white-monge cut surfaces. No distinct mass lesion is identified. The smaller fragments are sectioned and submitted in their entirety in cassettes 1-3. Hotel Registration Clerk sections of the larger fragments are submitted in cassettes 4-10. / AM:chung 08/30/2022 TC:5 CPT: 29567
[2022-08-29] MEDS: Cefazolin 2 GM in 0.9% Normal Saline 100 ML IV (12:17)
[2022-08-29] MEDS: Sugammadex Sodium 200 MG/2 ML VIAL IV (14:00)
[2022-08-29] MEDS: Bupivacaine 0.25% 30 ML Vial (14:00)
--- NOTE | 2022-08-29 14:21 | PCM.HP.STD ---
HPI - General General Date of Service: 08/29/22 Chief Complaint: BPH with obstruction HPI Narrative TALIA BAIG, is a 87 M who presents with a very large prostate we plan to proceed with a robotic simple prostatectomy he has significant obstruction of urine PFSH Medical History (Updated 08/29/22 @ 14:[address] Solomon Mari MD) Ambulates with cane Anemia Bipolar disorder Bipolar disorder Bladder disease Complete edentulism, class III Confused Failure to thrive in adult Fall at home Goodrich toxicity Lives in fpc Loss of hearing Non-Hodgkin lymphoma Non-smoker Peripheral arterial disease Prostate disease Skin breakdown Home Medications olanzapine 7.5 mg tablet (Zyprexa) 7.5 mg PO QHS MOOD 04/18/14 [History Last Taken 08/28/22] oxybutynin chloride 15 mg tablet,extended release 24 hr 15 mg PO QHS BLADDER 05/18/20 [History Last Taken 08/28/22] finasteride 5 mg tablet 5 mg PO DAILY PROSTATE 07/23/22 [History Last Taken 08/28/22] lactobacillus combination no.9 4 billion cell capsule (Adult 50 Plus Probiotic) 4,000 mmu cells PO DAILY GUT HEALTH 07/23/22 [History Last Taken 08/28/22] tamsulosin 0.4 mg capsule 0.4 mg PO QHS PROSTATE 07/23/22 [History Last Taken 08/28/22] acetaminophen 325 mg tablet (Tylenol) 650 mg PO Q6H PRN PRN Pain 1-10 Or Fever >100.7 #0 tabs 07/25/22 [Rx Last Taken Unknown] arginine 7 gram-glutam 7 gram-CaHMB 1.5 odch-zdsbc-cj-min oral pwd pkt (Darren (with collagen)) 1 packet PO BIDCM #0 ea 07/25/22 [Rx Last Taken 08/28/22] nystatin 100,000 unit/gram topical powder (Nyamyc) 1 applic topical BID #0 grams 07/25/22 [Rx Last Taken Unknown] ciprofloxacin HCl 500 mg tablet 500 mg PO BID #20 tabs 08/29/22 [Rx Last Taken Unknown] docusate sodium 100 mg capsule (Colace) 100 mg PO BID #20 caps 08/29/22 [Rx Last Taken Unknown] oxycodone-acetaminophen 5 mg-325 mg tablet (Endocet) 1 tab PO Q6H PRN pain 7 days #20 tabs 08/29/22 [Rx Last Taken Unknown] Allergy/AdvReac Type Severity Reaction Status Date / Time No Known Allergies Allergy Verified 08/29/22 09:28 Surgical History (Updated 08/14/22 @ 14:36 by Lissette Milner) History of incision and drainage Hx of hand surgery Social History household members: none Smoking Status: Never smoker substance use type: does not use Vital Signs Vital Signs Vital Signs: 08/29/22 09:34 08/29/22 09:34 Temperature 97.9 F Temperature Source Temporal Pulse Rate 94 Respiratory Rate 16 Respiratory Pattern Normal Blood Pressure 135/79 H Blood Pressure Mean 97 Blood Pressure Source Monitor Blood Pressure Position Semi-Fowlers Blood Pressure Location Left Arm Pulse Ox 99 Oxygen Delivery Method Room Air Weight Weight: 76 kg Body Mass Index (BMI) 22.7
--- NOTE | 2022-08-29 14:21 | PCM.DC ---
Discharge Instructions Diet Discharge Diet: No restrictions, Light diet - advance as tolerated and Soft diet Activity Discharge Activity: Return to Normal Activity Dressing / Incision Call your doctor if your incision/area has: Continuous Slow Oozing and Sudden Increased Bleeding Call your doctor if you observe: Fever of 101 or Higher Suture Line Care: Avoid Pulling/Pushing and Avoid Pinching/Bending Cleanse incision/area with: Soap & Water Catheter: Peterson to leg bag and Peterson to large bag Drain: [place] Follow Up Care Please Follow Up With: Solomon Mari MD When: Call for an appointment in 2 weeks to remove the catheter Test Results: Test results from this visit will be discussed in further detail at your follow-up appointment, if applicable. Discharge Plan Admission Primary Reason for Your Visit: Robotic simple prostatectomy Attending Provider: Solomon Mari Primary Care Provider: Yoanna Brewer Discharge Orders/Prescriptions Prescriptions: New oxycodone-acetaminophen [Endocet] 5-325 mg tablet 1 tab PO Q6H PRN (Reason: pain) 7 Days Qty: 20 0RF docusate sodium [Colace] 100 mg capsule 100 mg PO BID Qty: 20 0RF ciprofloxacin HCl 500 mg tablet 500 mg PO BID Qty: 20 0RF Continued olanzapine [Zyprexa] 7.5 MG tablet 7.5 mg PO QHS oxybutynin chloride 15 MG tablet extended release 24hr 15 mg PO QHS tamsulosin 0.4 mg capsule 0.4 mg PO QHS finasteride 5 mg tablet 5 mg PO DAILY Adult 50 Plus Probiotic 4 billion cell capsule 4,000 mmu cells PO DAILY acetaminophen [Tylenol] 325 mg Tablet 650 mg PO Q6H PRN PRN (Reason: Pain 1-10 Or Fever >100.7) Qty: 0 0RF nystatin [Nyamyc] 100,000 unit/gram Powder 1 applic topical BID Qty: 0 0RF Protocol: *Topical Application Instructions APPLICATION INSTRUCTIONS: groin Darren (with collagen) 7-7-1.5 gram Powder In Packet 1 packet PO BIDCM Qty: 0 0RF Referrals / Follow Up: Yoanna Brewer MD [Primary Care Provider] - Solomon Mari MD [Med Staff - Active Staff] - Disposition Disposition (needs filled in before D/C Order can be placed): Home, Self Care
--- NOTE | 2022-08-29 14:22 | OP.PCM_ITS ---
Report of Operation Date of Procedure: 08/29/22 Pre-Operative Diagnosis: BPH with obstruction and a very large prostate Post-Operative Diagnosis: The same Surgery/Procedure Performed:: Robotic assisted simple prostatectomy laparoscopic approach Description of Surgical Findings:: Indication this is an 87-year-old male who I saw in the office for consultation he is not emptying his bladder all the way he has incontinence of urine and poor bladder control he has failed medical management and at this point we will plan to offer him surgical intervention he does have a very large prostate so I recommended we proceed with a simple prostatectomy as the best option for his obstruction he understands he will need a catheter for about 2 weeks of the left the bladder heal up after surgery and the prostate heal. Patient was taken back to the operating room after smooth induction of general anesthesia he was placed supine on the table to penis and testicles and lower abdomen were prepped and draped in usual sterile fashion and made an incision and below the umbilicus advanced a Veress needle into the peritoneal cavity filled the peritoneal cavity with CO2 gas and then placed my camera trocar right arm trocar left and trocar and a suction port 8 mm. The robot was then docked the patient was put in steep Trendelenburg I then reflected the colon off the lateral sidewall we then filled the bladder up with 300 cc of sterile saline I m archana a midline incision in the bladder we is a Connor needle to retract the bladder laterally on both sides once we got inside the bladder there was a very large prostate that was emanating into the inputting pressure in the bladder I then dissected circumferentially scored the mucosa all the way around and to identify the adenoma and then I dissected between the adenoma and the prostate edge all the way anteriorly until I got to the apex and then went laterally until I got posterior and then I went on both sides posteriorly and then I got to the extension of the prostatic urethra I cut through this I then retracted the adenoma out of the prostate fossa on the right side and the left side we then use electrocautery to cauterize any pinpoints placed Floseal in the prostatic fossa we got a new 20 Israeli catheter with 20 cc in the balloon and then pulled the balloon back into the prostatic fossa for tamponade and then we closed the bladder in 2 layers with a 3-0 Vicryl in a 2-0 Vicryl we checked the closure and it was watertight we filled the bladder up with 250 cc and there was no leakage from the closure. I then extracted the prostate adenoma through the umbilicus the robot was undocked and then we closed the extraction site which was the umbilicus and then all the other sites were closed with subcuticular stitches. Patient's anesthetic was reversed I flushed out the catheter the catheter was draining fairly well and was taken back to PACU in good condition successful simple robotic prostatectomy good enucleation of the prostate adenomas has a wide open channel sphincter was intact at the end of the case. Surgeon: Solomon Mari Type of Anesthesia: General Drains: bentley 20 fr Admit VTE Documentation VTE Present on Admission: No VTE Mechan Device Prophylaxis: SCD's VTE Pharm Prophylaxis ordered?: No
[2022-08-29] MEDS: Ketorolac 15 MG/ML Vial IV (18:17)
[2022-08-29] MEDS: Juven (unflavored) Packet 1 PACKET PO (18:17)
[2022-08-29] MEDS: Lactated Ringers 1,000 ML 125 ML IV (22:22)
[2022-08-29] MEDS: OLANZapine 2.5 MG Tablet 7.5 MG PO (22:23)
[2022-08-29] MEDS: Ciprofloxacin 400 MG/200 ML BAG 200 MG IV (22:23)
[2022-08-29] MEDS: Docusate Sodium 100 MG Capsule 200 MG PO (22:23)
[2022-08-29] MEDS: Nystatin Powder 15gm Bottle 1 APPLIC TOPICAL (22:23)
[2022-08-29] MEDS: Tolterodine Tartrate 4 MG CAP.SA PO (22:23)
[2022-08-29] MEDS: Tamsulosin HCl 0.4 MG Capsule PO (22:23)
[2022-08-30] MEDS: Ketorolac 15 MG/ML Vial IV ×5 (00:30→22:31)
[2022-08-30 02:14] VITALS: BP 126/75; PULSE 85; RESP 18; TEMP 36.7; O2SAT 97
[2022-08-30] MEDS: Menthol/Lanolin/Calamine/Znox 113 GM Tube 1 APPLIC TOPICAL ×2 (05:47→21:06)
[2022-08-30] MEDS: 0.9% Saline Lock 10 ML Syringe IV ×3 (05:47→22:32)
[2022-08-30 05:54] VITALS: BP 118/75; PULSE 84; RESP 16; TEMP 36.6; O2SAT 96
[2022-08-30] MEDS: Lactated Ringers 1,000 ML 125 ML IV ×3 (06:20→22:31)
--- NOTE | 2022-08-30 07:53 | PCM.PN.BLA ---
Progress Note Status post simple prostatectomy, doing well urine is still a little bit bloody so probably hold discharge till tomorrow. But will advance to regular diet Hep-Lock and discharged probably tomorrow back to his assisted living or residential
[2022-08-30 09:28] VITALS: BP 127/66; PULSE 90; RESP 18; TEMP 36.3; O2SAT 92
[2022-08-30] MEDS: Ciprofloxacin 400 MG/200 ML BAG 200 MG IV (09:36)
[2022-08-30] MEDS: Nystatin Powder 15gm Bottle 1 APPLIC TOPICAL (09:37)
[2022-08-30] MEDS: Finasteride 5 MG Tablet PO (09:37)
[2022-08-30] MEDS: Docusate Sodium 100 MG Capsule 200 MG PO ×2 (09:37→21:06)
[2022-08-30] MEDS: Juven (unflavored) Packet 1 PACKET PO ×2 (09:38→17:31)
[2022-08-30 14:59] VITALS: BP 123/79; PULSE 99; RESP 18; TEMP 36.4; O2SAT 97
[2022-08-30] MEDS: OLANZapine 2.5 MG Tablet 7.5 MG PO (21:05)
[2022-08-30] MEDS: Tamsulosin HCl 0.4 MG Capsule PO (21:05)
[2022-08-30] MEDS: Tolterodine Tartrate 4 MG CAP.SA PO (21:06)
[2022-08-30 21:23] VITALS: BP 143/74; PULSE 90; RESP 18; TEMP 37.1; O2SAT 97
[2022-08-31 04:00] VITALS: BP 139/67; PULSE 90; RESP 16; TEMP 36.6; O2SAT 93
[2022-08-31] MEDS: Lactated Ringers 1,000 ML 125 ML IV (06:07)
[2022-08-31 08:18] LABS: Absolute Lymphocyte Count 2.74 X10^3/uL (0.83-4.51); Basophil# 0.05 X10^3/uL; Basophil% 0.5 % (0-1); Eosinophil# 0.14 X10^3/uL; Eosinophils% 1.4 % (0-5); Hematocrit 39.6 % (40-54); Hemoglobin 12.7 g/dL (13.0-16.5); Lymphocyte # 2.74 X10^3/ul (0.83-4.51); Lymphocyte % 27.7 % (19-41); Mean Corp Hgb Conc 32.1 g/dL (32-36); Mean Corpuscular Hgb 28.9 pg (27.0-32.0); Mean Corpuscular Volume 90.2 fL (80-94); Mean Platelet Vol. 9.6 fl (6.2-12.0); Monocyte% 9.1 % (0-10); NRBC Flagged by Analyzer 0 % (0-5); Neutrophil # 6.03 X10^3/uL (2.7-7.7); Neutrophil % 60.9 % (47-70); Platelet Count 178 K/mm3 (150-450); RBC Distribution Width CV 13.1 % (11.6-14.6); RBC Distribution Width SD 43.1 fl (35.1-43.9); Red Blood Count 4.39 M/mm3 (4.6-6.2); White Blood Count 9.9 K/mm3 (4.4-11.0)
[2022-08-31] MEDS: Juven (unflavored) Packet 1 PACKET PO ×2 (08:48→17:54)
[2022-08-31] MEDS: Finasteride 5 MG Tablet PO (09:55)
[2022-08-31] MEDS: Menthol/Lanolin/Calamine/Znox 113 GM Tube 1 APPLIC TOPICAL ×2 (09:55→20:42)
[2022-08-31] MEDS: Nystatin Powder 15gm Bottle 1 APPLIC TOPICAL ×2 (09:56→20:43)
[2022-08-31 09:59] VITALS: BP 143/87; PULSE 82; RESP 18; TEMP 37.2; O2SAT 95
--- NOTE | 2022-08-31 12:04 | CASEMGMT ---
RN DELANO in to discuss [place] form with patient. Pt A&Ox3. RN DELANO explained [place] form, patient voiced understanding. Pt signed form and filed in chart. Pt provided with a copy of signed [place] form. Patient states that he is from [place]. He denies any homegoing needs and reports he feels safe to return. Patient had no further questions or concerns at this time.
--- NOTE | 2022-08-31 14:38 | CASEMGMT ---
Addendum entered by Emerald Diaz 08/31/22 16:17: Per nursing, physician will not discharge pt today but likely tomorrow. Phone call to [facility] with [facility] and they do not run on Saturdays. Phone call to pt dgganesh Mosquera who is requesting wheelchair van for transport. Eveline made aware of cost and agreeable. Pt to discharge Saturday back to [facility] with transportation from [facility]. MIKE Del Toro Original Note: Social Work SW spoke with Guerda at [facility] who confirms pt is from assisted living and can return when medically ready. Discharge information sent to [facility] via care port. GABRIELLA spoke with pt who plans to return to [facility] and states they will provide transporation. Phone call to Guerda at [facility] who states [facility] is able to pick pt up. Staff to call [facility] when pt is discharged [phone]. MIKE Del Toro
[2022-08-31 14:43] VITALS: BP 155/94; PULSE 90; RESP 18; TEMP 36.3; O2SAT 97
[2022-08-31 20:38] VITALS: BP 139/84; PULSE 102; RESP 16; TEMP 36.8; O2SAT 94
[2022-08-31] MEDS: Docusate Sodium 100 MG Capsule 200 MG PO (20:42)
[2022-08-31] MEDS: Tolterodine Tartrate 4 MG CAP.SA PO (20:43)
[2022-08-31] MEDS: Tamsulosin HCl 0.4 MG Capsule PO (20:43)
[2022-08-31] MEDS: OLANZapine 2.5 MG Tablet 7.5 MG PO (20:44)
[2022-08-31 23:29] VITALS: PULSE 102
[2022-09-01 02:38] VITALS: BP 155/98; PULSE 103; RESP 16; TEMP 37; O2SAT 97
--- NOTE | 2022-09-01 07:13 | PN.URO_ITS ---
Subjective Subjective 87-year-old male status post simple robotic prostatectomy for a very large prostate, urine is finally clear nice isabel color, no more bleeding, he can go home today with a Peterson catheter back to assisted living he can resume all his medications. Objective Data Objective Data Vital Signs: Vital Signs Temp Pulse Resp BP Pulse Ox O2 Del Method O2 Flow Rate 98.6 F 103 H 16 155/98 H 97 Room Air 2 09/01/22 02:38 09/01/22 02:38 09/01/22 02:38 09/01/22 02:38 09/01/22 02:38 09/01/22 02:38 08/30/22 21:23 Oxygen Flow Rate (L/min) 2 Oxygen Delivery Method Room Air Weight: 76 kg Body Mass Index (BMI) 22.7 Intake & Output: Intake and Output for Last 24 Hours 08/30/22 08/31/22 09/01/22 23:59 23:59 23:59 Intake Total 2945.83 / 2945.83 3450 / 3450 300 / 300 Output Total 2100 / 2100 4475 / 4475 925 / 925 Balance 845.83 / 845.83 -1025 / -1025 -625 / -625 Lab / Micro Data Result Diagrams: 08/31/22 08:10 Labs: Laboratory Results - last 24 hr 08/31/22 08:10: WBC 9.9, RBC 4.39 L, Hgb 12.7 L, Hct 39.6 L, MCV 90.2, MCH 28.9, MCHC 32.1, RDW Std Deviation 43.1, RDW Coeff of Nahed 13.1, Plt Count 178, MPV 9.6, Immature Gran % (Auto) 0.400, Neut % (Auto) 60.9, Lymph % (Auto) 27.7, Bradford % (Auto) 9.1, Eos % (Auto) 1.4, Baso % (Auto) 0.5, Absolute Neuts (auto) 6.0, Absolute Lymphs (auto) 2.74, Nucleated RBC % 0
[2022-09-01 08:19] VITALS: BP 155/93; PULSE 106; RESP 18; TEMP 36.8; O2SAT 93
[2022-09-01] MEDS: Finasteride 5 MG Tablet PO (08:24)
[2022-09-01] MEDS: Juven (unflavored) Packet 1 PACKET PO (08:24)
[2022-09-01] MEDS: Docusate Sodium 100 MG Capsule 200 MG PO (08:24)
[2022-09-01 09:16] VITALS: PULSE 120
[2022-09-01] MEDS: Menthol/Lanolin/Calamine/Znox 113 GM Tube 1 APPLIC TOPICAL (09:30)
[2022-09-01] MEDS: Nystatin Powder 15gm Bottle 1 APPLIC TOPICAL (09:30)
[2022-09-01 10:07] VITALS: O2SAT 93
[2022-09-01 10:36] VITALS: PULSE 110
--- NOTE | 2022-09-01 11:36 | NURSING ---
report called to Genevieve SAUCEDO.
== END 2022-09-01 13:51 | disposition home or self-care (01) ==
LOC: SDC 08:44 → MS3 08:44
PROVIDERS: Admitting Provider Urology; PCP Internal Medicine; Referring Provider Urology; Visit Provider Urology
PROC: 0VT04ZZ Resection of Prostate, Percutaneous Endoscopic Approach (ICD-10-PCS; CPT 55867; principal; 2022-08-29 10:45)
DX: N40.1 Benign prostatic hyperplasia with lower urinary tract symptoms (principal); F31.9 Bipolar disorder, unspecified; N13.8 Other obstructive and reflux uropathy; R32 Unspecified urinary incontinence; R33.8 Other retention of urine; Z79.899 Other long term (current) drug therapy
CPT/HCPCS: 55866; 00865; 36415; 85025; 88307; 88309; 96361; 96365; 96366; 96375; 96376; 97162; 97166; 99221; J7120; A4216; G0378; J0744; J2405

== ENCOUNTER → 2022-10-04 | Outpatient (REF) | payer MEDICARE, OTHER, SELFPAY ==
[2022-10-04 07:00] LABS: Absolute Lymphocyte Count 2.64 X10^3/uL (0.83-4.51); Absolute Neutrophil Count 5.4 X10^3/uL (2.0-7.7); Basophil# 0.09 X10^3/uL; Basophil% 0.9 % (0-1); Eosinophil# 0.48 X10^3/uL; Hematocrit 42.6 % (40-54); Hemoglobin 13.6 g/dL (13.0-16.5); Lymphocyte # 2.64 X10^3/ul (0.83-4.51); Lymphocyte % 27.6 % (19-41); Mean Corp Hgb Conc 31.9 g/dL (32-36); Mean Corpuscular Hgb 28.3 pg (27.0-32.0); Mean Corpuscular Volume 88.8 fL (80-94); Monocyte# 0.89 X10^3/uL; Monocyte% 9.3 % (0-10); NRBC Flagged by Analyzer 0 % (0-5); Neutrophil # 5.41 X10^3/uL (2.7-7.7); Neutrophil % 56.7 % (47-70); Platelet Count 224 K/mm3 (150-450); RBC Distribution Width CV 12.8 % (11.6-14.6); RBC Distribution Width SD 41.8 fl (35.1-43.9); White Blood Count 9.6 K/mm3 (4.4-11.0)
[2022-10-04 07:12] LABS: Anion Gap 6 (5-15); BUN 35 mg/dL (7-18); BUN/Creat Ratio 34.7 RATIO (10-20); Chloride 111 mmol/L (98-107); Creatinine, Serum 1.01 mg/dL (0.70-1.30); EST Glomerular Filtration Rate 75 mL/min (>60); Est Glom Filt Rate - Afr Amer 90 mL/min (>60); Glucose 124 mg/dL (74-106); Potassium 4.2 mmol/L (3.5-5.1); Sodium Level 143 mmol/L (136-145)
== END ==
LOC: OLS.WHLEAS 05:00
PROVIDERS: PCP Internal Medicine; Visit Provider Internal Medicine
DX: R53.83 Other fatigue (principal); M62.82 Rhabdomyolysis; R62.7 Adult failure to thrive; E44.1 Mild protein-calorie malnutrition; R54 Age-related physical debility; M62.81 Muscle weakness (generalized); R26.2 Difficulty in walking, not elsewhere classified
CPT/HCPCS: 36415; 80048; 85025

== ENCOUNTER → 2022-10-18 | Outpatient (REF) | payer MEDICARE, OTHER, SELFPAY ==
[2022-10-18 07:05] LABS: Absolute Lymphocyte Count 2.37 X10^3/uL (0.83-4.51); Absolute Neutrophil Count 4.1 X10^3/uL (2.0-7.7); Basophil# 0.08 X10^3/uL; Eosinophil# 0.33 X10^3/uL; Eosinophils% 4.3 % (0-5); Hematocrit 42.4 % (40-54); Hemoglobin 13.4 g/dL (13.0-16.5); Lymphocyte # 2.37 X10^3/ul (0.83-4.51); Lymphocyte % 30.9 % (19-41); Mean Corp Hgb Conc 31.6 g/dL (32-36); Mean Corpuscular Hgb 28.6 pg (27.0-32.0); Mean Corpuscular Volume 90.4 fL (80-94); Mean Platelet Vol. 9.9 fl (6.2-12.0); Monocyte# 0.83 X10^3/uL; Monocyte% 10.8 % (0-10); NRBC Flagged by Analyzer 0 % (0-5); Neutrophil # 4.05 X10^3/uL (2.7-7.7); Neutrophil % 52.7 % (47-70); Platelet Count 203 K/mm3 (150-450); RBC Distribution Width CV 13.1 % (11.6-14.6); RBC Distribution Width SD 43.1 fl (35.1-43.9); Red Blood Count 4.69 M/mm3 (4.6-6.2); White Blood Count 7.7 K/mm3 (4.4-11.0)
[2022-10-18 07:19] LABS: Anion Gap 3 (5-15); BUN 29 mg/dL (7-18); BUN/Creat Ratio 25.9 RATIO (10-20); Chloride 113 mmol/L (98-107); Creatinine, Serum 1.12 mg/dL (0.70-1.30); EST Glomerular Filtration Rate 66 mL/min (>60); Est Glom Filt Rate - Afr Amer 80 mL/min (>60); Glucose 109 mg/dL (74-106); Potassium 4.3 mmol/L (3.5-5.1); Sodium Level 144 mmol/L (136-145)
== END ==
LOC: OLS.WHLEAS 05:00
PROVIDERS: PCP Internal Medicine; Visit Provider Internal Medicine
DX: R53.83 Other fatigue (principal); M62.82 Rhabdomyolysis; R62.7 Adult failure to thrive; E44.1 Mild protein-calorie malnutrition; R54 Age-related physical debility; M62.81 Muscle weakness (generalized)
CPT/HCPCS: 36415; 80048; 85025

== ENCOUNTER → 2022-10-25 | Outpatient (REF) | payer MEDICARE, OTHER, SELFPAY ==
[2022-10-25 07:20] LABS: AST(SGOT) 13 U/L (15-37); Alanine Aminotransfer ALT/SGPT 20 U/L (16-61); Albumin, Serum 2.9 g/dL (3.2-5.0); Alkaline Phosphatase 130 U/L (45-117); Bilirubin, Direct 0.07 mg/dL (0.00-0.30); Globulin 2.8 g/dL (2.2-4.2); Protein, Total 5.7 g/dL (6.4-8.2)
== END ==
LOC: OLS.WHLEAS 05:00
PROVIDERS: PCP Internal Medicine; Visit Provider Internal Medicine
DX: M62.82 Rhabdomyolysis (principal); R62.7 Adult failure to thrive; E44.1 Mild protein-calorie malnutrition; R54 Age-related physical debility; M62.81 Muscle weakness (generalized); R26.2 Difficulty in walking, not elsewhere classified
CPT/HCPCS: 36415; 80076

== ENCOUNTER → 2022-11-01 | Outpatient (REF) | payer MEDICARE, OTHER, SELFPAY ==
[2022-11-01 09:26] LABS: Absolute Lymphocyte Count 2.21 X10^3/uL (0.83-4.51); Absolute Neutrophil Count 6.5 X10^3/uL (2.0-7.7); Anion Gap 5 (5-15); BUN 22 mg/dL (7-18); BUN/Creat Ratio 19.8 RATIO (10-20); Basophil# 0.07 X10^3/uL; Basophil% 0.7 % (0-1); Calcium,Total 9.1 mg/dL (8.5-10.1); Chloride 111 mmol/L (98-107); Creatinine, Serum 1.11 mg/dL (0.70-1.30); EST Glomerular Filtration Rate 67 mL/min (>60); Eosinophil# 0.17 X10^3/uL; Eosinophils% 1.7 % (0-5); Est Glom Filt Rate - Afr Amer 81 mL/min (>60); Glucose 103 mg/dL (74-106); Hematocrit 43.5 % (40-54); Lymphocyte # 2.21 X10^3/ul (0.83-4.51); Lymphocyte % 21.9 % (19-41); Mean Corp Hgb Conc 32.2 g/dL (32-36); Mean Corpuscular Hgb 28.6 pg (27.0-32.0); Mean Platelet Vol. 9.6 fl (6.2-12.0); Monocyte# 1.08 X10^3/uL; Monocyte% 10.7 % (0-10); NRBC Flagged by Analyzer 0 % (0-5); Neutrophil % 64.6 % (47-70); Platelet Count 216 K/mm3 (150-450); Potassium 4.4 mmol/L (3.5-5.1); RBC Distribution Width SD 42.5 fl (35.1-43.9); Red Blood Count 4.89 M/mm3 (4.6-6.2); Sodium Level 144 mmol/L (136-145); White Blood Count 10.1 K/mm3 (4.4-11.0)
== END ==
LOC: OLS.WHLEAS 05:00
PROVIDERS: PCP Internal Medicine; Visit Provider Internal Medicine
DX: R53.83 Other fatigue (principal)
CPT/HCPCS: 36415; 80048; 85025

== ENCOUNTER → 2022-11-15 | Outpatient (REF) | payer MEDICARE, OTHER, SELFPAY ==
[2022-11-15 10:08] LABS: Absolute Lymphocyte Count 2.74 X10^3/uL (0.83-4.51); Absolute Neutrophil Count 3.4 X10^3/uL (2.0-7.7); Basophil# 0.06 X10^3/uL; Basophil% 0.8 % (0-1); Eosinophil# 0.14 X10^3/uL; Eosinophils% 1.9 % (0-5); Hematocrit 44.6 % (40-54); Lymphocyte # 2.74 X10^3/ul (0.83-4.51); Lymphocyte % 38.2 % (19-41); Mean Corp Hgb Conc 31.4 g/dL (32-36); Mean Corpuscular Hgb 27.9 pg (27.0-32.0); Mean Corpuscular Volume 88.8 fL (80-94); Mean Platelet Vol. 9.8 fl (6.2-12.0); Monocyte# 0.78 X10^3/uL; Monocyte% 10.9 % (0-10); NRBC Flagged by Analyzer 0 % (0-5); Neutrophil # 3.43 X10^3/uL (2.7-7.7); Neutrophil % 47.8 % (47-70); Platelet Count 208 K/mm3 (150-450); RBC Distribution Width CV 12.7 % (11.6-14.6); RBC Distribution Width SD 41.4 fl (35.1-43.9); Red Blood Count 5.02 M/mm3 (4.6-6.2); White Blood Count 7.2 K/mm3 (4.4-11.0)
[2022-11-15 10:31] LABS: Anion Gap 4 (5-15); BUN 33 mg/dL (7-18); BUN/Creat Ratio 31.1 RATIO (10-20); Calcium,Total 9.5 mg/dL (8.5-10.1); Chloride 111 mmol/L (98-107); Creatinine, Serum 1.06 mg/dL (0.70-1.30); EST Glomerular Filtration Rate 71 mL/min (>60); Est Glom Filt Rate - Afr Amer 85 mL/min (>60); Glucose 115 mg/dL (74-106); Potassium 4.6 mmol/L (3.5-5.1); Sodium Level 142 mmol/L (136-145)
== END ==
LOC: OLS.WHLEAS 05:00
PROVIDERS: PCP Internal Medicine; Visit Provider Internal Medicine
DX: R53.83 Other fatigue (principal); M62.82 Rhabdomyolysis; R62.7 Adult failure to thrive; E44.1 Mild protein-calorie malnutrition; M62.81 Muscle weakness (generalized)
CPT/HCPCS: 36415; 80048; 85025

== ENCOUNTER → 2022-11-29 | Outpatient (REF) | payer MEDICARE, OTHER, SELFPAY ==
[2022-11-29 10:02] LABS: Absolute Lymphocyte Count 2.41 X10^3/uL (0.83-4.51); Absolute Neutrophil Count 3.5 X10^3/uL (2.0-7.7); Basophil# 0.06 X10^3/uL; Basophil% 0.9 % (0-1); Eosinophil# 0.12 X10^3/uL; Eosinophils% 1.8 % (0-5); Hematocrit 41.9 % (40-54); Hemoglobin 13.6 g/dL (13.0-16.5); Lymphocyte # 2.41 X10^3/ul (0.83-4.51); Lymphocyte % 35.3 % (19-41); Mean Corp Hgb Conc 32.5 g/dL (32-36); Mean Corpuscular Hgb 28.4 pg (27.0-32.0); Mean Corpuscular Volume 87.5 fL (80-94); Mean Platelet Vol. 9.7 fl (6.2-12.0); Monocyte# 0.74 X10^3/uL; Monocyte% 10.9 % (0-10); NRBC Flagged by Analyzer 0 % (0-5); Neutrophil # 3.48 X10^3/uL (2.7-7.7); Platelet Count 203 K/mm3 (150-450); RBC Distribution Width SD 41.6 fl (35.1-43.9); Red Blood Count 4.79 M/mm3 (4.6-6.2); White Blood Count 6.8 K/mm3 (4.4-11.0)
[2022-11-29 10:26] LABS: Anion Gap 3 (5-15); BUN 31 mg/dL (7-18); BUN/Creat Ratio 28.4 RATIO (10-20); Calcium,Total 8.9 mg/dL (8.5-10.1); Chloride 112 mmol/L (98-107); Creatinine, Serum 1.09 mg/dL (0.70-1.30); EST Glomerular Filtration Rate 68 mL/min (>60); Est Glom Filt Rate - Afr Amer 83 mL/min (>60); Glucose 108 mg/dL (74-106); Potassium 4.1 mmol/L (3.5-5.1); Sodium Level 143 mmol/L (136-145)
== END ==
LOC: OLS.WHLEAS 05:00
PROVIDERS: PCP Internal Medicine; Visit Provider Internal Medicine
DX: R53.83 Other fatigue (principal); M62.82 Rhabdomyolysis; E44.1 Mild protein-calorie malnutrition; M62.81 Muscle weakness (generalized)
CPT/HCPCS: 36415; 80048; 85025

== ENCOUNTER → 2022-12-13 | Outpatient (REF) | payer MEDICARE, OTHER, SELFPAY ==
[2022-12-13 10:42] LABS: Absolute Neutrophil Count 3.7 X10^3/uL (2.0-7.7); Basophil# 0.07 X10^3/uL; Basophil% 0.9 % (0-1); Eosinophil# 0.15 X10^3/uL; Eosinophils% 1.9 % (0-5); Hematocrit 43.5 % (40-54); Hemoglobin 13.8 g/dL (13.0-16.5); Mean Corp Hgb Conc 31.7 g/dL (32-36); Mean Corpuscular Hgb 28.1 pg (27.0-32.0); Mean Corpuscular Volume 88.6 fL (80-94); Mean Platelet Vol. 10.1 fl (6.2-12.0); Monocyte# 0.79 X10^3/uL; Monocyte% 10.3 % (0-10); NRBC Flagged by Analyzer 0 % (0-5); Neutrophil # 3.66 X10^3/uL (2.7-7.7); Neutrophil % 47.5 % (47-70); Platelet Count 181 K/mm3 (150-450); RBC Distribution Width CV 13.2 % (11.6-14.6); RBC Distribution Width SD 42.7 fl (35.1-43.9); Red Blood Count 4.91 M/mm3 (4.6-6.2); White Blood Count 7.7 K/mm3 (4.4-11.0)
[2022-12-13 10:49] LABS: Anion Gap 4 (5-15); BUN 28 mg/dL (7-18); BUN/Creat Ratio 25.2 RATIO (10-20); Chloride 110 mmol/L (98-107); Creatinine, Serum 1.11 mg/dL (0.70-1.30); EST Glomerular Filtration Rate 67 mL/min (>60); Est Glom Filt Rate - Afr Amer 81 mL/min (>60); Glucose 113 mg/dL (74-106); Potassium 3.9 mmol/L (3.5-5.1); Sodium Level 143 mmol/L (136-145)
== END ==
LOC: OLS.WHLEAS 05:00
PROVIDERS: PCP Internal Medicine; Visit Provider Internal Medicine
DX: R53.83 Other fatigue (principal); M62.82 Rhabdomyolysis; E41 Nutritional marasmus; M62.81 Muscle weakness (generalized)
CPT/HCPCS: 36415; 80048; 85025

== ENCOUNTER → 2022-12-27 | Outpatient (REF) | payer MEDICARE, OTHER, SELFPAY ==
[2022-12-27 10:00] LABS: Absolute Lymphocyte Count 3.04 X10^3/uL (0.83-4.51); Absolute Neutrophil Count 3.8 X10^3/uL (2.0-7.7); Basophil# 0.08 X10^3/uL; Eosinophil# 0.19 X10^3/uL; Eosinophils% 2.4 % (0-5); Hemoglobin 13.9 g/dL (13.0-16.5); Lymphocyte # 3.04 X10^3/ul (0.83-4.51); Lymphocyte % 38.3 % (19-41); Mean Corp Hgb Conc 32.3 g/dL (32-36); Mean Corpuscular Hgb 28.4 pg (27.0-32.0); Mean Corpuscular Volume 87.9 fL (80-94); Mean Platelet Vol. 9.8 fl (6.2-12.0); Monocyte# 0.76 X10^3/uL; Monocyte% 9.6 % (0-10); NRBC Flagged by Analyzer 0 % (0-5); Neutrophil # 3.83 X10^3/uL (2.7-7.7); Neutrophil % 48.3 % (47-70); Platelet Count 210 K/mm3 (150-450); Red Blood Count 4.89 M/mm3 (4.6-6.2); White Blood Count 7.9 K/mm3 (4.4-11.0)
[2022-12-27 10:05] LABS: Anion Gap 4 (5-15); BUN 30 mg/dL (7-18); BUN/Creat Ratio 26.3 RATIO (10-20); Calcium,Total 9.1 mg/dL (8.5-10.1); Chloride 111 mmol/L (98-107); Creatinine, Serum 1.14 mg/dL (0.70-1.30); EST Glomerular Filtration Rate 65 mL/min (>60); Est Glom Filt Rate - Afr Amer 78 mL/min (>60); Glucose 104 mg/dL (74-106); Potassium 4.1 mmol/L (3.5-5.1); Sodium Level 144 mmol/L (136-145)
== END ==
LOC: OLS.WHLEAS 08:15
PROVIDERS: PCP Internal Medicine; Visit Provider Internal Medicine
DX: R53.83 Other fatigue (principal); M62.82 Rhabdomyolysis; E44.1 Mild protein-calorie malnutrition; M62.81 Muscle weakness (generalized)
CPT/HCPCS: 36415; 80048; 85025

== ENCOUNTER → 2023-01-10 | Outpatient (REF) | payer MEDICARE, OTHER, SELFPAY ==
[2023-01-10 09:10] LABS: Absolute Lymphocyte Count 3.58 X10^3/uL (0.83-4.51); Absolute Neutrophil Count 4.5 X10^3/uL (2.0-7.7); Basophil# 0.09 X10^3/uL; Eosinophil# 0.17 X10^3/uL; Eosinophils% 1.9 % (0-5); Hematocrit 51.2 % (40-54); Lymphocyte # 3.58 X10^3/ul (0.83-4.51); Lymphocyte % 39.6 % (19-41); Mean Corp Hgb Conc 31.3 g/dL (32-36); Mean Corpuscular Volume 89.7 fL (80-94); Mean Platelet Vol. 10.8 fl (6.2-12.0); Monocyte# 0.69 X10^3/uL; Monocyte% 7.6 % (0-10); NRBC Flagged by Analyzer 0 % (0-5); Neutrophil # 4.47 X10^3/uL (2.7-7.7); Neutrophil % 49.6 % (47-70); Platelet Count 208 K/mm3 (150-450); RBC Distribution Width CV 13.2 % (11.6-14.6); RBC Distribution Width SD 43.1 fl (35.1-43.9); Red Blood Count 5.71 M/mm3 (4.6-6.2)
[2023-01-10 10:01] LABS: Anion Gap 5 (5-15); BUN 32 mg/dL (7-18); BUN/Creat Ratio 27.4 RATIO (10-20); Calcium,Total 9.4 mg/dL (8.5-10.1); Chloride 108 mmol/L (98-107); Creatinine, Serum 1.17 mg/dL (0.70-1.30); EST Glomerular Filtration Rate 63 mL/min (>60); Est Glom Filt Rate - Afr Amer 76 mL/min (>60); Glucose 113 mg/dL (74-106); Sodium Level 142 mmol/L (136-145)
== END ==
LOC: OLS.WHLEAS 05:00
PROVIDERS: PCP Internal Medicine; Visit Provider Internal Medicine
DX: R53.83 Other fatigue (principal)
CPT/HCPCS: 36415; 80048; 85025

== ENCOUNTER → 2023-01-17 | Outpatient (REF) | payer MEDICARE, OTHER, SELFPAY ==
[2023-01-17 09:12] LABS: AST(SGOT) 14 U/L (15-37); Alanine Aminotransfer ALT/SGPT 23 U/L (16-61); Albumin, Serum 3.3 g/dL (3.2-5.0); Alkaline Phosphatase 135 U/L (45-117); Bilirubin, Direct 0.14 mg/dL (0.00-0.30); Protein, Total 6.3 g/dL (6.4-8.2)
== END ==
LOC: OLS.WHLEAS 05:00
PROVIDERS: PCP Internal Medicine; Visit Provider Internal Medicine
DX: M62.82 Rhabdomyolysis (principal); E44.1 Mild protein-calorie malnutrition; M62.81 Muscle weakness (generalized); Z79.899 Other long term (current) drug therapy
CPT/HCPCS: 36415; 80076

== ENCOUNTER → 2023-01-24 | Outpatient (REF) | payer MEDICARE, OTHER, SELFPAY ==
[2023-01-24 10:22] LABS: Absolute Lymphocyte Count 3.05 X10^3/uL (0.83-4.51); Basophil# 0.07 X10^3/uL; Basophil% 0.9 % (0-1); Eosinophil# 0.14 X10^3/uL; Eosinophils% 1.7 % (0-5); Hematocrit 45.4 % (40-54); Hemoglobin 14.2 g/dL (13.0-16.5); Lymphocyte # 3.05 X10^3/ul (0.83-4.51); Lymphocyte % 37.9 % (19-41); Mean Corp Hgb Conc 31.3 g/dL (32-36); Mean Corpuscular Hgb 27.8 pg (27.0-32.0); Mean Corpuscular Volume 88.8 fL (80-94); Mean Platelet Vol. 10.2 fl (6.2-12.0); Monocyte# 0.78 X10^3/uL; Monocyte% 9.7 % (0-10); NRBC Flagged by Analyzer 0 % (0-5); Neutrophil # 3.97 X10^3/uL (2.7-7.7); Neutrophil % 49.4 % (47-70); Platelet Count 201 K/mm3 (150-450); RBC Distribution Width CV 13.2 % (11.6-14.6); Red Blood Count 5.11 M/mm3 (4.6-6.2)
[2023-01-24 10:28] LABS: Anion Gap 2 (5-15); BUN 31 mg/dL (7-18); BUN/Creat Ratio 24.4 RATIO (10-20); Calcium,Total 9.2 mg/dL (8.5-10.1); Chloride 109 mmol/L (98-107); Creatinine, Serum 1.27 mg/dL (0.70-1.30); EST Glomerular Filtration Rate 57 mL/min (>60); Est Glom Filt Rate - Afr Amer 69 mL/min (>60); Glucose 101 mg/dL (74-106); Sodium Level 142 mmol/L (136-145)
== END ==
LOC: OLS.WHLEAS 05:00
PROVIDERS: PCP Internal Medicine; Visit Provider Internal Medicine
DX: R53.83 Other fatigue (principal)
CPT/HCPCS: 36415; 80048; 85025

== ENCOUNTER → 2023-02-07 | Outpatient (REF) | payer MEDICARE, OTHER, SELFPAY ==
[2023-02-07 09:24] LABS: Absolute Lymphocyte Count 3.09 X10^3/uL (0.83-4.51); Absolute Neutrophil Count 4.2 X10^3/uL (2.0-7.7); Basophil# 0.07 X10^3/uL; Basophil% 0.8 % (0-1); Eosinophil# 0.15 X10^3/uL; Eosinophils% 1.8 % (0-5); Hematocrit 43.2 % (40-54); Hemoglobin 14.2 g/dL (13.0-16.5); Lymphocyte # 3.09 X10^3/ul (0.83-4.51); Lymphocyte % 37.2 % (19-41); Mean Corp Hgb Conc 32.9 g/dL (32-36); Mean Corpuscular Hgb 28.7 pg (27.0-32.0); Mean Corpuscular Volume 87.4 fL (80-94); Mean Platelet Vol. 10.4 fl (6.2-12.0); Monocyte# 0.81 X10^3/uL; Monocyte% 9.7 % (0-10); NRBC Flagged by Analyzer 0 % (0-5); Neutrophil # 4.17 X10^3/uL (2.7-7.7); Neutrophil % 50.3 % (47-70); Platelet Count 204 K/mm3 (150-450); RBC Distribution Width CV 13.6 % (11.6-14.6); RBC Distribution Width SD 43.7 fl (35.1-43.9); Red Blood Count 4.94 M/mm3 (4.6-6.2); White Blood Count 8.3 K/mm3 (4.4-11.0)
[2023-02-07 09:40] LABS: Anion Gap 3 (5-15); BUN 33 mg/dL (7-18); BUN/Creat Ratio 28.2 RATIO (10-20); Calcium,Total 9.1 mg/dL (8.5-10.1); Chloride 112 mmol/L (98-107); Creatinine, Serum 1.17 mg/dL (0.70-1.30); EST Glomerular Filtration Rate 63 mL/min (>60); Est Glom Filt Rate - Afr Amer 76 mL/min (>60); Glucose 99 mg/dL (74-106); Sodium Level 144 mmol/L (136-145)
== END ==
LOC: OLS.WHLEAS 05:00
PROVIDERS: PCP Internal Medicine; Visit Provider Internal Medicine
DX: R53.83 Other fatigue (principal); M62.82 Rhabdomyolysis; E44.1 Mild protein-calorie malnutrition
CPT/HCPCS: 36415; 80048; 85025

== ENCOUNTER → 2023-02-21 | Outpatient (REF) | payer MEDICARE, OTHER, SELFPAY ==
[2023-02-21 09:53] LABS: Absolute Lymphocyte Count 2.81 X10^3/uL (0.83-4.51); Absolute Neutrophil Count 3.8 X10^3/uL (2.0-7.7); Basophil# 0.08 X10^3/uL; Eosinophil# 0.12 X10^3/uL; Eosinophils% 1.6 % (0-5); Hematocrit 45.6 % (40-54); Hemoglobin 14.6 g/dL (13.0-16.5); Lymphocyte # 2.81 X10^3/ul (0.83-4.51); Lymphocyte % 36.9 % (19-41); Mean Corpuscular Hgb 28.4 pg (27.0-32.0); Mean Corpuscular Volume 88.7 fL (80-94); Mean Platelet Vol. 10.2 fl (6.2-12.0); Monocyte# 0.78 X10^3/uL; Monocyte% 10.2 % (0-10); NRBC Flagged by Analyzer 0 % (0-5); Neutrophil # 3.79 X10^3/uL (2.7-7.7); Neutrophil % 49.8 % (47-70); Platelet Count 176 K/mm3 (150-450); RBC Distribution Width CV 13.4 % (11.6-14.6); RBC Distribution Width SD 43.9 fl (35.1-43.9); Red Blood Count 5.14 M/mm3 (4.6-6.2); White Blood Count 7.6 K/mm3 (4.4-11.0)
[2023-02-21 10:09] LABS: Anion Gap 2 (5-15); BUN 25 mg/dL (7-18); BUN/Creat Ratio 20.7 RATIO (10-20); Chloride 112 mmol/L (98-107); Creatinine, Serum 1.21 mg/dL (0.70-1.30); EST Glomerular Filtration Rate 61 mL/min (>60); Est Glom Filt Rate - Afr Amer 73 mL/min (>60); Glucose 114 mg/dL (74-106); Potassium 4.2 mmol/L (3.5-5.1); Sodium Level 143 mmol/L (136-145)
== END ==
LOC: OLS.WHLEAS 05:00
PROVIDERS: PCP Internal Medicine; Visit Provider Internal Medicine
DX: R53.83 Other fatigue (principal); M62.82 Rhabdomyolysis; E44.1 Mild protein-calorie malnutrition; M62.81 Muscle weakness (generalized)
CPT/HCPCS: 36415; 80048; 85025

== ENCOUNTER → 2023-03-07 | Outpatient (REF) | payer MEDICARE, OTHER, SELFPAY ==
[2023-03-07 09:01] LABS: Absolute Lymphocyte Count 3.04 X10^3/uL (0.83-4.51); Absolute Neutrophil Count 4.3 X10^3/uL (2.0-7.7); Basophil# 0.07 X10^3/uL; Basophil% 0.8 % (0-1); Eosinophil# 0.15 X10^3/uL; Eosinophils% 1.8 % (0-5); Hematocrit 43.7 % (40-54); Hemoglobin 14.1 g/dL (13.0-16.5); Lymphocyte # 3.04 X10^3/ul (0.83-4.51); Mean Corp Hgb Conc 32.3 g/dL (32-36); Mean Corpuscular Hgb 28.7 pg (27.0-32.0); Mean Corpuscular Volume 88.8 fL (80-94); Mean Platelet Vol. 10.2 fl (6.2-12.0); Monocyte# 0.82 X10^3/uL; Monocyte% 9.7 % (0-10); NRBC Flagged by Analyzer 0 % (0-5); Neutrophil # 4.33 X10^3/uL (2.7-7.7); Neutrophil % 51.3 % (47-70); Platelet Count 205 K/mm3 (150-450); RBC Distribution Width CV 13.2 % (11.6-14.6); Red Blood Count 4.92 M/mm3 (4.6-6.2); White Blood Count 8.4 K/mm3 (4.4-11.0)
[2023-03-07 09:32] LABS: Anion Gap 4 (5-15); BUN 30 mg/dL (7-18); Chloride 112 mmol/L (98-107); Creatinine, Serum 1.11 mg/dL (0.70-1.30); EST Glomerular Filtration Rate 67 mL/min (>60); Est Glom Filt Rate - Afr Amer 81 mL/min (>60); Glucose 116 mg/dL (74-106); Potassium 3.9 mmol/L (3.5-5.1); Sodium Level 143 mmol/L (136-145)
== END ==
LOC: OLS.WHLEAS 05:00
PROVIDERS: PCP Internal Medicine; Visit Provider Internal Medicine
DX: R53.83 Other fatigue (principal); M62.82 Rhabdomyolysis; E44.1 Mild protein-calorie malnutrition; M62.81 Muscle weakness (generalized)
CPT/HCPCS: 36415; 80048; 85025

== ENCOUNTER → 2023-03-21 | Outpatient (REF) | payer MEDICARE, OTHER, SELFPAY ==
[2023-03-21 09:55] LABS: Absolute Lymphocyte Count 3.06 X10^3/uL (0.83-4.51); Absolute Neutrophil Count 3.8 X10^3/uL (2.0-7.7); Basophil# 0.08 X10^3/uL; Eosinophil# 0.14 X10^3/uL; Eosinophils% 1.8 % (0-5); Hematocrit 45.5 % (40-54); Hemoglobin 14.5 g/dL (13.0-16.5); Lymphocyte # 3.06 X10^3/ul (0.83-4.51); Lymphocyte % 38.9 % (19-41); Mean Corp Hgb Conc 31.9 g/dL (32-36); Mean Corpuscular Hgb 28.7 pg (27.0-32.0); Mean Corpuscular Volume 89.9 fL (80-94); Mean Platelet Vol. 10.2 fl (6.2-12.0); Monocyte# 0.77 X10^3/uL; Monocyte% 9.8 % (0-10); NRBC Flagged by Analyzer 0 % (0-5); Neutrophil # 3.79 X10^3/uL (2.7-7.7); Neutrophil % 48.1 % (47-70); Platelet Count 210 K/mm3 (150-450); RBC Distribution Width CV 13.4 % (11.6-14.6); RBC Distribution Width SD 43.7 fl (35.1-43.9); Red Blood Count 5.06 M/mm3 (4.6-6.2); White Blood Count 7.9 K/mm3 (4.4-11.0)
[2023-03-21 10:25] LABS: Anion Gap 5 (5-15); BUN 36 mg/dL (7-18); BUN/Creat Ratio 31.3 RATIO (10-20); Calcium,Total 9.3 mg/dL (8.5-10.1); Chloride 111 mmol/L (98-107); Creatinine, Serum 1.15 mg/dL (0.70-1.30); EST Glomerular Filtration Rate 64 mL/min (>60); Est Glom Filt Rate - Afr Amer 78 mL/min (>60); Glucose 103 mg/dL (74-106); Potassium 4.6 mmol/L (3.5-5.1); Sodium Level 145 mmol/L (136-145)
== END ==
LOC: OLS.WHLEAS 05:00
PROVIDERS: PCP Internal Medicine; Visit Provider Internal Medicine
DX: R53.83 Other fatigue (principal); M62.82 Rhabdomyolysis; E44.1 Mild protein-calorie malnutrition; M62.81 Muscle weakness (generalized)
CPT/HCPCS: 36415; 80048; 85025

== ENCOUNTER → 2023-06-13 | Outpatient (REF) | payer MEDICARE, OTHER, SELFPAY ==
--- OUTSIDE RECORDS SUMMARY | 2023-06-13 04:57 | XMS RPT_ITS | CCD ---
Author Name Unknown Address [address] [place] [address] Organization [facility] Care Team Providers Care Kaiawhina Kohanga Reo Name Role Phone WILIAM ZHU Unavailable Unavailable AWENDER, H S Unavailable Unavailable HAYDOUR, QUSAY Unavailable Unavailable EDIE BAUTISTA Unavailable Unavailable JOCELYN BERGMAN) Unavailable Unavailable BLAKE HUBER Unavailable Unavailabl e DAVID JEFFRIESURAG Unavailable Unavailable ALI, NOAMAN S Unavailable Unavailable ALI, NOAMAN S Unavailable Unavailable IMCA Unavailable Unavailable WILIAM ZHU Unavailable Unavailable ALI, NOAMAN S Unavailable Unavailable IMCA Unavailable Unavailable WILIAM ZHU Unavailable Unavailable NOELLE, BAKARI N Unavailable Unavailable NOELLE, BAKARI N Unavailable Unavailable WILIAM ZHU Unavailable Unavailable NOELLE, BAKARI N Unavailable Unavailable NOELLE, BAKARI N Unavailable Unavailable WILIAM ZHU Unavailable Unavailable HAYDOUR, QUSAY Unavailable Unavailable EDIE BAUTISTA Unavailable Unavailable ALI, NOAMAN Unavailable Unavailable ALI, NOAMAN Unavailable Unavailable NOELLE, BAKARI NABI Unavailable Unavailable NOELLE, BAKARI NABI Unavailable Unavailable NOELLE, BAKARI NABI Unavailable Unavailable NOELLE, BAKARI NABI Unavailable Unavailable NOELLE, BAKARI NABI Unavailable Unavailable WILIAM ZHU Primary Care Unavailable LUCILLE KRUGER Attending Unavailable Problems Active Problems Problem Classification Problem Date Documented Date Episodic/Chronic Biliary tract disease (1 source) Obstruction of bile duct; Translations: [Obstruction of bile duct] Onset: 12-17-2017 Chronic Biliary tract disease (2 sources) Calculus of gallbladder and bile duct without cholecystitis without obstruction; Translations: [Calculus of bile duct without cholangitis or cholecystitis without obstruction] Onset: 12-24-2017 Episodic Unclassified (1 source) Unknown / UNK(Unknown) Onset: 11-18-2017 Past or Other Problems Problem Classification Problem Date Documented Da te Episodic/Chronic Urinary tract infections (1 source) Urinary tract infection, site not specified; Translations: [Urinary tract infection, site not specified] Onset: 11-18-2017 Episodic Urinary tract infections (1 source) Urinary tract infections Onset: 11-18-2017 Results Test Name Value Interpretation Reference Range Facil ity Encounters Encounter Date Encounter Type Care Provider Facility Start: 02-22-2022 End: 02-22-2022 Emergency department patient visit WILIAM ZHU Facility:[facility] Start: 04-23-2018 End: 04-23-2018 Evaluation and management of inpatient BAKARI N NOELLE Facility:[facility] Start: 04-23-2018 End: 04-23-2018 Patient encounter procedure BAKARI NABI NOELLE [facility] Start: 12-24-2017 End: 12-24-2017 Patient encounter procedure BAKARI N NOELLE Facility:[facility] Start: 12-17-2017 End: 12-17-2017 Patient encounter procedure NOAMAN S ALI Facility:[facility] Start: 11-18-2017 End: 11-23-2017 Evaluation and management of inpatient WILIAM ZHU Facility:[facility] Procedures Date Procedure Procedure Detail Performing Clinician Start: 07-11-2020 Follow-up visit Start: 07-07-2020 Follow-up visit Start: 07-05-2020 Follow-up visit Start: 07-04-2020 Follow-up visit Start: 06-27-2020 Follow-up visit Start: 06-21-2020 Follow-up visit Start: 06-20-2020 Follow-up visit Start: 06-16-2020 Follow-up visit Start: 06-16-2020 Follow-up visit Start: 06-14-2020 Follow-up visit Payers Date Payer Category Payer Medicare [id number] 1989 Medicare [id number] 1935 Unknown [id number] 2.16.8 [id number] 1937 Unknown [id number] 2.16.8 [id number] 1937 Unknown [id number] 2.16.8 [id number] 1937 Unknown [id number] 2.16.8 [id number] Medicare [id number] Progress note 08-18-2020 Note Date & Type Note Facility 08-18-2020 Note HNO ID: [id number] Author: Dionne Gonzalez (Cns) Service: ? Author Type: Nurse Specialist Type: Progress Notes Filed: 08/18/2020 11:12 AM Note Text: SUBJECTIVE: DTAP,TDAP,TD(1 - Tdap) due on 1956 SHINGRIX VACCINE(1 of 2) Completed ADVANCE DIRECTIVE DISCUSSION Completed INFLUENZA(1) Completed HPI Earnest Baig is a 85 year old male. Presents today to [facility]. Former patient of Dr. Zhu. Current PCP: none Specialists: [facility] -follow-up chronic wound left forearm and hand, Dr. Jiménez urology [facility]- BPH, LUTS, hematuria, Dr. Florence ID [facility] - MSSA, tenosynovitis following Night ,[facility] for bipolar. Last seen by primary care physician by Dr. Zhu, states none since that time. Presents with his who provides most of the history, he is mostly nonverbal. No outside records from [facility] available at the time of this visit. Covid19 positive admission [facility] 06/07/2020. Review of discharge summary shows admission for COVID-19 positive test. He had been seen providers and infectious disease due to infectious tenosynovitis and compartment syndrome due to a cat bite. He was status post recent fasciotomy, positive cultures growing Pasteurella and MSSA. Noted failure to thrive at home. Elevation of D-dimer in ER on arrival, CTA of the chest was negative for PE but did show patchy ground glass infiltrates. He was treated with Decadron and remdesivir. Infectious disease was consulted. He was continued on Augmentin for the cat bite. Remdesivir was after liver enzymes trended upwards. During admission he was weaned to 2 L of oxygen. His status improved until he was ready for discharge to half-way. He was discharged to [facility] on June 07, sent home with Eliquis 2.5 mg twice daily for 2-week. Due to elevated D-dimer. He was also discharged with a 4-day prescription of dexamethasone 6 mg to complete for 10-day total course. He was advised to continue with oxygen 2 L as needed for shortness of breath. He was advised to follow-up with primary care doctor however he does not have 1. He was advised to follow-up with infectious disease provider. Also recommended follow-up with wound care center. Podiatry was consulted during his admission due to toenails. Discharged from [facility] July 12, 2020. She notes he has been eating and drinking normally. Able to walk around his home in his yard without difficulty. Notes he is no longer wearing oxygen. Notes he is breathing easily. Notes no problems with going to the bathroom, no reported constipation,does wear undergarment for urinary incontinence. Notes she has home care coming out, she is not sure where they are coming from. Previously had [facility]. She notes her drives. She knows she cannot drive due to decreased vision. She does the cooking, no Meals on Wheels currently. Notes she is doing well, states she has a daughter available if help is needed. She notes she has power of educational institution curator for her , no copies presented at this visit. Review of Systems Constitutional: Negative. Skin: Positive for wound. Objective BP 124/60 Pulse 74 Resp 16 Ht 177.8 cm (5' 10 ) Wt 73 kg (161 lb) BMI 23.10 kg/m? Physical Exam Vitals and nursing note reviewed. HENT: Head: Normocephalic and atraumatic. Eyes: Conjunctiva/sclera: Conjunctivae normal. Cardiovascular: Rate and Rhythm: Normal rate and regular rhythm. Heart sounds: Normal heart sounds. Pulmonary: Effort: Pulmonary effort is normal. Breath sounds: Normal breath sounds. Abdominal: General: Bowel sounds are normal. Palpations: Abdomen is soft. Musculoskeletal: Right lower leg: No edema. Left lower leg: No edema. Skin: General: Skin is warm and dry. Comments: Dressing present left forearm Neurological: Mental Status: He is alert. Mental status is at baseline. ALLERGIES No Known Allergies OLANZapine (ZYPREXA) 7.5 mg tablet Take 7.5 mg by mouth daily at bedtime. oxybutynin ER (DITROPAN XL) 15 mg 24 hr Extended Rel Tab Take 1 tablet by mouth once daily. VITAMIN E 400 UNIT CAP Take one(1) tablet daily. PAST MEDICAL HISTORY Diagnosis Date - Bipolar I disorder, most recent episode (or current) manic, unspecified - Choledocholithiasis - Common bile duct (CBD) stricture - Complicated urinary tract infection 11/2017 E Coli from OSH - Other malignant lymphomas, unspecified site, extranodal and solid organ sites Social History Tobacco Use - Smoking status: Never Smoker - Smokeless tobacco: Never Used Substance Use Topics - Alcohol use: No - Drug use: No ASSESSMENT/PLAN: 1. COVID-19 virus infection - ICD9: 079.89, ICD10: U07.1 (primary diagnosis) notes he appears fully recovered 2. Gross hematuria - ICD9: 599.71, ICD10: R31.[address] Simons urologist - CBC + DIFF (FOR REMOTE [facility] USE) - CMP (CMP) (more content not included)... [facility] Summary Purpose Family History No Family History Records FoundNo Family History Records FoundNo Family History Records FoundNo Family History Records FoundNo Family History Records FoundNo Family History Records Found Advance Directives No Advanced Directives Records FoundNo Advanced Directives Records FoundNo Advanced Directives Records FoundNo Advanced Directives Records FoundNo Advanced Directives Records FoundNo Advanced Directives Records Found Procedure Findings Note HNO ID: [id number]: Asha Yang MirService: GastroenterologyAuthor Type: PhysicianType: Brief Op NoteFiled: 11/19/2017 3:34 PMNote Text:BRIEF OPERATIVE / PROCEDURE NOTELOG ID: [id number]/PROCEDURE DATE: 11/19/2017SURGEON(S)/PROCEDURALIST(S) AND COLD ROLLING SUPERVISOR(S): Bakari Yang Noelle - PrimaryendoscopistINDICATION: Obstructive jaundicePRE-OP/PRE-PROCEDURE DIAGNOSIS: same + CBD stones and GB stonesPOST-OP/POST-PROCEDURE DIAGNOSIS: 1. long segment CBD stricture withdilated ducts upstream 2. Small CHD stonePROCEDURE(S): ERCP/ Sphincterotomy, PD stent placement, CBD stentplacement , balloon sweepANESTHESIA: GeneralFINDINGS: A 5 cm long moderate grade smooth stricture in CBD with dilatedCHD and intrahepatic ducts 2. A 7 mm stone in CHD 3. Non-opacificationof Cystic duct and GBESTIMATED BLOOD LOSS: NoneSPECIMENS: NoneCOMPLICATIONS: NonePOST-PROCEDURE RECOMMENDATIONS/FOLLOW UP: 1. MRCP to further evaluate CBDand GB for possible malignancy 2. Spyglass cholangioscopyDict#[id number]: Bakari Peterson (more content not included)... Note HNO ID: [id number]: Asha Yang MirService: GastroenterologyAuthor Type: PhysicianType: Brief Op NoteFiled: 12/24/2017 5:48 PMNote Text:BRIEF OPERATIVE / PROCEDURE NOTELOG ID: [id number]/PROCEDURE DATE: 12/24/2017SURGEON(S)/PROCEDURALIST(S) AND COLD ROLLING SUPERVISOR(S): Bakari Rowland - PrimaryendoscopistINDICATION: Retained CBD stonesPRE-OP/PRE-PROCEDURE DIAGNOSIS: samePOST-OP/POST-PROCEDURE DIAGNOSIS: two retained CBD stones with a smoothCBD stricturePROCEDURE(S): ERCP W/ removal of old plastic stent, balloon occlusioncholangiogram, mechanical lithotripsy x 2, replacement of 10 Fr 9 cmplastic CBD stentANESTHESIA: GeneralFINDINGS: As aboveESTIMATED BLOOD LOSS: NoneSPECIMENS: noneCOMPLICATIONS: NonePOST-PROCEDURE RECOMMENDATIONS/FOLLOW UP: Schedule Rpt. ERCP/ Spyglasscholangioscopy in 4-6 weeksDict-[id number]: Bakari Rowland MD PATIENT NAME: Earnest BaigDATE: 12/24/2017 : normal Note HNO ID: [id number]: Asha ricky Yang MirService: GastroenterologyAuthor Type: PhysicianType: Brief Op NoteFiled: 04/23/2018 5:10 PMNote Text:BRIEF OPERATIVE / PROCEDURE NOTELOG ID: [id number]/PROCEDURE DATE: 04/23/2018SURGEON(S)/PROCEDURALIST(S) AND COLD ROLLING SUPERVISOR(S): Bakari Rowland - PrimaryendoscopistINDICATION: Retained bile duct stonesPRE-OP/PRE-PROCEDURE DIAGNOSIS: samePOST-OP/POST-PROCEDURE DIAGNOSIS: 1. Retained stone in Rt. hepatit duct 2.Benign CBD stricturePROCEDURE(S): ERCP/ Spyglass cholangioscopy/ removal of CBD stent/balloonsweep and extraction of broken up stones/ mechanical lithotripsy of stonefragmentsANESTHESIA: GeneralFINDINGS: as aboveESTIMATED BLOOD LOSS: NoneSPECIMENS: noneCOMPLICATIONS: NonePOST-PROCEDURE RECOMMENDATIONS/FOLLOW UP: Lap. Yadira [id number]: Bakari Rowland MD PATIENT NAME: Earnest BaigDATE: 04/23/2018 : normal Note HNO ID: [id number]: Ra janina Nugent: General SurgeryAutho Type: PhysicianType: Discharge SummariesFiled: 11/23/2017 7:41 PMNote Text:DISCHARGE SUMMARYPATIENT NAME: Earnest BaigMRN: [id number] Information Admission Information ADMIT DATE: 11/18/2017DISCHARGE DATE: 11/23/17MY DOCTORS AND MEDICAL TEAM:[facility] Doctor: Edie Calvert Care Provider: Darrius Winn Medical Team Members: Treatment Team:Attending Provider: Edie BautistaConsulting: Jocelyn BergmanConsuing: Gus Pavon Service: [facility] CopperConsulting: Aidan ChavezggalConsulting: Toñito Rowe CONDITION AT DISCHARGE: StableREASON I WAS IN THE HOSPITAL: Obstructive jaundice secondary toCholedocholithiasisSUMMARY OF WHAT HAPPENED WHILE I WAS IN THE HOSPITAL: Patient presentedto [facility] for medical admission and treatment from [facility] 11/18/17 with painless obstructive jaundice x 2 weeks and a urinarytract infection. An ERCP was completed showing strict (more content not included)... Hospital Course Note HNO ID: [id number]: Ra janina Nugent: [facility] Type: PhysicianType: Discharge SummariesFiled: 11/23/2017 7:41 PMNote Text:DISCHARGE SUMMARYPATIENT NAME: Earnest BaigMRN: [id number] Information Admission Information ADMIT DATE: 11/18/2017DISCHARGE DATE: 11/23/17MY DOCTORS AND MEDICAL TEAM:[facility] Doctor: Edie Calvert Care Provider: Darrius Winn Medical Team Members: Treatment Team:Attending Provider: Edie BautistaConsulting: Jocelyn BergmanConsuing: Gus Pavon Service: [facility] CopperConsulting: Aidan ShaveralCjosé miguelulting: Toñito Rowe CONDITION AT DISCHARGE: StableREASON I WAS IN THE HOSPITAL: Obstructive jaundice secondary toCholedocholithiasisSUMMARY OF WHAT HAPPENED WHILE I WAS IN THE HOSPITAL: Patient presentedto [facility] for medical admission and treatment from [facility] 11/18/17 with painless obstructive jaundice x 2 weeks and a urinarytract infection. An ERCP was completed showing strict (more content not included)... Additional Source Comments (unrecognized sect ion and content) No Status Records FoundNo Status Records FoundNo Status Records FoundNo Status Records FoundNo Status Records FoundNo Status Records Found INFORMATION SOURCE (unrecogn ized section and content) DATE CREATED AUTHOR AUTHOR'S ORGANIZ ATION 05/14/2018 [facility] DATE CREATED AUTHOR AUTHOR'S ORGANIZ ATION 07/14/2020 [facility] DATE CREATED AUTHOR AUTHOR'S ORGANIZ ATION 12/15/2020 [facility] DATE CREATED AUTHOR AUTHOR'S ORGANIZ ATION 07/25/2021 [facility] DATE CREATED AUTHOR AUTHOR'S ORGANIZ ATION 03/07/2022 [facility] FOR RECORDS PERTAINING TO PATIENTS WHO ARE OR HAVE BEEN ENROLLED IN A CHEMICAL DEPENDENCY/SUBSTANCEABUSE PROGRAM, SOME INFORMATION MAY BE OMITTED. This clinical summary was aggregated from multiple sources. Caution should be exercised in using it in the provision of clinical care. This summary normalizes information from multiple sources, and as a consequence, information in this document may materially change the coding, format and clinical context of patient data. In addition, data may be omitted in some cases. CLINICAL DECISIONS SHOULD BE BASED ON THE PRIMARY CLINICAL RECORDS. [facility] [facility]. provides no warranty or guarantee of the accuracy or completeness of information in this document.
[2023-06-13 08:32] LABS: Absolute Lymphocyte Count 2.42 X10^3/uL (0.83-4.51); Absolute Neutrophil Count 4.1 X10^3/uL (2.0-7.7); Basophil# 0.08 X10^3/uL; Basophil% 1.1 % (0-1); Eosinophil# 0.13 X10^3/uL; Eosinophils% 1.7 % (0-5); Hematocrit 41.9 % (40-54); Hemoglobin 13.6 g/dL (13.0-16.5); Lymphocyte # 2.42 X10^3/ul (0.83-4.51); Lymphocyte % 32.2 % (19-41); Mean Corp Hgb Conc 32.5 g/dL (32-36); Mean Corpuscular Hgb 28.4 pg (27.0-32.0); Mean Corpuscular Volume 87.5 fL (80-94); Monocyte# 0.79 X10^3/uL; Monocyte% 10.5 % (0-10); NRBC Flagged by Analyzer 0 % (0-5); Neutrophil # 4.07 X10^3/uL (2.7-7.7); Neutrophil % 54.2 % (47-70); Platelet Count 207 K/mm3 (150-450); RBC Distribution Width CV 13.1 % (11.6-14.6); Red Blood Count 4.79 M/mm3 (4.6-6.2); White Blood Count 7.5 K/mm3 (4.4-11.0)
[2023-06-13 08:59] LABS: ALB/GLOB Ratio 1.1 RATIO (0.9-2.4); AST(SGOT) 16 U/L (15-37); Alanine Aminotransfer ALT/SGPT 23 U/L (16-61); Alkaline Phosphatase 132 U/L (45-117); Anion Gap 5 (5-15); BUN 35 mg/dL (7-18); BUN/Creat Ratio 29.9 RATIO (10-20); Calcium,Total 9.2 mg/dL (8.5-10.1); Chloride 112 mmol/L (98-107); Creatinine, Serum 1.17 mg/dL (0.70-1.30); EST Glomerular Filtration Rate 63 mL/min (>60); Est Glom Filt Rate - Afr Amer 76 mL/min (>60); Globulin 2.8 g/dL (2.2-4.2); Glucose 112 mg/dL (74-106); Potassium 3.8 mmol/L (3.5-5.1); Protein, Total 5.8 g/dL (6.4-8.2); Sodium Level 143 mmol/L (136-145)
== END ==
LOC: OLS.WHLEAS 05:00
PROVIDERS: PCP Internal Medicine; Visit Provider Internal Medicine
DX: R53.83 Other fatigue (principal); M62.82 Rhabdomyolysis; N40.1 Benign prostatic hyperplasia with lower urinary tract symptoms; E44.1 Mild protein-calorie malnutrition
CPT/HCPCS: 36415; 80053; 85025

== ENCOUNTER → 2023-07-15 | Outpatient (REF) | payer MEDICARE, OTHER, SELFPAY ==
[2023-07-15 08:23] LABS: Hematocrit 46.3 % (40-54); Hemoglobin 14.8 g/dL (13.0-16.5); Mean Corpuscular Hgb 28.9 pg (27.0-32.0); Mean Corpuscular Volume 90.4 fL (80-94); Mean Platelet Vol. 9.8 fl (6.2-12.0); Platelet Count 271 K/mm3 (150-450); RBC Distribution Width CV 13.2 % (11.6-14.6); Red Blood Count 5.12 M/mm3 (4.6-6.2); White Blood Count 8.2 K/mm3 (4.4-11.0)
[2023-07-15 11:42] LABS: ALB/GLOB Ratio 1.3 RATIO (0.9-2.4); AST(SGOT) 18 U/L (15-37); Alanine Aminotransfer ALT/SGPT 32 U/L (16-61); Albumin, Serum 3.6 g/dL (3.2-5.0); Alkaline Phosphatase 137 U/L (45-117); Anion Gap 4 (5-15); BUN 34 mg/dL (7-18); BUN/Creat Ratio 28.6 RATIO (10-20); Calcium,Total 9.6 mg/dL (8.5-10.1); Chloride 114 mmol/L (98-107); Creatinine, Serum 1.19 mg/dL (0.70-1.30); EST Glomerular Filtration Rate 62 mL/min (>60); Est Glom Filt Rate - Afr Amer 75 mL/min (>60); Globulin 2.8 g/dL (2.2-4.2); Glucose 106 mg/dL (74-106); Potassium 4.2 mmol/L (3.5-5.1); Protein, Total 6.4 g/dL (6.4-8.2); Sodium Level 146 mmol/L (136-145)
== END ==
LOC: OLS.WHLEAS 05:00
PROVIDERS: PCP Internal Medicine; Visit Provider Internal Medicine
DX: R53.83 Other fatigue (principal); M62.82 Rhabdomyolysis; E44.1 Mild protein-calorie malnutrition
CPT/HCPCS: 36415; 80053; 85027

== ENCOUNTER → 2023-07-18 | Outpatient (CLI) | payer MEDICARE, OTHER, SELFPAY ==
--- OUTSIDE RECORDS SUMMARY | 2023-07-18 20:35 | XMS RPT_ITS | CCD ---
Author Name Unknown Address [address] [place] [address] Organization [facility] Care Team Providers Care End Finder Forming Department Name Role Phone WILIAM ZHU Unavailable Unavailable [...] 02-22-2022 Emergency department patient visit WILIAM ZHU Facility:[facility] Start: 04-23-2018 End: 04-23-2018 Evaluation and management of inpatient BAKARI N NOELLE Facility:[facility] Start: 04-23-2018 End: 04-23-2018 Patient encounter procedure BAAKRI NABI NOELLE [facility] Start: 12-24-2017 End: 12-24-2017 Patient encounter [...] visit Payers Date Payer Category Payer Medicare [id number] 1989 Medicare [id number] 1935 Unknown [id number] 2.16.8 [id number] 1935 Unknown [id number] 2.16.8 [id number] 1935 Unknown [id number] 2.16.8 [id number] 1937 Unknown [id number] 2.16.8 [id number] Medicare [id number] Progress note 08-18-2020 Note Date & Type Note Facility 08-18-2020 Note HNO ID: [id number] Author: Dionne Gonzalez (Cns) Service: ? Author Type: Nurse Specialist Type: Progress Notes Filed: 08/18/2020 11:12 AM Note Text: SUBJECTIVE: DTAP,TDAP,TD(1 - Tdap) due on 1956 SHINGRIX VACCINE(1 of 2) Completed ADVANCE DIRECTIVE DISCUSSION Completed INFLUENZA(1) Completed HPI Earnest Woods is a 85 year old male. Presents today to [facility] care. Former patient of Dr. Zhu. Current PCP: none Specialists: [facility] -follow-up chronic wound left forearm and hand, Dr. Jiménez urology [facility]- BPH, LUTS, hematuria, Dr. Florence ID [facility] - MSSA, tenosynovitis following Night ,[facility] for bipolar. Last seen by primary care physician by Dr. Zhu, states none since that time. Presents with his who provides most of the history, he is mostly nonverbal. No outside records from [facility] available at the time of this visit. Covid19 positive admission [facility] 06/07/2020. Review of discharge summary shows admission [...] until he was ready for [facility]. He was [facility] on June 07, sent home with Eliquis [...] his admission due to toenails. Discharged from [facility] July 12, 2020. She notes he [...] where they are coming from. Previously had [facility]. She notes her drives. She knows she cannot drive due to decreased vision. She does the cooking, no Meals on Wheels currently. Notes she is doing well, states she has a daughter available if help is needed. She notes she has power of title attorney for her , no copies presented at [...] - CMP (CMP) (more content not included)... [facility] Summary Purpose Family History No Family History Records FoundNo Family History Records FoundNo Family History Records FoundNo Family History Records FoundNo Family History Records FoundNo Family History Records Found Advance Directives No Advanced Directives Records FoundNo Advanced Directives Records FoundNo Advanced Directives Records FoundNo Advanced Directives Records FoundNo Advanced Directives Records FoundNo Advanced Directives Records Found Procedure Findings Note HNO ID: [id number]: Asha Yang MirService: GastroenterologyAuthor Type: PhysicianType: Brief Op NoteFiled: 11/19/2017 3:34 PMNote Text:BRIEF OPERATIVE / PROCEDURE NOTELOG ID: [id number]/PROCEDURE DATE: 11/19/2017SURGEON(S)/PROCEDURALIST(S) AND JUNIOR SOFTWARE DEVELOPER(S): Bakari Yang Noelle - PrimaryendoscopistINDICATION: Obstructive jaundicePRE-OP/PRE-PROCEDURE [...] CBDand GB for possible malignancy 2. Spyglass cholangioscopyDict#[id number]: Bakari Peterson (more content not included)... Note HNO ID: [id number]: Asha Yang MirService: GastroenterologyAuthor Type: PhysicianType: Brief Op NoteFiled: 12/24/2017 5:48 PMNote Text:BRIEF OPERATIVE / PROCEDURE NOTELOG ID: [id number]/PROCEDURE DATE: 12/24/2017SURGEON(S)/PROCEDURALIST(S) AND JUNIOR SOFTWARE DEVELOPER(S): Bakari Rowland - PrimaryendoscopistINDICATION: Retained CBD stonesPRE-OP/PRE-PROCEDURE DIAGNOSIS: samePOST-OP/POST-PROCEDURE DIAGNOSIS: two retained CBD stones with a smoothCBD stricturePROCEDURE(S): ERCP W/ removal of old plastic stent, balloon occlusioncholangiogram, mechanical lithotripsy x 2, replacement of 10 Fr 9 cmplastic CBD stentANESTHESIA: GeneralFINDINGS: As aboveESTIMATED BLOOD LOSS: NoneSPECIMENS: noneCOMPLICATIONS: NonePOST-PROCEDURE RECOMMENDATIONS/FOLLOW UP: Schedule Rpt. ERCP/ Spyglasscholangioscopy in 4-6 weeksDict-[id number]: Bakari Rowland MD PATIENT NAME: Earnest WoodsDATE: 12/24/2017 : normal Note HNO ID: [id number]: Asha ricky Yang MirService: GastroenterologyAuthor Type: PhysicianType: Brief Op NoteFiled: 04/23/2018 5:10 PMNote Text:BRIEF OPERATIVE / PROCEDURE NOTELOG ID: [id number]/PROCEDURE DATE: 04/23/2018SURGEON(S)/PROCEDURALIST(S) AND JUNIOR SOFTWARE DEVELOPER(S): Bakari Rowland - PrimaryendoscopistINDICATION: Retained bile duct stonesPRE-OP/PRE-PROCEDURE DIAGNOSIS: samePOST-OP/POST-PROCEDURE DIAGNOSIS: 1. Retained stone in Rt. hepatit duct 2.Benign CBD stricturePROCEDURE(S): ERCP/ Spyglass cholangioscopy/ removal of CBD stent/balloonsweep and extraction of broken up stones/ mechanical lithotripsy of stonefragmentsANESTHESIA: GeneralFINDINGS: as aboveESTIMATED BLOOD LOSS: NoneSPECIMENS: noneCOMPLICATIONS: NonePOST-PROCEDURE RECOMMENDATIONS/FOLLOW UP: Lap. Yadira [id number]: Bakari Rowland MD PATIENT NAME: Earnest WoodsDATE: 04/23/2018 : normal Note HNO ID: [id number]: Ra janina Nugent: General SurgeryAutho Type: PhysicianType: Discharge SummariesFiled: 11/23/2017 7:41 PMNote Text:DISCHARGE SUMMARYPATIENT NAME: Earnest WoodsMRN: [id number] Information Admission Information ADMIT DATE: 11/18/2017DISCHARGE DATE: 11/23/17MY DOCTORS AND MEDICAL TEAM:[facility] Doctor: Edie Calvert Care Provider: Darrius Winn Medical Team Members: Treatment Team:Attending Provider: Edie BautistaConsulting: Jocelyn BergmanConsuing: Gus Pavon Service: [facility] CopperConsulting: Aidan ChavezggalConsulting: Toñito Rowe CONDITION AT DISCHARGE: StableREASON I WAS IN THE HOSPITAL: Obstructive jaundice secondary toCholedocholithiasisSUMMARY OF WHAT HAPPENED WHILE I WAS IN THE HOSPITAL: Patient [facility] from [facility] 11/18/17 with painless obstructive jaundice x 2 weeks and a urinarytract infection. An ERCP was completed showing strict (more content not included)... Hospital Course Note HNO ID: [id number]: Ra janina Nugent: [facility]Aut[facility] Type: PhysicianType: Discharge SummariesFiled: 11/23/2017 7:41 PMNote Text:DISCHARGE SUMMARYPATIENT NAME: Earnest WoodsMRN: [id number] Information Admission Information ADMIT DATE: 11/18/2017DISCHARGE DATE: 11/23/17MY DOCTORS AND MEDICAL TEAM:[facility] Doctor: Edie Calvert Care Provider: Darrius Winn Medical Team Members: Treatment Team:Attending Provider: Edie BautistaConsulting: Jocelyn BergmanConsuing: Gus Pavon Service: [facility] CopperConsulting: Aidan ShaveralCjosé miguelulting: Toñito Rowe CONDITION AT DISCHARGE: StableREASON I WAS IN THE HOSPITAL: Obstructive jaundice secondary toCholedocholithiasisSUMMARY OF WHAT HAPPENED WHILE I WAS IN THE HOSPITAL: Patient presentedto [facility] for medical admission and treatment from [facility] 11/18/17 with painless obstructive jaundice [...] DATE CREATED AUTHOR AUTHOR'S ORGANIZ ATION 05/14/2018 [facility] DATE CREATED AUTHOR AUTHOR'S ORGANIZ ATION 07/14/2020 [facility] DATE CREATED AUTHOR AUTHOR'S ORGANIZ ATION 12/15/2020 [facility] DATE CREATED AUTHOR AUTHOR'S ORGANIZ ATION 07/25/2021 [facility] DATE CREATED AUTHOR AUTHOR'S ORGANIZ ATION 03/07/2022 [facility] FOR RECORDS PERTAINING TO PATIENTS WHO [...] BE BASED ON THE PRIMARY CLINICAL RECORDS. [employer] [facility]. provides no warranty or guarantee of the accuracy or completeness of information in this document.
== END | disposition home or self-care (01) ==
LOC: LABSPEC 14:45
PROVIDERS: PCP Internal Medicine; Referring Provider Urology; Visit Provider Urology
DX: R30.0 Dysuria (principal)
CPT/HCPCS: 87077; 87086; 87088; 87186

== ENCOUNTER → 2023-08-07 | Outpatient (CLI) | payer MEDICARE, OTHER, SELFPAY ==
--- NOTE | 2023-08-07 14:29 | CT_ITS ---
INDICATION: DORSALGIA EXAMINATION: CT ABDOMEN AND PELVIS WITHOUT CONTRAST TECHNIQUE: Helically acquired images were obtained of the abdomen and pelvis without oral or IV contrast. A radiation dose optimization technique was used for this scan. IV Contrast dosage and agent: None. Oral contrast: None. RADIATION DOSAGE (If Supplied By Facility): CTDIvol = ( 6.96 ) mGy, DLP = ( 368.81 ) mGycm COMPARISON: CTA of the chest of 06/01/2020. FINDINGS: LOWER CHEST: Hyperinflated lungs focal density abutting the left hemidiaphragm likely due to atelectasis. No cardiomegaly or pericardial effusion. Coronary calcifications. LIVER: Persistent pneumobilia. Calcifications in the right lobe of the liver. No focal lesion is seen without contrast. GALLBLADDER AND BILIARY TREE: Nonvisualization of gallbladder likely surgically removed. No intra- or extrahepatic biliary ductal dilation. PANCREAS: No focal cystic or solid mass. SPLEEN: Calcified granulomata in the spleen. ADRENAL GLANDS: Prominent left adrenal gland appears to be unchanged. KIDNEYS AND URETERS: 3.2 cm simple cyst in the right kidney. 2.3 cm cyst in the medial aspect of the left kidney shows no further follow-up exam is needed for renal cysts. No hydronephrosis. PERITONEUM: No ascites or free air. No other fluid collection. BOWEL: Significant motion artifacts limiting the examination of the bowel loops. The appendix is not definitely identified. Fecal retention. Sigmoid diverticulosis. No definite acute diverticulitis are available for the significant artifacts. Thickening of the rectum could be due to underdistention. No focal inflammatory change. LYMPH NODES: No enlarged mesenteric or retroperitoneal lymph nodes. VESSELS: Atherosclerotic calcifications and tortuosity of the thoracic aorta without evidence of aneurysm. Calcifications of the origin of the right renal artery. URINARY BLADDER: Unremarkable. REPRODUCTIVE ORGANS: Slightly prominent prostate. ABDOMINAL WALL: No discrete abdominal or pelvic wall hernia. BONES: No lytic or blastic abnormality. Multilevel degenerative changes of the spine. Severe narrowing of L2-L3 disc space. Schmorl''s nodes at multiple levels in the lower thoracic spine CT/Abdomen/Pelvis without Cont IMPRESSION: 1. Limited examination due to significant motion artifacts. 2. Demineralization about the left hemidiaphragm likely due to atelectasis. 3. No focal acute inflammatory process. 4. Diverticulosis without evidence of diverticulitis. Thickening of the antrum could be due to underdistention. 5. Slightly prominent prostate. 6. Multilevel degenerative changes of the spine. Electronically Signed: Thomas Burger MD at 10:31 EST ,
== END | disposition home or self-care (01) ==
LOC: CT 14:28
PROVIDERS: PCP Internal Medicine; Referring Provider Nurse Practitioner; Visit Provider Nurse Practitioner
DX: M54.9 Dorsalgia, unspecified (principal)
CPT/HCPCS: 74176

== ENCOUNTER → 2023-09-12 | Outpatient (REF) | payer MEDICARE, OTHER, SELFPAY ==
[2023-09-12 07:45] LABS: Absolute Neutrophil Count 4.9 X10^3/uL (2.0-7.7); Basophil# 0.08 X10^3/uL; Basophil% 0.9 % (0-1); Eosinophil# 0.17 X10^3/uL; Eosinophils% 1.9 % (0-5); Hematocrit 43.2 % (40-54); Hemoglobin 14.2 g/dL (13.0-16.5); Lymphocyte % 33.3 % (19-41); Mean Corp Hgb Conc 32.9 g/dL (32-36); Mean Corpuscular Hgb 28.8 pg (27.0-32.0); Mean Corpuscular Volume 87.6 fL (80-94); Mean Platelet Vol. 9.8 fl (6.2-12.0); Monocyte# 0.87 X10^3/uL; Monocyte% 9.6 % (0-10); NRBC Flagged by Analyzer 0 % (0-5); Neutrophil # 4.85 X10^3/uL (2.7-7.7); Neutrophil % 53.7 % (47-70); Platelet Count 246 K/mm3 (150-450); RBC Distribution Width CV 12.5 % (11.6-14.6); RBC Distribution Width SD 40.2 fl (35.1-43.9); Red Blood Count 4.93 M/mm3 (4.6-6.2)
[2023-09-12 08:19] LABS: ALB/GLOB Ratio 1.4 RATIO (0.9-2.4); AST(SGOT) 20 U/L (15-37); Alanine Aminotransfer ALT/SGPT 39 U/L (16-61); Albumin, Serum 3.4 g/dL (3.2-5.0); Alkaline Phosphatase 112 U/L (45-117); Anion Gap 1 (5-15); BUN 30 mg/dL (7-18); BUN/Creat Ratio 27.8 RATIO (10-20); Calcium,Total 9.3 mg/dL (8.5-10.1); Chloride 111 mmol/L (98-107); Creatinine, Serum 1.08 mg/dL (0.70-1.30); EST Glomerular Filtration Rate 69 mL/min (>60); Est Glom Filt Rate - Afr Amer 83 mL/min (>60); Globulin 2.5 g/dL (2.2-4.2); Glucose 113 mg/dL (74-106); Potassium 3.9 mmol/L (3.5-5.1); Protein, Total 5.9 g/dL (6.4-8.2); Sodium Level 142 mmol/L (136-145)
== END ==
LOC: OLS.WHLEAS 05:00
PROVIDERS: PCP Internal Medicine; Visit Provider Internal Medicine
DX: R53.83 Other fatigue (principal); M62.82 Rhabdomyolysis; N40.1 Benign prostatic hyperplasia with lower urinary tract symptoms; E44.1 Mild protein-calorie malnutrition
CPT/HCPCS: 36415; 80053; 85025

== ENCOUNTER 2023-12-08 07:50 | Emergency (ER) | payer MEDICARE, OTHER, SELFPAY ==
[2023-12-08 07:51] VITALS: BP 169/97; PULSE 105; RESP 20; TEMP 36.3; O2SAT 96; BMI 23.8
[2023-12-08 07:56] VITALS: BP 169/97; PULSE 108; RESP 20; TEMP 36.6; O2SAT 96
--- NOTE | 2023-12-08 08:38 | EDS_ITS ---
HPI History of Present Illness Chief Complaint: Alt LOC Detail of Chief Complaint: Patient swung at [facility] employee because he was agitated Informant: patient, EMS and SNF Onset/Context/Timing Onset: Today (Change in behavior) Context: Sudden Onset Timing: Intermittent Quality: Patient admits he swung at worker because he was agitated. Location: [facility] Current Severity: Gone Maximum Severity: Moderate Worsened by: Patient states he did not sleep well and was agitated because he did not sl Relieved by: Not applicable Associated Symptoms Associated Symptoms: Patient has no complaints other than he is tired and agitated Narrative Narrative: Patient is an 88-year-old male. He has history of lymphoma, dementia, BP H/cancer per patient, frequent falls with failure to thrive. Patient states he did not sleep well because person Had TV on. He is grumpy. He admits he swung at nursing staff. He denies fever, chills night sweats. He denies headache. He denies visual, ocular auditory symptoms. He denies upper respiratory symptoms. He denies chest discomfort or shortness of breath. He does admit problems with urination due to prostate issues. He denies dysuria, hematuria or urgency. He denies flank pain. Patient denies paresthesia, anesthesia or motor weakness. Prior similar symptoms: No Recent Illness/Hospitalization: No PFSH PFSH Medical History Failure to thrive in adult Skin breakdown Fall at home Complete edentulism, class III Loss of hearing Non-Hodgkin lymphoma Confused Bipolar disorder Ambulates with cane Bladder disease Prostate disease Non-smoker Lives in [facility] Anemia Peripheral arterial disease Sealy toxicity Bipolar disorder Home Medications ?Medication ?Instructions ?Recorded ?Last Taken ?Type olanzapine 7.5 mg tablet (Zyprexa) 7.5 mg PO QHS MOOD 04/18/14 08/28/22 History oxybutynin chloride 15 mg 15 mg PO QHS BLADDER 05/18/20 08/28/22 History tablet,extended release 24 hr finasteride 5 mg tablet 5 mg PO DAILY PROSTATE 07/23/22 08/28/22 History lactobacillus combination no.9 4 4,000 mmu cells PO DAILY GUT HEALTH 07/23/22 08/28/22 History billion cell capsule (Adult 50 Plus Probiotic) tamsulosin 0.4 mg capsule 0.4 mg PO QHS PROSTATE 07/23/22 08/28/22 History acetaminophen 325 mg tablet 650 mg (2 x 325 mg) PO Q6H PRN PRN 07/25/22 Unknown Rx (Tylenol) Pain 1-10 Or Fever >100.7 #0 tabs arginine 7 gram-glutam 7 1 packet PO BIDCM #0 ea 07/25/22 08/28/22 Rx gram-CaHMB 1.5 [id number]-hy-min oral pwd pkt (Darren (with collagen)) nystatin 100,000 unit/gram topical 1 applic topical BID #0 grams 07/25/22 Unknown Rx powder (Nyamyc) ciprofloxacin HCl 500 mg tablet 500 mg PO BID #20 tabs 08/29/22 Unknown Rx docusate sodium 100 mg capsule 100 mg PO BID #20 caps 08/29/22 Unknown Rx (Colace) oxycodone-acetaminophen 5 mg-325 1 tab PO Q6H PRN pain 7 days #20 08/29/22 Unknown Rx mg tablet (Endocet) tabs ciprofloxacin HCl 500 mg tablet 500 mg PO BID #14 TABLETS 12/08/23 Unknown Rx Allergy/AdvReac Type Severity Reaction Status Date / Time No Known Allergies Allergy Verified 08/29/22 09:28 Surgical History History of incision and drainage Hx of hand surgery Social History household members: none Smoking Status: Never smoker substance use type: does not use ROS ROS ED Constitutional Constitutional ED: Denies chills, fever(s), subjective, sweats or weight loss Eyes Eyes: Denies blurry vision or change in vision ENT ENT ED: Denies ear pain, rhinorrhea or sore throat Cardiovascular Cardiovascular: Denies chest pain or palpitations Respiratory/Chest Respiratory/Chest: Denies cough, dyspnea or dyspnea on exertion Gastrointestinal Gastrointestinal: Denies abdominal pain, diarrhea, nausea or vomiting Genitourinary Genitourinary ED: Reports other Details: Patient has incontinence, which is a chronic issue. ; Denies dysuria, hematuria or urinary frequency Musculoskeletal Musculoskeletal: Denies arthralgias, back pain or myalgias Integumentary Denies rash Neurologic Neurologic: Denies headache(s), paresthesias or weakness Psychiatric Psychiatric: Reports other Details: Patient admits he is agitated because he did not sleep. ; Denies anxiety or depression Hematologic/Lymphatic Hematologic/Lymphatic: Reports systems reviewed and no addt'l complaints, except as documented EXAM Physical Exam Const Vital Signs: 12/08/23 07:51 12/08/23 07:56 12/08/23 08:51 Temperature 97.4 F L 98 F Temperature Source Temporal Temporal Pulse Rate 105 H 108 H 107 H Respiratory Rate 20 H 20 H 18 Blood Pressure 169/97 H 169/97 H 169/97 H Blood Pressure Mean 121 121 121 Pulse Ox 96 96 95 Oxygen Delivery Method Room Air Room Air Room Air 12/08/23 08:56 12/08/23 10:00 12/08/23 10:00 Temperature 98.3 F 97.9 F Temperature Source Temporal Temporal Pulse Rate 107 H 112 H 112 H Respiratory Rate 18 18 18 Blood Pressure 169/97 H 161/119 H 161/119 H Blood Pressure Mean 121 133 133 Pulse Ox 94 94 94 Oxygen Delivery Method Room Air Room Air Room Air Positive well nourished, well developed and unkempt General Appearance ED: unkempt, well developed, NAD and pallor; Negative for cyanotic or diaphoretic HEENT Reports dry mucous membranes HEENT Narrative: Head is atraumatic no cephalic. Ears normal. Nares patent. Posterior pharynx is normal. Mouth ED: Yes dry mucous membranes Mouth: dry mucous membranes Eyes PERRL and EOMs intact bilaterally General Eye ED: Negative for pale conjunctiva or scleral icterus Neck no lymphadenopathy, supple and no JVD Chest Wall inspection of chest normal and palpation of chest normal Resp normal respiratory effort and clear to auscultation bilaterally Cardio regular rhythm, S1 normal heart sound, S2 normal heart sound and no murmurs Rate: tachycardic GI normal to inspection, nondistended, normoactive bowel sounds, non-tender, non- distended and no masses; Negative for hepatosplenomegaly Back/Spine no CVA tenderness Extremity Extremity Narrative: Long fingernails. Mild edema lower extremity exam. Neuro oriented x3 and CN's II-XII intact bilaterally Neuro Narrative: Moves all extremities. Sensorium / Orientation: alert Psych Appearance: unkempt Skin Skin Narrative: Dry skin. There is no mottling. There is no delayed capillary refill. General Skin Exam: pallor MDM MDM MDM Narrative Medical decision making narrative: This may be behavioral since he has history of dementia with lack of sleep. With him having incontinence and this being unusual behavior will obtain blood work to assess for metabolic and infectious cause. I was informed by nursing staff that Peterson could not be placed using coud? etc. His urine does have a foul odor to it. Lab Data Attestation: I reviewed the patient's lab results. Lab results narrative: CBC is normal. Comprehensive metabolic panel shows an elevated BUN to creatinine ratio approximate 27-1. BUN is elevated 33 and creatinine is elevated 1.21. BUN has been elevated in the past. Creatinine slightly elevated compared to prior. Estimated GFR is 60. Glucose is elevated 148 with a normal CO2 anion gap. Urinalysis macro reveals occult blood and leukoesterase. There is also protein. Micro is pending. Microscopic urine reveals pyuria and bacteria. Will treat with antibiotics especially since he has history of prostate cancer. Will send urine culture as well. Labs: Laboratory Results - last 24 hr 12/08/23 12/08/23 08:15 09:25 WBC 9.6 RBC 5.21 Hgb 15.1 Hct 45.8 MCV 87.9 MCH 29.0 MCHC 33.0 RDW Std Deviation 41.1 RDW Coeff of Nahed 12.8 Plt Count 236 MPV 9.7 Immature Gran % (Auto) 0.600 Neut % (Auto) 66.7 Lymph % (Auto) 23.0 [place] % (Auto) 8.7 Eos % (Auto) 0.4 Baso % (Auto) 0.6 Absolute Neuts (auto) 6.4 Absolute Lymphs (auto) 2.20 Nucleated RBC % 0 Sodium 139 Potassium 3.6 Chloride 107 Carbon Dioxide 24.0 Anion Gap 8 BUN 33 H Creatinine 1.21 Estim Creat Clear Calc 48.10 Est GFR (MDRD) Af Amer 73 Est GFR (MDRD) Non-Af 60 BUN/Creatinine Ratio 27.3 H Glucose 148 H Calcium 9.3 Total Bilirubin 0.50 AST 22 ALT 31 Alkaline Phosphatase 150 H Total Protein 6.6 Albumin 3.8 Globulin 2.8 Albumin/Globulin Ratio 1.4 Urine Color Yellow Urine Clarity Clear Urine pH 6.5 Ur Specific Isabel 1.010 Urine Protein 30 H Urine Glucose (UA) Normal Urine Ketones Negative Urine Occult Blood 250 H Urine Nitrite Negative Urine Bilirubin Negative Urine Urobilinogen Normal Ur Leukocyte Esterase 500 H Urine RBC 0 SEEN Urine WBC 5-10 SEEN Ur Squamous Epith Cells 0 SEEN Urine Bacteria 2+ Urine Mucus 0 SEEN Treatment and Re-Evaluation :: Patient is stable to return to nursing facility on oral antibiotics. Area under the curve is same for IV versus p.o. and there is no benefit of IV at this time. Discharge Plan Triage Chief Complaint: Alt LOC ED Provider: Anival Mensah Dx/Rx/DC Orders Clinical Impression: Urinary tract infection, History of prostate cancer, Dementia, Agitation, Acute prerenal azotemia, Sinus tachycardia seen on desk monitor, Elevated blood pressure reading without diagnosis of hypertension Instructions: ED Bladder Infection, Male (Adult) Prescriptions: New ciprofloxacin HCl 500 mg tablet 500 mg PO BID Qty: 14 0RF No Action olanzapine [Zyprexa] 7.5 MG tablet 7.5 mg PO QHS oxybutynin chloride 15 MG tablet extended release 24hr 15 mg PO QHS oxycodone-acetaminophen [Endocet] 5-325 mg tablet 1 tab PO Q6H PRN (Reason: pain) 7 Days Qty: 20 0RF docusate sodium [Colace] 100 mg capsule 100 mg PO BID Qty: 20 0RF ciprofloxacin HCl 500 mg tablet 500 mg PO BID Qty: 20 0RF tamsulosin 0.4 mg capsule 0.4 mg PO QHS finasteride 5 mg tablet 5 mg PO DAILY Adult 50 Plus Probiotic 4 billion cell capsule 4,000 mmu cells PO DAILY acetaminophen [Tylenol] 325 mg Tablet 650 mg PO Q6H PRN PRN (Reason: Pain 1-10 Or Fever >100.7) Qty: 0 0RF nystatin [Nyamyc] 100,000 unit/gram Powder 1 applic topical BID Qty: 0 0RF Protocol: *Topical Application Instructions APPLICATION INSTRUCTIONS: groin Darren (with collagen) 7-7-1.5 gram Powder In Packet 1 packet PO BIDCM Qty: 0 0RF Primary Care Provider: Yoanna Brewer Referrals: Yoanna Brewer MD [Primary Care Provider] - 3-5 Days Print Language: Kazakh Disposition Disposition: Intermediate Facility
[2023-12-08 08:39] LABS: Absolute Neutrophil Count 6.4 X10^3/uL (2.0-7.7); Basophil# 0.06 X10^3/uL; Basophil% 0.6 % (0-1); Eosinophil# 0.04 X10^3/uL; Eosinophils% 0.4 % (0-5); Hematocrit 45.8 % (40-54); Hemoglobin 15.1 g/dL (13.0-16.5); Mean Corpuscular Volume 87.9 fL (80-94); Mean Platelet Vol. 9.7 fl (6.2-12.0); Monocyte# 0.83 X10^3/uL; Monocyte% 8.7 % (0-10); NRBC Flagged by Analyzer 0 % (0-5); Neutrophil # 6.37 X10^3/uL (2.7-7.7); Neutrophil % 66.7 % (47-70); Platelet Count 236 K/mm3 (150-450); RBC Distribution Width CV 12.8 % (11.6-14.6); RBC Distribution Width SD 41.1 fl (35.1-43.9); Red Blood Count 5.21 M/mm3 (4.6-6.2); White Blood Count 9.6 K/mm3 (4.4-11.0)
[2023-12-08 08:51] VITALS: BP 169/97; PULSE 107; RESP 18; O2SAT 95
[2023-12-08 08:54] LABS: ALB/GLOB Ratio 1.4 RATIO (0.9-2.4); AST(SGOT) 22 U/L (15-37); Alanine Aminotransfer ALT/SGPT 31 U/L (16-61); Albumin, Serum 3.8 g/dL (3.2-5.0); Alkaline Phosphatase 150 U/L (45-117); Anion Gap 8 (5-15); BUN 33 mg/dL (7-18); BUN/Creat Ratio 27.3 RATIO (10-20); Calcium,Total 9.3 mg/dL (8.5-10.1); Chloride 107 mmol/L (98-107); Creatinine, Serum 1.21 mg/dL (0.70-1.30); EST Glomerular Filtration Rate 60 mL/min (>60); Est Glom Filt Rate - Afr Amer 73 mL/min (>60); Globulin 2.8 g/dL (2.2-4.2); Glucose 148 mg/dL (74-106); Potassium 3.6 mmol/L (3.5-5.1); Protein, Total 6.6 g/dL (6.4-8.2); Sodium Level 139 mmol/L (136-145)
[2023-12-08 08:56] VITALS: BP 169/97; PULSE 107; RESP 18; TEMP 36.8; O2SAT 94
[2023-12-08 09:41] LABS: Mucous, Urine 0 SEEN /hpf (<or=2+); Red Blood Cells-Urine 0 SEEN /hpf (0-5); Squamous Epithelial Cells - UA 0 SEEN /hpf (0-5)
[2023-12-08 09:44] LABS: Color, Urine Yellow (Yellow); Glucose, Dipstick Normal (Normal); Ketone-Dipstick Negative (Negative); Leukocyte Esterase-Dipstick 500 /ul (Negative); Nitrite-Dipstick Negative (Negative); Occult Blood-Urine 250 /ul (Negative); Protein-Dipstick 30 mg/dl (Negative); Urine Bilirubin Dipstick Negative (Negative); Urine Clarity Clear (Clear); Urine Urobilinogen Normal (Normal); Urine pH 6.5 (5.0 - 8.0)
[2023-12-08 09:59] LABS: Bacteria 2+ /hpf (None Seen); White Blood Cells 5-10 SEEN /hpf (0-5)
[2023-12-08 10:00] VITALS: BP 161/119; PULSE 112; RESP 18; TEMP 36.6; O2SAT 94
--- NOTE | 2023-12-08 10:04 | ED.RN ---
Patient offered oatmeal that he requested. Patient denies want at this time and just wants to rest
[2023-12-08 10:38] VITALS: BP 163/99; PULSE 113; RESP 18; TEMP 36.4; O2SAT 94
== END 2023-12-08 11:00 | disposition skilled nursing facility (03) ==
PROVIDERS: Emergency Provider Emergency Medicine; PCP Internal Medicine; Visit Provider Emergency Medicine
DX: F03.911 Unspecified dementia, unspecified severity, with agitation (principal); N39.0 Urinary tract infection, site not specified; Z85.46 Personal history of malignant neoplasm of prostate; R79.89 Other specified abnormal findings of blood chemistry; R00.0 Tachycardia, unspecified; R03.0 Elevated blood-pressure reading, without diagnosis of hypertension; N40.0 Benign prostatic hyperplasia without lower urinary tract symptoms
CPT/HCPCS: 80053; 81001; 85025; 99283; A4216

== ENCOUNTER → 2023-12-12 | Outpatient (REF) | payer MEDICARE, OTHER, SELFPAY ==
[2023-12-12 07:10] LABS: Absolute Lymphocyte Count 2.58 X10^3/uL (0.83-4.51); Absolute Neutrophil Count 4.8 X10^3/uL (2.0-7.7); Basophil# 0.09 X10^3/uL; Basophil% 1.1 % (0-1); Eosinophil# 0.14 X10^3/uL; Eosinophils% 1.6 % (0-5); Hematocrit 44.7 % (40-54); Hemoglobin 14.3 g/dL (13.0-16.5); Lymphocyte # 2.58 X10^3/ul (0.83-4.51); Lymphocyte % 30.2 % (19-41); Mean Corpuscular Hgb 28.3 pg (27.0-32.0); Mean Corpuscular Volume 88.5 fL (80-94); Mean Platelet Vol. 9.7 fl (6.2-12.0); Monocyte# 0.88 X10^3/uL; Monocyte% 10.3 % (0-10); NRBC Flagged by Analyzer 0 % (0-5); Neutrophil # 4.81 X10^3/uL (2.7-7.7); Neutrophil % 56.3 % (47-70); Platelet Count 236 K/mm3 (150-450); RBC Distribution Width SD 42.1 fl (35.1-43.9); Red Blood Count 5.05 M/mm3 (4.6-6.2); White Blood Count 8.5 K/mm3 (4.4-11.0)
[2023-12-12 07:22] LABS: ALB/GLOB Ratio 1.3 RATIO (0.9-2.4); AST(SGOT) 20 U/L (15-37); Alanine Aminotransfer ALT/SGPT 27 U/L (16-61); Albumin, Serum 3.3 g/dL (3.2-5.0); Alkaline Phosphatase 139 U/L (45-117); Anion Gap 3 (5-15); BUN 25 mg/dL (7-18); BUN/Creat Ratio 22.9 RATIO (10-20); Calcium,Total 9.2 mg/dL (8.5-10.1); Chloride 110 mmol/L (98-107); Creatinine, Serum 1.09 mg/dL (0.70-1.30); EST Glomerular Filtration Rate 68 mL/min (>60); Est Glom Filt Rate - Afr Amer 82 mL/min (>60); Globulin 2.6 g/dL (2.2-4.2); Glucose 115 mg/dL (74-106); Potassium 4.1 mmol/L (3.5-5.1); Protein, Total 5.9 g/dL (6.4-8.2); Sodium Level 141 mmol/L (136-145)
== END ==
LOC: OLS.WHLEAS 05:00
PROVIDERS: PCP Internal Medicine; Referring Provider Internal Medicine; Visit Provider Internal Medicine
DX: R53.83 Other fatigue (principal)
CPT/HCPCS: 36415; 80053; 85025

== ENCOUNTER 2023-12-20 16:47 | Emergency (ER) | payer MEDICARE, OTHER, SELFPAY ==
[2023-12-20] VITALS (7 sets, daily range): BP systolic 124–171; BP diastolic 73–81; PULSE 76–99; RESP 15–21; TEMP 35.6–36.6; O2SAT 94–99; BMI 23.3
--- NOTE | 2023-12-20 16:56 | CT_ITS ---
EXAMINATION : Head CT w/out contrast HISTORY : MENTAL STATUS CHANGE COMPARISON : None. TECHNIQUE : Multiple contiguous axial images were obtained from the skull base to the vertex without intravenous contrast. A radiation dose optimization technique was used for this scan. FINDINGS : There is no evidence for mass effect, or midline shift. There are periventricular white matter changes consistent with chronic microvascular ischemic disease. There is sulcal widening and ventricular enlargement consistent with cerebral atrophy. There is normal barkley-white differentiation, without CT evidence of acute ischemia or infarct. 1.1 x 0.7 cm hyperattenuating lesion in the right anterior parafalcine region. Old right basal ganglia lacunar infarct. The skull base and calvarium are unremarkable. The orbits are unremarkable. The paranasal sinuses are clear. The mastoid air cells are well-aerated. The soft tissues are unremarkable. CT/Brain/Head without Contrast IMPRESSION: 1.1 cm hyperattenuating lesion in the right anterior parafalcine region could represent an acute epidural hematoma versus hemorrhagic mass. Correlate with prior imaging. Consider MRI. Old right basal ganglia lacunar infarct. Chronic involutional and ischemic changes of the brain. Electronically Signed: Jose Ayala MD at 17:42 EDT ,
--- NOTE | 2023-12-20 16:57 | EKG12_ITS ---
Test Reason : ALT MENTAL STATUS Blood Pressure : / mmHG Vent. Rate : 105 BPM Atrial Rate : 105 BPM P-R Int : 240 ms QRS Dur : 122 ms QT Int : 330 ms P-R-T Axes : 027 -63 037 degrees QTc Int : 436 ms Sinus tachycardia with 1st degree A-V block Right bundle branch block Left anterior fascicular block Bifascicular block Possible Lateral infarct (cited on or before 23-JUL-2022) Abnormal ECG Confirmed by JUSTINE GIRON, ERICKA ([id number]), clinical editor ZANDER PLUMMER ([id number]) on 12/23/2023 11:20:46 AM Referred By: Confirmed By:ERICKA FLETCHER MD
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
[2023-12-20] MEDS: 0.9% Normal Saline (500mL Bag) 500 ML 999 ML IV (17:11)
[2023-12-20 17:15] LABS: Absolute Lymphocyte Count 5.14 X10^3/uL (0.83-4.51); Absolute Neutrophil Count 7.6 X10^3/uL (2.0-7.7); Basophil# 0.12 X10^3/uL; Basophil% 0.8 % (0-1); Eosinophil# 0.18 X10^3/uL; Eosinophils% 1.2 % (0-5); Hematocrit 48.3 % (40-54); Hemoglobin 15.9 g/dL (13.0-16.5); Lymphocyte # 5.14 X10^3/ul (0.83-4.51); Lymphocyte % 35.2 % (19-41); Mean Corp Hgb Conc 32.9 g/dL (32-36); Mean Corpuscular Volume 88.1 fL (80-94); Mean Platelet Vol. 9.6 fl (6.2-12.0); Monocyte# 1.54 X10^3/uL; Monocyte% 10.5 % (0-10); NRBC Flagged by Analyzer 0 % (0-5); Neutrophil # 7.56 X10^3/uL (2.7-7.7); Neutrophil % 51.8 % (47-70); POSITIVE DIFFERENTIAL YES; Platelet Count 380 K/mm3 (150-450); RBC Distribution Width CV 12.9 % (11.6-14.6); RBC Distribution Width SD 41.6 fl (35.1-43.9); Red Blood Count 5.48 M/mm3 (4.6-6.2); White Blood Count 14.6 K/mm3 (4.4-11.0)
[2023-12-20 17:16] LABS: Differential Indicated SCAN CRITERIA MET
[2023-12-20 17:27] LABS: Alcohol, Blood (Medical)-Serum < 3.0 mg/dL
[2023-12-20 17:33] LABS: ALB/GLOB Ratio 1.2 RATIO (0.9-2.4); AST(SGOT) 44 U/L (15-37); Alanine Aminotransfer ALT/SGPT 50 U/L (16-61); Albumin, Serum 3.8 g/dL (3.2-5.0); Alkaline Phosphatase 148 U/L (45-117); Anion Gap 11 (5-15); BUN 35 mg/dL (7-18); Calcium,Total 9.5 mg/dL (8.5-10.1); Chloride 107 mmol/L (98-107); EST Glomerular Filtration Rate 51 mL/min (>60); Est Glom Filt Rate - Afr Amer 62 mL/min (>60); Estimated Creatinine Clearance 39.11 ml/min; Globulin 3.3 g/dL (2.2-4.2); Glucose 154 mg/dL (74-106); Potassium 4.5 mmol/L (3.5-5.1); Protein, Total 7.1 g/dL (6.4-8.2); Sodium Level 140 mmol/L (136-145)
[2023-12-20 17:50] LABS: Anisocytosis RARE; Atypical Lymphocyte 1+ %; Differential Comment SEE COMMENTS; Platelet Estimate ADEQUATE (ADEQ); Red Cell Morphology N CHROM NORMAL (NORM C&C)
[2023-12-20 17:51] LABS: Ovalocyte RARE
--- NOTE | 2023-12-20 18:12 | NURSING ---
CALLED [facility]
--- NOTE | 2023-12-20 18:32 | ED.RN ---
Report given to Radha LUCERO at [facility]. ETA 2 hours for transport
[2023-12-20] MEDS: Ziprasidone IM 20 MG/ML VIAL 10 MG IM ×2 (19:25→21:02)
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
[2023-12-20 19:38] LABS: CPK Total, Creatine Kinase 141 U/L (39-308)
--- NOTE | 2023-12-20 20:45 | ED.RN ---
PATIENT KEEPS ATTEMTPING TO RIP OUT IV AND PULL OF MEDICAL DEVICES. PATIENT REMAINS CALM WHEN NOT AROUSED
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
[2023-12-23 15:20] LABS: Pathologist Review Reviewed
== END 2023-12-20 21:20 | disposition short-term general hospital (02) ==
PROVIDERS: Emergency Provider Emergency Medicine; PCP Internal Medicine; Visit Provider Emergency Medicine
DX: I62.9 Nontraumatic intracranial hemorrhage, unspecified (principal); F31.9 Bipolar disorder, unspecified; N17.9 Acute kidney failure, unspecified; D72.829 Elevated white blood cell count, unspecified; R45.1 Restlessness and agitation; R45.6 Violent behavior; Z66 Do not resuscitate; Z79.899 Other long term (current) drug therapy
CPT/HCPCS: 70450; 80053; 82077; 82550; 85025; 93005; 96360; 96372; 99284; J7040; A4216; J3486

== ENCOUNTER → 2023-12-20 | Outpatient (REF) | payer MEDICARE, OTHER, SELFPAY ==
[2023-12-20 06:38] LABS: Bacteria 0 SEEN /hpf (None Seen); Mucous, Urine 0 SEEN /hpf (<or=2+); Red Blood Cells-Urine 0 SEEN /hpf (0-5); Squamous Epithelial Cells - UA 0 SEEN /hpf (0-5); White Blood Cells 0 SEEN /hpf (0-5)
[2023-12-20 07:17] LABS: Color, Urine Yellow (Yellow); Glucose, Dipstick Normal (Normal); Ketone-Dipstick 5 mg/dl (Negative); Leukocyte Esterase-Dipstick Negative /ul (Negative); Nitrite-Dipstick Negative (Negative); Occult Blood-Urine Negative /ul (Negative); Protein-Dipstick 15 mg/dl (Negative); Urine Bilirubin Dipstick Negative (Negative); Urine Clarity Clear (Clear); Urine Urobilinogen Normal (Normal)
== END ==
LOC: OLS.WHLEAS 04:00
PROVIDERS: PCP Internal Medicine; Visit Provider Internal Medicine
DX: N39.0 Urinary tract infection, site not specified (principal)
CPT/HCPCS: 81001; 87086

== ENCOUNTER → 2024-01-01 | Outpatient (REF) | payer MEDICARE, OTHER, SELFPAY ==
[2024-01-01 08:06] LABS: Valproic Acid (Depakene) Level 66 ug/mL (50-100)
== END ==
LOC: OLS.WHLEAS 05:00
PROVIDERS: PCP Internal Medicine; Visit Provider Internal Medicine
DX: F31.31 Bipolar disorder, current episode depressed, mild (principal)
CPT/HCPCS: 36415; 80164